=== PATIENT | female | born 1940 | race American Indian/Alaskan Native ===

== ENCOUNTER 2019-11-04 06:19 | Inpatient (IN) | payer MEDICARE ==
[2019-11-04] MEDS ORDERED: IPRATROPIUM 0.02% NEBU 2.5 ML IH ONE ×2 (06:30→06:34)
[2019-11-04] MEDS ORDERED: ALBUTEROL 2.5 MG/3 ML NEBU IH ONE ×2 (06:30→06:34)
--- NOTE | 2019-11-04 06:48 | Emergency Department Report ---
HPI - General Chief Complaint: Dyspnea/Respdistress Time Seen by Provider: 11/04/19 06:32 - HPI HPI: Room 2 The patient is an 79-year-old female present with a chief complaint of shortness of breath and chest pain. Patient states for 1 week she has had intermittent chest heaviness and shortness of breath. Patient states she has had a cough but is been nonproductive. Patient denies history of fever. Patient states she has had swelling in her lower extremities. ED Past Medical Hx - Past Medical History Previous Medical History?: Yes Hx Hypertension: Yes Hx Congestive Heart Failure: Yes Hx Diabetes: Yes Hx Asthma: Yes Hx COPD: Yes Additional medical history: AFIB - Surgical History Past Surgical History?: Yes Additional Surgical History: R knee replacement - Family History Family history: no significant - Social History Smoking Status: Former Smoker (None x20 years) Substance Use Type: None - Medications Home Medications: Home Medications Medication Instructions Recorded Confirmed Last Taken Type levoFLOXacin [Levaquin TAB] 500 mg PO QDAY #7 tablet 07/27/15 Unknown Rx predniSONE [Deltasone] 50 mg PO QDAY #3 tab 11/18/15 Unknown Rx ED Review of Systems ROS: Stated complaint: DIFF BREATHING Other details as noted in HPI Constitutional: denies: fever Eyes: denies: eye pain ENT: denies: throat pain Respiratory: cough, shortness of breath Cardiovascular: chest pain Endocrine: no symptoms reported Gastrointestinal: denies: abdominal pain Musculoskeletal: back pain Neurological: denies: headache Physical Exam - Physical Exam Vital Signs: Vital Signs 11/04/19 11/04/19 06:32 06:36 Temperature 98.8 F Pulse Rate 128 H Respiratory 26 H 26 H Rate Blood Pressure 137/79 O2 Sat by Pulse 98 Oximetry Physical Exam: GENERAL: The patient is well-developed well-nourished female sitting on stretcher exhibiting increased work of breathing. [] HEENT: Normocephalic. Atraumatic. Extraocular motions are intact. Patient has moist mucous membranes. NECK: Supple. Trachea midline CHEST/LUNGS: Diminished diffusely. There is increased work of breathing with accessory muscle use. HEART/CARDIOVASCULAR: Irregularly irregular. There is tachycardia. There is no gallop rub or murmur. ABDOMEN: Abdomen is soft, nontender. Patient has normal bowel sounds. There is no abdominal distention. SKIN: There is no rash. There is trace to 1+ bilateral lower extremity pitting edema. There is no diaphoresis. NEURO: The patient is awake, alert, and oriented. The patient is cooperative. The patient has no focal neurologic deficits. The patient has normal speech MUSCULOSKELETAL: There is no evidence of acute injury. ED Course Vital Signs 11/04/19 11/04/19 06:32 06:36 Temperature 98.8 F Pulse Rate 128 H Respiratory 26 H 26 H Rate Blood Pressure 137/79 O2 Sat by Pulse 98 Oximetry ED Medical Decision Making - Lab Data Result diagrams: 11/04/19 07:20 11/04/19 07:20 Laboratory Tests 11/04/19 11/04/19 11/04/19 07:20 07:20 07:20 WBC 8.1 RBC 2.46 L Hgb 8.1 L Hct 24.6 L MCV 100 H MCH 33 H MCHC 33 RDW 17.2 H Plt Count 170 [place] % (Auto) 14.8 H Eos % (Auto) 1.1 [place] # 1.2 H Eos # 0.1 Baso # 0.1 Seg Neutrophils % 68.7 Seg Neutrophils # 5.5 PT 21.6 H INR 1.88 H APTT 27.5 Sodium 141 Potassium 3.5 L Chloride 101.9 Carbon Dioxide 28 Anion Gap 15 BUN 44 H Creatinine 1.8 H Estimated GFR 33 BUN/Creatinine Ratio 24 Glucose 237 H Calcium 9.3 Total Bilirubin 0.30 AST 31 ALT 47 Alkaline Phosphatase 131 H Total Creatine Kinase 73 CK-MB (CK-2) 2.2 CK-MB (CK-2) Rel Index 3.0 Troponin T 0.069 H NT-Pro-B Natriuret Pep 5327 H Total Protein 5.9 L Albumin 3.0 L Albumin/Globulin Ratio 1.0 Triglycerides 74 Cholesterol 90 LDL Cholesterol Direct 38 L HDL Cholesterol 52 Cholesterol/HDL Ratio 1.73 TSH 11/04/19 07:20 WBC RBC Hgb Hct MCV MCH MCHC RDW Plt Count [place] % (Auto) Eos % (Auto) [place] # Eos # Baso # Seg Neutrophils % Seg Neutrophils # PT INR APTT Sodium Potassium Chloride Carbon Dioxide Anion Gap BUN Creatinine Estimated GFR BUN/Creatinine Ratio Glucose Calcium Total Bilirubin AST ALT Alkaline Phosphatase Total Creatine Kinase CK-MB (CK-2) CK-MB (CK-2) Rel Index Troponin T NT-Pro-B Natriuret Pep Total Protein Albumin Albumin/Globulin Ratio Triglycerides Cholesterol LDL Cholesterol Direct HDL Cholesterol Cholesterol/HDL Ratio TSH 0.909 - EKG Data -: EKG Interpreted by Me Rate: tachycardia - EKG Data When compared to previous EKG there are: previous EKG unavailable Interpretation: other (A. fib with RVR (115 bpm)) - Radiology Data Radiology results: report reviewed (Chest x-ray), image reviewed (Chest x-ray) interpreted by me: Chest x-ray-no pneumothorax Findings [facility] [address] [place] [address] XRay Report Signed Patient: TAWNYA TOMLIN MR#: [id number] : 1940 Acct:[id number] Age/Sex: 79 / F ADM Date: 11/04/19 Loc: ED Attending Dr: Ordering Physician: CELSO NEELY MD Date of Service: 11/04/19 Procedure(s): XR chest 1V ap Accession Number(s): [id number] cc: CELSO NEELY MD Fluoro Time In Minutes: CHEST 1 VIEW INDICATION: chest pain, shortness of breath. COMPARISON: Chest x-ray from 11/17/2015 FINDINGS: Support devices: None. Heart: Within normal limits. Lungs/Pleura: Mild diffuse interstitial prominence reflect mild edema. No pleural effusion. Additional findings: None. IMPRESSION: 1. Pulmonary findings as above. Signer Name: Francois Mckeon MD Signed: 11/04/2019 7:04 AM Workstation Name: [id number] Transcribed By: JW Dictated By: Francois Mckeon MD Electronically Authenticated By: Francois Mckeon MD Signed Date/Time: 11/04/19703 DD/ 1 TD/TT: Critical care attestation.: If time is entered above; I have spent that time in minutes in the direct care of this critically ill patient, excluding procedure time. ED Disposition Clinical Impression: CHF exacerbation, Chest pain, Shortness of breath, Atrial fibrillation with rapid ventricular response, Anemia, Renal insufficiency Disposition: OP ADMIT IP TO THIS HOSP Is pt being admited?: Yes Does the pt Need Aspirin: No Condition: Fair Instructions: Chest Pain (ED) Referrals: PRIMARY CAREMD [Primary Care Provider] - 3-5 Days Time of Disposition: 08:15 (Hospitalist paged)
[2019-11-04] MEDS ORDERED: dilTIAZem/D5W 100 MG/100 ML BAG IV SCH (07:00)
--- NOTE | 2019-11-04 07:09 | XRay Report ---
CHEST 1 VIEW INDICATION: chest pain, shortness of breath. COMPARISON: Chest x-ray from 11/17/2015 FINDINGS: Support devices: None. Heart: Within normal limits. Lungs/Pleura: Mild diffuse interstitial prominence reflect mild edema. No pleural effusion. Additional findings: None. IMPRESSION: 1. Pulmonary findings as above. Signer Name: Francois Mckeon MD Signed: 11/04/2019 7:04 AM Workstation Name: [id number]
[2019-11-04 07:42] LABS: Basophils # (Auto) 0.1 K/mm3 (0.0-0.1); Eosinophils # (Auto) 0.1 K/mm3 (0.0-0.4); Eosinophils % (Auto) 1.1 % (0.0-4.3); Hematocrit 24.6 % (30.3-42.9); Hemoglobin 8.1 gm/dl (10.1-14.3); Mean Corpuscular HGB Conc 33 % (30-34); Mean Corpuscular Volume 100 fl (79-97); Monocytes # (Auto) 1.2 K/mm3 (0.0-0.8); Monocytes % (Auto) 14.8 % (0.0-7.3); Platelet Count 170 K/mm3 (140-440); Red Blood Count 2.46 M/mm3 (3.65-5.03); Red Cell Distribution Width 17.2 % (13.2-15.2)
[2019-11-04 07:48] LABS: INR 1.88 (0.87-1.13); Partial Thromboplastin Time 27.5 Sec. (24.2-36.6)
[2019-11-04 07:56] LABS: Creatine Kinase MB 2.2 ng/mL (0.0-4.0)
[2019-11-04 07:59] LABS: Calcium 9.3 mg/dL (8.4-10.2)
[2019-11-04 08:10] LABS: Chol/HDL Ratio 1.73 %
[2019-11-04] MEDS ORDERED: FUROSEMIDE 40 MG/4 ML INJ IV ONE (08:13)
[2019-11-04 09:06] LABS: Free T4 (Free Thyroxine) 1.57 ng/dL (0.76-1.46)
[2019-11-04 10:01] LABS: Band Neutrophils # (Manual) 0.1 K/mm3; Eosinophils % (Manual) 0 % (0.0-4.3); Total Cells Counted 100
[2019-11-04 10:02] LABS: Anisocytosis Few; Hypochromasia Few; Platelet Estimate Consistent w Auto
[2019-11-04] MEDS ORDERED: FUROSEMIDE 40 MG/4 ML INJ ONE (10:11)
[2019-11-04] MEDS ORDERED: ONDANSETRON 4 MG/2 ML INJ IV PRN (13:42)
[2019-11-04] MEDS ORDERED: DEXTROSE 50% IN WATER (25GM) 50 ML SYRINGE IV PRN (13:42)
[2019-11-04] MEDS ORDERED: ACETAMINOPHEN 325 MG TAB PO PRN (13:42)
--- NOTE | 2019-11-04 13:42 | History and Physical Report ---
History of Present Illness Date of examination: 11/04/19 Date of admission: 11/04/19 08:18 Chief complaint: S OB History of present illness: The patient is an 79-year-old female with past medical history of hypertension, congestive heart failure, diabetes mellitus type 2, COPD/asthma and A. fib who presents with a chief complaint of shortness of breath and chest pain. Patient states for 1 week she has had intermittent chest heaviness and shortness of breath. Patient states she has had a cough but is been nonproductive. Patient denies history of fever. Patient states she has had swelling in her lower extremities. Past History Past Medical History: atrial fib, COPD, diabetes, hypertension, other (asthma) Past Surgical History: total knee replacement (Right) Social history: no significant social history Family history: no significant family history Medications and Allergies Allergies Allergy/AdvReac Type Severity Reaction Status Date / Time No Known Allergies Allergy Verified 11/17/15 22:31 Home Medications Medication Instructions Recorded Confirmed Last Taken Type levoFLOXacin [Levaquin TAB] 500 mg PO QDAY #7 tablet 07/27/15 Unknown Rx predniSONE [Deltasone] 50 mg PO QDAY #3 tab 11/18/15 Unknown Rx Active Meds: Active Medications Diltiazem HCl (Cardizem/D5w 100mg/100ml) 100 mg in 100 mls @ 5 mls/hr IV TITR ALLEGRA; Protocol Last Admin: 11/04/19 07:45 Dose: 5 mg/hr, 5 mls/hr Documented by: Review of Systems All systems: negative Exam - Constitutional Vitals: Temp Pulse Resp BP Pulse Ox 98.8 F 102 H 18 129/83 100 11/04/19 06:32 11/04/19 13:16 11/04/19 13:16 11/04/19 13:16 11/04/19 12:30 General appearance: Present: no acute distress, well-nourished - EENT Eyes: Present: PERRL ENT: hearing intact, clear oral mucosa - Neck Neck: Present: supple, normal ROM - Respiratory Respiratory effort: normal Respiratory: bilateral: CTA - Cardiovascular Heart Sounds: Present: S1 & S2. Absent: rub, click - Extremities Extremities: pulses symmetrical, No edema Peripheral Pulses: within normal limits - Abdominal General gastrointestinal: Present: soft, non-tender, non-distended, normal bowel sounds Female genitourinary: Present: normal - Integumentary Integumentary: Present: clear, warm, dry - Musculoskeletal Musculoskeletal: gait normal, strength equal bilaterally - Psychiatric Psychiatric: appropriate mood/affect, intact judgment & insight - Neurologic Neurologic: CNII-XII intact, moves all extremities HEART Score - HEART Score Troponin: Troponin T 0.069 ng/mL (0.00-0.029) H 11/04/19 07:20 Results - Labs CBC & Chem 7: 11/04/19 07:20 11/04/19 07:20 Labs: Laboratory Last Values WBC 8.1 K/mm3 (4.5-11.0) 11/04/19 07:20 RBC 2.46 M/mm3 (3.65-5.03) L 11/04/19 07:20 Hgb 8.1 gm/dl (10.1-14.3) L 11/04/19 07:20 Hct 24.6 % (30.3-42.9) L 11/04/19 07:20 MCV 100 fl (79-97) H 11/04/19 07:20 MCH 33 pg (28-32) H 11/04/19 07:20 MCHC 33 % (30-34) 11/04/19 07:20 RDW 17.2 % (13.2-15.2) H 11/04/19 07:20 Plt Count 170 K/mm3 (140-440) 11/04/19 07:20 [place] % (Auto) 14.8 % (0.0-7.3) H 11/04/19 07:20 Eos % (Auto) 1.1 % (0.0-4.3) 11/04/19 07:20 [place] # 1.2 K/mm3 (0.0-0.8) H 11/04/19 07:20 Eos # 0.1 K/mm3 (0.0-0.4) 11/04/19 07:20 Baso # 0.1 K/mm3 (0.0-0.1) 11/04/19 07:20 Add Manual Diff Complete 11/04/19 07:20 Total Counted 100 11/04/19 07:20 Seg Neutrophils % 68.7 % (40.0-70.0) 11/04/19 07:20 Seg Neuts % (Manual) 72.0 % (40.0-70.0) H 11/04/19 07:20 Band Neutrophils % 1.0 % 11/04/19 07:20 Lymphocytes % (Manual) 18.0 % (13.4-35.0) 11/04/19 07:20 Reactive Lymphs % (Man) 0 % 11/04/19 07:20 Monocytes % (Manual) 5.0 % (0.0-7.3) 11/04/19 07:20 Eosinophils % (Manual) 0 % (0.0-4.3) 11/04/19 07:20 Basophils % (Manual) 2.0 % (0.0-1.8) H 11/04/19 07:20 Metamyelocytes % 2.0 % 11/04/19 07:20 Myelocytes % 0 % 11/04/19 07:20 Promyelocytes % 0 % 11/04/19 07:20 Blast Cells % 0 % 11/04/19 07:20 Nucleated RBC % Not Reportable 11/04/19 07:20 Seg Neutrophils # 5.5 K/mm3 (1.8-7.7) 11/04/19 07:20 Seg Neutrophils # Man 5.8 K/mm3 (1.8-7.7) 11/04/19 07:20 Band Neutrophils # 0.1 K/mm3 11/04/19 07:20 Lymphocytes # (Manual) 1.5 K/mm3 (1.2-5.4) 11/04/19 07:20 Abs React Lymphs (Man) 0.0 K/mm3 11/04/19 07:20 Monocytes # (Manual) 0.4 K/mm3 (0.0-0.8) 11/04/19 07:20 Eosinophils # (Manual) 0.0 K/mm3 (0.0-0.4) 11/04/19 07:20 Basophils # (Manual) 0.2 K/mm3 (0.0-0.1) H 11/04/19 07:20 Metamyelocytes # 0.2 K/mm3 11/04/19 07:20 Myelocytes # 0.0 K/mm3 11/04/19 07:20 Promyelocytes # 0.0 K/mm3 11/04/19 07:20 Blast Cells # 0.0 K/mm3 11/04/19 07:20 WBC Morphology Not Reportable 11/04/19 07:20 Hypersegmented Neuts Not Reportable 11/04/19 07:20 Hyposegmented Neuts Not Reportable 11/04/19 07:20 Hypogranular Neuts Not Reportable 11/04/19 07:20 Smudge Cells Not Reportable 11/04/19 07:20 Toxic Granulation Not Reportable 11/04/19 07:20 Toxic Vacuolation Not Reportable 11/04/19 07:20 Dohle Bodies Not Reportable 11/04/19 07:20 Pelger-Huet Anomaly Not Reportable 11/04/19 07:20 Brian Rods Not Reportable 11/04/19 07:20 Platelet Estimate Consistent w auto 11/04/19 07:20 Clumped Platelets Not Reportable 11/04/19 07:20 Plt Clumps, EDTA Not Reportable 11/04/19 07:20 Large Platelets Not Reportable 11/04/19 07:20 Giant Platelets Not Reportable 11/04/19 07:20 Platelet Satelliting Not Reportable 11/04/19 07:20 Plt Morphology Comment Not Reportable 11/04/19 07:20 RBC Morphology Not Reportable 11/04/19 07:20 Dimorphic RBCs Not Reportable 11/04/19 07:20 Polychromasia Rare 11/04/19 07:20 Hypochromasia Few 11/04/19 07:20 Poikilocytosis Not Reportable 11/04/19 07:20 Anisocytosis Few 11/04/19 07:20 Microcytosis Not Reportable 11/04/19 07:20 Macrocytosis Not Reportable 11/04/19 07:20 Spherocytes Not Reportable 11/04/19 07:20 Pappenheimer Bodies Not Reportable 11/04/19 07:20 Sickle Cells Not Reportable 11/04/19 07:20 Target Cells Not Reportable 11/04/19 07:20 Tear Drop Cells Not Reportable 11/04/19 07:20 Ovalocytes Not Reportable 11/04/19 07:20 Helmet Cells Not Reportable 11/04/19 07:20 Baz[place]-Kings Bodies Not Reportable 11/04/19 07:20 [place] Rings Not Reportable 11/04/19 07:20 [place] Cells Not Reportable 11/04/19 07:20 Bite Cells Not Reportable 11/04/19 07:20 Crenated Cell Not Reportable 11/04/19 07:20 Elliptocytes Not Reportable 11/04/19 07:20 Acanthocytes (Spur) Not Reportable 11/04/19 07:20 Rouleaux Not Reportable 11/04/19 07:20 Hemoglobin C Crystals Not Reportable 11/04/19 07:20 Schistocytes Not Reportable 11/04/19 07:20 Malaria parasites Not Reportable 11/04/19 07:20 Tom Bodies Not Reportable 11/04/19 07:20 Hem Pathologist Commnt No 11/04/19 07:20 PT 21.6 Sec. (12.2-14.9) H 11/04/19 07:20 INR 1.88 (0.87-1.13) H 11/04/19 07:20 APTT 27.5 Sec. (24.2-36.6) 11/04/19 07:20 Sodium 141 mmol/L (137-145) 11/04/19 07:20 Potassium 3.5 mmol/L (3.6-5.0) L 11/04/19 07:20 Chloride 101.9 mmol/L (98-107) 11/04/19 07:20 Carbon Dioxide 28 mmol/L (22-30) 11/04/19 07:20 Anion Gap 15 mmol/L 11/04/19 07:20 BUN 44 mg/dL (7-17) H 11/04/19 07:20 Creatinine 1.8 mg/dL (0.7-1.2) H 11/04/19 07:20 Estimated GFR 33 ml/min 11/04/19 07:20 BUN/Creatinine Ratio 24 % 11/04/19 07:20 Glucose 237 mg/dL (65-100) H 11/04/19 07:20 Calcium 9.3 mg/dL (8.4-10.2) 11/04/19 07:20 Total Bilirubin 0.30 mg/dL (0.1-1.2) 11/04/19 07:20 AST 31 units/L (5-40) 11/04/19 07:20 ALT 47 units/L (7-56) 11/04/19 07:20 Alkaline Phosphatase 131 units/L (35-129) H 11/04/19 07:20 Total Creatine Kinase 73 units/L (30-135) 11/04/19 07:20 CK-MB (CK-2) 2.2 ng/mL (0.0-4.0) 11/04/19 07:20 CK-MB (CK-2) Rel Index 3.0 (0-4) 11/04/19 07:20 Troponin T 0.069 ng/mL (0.00-0.029) H 11/04/19 07:20 NT-Pro-B Natriuret Pep 5327 pg/mL (0-900) H 11/04/19 07:20 Total Protein 5.9 g/dL (6.3-8.2) L 11/04/19 07:20 Albumin 3.0 g/dL (3.9-5) L 11/04/19 07:20 Albumin/Globulin Ratio 1.0 % 11/04/19 07:20 Triglycerides 74 mg/dL (2-149) 11/04/19 07:20 Cholesterol 90 mg/dL (50-199) 11/04/19 07:20 LDL Cholesterol Direct 38 mg/dL (50-130) L 11/04/19 07:20 HDL Cholesterol 52 mg/dL (40-59) 11/04/19 07:20 Cholesterol/HDL Ratio 1.73 % 11/04/19 07:20 TSH 0.909 mlU/mL (0.270-4.200) 11/04/19 07:20 Free T4 1.57 ng/dL (0.76-1.46) H 11/04/19 07:20 Assessment and Plan Assessment and plan: Acute CHF exacerbation. Etiology is unknown whether systolic versus diastolic. Obtain echocardiogram for further evaluation. BNP 5327 and chest x-ray reveals mild diffuse interstitial prominence reflecting edema. Cardiology consultation pending. Acute COPD exacerbation. Patient will be treated with IV steroids, bronchodilators/nebulizer treatments. Acute hypoxic respiratory failure. Etiology secondary to above. Diabetes mellitus type 2. Continue Accu-Cheks and sliding scale insulin. History of atrial fibrillation. Patient appears to be on no anticoagulation or rate control meds. Monitor on telemetry
--- NOTE | 2019-11-04 14:58 | Consultation ---
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 She is followed by [facility]. She presented with c/o progressively worsening SOB and BLE edema for the past several weeks. She is on BiPAP on evaluation and thus HPI is limited. She denies any chest pain, palpitations, n/v, diaphoresis, dizziness or syncope. Following arrival, CXR c/w HF, pro-BNP elevated, and pt was noted to be in AFib with RVR HR 120s and was initiated on cardizem gtt. Echo done 01/2019 showed EF 65%, sclerotic AV, mild LVH, impaired relaxation, RVSP 31.5mmHg. Past History Past Medical History: atrial fib, COPD, diabetes, hypertension, hyperlipidemia, other (as per HPI) Past Surgical History: total knee replacement (Right) Social history: no significant social history Family history: no significant family history Medications and Allergies Allergies Allergy/AdvReac Type Severity Reaction Status Date / Time No Known Allergies Allergy Verified 11/17/15 22:31 Home Medications Medication Instructions Recorded Confirmed Last Taken Type levoFLOXacin [Levaquin TAB] 500 mg PO QDAY #7 tablet 07/27/15 Unknown Rx predniSONE [Deltasone] 50 mg PO QDAY #3 tab 11/18/15 Unknown Rx Active Meds: Active Medications Acetaminophen (Tylenol) 650 mg PO Q4H PRN PRN Reason: Pain MILD(1-3)/Fever >100.5/IRBY Dextrose (D50w (25gm) Syringe) 50 ml IV Q30MIN PRN; Protocol PRN Reason: Hypoglycemia Enoxaparin Sodium (Enoxaparin) 40 mg SUB-Q QDAY ALLEGRA Furosemide (Lasix) 40 mg IV QDAY ALLEGRA Diltiazem HCl (Cardizem/D5w 100mg/100ml) 100 mg in 100 mls @ 5 mls/hr IV TITR ALLEGRA; Protocol Last Admin: 11/04/19 07:45 Dose: 5 mg/hr, 5 mls/hr Documented by: Insulin Human Regular (Humulin R) 0 units SUB-Q ACHS [facility]; Protocol Ondansetron HCl (Zofran) 4 mg IV Q8H PRN PRN Reason: Nausea And Vomiting Sodium Chloride (Sodium Chloride Flush Syringe 10 Ml) 10 ml IV BID ALLEGRA Sodium Chloride (Sodium Chloride Flush Syringe 10 Ml) 10 ml IV PRN PRN PRN Reason: LINE FLUSH Sodium Chloride (Sodium Chloride Flush Syringe 10 Ml) 10 ml IV PRN PRN PRN Reason: LINE FLUSH Review of Systems Constitutional: no weight loss, no weight gain, no fever, no chills, no sweats Ears, nose, mouth and throat: no ear pain, no nose pain, no sinus pressure, no sinus pain Cardiovascular: orthopnea, edema, shortness of breath, dyspnea on exertion, high blood pressure, leg edema, no chest pain, no palpitations, no rapid/irregular heart beat, no syncope, no lightheadedness Respiratory: shortness of breath, dyspnea on exertion, no cough, no congestion, no wheezing, no pain on inspiration Gastrointestinal: no abdominal pain, no nausea, no vomiting, no diarrhea, no constipation, no change in bowel habits Genitourinary Female: no pelvic pain, no flank pain, no dysuria, no urinary frequency, no urgency Musculoskeletal: no neck stiffness, no neck pain, no shooting arm pain, no arm numbness/tingling, no low back pain, no shooting leg pain Integumentary: no rash, no pruritis, no redness, no sores, no wounds Neurological: no head injury, no paralysis, no weakness, no parathesias, no numbness, no tingling, no seizures, no syncope Psychiatric: no anxiety Endocrine: no cold intolerance, no heat intolerance Hematologic/Lymphatic: no easy bruising, no easy bleeding Allergic/Immunologic: no urticaria Physical Examination Vital Signs Pulse Resp 136 H 42 H 11/04/19 06:30 11/04/19 06:30 General appearance: other (SOB, on BiPAP) HEENT: Positive: PERRL, Normocephaly, Mucus Membranes Moist Neck: Positive: neck supple, trachea midline Cardiac: Positive: irregularly irregular, S1/S2 Lungs: Positive: Decreased Breath Sounds, Oxygen Neuro: Positive: Grossly Intact Abdomen: Negative: Tender Skin: Negative: Rash Musculoskeletal: No Pain Extremities: Present: edema (trace BLE) Results 11/04/19 07:20 11/04/19 07:20 Cardiac Enzymes 11/04/19 Range/Units 07:20 AST 31 (5-40) units/L CK-MB (CK-2) 2.2 (0.0-4.0) ng/mL Coagulation 11/04/19 Range/Units 07:20 PT 21.6 H (12.2-14.9) Sec. INR 1.88 H (0.87-1.13) APTT 27.5 (24.2-36.6) Sec. Lipids 11/04/19 Range/Units 07:20 Triglycerides 74 (2-149) mg/dL Cholesterol 90 (50-199) mg/dL HDL Cholesterol 52 (40-59) mg/dL Cholesterol/HDL Ratio 1.73 % CBC 11/04/19 Range/Units 07:20 WBC 8.1 (4.5-11.0) K/mm3 RBC 2.46 L (3.65-5.03) M/mm3 Hgb 8.1 L (10.1-14.3) gm/dl Hct 24.6 L (30.3-42.9) % Plt Count 170 (140-440) K/mm3 [place] # 1.2 H (0.0-0.8) K/mm3 Eos # 0.1 (0.0-0.4) K/mm3 Baso # 0.1 (0.0-0.1) K/mm3 Comprehensive Metabolic Panel 11/04/19 Range/Units 07:20 Sodium 141 (137-145) mmol/L Potassium 3.5 L (3.6-5.0) mmol/L Chloride 101.9 (98-107) mmol/L Carbon Dioxide 28 (22-30) mmol/L BUN 44 H (7-17) mg/dL Creatinine 1.8 H (0.7-1.2) mg/dL Glucose 237 H (65-100) mg/dL Calcium 9.3 (8.4-10.2) mg/dL AST 31 (5-40) units/L ALT 47 (7-56) units/L Alkaline Phosphatase 131 H (35-129) units/L Total Protein 5.9 L (6.3-8.2) g/dL Albumin 3.0 L (3.9-5) g/dL - Imaging and Cardiology Echo: report reviewed ( 01/2019 showed EF 65%, sclerotic AV, mild LVH, impaired relaxation, RVSP 31.5mmHg. ) EKG: report reviewed, image reviewed EKG interpretations - Telemetry EKG Rhythm: Atrial Fibrillation - EKG Supraventricular dysrhythmia: atrial fibrillation Assessment and Plan Pt is noted to be in AFib with CVR on evaluation, cardizem gtt held. D/c cardizem gtt and initiate lopressor TID and titrate as tolerated. Resume home Eliquis at low dose in setting of age and renal insufficiency - monitor CBC. Agree with gentle diuresis with IV lasix - monitor renal indices. Obtain echo. Recommend pulmonary consultation in setting of A/C respiratory failure and COPD with ? exac. Further recs to follow per hospital course. The patient has been seen in conjunction with Dr. Hamilton who agrees with the assessment and plan of care. - Patient Problems (1) Acute heart failure with preserved ejection fraction (HFpEF) Current Visit: Yes Status: Acute (2) Acute on chronic respiratory failure Current Visit: Yes Status: Acute (3) Atrial fibrillation with rapid ventricular response Current Visit: Yes Status: Acute Plan to address problem: paroxysmal (4) COPD (chronic obstructive pulmonary disease) Current Visit: Yes Status: Chronic (5) Diabetes mellitus with hyperglycemia Current Visit: Yes Status: Acute (6) HTN (hypertension) Current Visit: Yes Status: Chronic (7) Hyperlipidemia Current Visit: Yes Status: Chronic (8) History of CVA (cerebrovascular accident) Current Visit: Yes Status: Chronic (9) History of pulmonary embolism Current Visit: Yes Status: Chronic (10) LUIS FERNANDO (acute kidney injury) Current Visit: Yes Status: Acute (11) Anemia Current Visit: Yes Status: Acute
[2019-11-04] MEDS: INSULIN REGULAR, HUMAN 100 UNITS/1 ML SUB-Q SCH ×2 (15:30→22:23)
[2019-11-04] MEDS: METOPROLOL TARTRATE 25 MG TAB PO SCH ×2 (15:30→22:21)
[2019-11-04] MEDS ORDERED: METOPROLOL TARTRATE 25 MG TAB ONE (15:36)
[2019-11-04 16:07] LABS: Hematocrit 26.3 % (30.3-42.9); Hemoglobin 8.5 gm/dl (10.1-14.3); Mean Corpuscular HGB Conc 33 % (30-34); Mean Corpuscular Volume 100 fl (79-97); Platelet Count 203 K/mm3 (140-440); Red Blood Count 2.63 M/mm3 (3.65-5.03); Red Cell Distribution Width 17.7 % (13.2-15.2)
[2019-11-04 16:16] LABS: Calcium 9.4 mg/dL (8.4-10.2)
[2019-11-04 16:49] LABS: Total Cells Counted 100
[2019-11-04 16:50] LABS: Anisocytosis Few; Hypochromasia 1+
[2019-11-04] MEDS: APIXABAN 2.5 MG TAB PO SCH (22:21)
[2019-11-05 04:51] LABS: Basophils % (Auto) 0.4 % (0.0-1.8); Eosinophils # (Auto) 0.1 K/mm3 (0.0-0.4); Eosinophils % (Auto) 1.4 % (0.0-4.3); Hematocrit 24.8 % (30.3-42.9); Hemoglobin 8.1 gm/dl (10.1-14.3); Lymphocytes # (Auto) 1.2 K/mm3 (1.2-5.4); Lymphocytes % (Auto) 18.6 % (13.4-35.0); Mean Corpuscular HGB Conc 33 % (30-34); Mean Corpuscular Volume 101 fl (79-97); Monocytes # (Auto) 0.8 K/mm3 (0.0-0.8); Monocytes % (Auto) 13.1 % (0.0-7.3); Platelet Count 166 K/mm3 (140-440); Red Blood Count 2.46 M/mm3 (3.65-5.03); Red Cell Distribution Width 17.4 % (13.2-15.2)
[2019-11-05] MEDS ORDERED: ALBUTEROL 2.5 MG/3 ML NEBU IH PRN ×2 (09:54→14:12)
--- NOTE | 2019-11-05 09:55 | Progress Note ---
Assessment and Plan Assessment and plan: Acute HFrEF. On admission, BNP 5327 and chest x-ray revealed mild diffuse interstitial prominence reflecting edema. Cardiology following Acute COPD exacerbation. Continue IV steroids, bronchodilators/nebulizer treatments. A. fib with RVR Acute hypoxic respiratory failure. Etiology secondary to above. Diabetes mellitus type 2. Continue Accu-Cheks and sliding scale insulin. 11/05/2019. Cardiology discontinued Cardizem drip and initiated Lopressor 3 times daily. Eliquis resumed for anticoagulation. Continue GDMT with gentle diuresis. Echocardiogram pending. Pulmonary consulted for acute on chronic respiratory failure from COPD exacerbation. Solu-Medrol 40 mg IV every 8 hours and nebulizer treatments. History Interval history: No new issues overnight. Hospitalist Physical - Constitutional Vitals: Temp Pulse Resp BP Pulse Ox 97.9 F 65 20 136/70 98 11/05/19 06:18 11/05/19 06:18 11/05/19 06:18 11/05/19 06:18 11/05/19 08:44 General appearance: Present: other (SOB, on BiPAP) - EENT Eyes: Present: PERRL, EOM intact ENT: hearing intact, clear oral mucosa, dentition normal - Neck Neck: Present: supple, normal ROM - Respiratory Respiratory effort: normal Respiratory: bilateral: CTA - Cardiovascular Rhythm: regular Heart Sounds: Present: S1 & S2. Absent: gallop, rub - Extremities Extremities: no ischemia, No edema, Full ROM - Abdominal General gastrointestinal: soft, non-tender, non-distended, normal bowel sounds - Integumentary Integumentary: Present: clear, warm, dry - Neurologic Neurologic: CNII-XII intact, moves all extremities HEART Score - HEART Score Troponin: Troponin T 0.069 ng/mL (0.00-0.029) H 11/04/19 07:20 Results - Labs CBC & Chem 7: 11/05/19 04:01 11/05/19 04:01 Labs: Laboratory Last Values WBC 6.5 K/mm3 (4.5-11.0) 11/05/19 04:01 RBC 2.46 M/mm3 (3.65-5.03) L 11/05/19 04:01 Hgb 8.1 gm/dl (10.1-14.3) L 11/05/19 04:01 Hct 24.8 % (30.3-42.9) L 11/05/19 04:01 MCV 101 fl (79-97) H 11/05/19 04:01 MCH 33 pg (28-32) H 11/05/19 04:01 MCHC 33 % (30-34) 11/05/19 04:01 RDW 17.4 % (13.2-15.2) H 11/05/19 04:01 Plt Count 166 K/mm3 (140-440) 11/05/19 04:01 Lymph % (Auto) 18.6 % (13.4-35.0) 11/05/19 04:01 [place] % (Auto) 13.1 % (0.0-7.3) H 11/05/19 04:01 Eos % (Auto) 1.4 % (0.0-4.3) 11/05/19 04:01 Baso % (Auto) 0.4 % (0.0-1.8) 11/05/19 04:01 Lymph # 1.2 K/mm3 (1.2-5.4) 11/05/19 04:01 [place] # 0.8 K/mm3 (0.0-0.8) 11/05/19 04:01 Eos # 0.1 K/mm3 (0.0-0.4) 11/05/19 04:01 Baso # 0.0 K/mm3 (0.0-0.1) 11/05/19 04:01 Add Manual Diff Complete 11/04/19 15:29 Total Counted 100 11/04/19 15:29 Seg Neutrophils % 66.5 % (40.0-70.0) 11/05/19 04:01 Seg Neuts % (Manual) 55.0 % (40.0-70.0) 11/04/19 15:29 Band Neutrophils % 0 % 11/04/19 15:29 Lymphocytes % (Manual) 26.0 % (13.4-35.0) 11/04/19 15:29 Reactive Lymphs % (Man) 0 % 11/04/19 15:29 Monocytes % (Manual) 16.0 % (0.0-7.3) H 11/04/19 15:29 Eosinophils % (Manual) 2.0 % (0.0-4.3) 11/04/19 15: Basophils % (Manual) 1.0 % (0.0-1.8) 11/04/19 15: Metamyelocytes % 0 % 11/04/19 15: Myelocytes % 0 % 11/04/19 15: Promyelocytes % 0 % 11/04/19 15: Blast Cells % 0 % 11/04/19 15: Nucleated RBC % Not Reportable 11/04/19 15: Seg Neutrophils # 4.3 K/mm3 (1.8-7.7) 11/05/19 04:01 Seg Neutrophils # Man 3.9 K/mm3 (1.8-7.7) 11/04/19: Band Neutrophils # 0.0 K/mm3 11/04/19: Lymphocytes # (Manual) 1.8 K/mm3 (1.2-5.4) 11/04/19 15: Abs React Lymphs (Man) 0.0 K/mm3 11/04/19: Monocytes # (Manual) 1.1 K/mm3 (0.0-0.8) H 11/04/19: Eosinophils # (Manual) 0.1 K/mm3 (0.0-0.4) 11/04/19: Basophils # (Manual) 0.1 K/mm3 (0.0-0.1) 11/04/19: Metamyelocytes # 0.0 K/mm3 11/04/19: Myelocytes # 0.0 K/mm3 11/04/19: Promyelocytes # 0.0 K/mm3 11/04/19: Blast Cells # 0.0 K/mm3 11/04/19: WBC Morphology Not Reportable 11/04/19: Hypersegmented Neuts Not Reportable 11/04/19: Hyposegmented Neuts Not Reportable 11/04/19: Hypogranular Neuts Not Reportable 11/04/19: Smudge Cells Not Reportable 11/04/19: Toxic Granulation Not Reportable 11/04/19 15: Toxic Vacuolation Not Reportable 11/04/19: Dohle Bodies Not Reportable 11/04/19: Pelger-Huet Anomaly Not Reportable 11/04/19 15:29 Brian Rods Not Reportable 11/04/19 15:29 Platelet Estimate Not Reportable 11/04/19 15:29 Clumped Platelets Not Reportable 11/04/19 15:29 Plt Clumps, EDTA Not Reportable 11/04/19 15: Large Platelets Not Reportable 11/04/19 15: Giant Platelets Not Reportable 11/04/19 15:29 Platelet Satelliting Not Reportable 11/04/19 15:29 Plt Morphology Comment Not Reportable 11/04/19 15:29 RBC Morphology Not Reportable 11/04/19 15:29 Dimorphic RBCs Not Reportable 11/04/19 15:29 Polychromasia Rare 11/04/19 15:29 Hypochromasia 1+ 11/04/19 15:29 Poikilocytosis Not Reportable 11/04/19 15:29 Anisocytosis Few 11/04/19 15:29 Microcytosis Not Reportable 11/04/19 15:29 Macrocytosis Not Reportable 11/04/19 15:29 Spherocytes Not Reportable 11/04/19 15:29 Pappenheimer Bodies Not Reportable 11/04/19 15:29 Sickle Cells Not Reportable 11/04/19 15:29 Target Cells Not Reportable 11/04/19 15:29 Tear Drop Cells Not Reportable 11/04/19 15:29 Ovalocytes Not Reportable 11/04/19 15:29 Helmet Cells Not Reportable 11/04/19 15:29 Bazan-[place] Bodies Not Reportable 11/04/19 15:29 [place] Rings Not Reportable 11/04/19 15:29 Lawrence Cells Not Reportable 11/04/19 15:29 Bite Cells Not Reportable 11/04/19 15:29 Crenated Cell Not Reportable 11/04/19 15:29 Elliptocytes Not Reportable 11/04/19 15:29 Acanthocytes (Spur) Not Reportable 11/04/19 15:29 Rouleaux Not Reportable 11/04/19 15:29 Hemoglobin C Crystals Not Reportable 11/04/19 15:29 Schistocytes Not Reportable 11/04/19 15:29 Malaria parasites Not Reportable 11/04/19 15:29 Tom Bodies Not Reportable 11/04/19 15:29 Hem Pathologist Commnt No 11/04/19 15:29 PT 21.6 Sec. (12.2-14.9) H 11/04/19 07:20 INR 1.88 (0.87-1.13) H 11/04/19 07:20 APTT 27.5 Sec. (24.2-36.6) 11/04/19 07:20 Sodium 144 mmol/L (137-145) 11/05/19 04:01 Potassium 3.1 mmol/L (3.6-5.0) L 11/05/19 04:01 Chloride 103.8 mmol/L (98-107) 11/05/19 04:01 Carbon Dioxide 29 mmol/L (22-30) 11/05/19 04:01 Anion Gap 14 mmol/L 11/05/19 04:01 BUN 38 mg/dL (7-17) H 11/05/19 04:01 Creatinine 1.6 mg/dL (0.7-1.2) H 11/05/19 04:01 Estimated GFR 38 ml/min 11/05/19 04:01 BUN/Creatinine Ratio 24 % 11/05/19 04:01 Glucose 197 mg/dL (65-100) H 11/05/19 04:01 Hemoglobin A1c 7.8 % (4-6) H 11/04/19 15:29 Calcium 9.0 mg/dL (8.4-10.2) 11/05/19 04:01 Total Bilirubin 0.30 mg/dL (0.1-1.2) 11/04/19 07:20 AST 31 units/L (5-40) 11/04/19 07:20 ALT 47 units/L (7-56) 11/04/19 07:20 Alkaline Phosphatase 131 units/L (35-129) H 11/04/19 07:20 Total Creatine Kinase 73 units/L (30-135) 11/04/19 07:20 CK-MB (CK-2) 2.2 ng/mL (0.0-4.0) 11/04/19 07: CK-MB (CK-2) Rel Index 3.0 (0-4) 11/04/19 07:20 Troponin T 0.069 ng/mL (0.00-0.029) H 05/15/20 07:20 NT-Pro-B Natriuret Pep 5327 pg/mL (0-900) H 11/04/19 07:20 Total Protein 5.9 g/dL (6.3-8.2) L 11/04/19 07:20 Albumin 3.0 g/dL (3.9-5) L 11/04/19 07:20 Albumin/Globulin Ratio 1.0 % 11/04/19 07:20 Triglycerides 74 mg/dL (2-149) 11/04/19 07:20 Cholesterol 90 mg/dL (50-199) 11/04/19 07:20 LDL Cholesterol Direct 38 mg/dL (50-130) L 11/04/19 07:20 HDL Cholesterol 52 mg/dL (40-59) 11/04/19 07:20 Cholesterol/HDL Ratio 1.73 % 11/04/19 07:20 TSH 0.909 mlU/mL (0.270-4.200) 11/04/19 07:20 Free T4 1.57 ng/dL (0.76-1.46) H 11/04/19 07:20 - Diagnostic Impressions Diagnostic Impressions: Echocardiogram 11/04/19 13:46 Transthoracic Echocardiogram Indication: SOB BP: 129/83 HR: 78 Conclusions *Patient in atrial fibrillation. *The left ventricular chamber size is normal. *Global left ventricular wall motion and contractility are within normal limits. *The estimated ejection fraction is 50-55%. *Abnormal left ventricular diastolic filling is observed, consistent with impaired relaxation. *The left atrial chamber size is normal. *The right ventricular global systolic function is normal. *There is mild to moderate tricuspid regurgitation. *The right ventricular systolic pressure is calculated at 39 mmHg. Findings Left Ventricle: The left ventricular chamber size is normal. Global left ventricular wall motion and contractility are within normal limits. Global left ventricular systolic function is normal. The estimated ejection fraction is 50-55%. Abnormal left ventricular diastolic filling is observed, consistent with impaired relaxation. Left Atrium: The left atrial chamber size is normal. Right Ventricle: The right ventricular cavity size is normal.. The right ventricular global systolic function is normal. Right Atrium: The right atrial cavity size is normal. Aortic Valve: The aortic valve structure is normal. There is no evidence of aortic regurgitation. Mitral Valve: The mitral valve leaflets are mildly thickened. There is mild mitral regurgitation. Tricuspid Valve: The tricuspid valve leaflets are normal. There is mild to moderate tricuspid regurgitation. The right ventricular systolic pressure is calculated at 39 mmHg. Pulmonic Valve: The pulmonic valve appears normal. There is trace pulmonic regurgitation. Pericardium: There is no pericardial effusion. Venous: The inferior vena cava appears normal. Measurements Chambers 2D Name Value Normal Range IVSd (2D) 0.97 cm (0.6 - 1.1) LVPWd (2D) 1.04 cm (0.6 - 1.1) LVIDd (2D) 4.01 cm (3.7 - 5.6) LVIDs (2D) 2.72 cm (2 - 3.8) LV FS (2D) 32.13 % - EF Teichholz (2D) 60.87 % - Ao root diameter (2D) 2.6 cm (2 - 3.7) Volumes/Mass Name Value Normal Range LA ESV SP 4CH (A/L) 29.14 ml - LA ESV SP 2CH (A/L) 40.45 ml - LA ESV BP (A/L) 36.37 ml - LA ESV BP (A/L) index 16.53 ml/m2 - LA ESV SP 4CH (MOD) 27.78 ml - LA ESV SP 2CH (MOD) 39.47 ml - LA ESV BP (MOD) 35.05 ml - LA ESV BP (MOD) index 15.93 ml/m2 - Aortic Valve Name Value Normal Range AV Vmax 1.4 m/sec - AV VTI 25.89 cm - AV peak gradient 7.86 mmHg - AV mean gradient 3.9 mmHg - LVOT diameter 2.02 cm - LVOT Vmax 0.84 m/sec - LVOT VTI 18.45 cm - LVOT peak gradient 2.84 mmHg - LVOT mean gradient 1.82 mmHg - SV LVOT 59.05 ml - LIBIA (continuity Vmax) 1.93 cm2 - LIBIA (continuity VTI) 2.28 cm2 - Mitral Valve Name Value Normal Range MR Vmax 3.78 m/sec - Tricuspid Valve Name Value Normal Range TR Vmax 2.99 m/sec - TR peak gradient 36 mmHg - RAP 3 mmHg - RVSP 39 mmHg - Pulmonic Valve/Qp:Qs Name Value Normal Range PV Vmax 0.95 m/sec - PV peak gradient 3.59 mmHg - IL end-diastolic Vmax 1.09 m/sec - Armendariz/IV: Voiding Method External Female Catheter IV Catheter Type [Right Peripheral IV Antecubital] Active Medications - Current Medications Current Medications: Generic Name Dose Route Start Last Admin Trade Name Freq PRN Reason Stop Dose Admin Acetaminophen 650 mg 11/04/19 13:42 Tylenol PO Q4H PRN Pain MILD(1-3)/Fever >100.5/IRBY Apixaban 2.5 mg 11/04/19 22:00 11/04/19 22:21 Eliquis PO 2.5 mg Q12HR ALLEGRA Administration Protocol Atorvastatin Calcium 40 mg 11/04/19 22:00 11/04/19 22:21 Lipitor PO 40 mg QHS ALLEGRA Administration Dextrose 50 ml 11/04/19 13:42 D50w (25gm) Syringe IV Q30MIN PRN Hypoglycemia Protocol Furosemide 40 mg 11/05/19 10:00 Lasix IV QDAY ALLEGRA Insulin Human Regular 0 units 11/04/19 16:30 11/04/19 22:23 Humulin R SUB-Q Not Given ACHS ALLEGRA Protocol Metoprolol Tartrate 25 mg 11/04/19 15:04 11/04/19 22:21 Metoprolol PO 25 mg TID ALLEGRA Administration Ondansetron HCl 4 mg 11/04/19 13:42 Zofran IV Q8H PRN Nausea And Vomiting Sodium Chloride 10 ml 11/04/19 22:00 11/04/19 22:23 Sodium Chloride Flush Syringe 10 Ml IV 10 ml BID ALLEGRA Administration Sodium Chloride 10 ml 11/04/19 13:42 Sodium Chloride Flush Syringe 10 Ml IV PRN PRN LINE FLUSH Sodium Chloride 10 ml 11/04/19 13:42 Sodium Chloride Flush Syringe 10 Ml IV PRN PRN LINE FLUSH
[2019-11-05] MEDS ORDERED: ENOXAPARIN 40 MG/0.4 ML INJ SUB-Q SCH (10:00)
[2019-11-05] MEDS ORDERED: FUROSEMIDE 40 MG/4 ML INJ IV SCH (10:00)
--- NOTE | 2019-11-05 10:54 | Progress Note ---
Assessment and Plan swelling is better , change to po lasix and change to lopressor 50mg bid, - Patient Problems (1) Acute heart failure with preserved ejection fraction (HFpEF) Current Visit: Yes Status: Acute (2) Acute on chronic respiratory failure Current Visit: Yes Status: Acute (3) Acute respiratory failure Current Visit: Yes Status: Acute (4) Atrial fibrillation with rapid ventricular response Current Visit: Yes Status: Acute (5) Diabetes mellitus with hyperglycemia Current Visit: Yes Status: Acute (6) Renal insufficiency Current Visit: Yes Status: Acute (7) History of CVA (cerebrovascular accident) Current Visit: Yes Status: Chronic (8) History of pulmonary embolism Current Visit: Yes Status: Chronic (9) Hyperlipidemia Current Visit: Yes Status: Chronic (10) COPD exacerbation Current Visit: No Status: Acute Subjective Date of service: 11/05/19 Principal diagnosis: sob Interval history: pt sob is better Objective Vital Signs Temp Pulse Resp BP Pulse Ox 11/05/19 08:44 98 11/05/19 08:14 98.4 F 78 19 121/55 100 11/05/19 06:18 97.9 F 65 20 136/70 91 11/05/19 02:49 88 11/04/19 23:32 98.6 F 83 20 120/67 93 11/04/19 22:29 71 21 99 11/04/19 22:21 78 138/61 11/04/19 20:56 98.2 F 78 24 138/61 98 11/04/19 18:30 81 20 122/71 11/04/19 18:20 72 20 131/71 100 11/04/19 18:15 71 20 131/71 92 11/04/19 18:06 76 21 118/57 100 11/04/19 18:00 83 20 118/57 11/04/19 17:45 75 20 126/68 11/04/19 17:30 77 18 122/67 11/04/19 17:16 83 15 109/83 11/04/19 17:00 89 20 130/50 11/04/19 16:46 85 20 116/71 11/04/19 16:30 101 H 20 125/72 100 11/04/19 16:16 100 H 20 134/47 100 11/04/19 16:00 98 H 28 H 118/76 11/04/19 15:45 100 H 14 119/91 11/04/19 15:30 97 H 16 127/61 99 11/04/19 15:15 80 16 123/65 100 11/04/19 15:00 93 H 14 125/70 100 11/04/19 14:46 87 18 144/94 100 11/04/19 14:30 93 H 20 137/61 100 11/04/19 14:15 81 20 115/58 11/04/19 14:00 80 20 125/42 11/04/19 13:46 80 20 122/85 100 11/04/19 13:30 102 H 20 129/83 11/04/19 13:16 102 H 18 129/83 11/04/19 13:00 94 H 19 129/72 11/04/19 12:45 92 H 19 118/61 11/04/19 12:30 79 20 116/44 100 11/04/19 12:16 89 20 118/77 11/04/19 12:00 94 H 19 112/68 11/04/19 11:46 91 H 17 122/61 100 11/04/19 11:30 92 H 20 115/67 11/04/19 11:15 86 22 94/44 90 11/04/19 11:00 92 H 22 110/57 - Physical Examination HEENT: Positive: PERRL, Normocephaly, Mucus Membranes Moist Neck: Positive: neck supple, trachea midline Cardiac: Positive: Irregularly Regular Lungs: Positive: clear to auscultation Neuro: Positive: Grossly Intact Abdomen: Negative: Tender Skin: Negative: Rash Musculoskeletal: No Pain Extremities: Absent: edema (trace) - Labs and Meds CBC 11/04/19 11/05/19 Range/Units 15:29 04:01 WBC 7.0 6.5 (4.5-11.0) K/mm3 RBC 2.63 L 2.46 L (3.65-5.03) M/mm3 Hgb 8.5 L 8.1 L (10.1-14.3) gm/dl Hct 26.3 L 24.8 L (30.3-42.9) % Plt Count 203 166 (140-440) K/mm3 Lymph # Pilot Captain 1.2 [place] # Pilot Captain 0.8 Eos # Pilot Captain 0.1 Baso # Pilot Captain 0.0 Comprehensive Metabolic Panel 11/04/19 11/05/19 Range/Units 15:29 04:01 Sodium 142 144 (137-145) mmol/L Potassium 3.8 3.1 L (3.6-5.0) mmol/L Chloride 102.1 103.8 (98-107) mmol/L Carbon Dioxide 29 29 (22-30) mmol/L BUN 43 H 38 H (7-17) mg/dL Creatinine 1.7 H 1.6 H (0.7-1.2) mg/dL Glucose 172 H 197 H (65-100) mg/dL Calcium 9.4 9.0 (8.4-10.2) mg/dL - Imaging and Cardiology EKG: report reviewed, image reviewed Echo: report reviewed ( 01/2019 showed EF 65%, sclerotic AV, mild LVH, impaired relaxation, RVSP 31.5mmHg. ), other (normal lv function mild rvsp) - Telemetry EKG Rhythm: Atrial Fibrillation (in 90's)
[2019-11-05] MEDS: APIXABAN 2.5 MG TAB PO SCH ×2 (10:59→22:31)
[2019-11-05] MEDS: INSULIN REGULAR, HUMAN 100 UNITS/1 ML SUB-Q SCH ×4 (10:59→22:29)
[2019-11-05] MEDS: METOPROLOL TARTRATE 25 MG TAB PO SCH ×3 (10:59→22:31)
--- NOTE | 2019-11-05 11:28 | Consultation ---
History of Present Illness Reason for consult: dyspnea, COPD History of present illness: This is a patient with a known history of copd on home o2 at 3lpm who comes in with sob.She was found to have copd exacerbation with HF. Presently she is feeling better. Still short of breath but feels better. She reports a cough productive of yellow sputum . No reports of hemoptysis. She reports that she is usually compliant w m eds Past History Past Medical History: atrial fib, COPD, diabetes, HIV/AIDS, hypertension, hyperlipidemia, other (as per HPI) Past Surgical History: total knee replacement (Right) Social history: no significant social history, smoking (smoked less than 1 ppd quit 20 years ago) Family history: no significant family history Medications and Allergies Allergies Allergy/AdvReac Type Severity Reaction Status Date / Time No Known Allergies Allergy Verified 11/17/15 22:31 Home Medications Medication Instructions Recorded Confirmed Last Taken Type Apixaban [Eliquis] 5 mg PO BID 11/04/19 11/04/19 Unknown History AtorvaSTATin [Lipitor] 40 mg PO QHS 11/04/19 11/04/19 Unknown History Ferrous Sulfate [Ferrous Sulfate 324 mg PO QAM 11/04/19 11/04/19 Unknown History 324 MG] Fluticasone/Salmeterol [Advair 1 puff IH BID 11/04/19 11/04/19 Unknown History Diskus 250-50 mcg] HYDROcodone/APAP 5-325 [[place] 1 each PO Q6HR PRN 11/04/19 11/04/19 Unknown History 5/325] Linaclotide [Linzess] 290 mcg PO QDAY 11/04/19 11/04/19 Unknown History Montelukast [Singulair] 10 mg PO QPM 11/04/19 11/04/19 Unknown History NIFEdipine [Procardia Xl] 60 mg PO QDAY 11/04/19 11/04/19 Unknown History Sitagliptin Phosphate [Januvia] 50 mg PO QDAY 11/04/19 11/04/19 Unknown History Torsemide [Demadex] 100 mg PO QDAY 11/04/19 11/04/19 Unknown History Umeclidinium [place] [Incruse 62.5 mcg IH QDAY 11/04/19 11/04/19 Unknown History Ellipta 62.5MCG] Valsartan [Diovan] 160 mg PO QDAY 11/04/19 11/04/19 Unknown History Zolpidem [Ambien] 5 mg PO QHS PRN 11/04/19 11/04/19 Unknown History glipiZIDE [Glucotrol] 5 mg PO QDAY 11/04/19 11/04/19 Unknown History predniSONE [Deltasone] 10 mg PO QDAY 11/04/19 11/04/19 Unknown History traZODone [Desyrel] 50 mg PO QHS 11/04/19 11/04/19 Unknown History Active Meds: Active Medications Acetaminophen (Tylenol) 650 mg PO Q4H PRN PRN Reason: Pain MILD(1-3)/Fever >100.5/IRBY Albuterol (Proventil) 2.5 mg IH Q4HRT PRN PRN Reason: Shortness Of Breath Apixaban (Eliquis) 2.5 mg PO Q12HR [facility]; Protocol Last Admin: 11/05/19 10:59 Dose: 2.5 mg Documented by: Atorvastatin Calcium (Lipitor) 40 mg PO QHS [facility] Last Admin: 11/04/19 22:21 Dose: 40 mg Documented by: Dextrose (D50w (25gm) Syringe) 50 ml IV Q30MIN PRN; Protocol PRN Reason: Hypoglycemia Furosemide (Lasix) 40 mg PO QDAY [facility] Insulin Human Regular (Humulin R) 0 units SUB-Q ACHS [facility]; Protocol Last Admin: 11/05/19 10:59 Dose: Not Given Documented by: Methylprednisolone Sodium Succinate (Solu-Medrol) 40 mg IV Q8HR [facility] Metoprolol Tartrate (Metoprolol) 50 mg PO BID [facility] Last Admin: 11/05/19 10:59 Dose: 50 mg Documented by: Ondansetron HCl (Zofran) 4 mg IV Q8H PRN PRN Reason: Nausea And Vomiting Sodium Chloride (Sodium Chloride Flush Syringe 10 Ml) 10 ml IV BID [facility] Last Admin: 11/05/19 11:00 Dose: 10 ml Documented by: Sodium Chloride (Sodium Chloride Flush Syringe 10 Ml) 10 ml IV PRN PRN PRN Reason: LINE FLUSH Review of Systems Constitutional: weakness Eyes: right: pain Cardiovascular: shortness of breath Respiratory: cough, cough with sputum, congestion, wheezing, home oxygen Physical Examination Vital signs: Vital Signs Pulse Resp 136 H 42 H 11/04/19 06:30 11/04/19 06:30 General appearance: alert, other (mild distress) Eyes: non-icteric ENT: oropharynx moist Neck: supple Effort: normal Ascultation: Bilateral: diminished breath sounds, wheezes Gastrointestinal: normoactive bowel sounds, soft, non-tender, non-distended, other (obese) Integumentary: normal Extremities: pink and warm, edema normal mental status, non-focal exam mood appropriate, affect normal Results - Laboratory Findings CBC and BMP: 11/05/19 04:01 11/05/19 04:01 PT/INR, D-dimer PT 21.6 Sec. (12.2-14.9) H 11/04/19 07:20 INR 1.88 (0.87-1.13) H 11/04/19 07:20 Abnormal lab findings: Abnormal Labs 11/04/19 11/04/19 11/04/19 07:20 07:20 07:20 RBC 2.46 L Hgb 8.1 L Hct 24.6 L MCV 100 H MCH 33 H RDW 17.2 H [place] % (Auto) 14.8 H [place] # 1.2 H Seg Neuts % (Manual) 72.0 H Monocytes % (Manual) Basophils % (Manual) 2.0 H Monocytes # (Manual) Basophils # (Manual) 0.2 H PT 21.6 H INR 1.88 H Potassium 3.5 L BUN 44 H Creatinine 1.8 H Glucose 237 H Hemoglobin A1c Alkaline Phosphatase 131 H Troponin T 0.069 H NT-Pro-B Natriuret Pep 5327 H Total Protein 5.9 L Albumin 3.0 L LDL Cholesterol Direct 38 L Free T4 11/04/19 11/04/19 11/04/19 07:20 15:29 15:29 RBC 2.63 L Hgb 8.5 L Hct 26.3 L MCV 100 H MCH RDW 17.7 H [place] % (Auto) [place] # Seg Neuts % (Manual) Monocytes % (Manual) 16.0 H Basophils % (Manual) Monocytes # (Manual) 1.1 H Basophils # (Manual) PT INR Potassium BUN 43 H Creatinine 1.7 H Glucose 172 H Hemoglobin A1c Alkaline Phosphatase Troponin T NT-Pro-B Natriuret Pep Total Protein Albumin LDL Cholesterol Direct Free T4 1.57 H 0511/05/19 11/05/19 15:29 04:01 04:01 RBC 2.46 L Hgb 8.1 L Hct 24.8 L MCV 101 H MCH 33 H RDW 17.4 H [place] % (Auto) 13.1 H [place] # Seg Neuts % (Manual) Monocytes % (Manual) Basophils % (Manual) Monocytes # (Manual) Basophils # (Manual) PT INR Potassium 3.1 L BUN 38 H Creatinine 1.6 H Glucose 197 H Hemoglobin A1c 7.8 H Alkaline Phosphatase Troponin T NT-Pro-B Natriuret Pep Total Protein Albumin LDL Cholesterol Direct Free T4 - Diagnostic Findings Chest x-ray: report reviewed, image reviewed Assessment and Plan - Patient Problems (1) COPD with exacerbation Current Visit: Yes Status: Acute (2) LUIS FERNANDO (acute kidney injury) Current Visit: Yes Status: Acute (3) Acute heart failure with preserved ejection fraction (HFpEF) Current Visit: Yes Status: Acute (4) Acute on chronic respiratory failure Current Visit: Yes Status: Acute (5) Acute respiratory failure Current Visit: Yes Status: Acute (6) Anemia Current Visit: Yes Status: Acute (7) Atrial fibrillation with rapid ventricular response Current Visit: Yes Status: Acute (8) CHF exacerbation Current Visit: Yes Status: Acute (9) Chest pain Current Visit: Yes Status: Acute (10) Diabetes mellitus with hyperglycemia Current Visit: Yes Status: Acute (11) Renal insufficiency Current Visit: Yes Status: Acute (12) Shortness of breath Current Visit: Yes Status: Acute (13) COPD (chronic obstructive pulmonary disease) Current Visit: Yes Status: Chronic (14) HTN (hypertension) Current Visit: Yes Status: Chronic (15) History of CVA (cerebrovascular accident) Current Visit: Yes Status: Chronic (16) History of pulmonary embolism Current Visit: Yes Status: Chronic (17) Hyperlipidemia Current Visit: Yes Status: Chronic
[2019-11-05] MEDS ORDERED: ARFORMOTEROL 15 MCG/2 ML NEBU IH SCH (13:00)
[2019-11-05] MEDS: methylPREDNISolone Sod Succinate 40 MG/1 ML INJ IV SCH ×2 (13:49→22:30)
[2019-11-05] MEDS: oxyCODONE /ACETAMINOPHEN 5-325MG TAB PO PRN ×2 (16:11→22:28)
[2019-11-05] MEDS: BUDESONIDE 0.5 MG/2 ML NEBU IH SCH (20:19)
[2019-11-05] MEDS: ARFORMOTEROL 15 MCG/2 ML NEBU IH SCH (20:19)
[2019-11-06 05:39] LABS: Hematocrit 23.5 % (30.3-42.9); Hemoglobin 7.7 gm/dl (10.1-14.3); Lymphocytes # (Auto) 0.5 K/mm3 (1.2-5.4); Lymphocytes % (Auto) 7.9 % (13.4-35.0); Mean Corpuscular HGB Conc 33 % (30-34); Mean Corpuscular Volume 101 fl (79-97); Monocytes # (Auto) 0.2 K/mm3 (0.0-0.8); Monocytes % (Auto) 2.7 % (0.0-7.3); Platelet Count 169 K/mm3 (140-440); Red Blood Count 2.34 M/mm3 (3.65-5.03); Red Cell Distribution Width 17.1 % (13.2-15.2)
[2019-11-06 05:55] LABS: Calcium 8.7 mg/dL (8.4-10.2)
[2019-11-06] MEDS: methylPREDNISolone Sod Succinate 40 MG/1 ML INJ IV SCH ×3 (05:56→22:34)
[2019-11-06] MEDS: BUDESONIDE 0.5 MG/2 ML NEBU IH SCH ×2 (07:53→20:29)
[2019-11-06] MEDS: ARFORMOTEROL 15 MCG/2 ML NEBU IH SCH ×2 (07:53→20:29)
[2019-11-06] MEDS: INSULIN REGULAR, HUMAN 100 UNITS/1 ML SUB-Q SCH ×3 (08:25→17:27)
--- NOTE | 2019-11-06 08:41 | Progress Note ---
Assessment and Plan Assessment and plan: Acute HFrEF. On admission, BNP 5327 and chest x-ray revealed mild diffuse interstitial prominence reflecting edema. Cardiology following Acute COPD exacerbation. Continue IV steroids, bronchodilators/nebulizer treatments. Pulmonary following A. fib with RVR. Acute hypoxic respiratory failure. Etiology secondary to above. Diabetes mellitus type 2. Continue Accu-Cheks and sliding scale insulin. ARF. Nephrology consulted. 11/05/2019. Cardiology discontinued Cardizem drip and initiated Lopressor 3 times daily. Eliquis resumed for anticoagulation. Continue GDMT with gentle diuresis. Echocardiogram pending. Pulmonary consulted for acute on chronic respiratory failure from COPD exacerbation. Solu-Medrol 40 mg IV every 8 hours and nebulizer treatments. 11/06/2019. Creatinine is mildly elevated. Baseline creatinine of 1.1-2016. Check renal ultrasound. Nephrology consulted. Continue Lasix and Lopressor. History Interval history: No new issues overnight. Hospitalist Physical - Constitutional Vitals: Temp Pulse Resp BP Pulse Ox 97.4 F L 80 20 119/60 99 11/06/19 04:43 11/06/19 07:53 11/06/19 07:53 11/06/19 04:43 11/06/19 07:52 General appearance: Present: other (SOB, on BiPAP) - EENT Eyes: Present: PERRL, EOM intact ENT: hearing intact, clear oral mucosa, dentition normal - Neck Neck: Present: supple, normal ROM - Respiratory Respiratory effort: normal Respiratory: bilateral: CTA - Cardiovascular Rhythm: regular Heart Sounds: Present: S1 & S2. Absent: gallop, rub - Extremities Extremities: no ischemia, No edema, Full ROM - Abdominal General gastrointestinal: soft, non-tender, non-distended, normal bowel sounds - Integumentary Integumentary: Present: clear, warm, dry - Neurologic Neurologic: CNII-XII intact, moves all extremities HEART Score - HEART Score Troponin: Troponin T 0.069 ng/mL (0.00-0.029) H 11/04/19 07:20 Results - Labs CBC & Chem 7: 11/06/19 04:54 11/06/19 04:54 Labs: Laboratory Last Values WBC 6.9 K/mm3 (4.5-11.0) 11/06/19 04:54 RBC 2.34 M/mm3 (3.65-5.03) L 11/06/19 04:54 Hgb 7.7 gm/dl (10.1-14.3) L 11/06/19 04:54 Hct 23.5 % (30.3-42.9) L 11/06/19 04:54 MCV 101 fl (79-97) H 11/06/19 04:54 MCH 33 pg (28-32) H 11/06/19 04:54 MCHC 33 % (30-34) 11/06/19 04:54 RDW 17.1 % (13.2-15.2) H 11/06/19 04:54 Plt Count 169 K/mm3 (140-440) 11/06/19 04:54 Lymph % (Auto) 7.9 % (13.4-35.0) L 11/06/19 04:54 [place] % (Auto) 2.7 % (0.0-7.3) 11/06/19 04:54 Eos % (Auto) 0.0 % (0.0-4.3) 11/06/19 04:54 Baso % (Auto) 0.0 % (0.0-1.8) 11/06/19 04:54 Lymph # 0.5 K/mm3 (1.2-5.4) L 11/06/19 04:54 [place] # 0.2 K/mm3 (0.0-0.8) 11/06/19 04:54 Eos # 0.0 K/mm3 (0.0-0.4) 11/06/19 04:54 Baso # 0.0 K/mm3 (0.0-0.1) 11/06/19 04:54 Add Manual Diff Complete 11/04/19 15:29 Total Counted 100 11/04/19 15:29 Seg Neutrophils % 89.4 % (40.0-70.0) H 11/06/19 04:54 Seg Neuts % (Manual) 55.0 % (40.0-70.0) 11/04/19 15:29 Band Neutrophils % 0 % 11/04/19 15:29 Lymphocytes % (Manual) 26.0 % (13.4-35.0) 11/04/19 15:29 Reactive Lymphs % (Man) 0 % 11/04/19 15:29 Monocytes % (Manual) 16.0 % (0.0-7.3) H 11/04/19 15:29 Eosinophils % (Manual) 2.0 % (0.0-4.3) 11/04/19 15: Basophils % (Manual) 1.0 % (0.0-1.8) 11/04/19 15: Metamyelocytes % 0 % 11/04/19 15: Myelocytes % 0 % 11/04/19 15: Promyelocytes % 0 % 11/04/19 15: Blast Cells % 0 % 11/04/19 15: Nucleated RBC % Not Reportable 11/04/19 15: Seg Neutrophils # 6.1 K/mm3 (1.8-7.7) 11/06/19 04:54 Seg Neutrophils # Man 3.9 K/mm3 (1.8-7.7) 11/04/19: Band Neutrophils # 0.0 K/mm3 11/04/19: Lymphocytes # (Manual) 1.8 K/mm3 (1.2-5.4) 11/04/19 15: Abs React Lymphs (Man) 0.0 K/mm3 11/04/19 15: Monocytes # (Manual) 1.1 K/mm3 (0.0-0.8) H 11/04/19 15: Eosinophils # (Manual) 0.1 K/mm3 (0.0-0.4) 11/04/19: Basophils # (Manual) 0.1 K/mm3 (0.0-0.1) 11/04/19: Metamyelocytes # 0.0 K/mm3 11/04/19 15: Myelocytes # 0.0 K/mm3 11/04/19: Promyelocytes # 0.0 K/mm3 11/04/19: Blast Cells # 0.0 K/mm3 11/04/19: WBC Morphology Not Reportable 11/04/19 15: Hypersegmented Neuts Not Reportable 11/04/19: Hyposegmented Neuts Not Reportable 11/04/19 15:29 Hypogranular Neuts Not Reportable 11/04/19 15: Smudge Cells Not Reportable 11/04/19 15:29 Toxic Granulation Not Reportable 11/04/19 15:29 Toxic Vacuolation Not Reportable 11/04/19 15:29 Dohle Bodies Not Reportable 11/04/19 15:29 Pelger-Huet Anomaly Not Reportable 11/04/19 15:29 Brian Rods Not Reportable 11/04/19 15:29 Platelet Estimate Not Reportable 11/04/19 15:29 Clumped Platelets Not Reportable 11/04/19 15:29 Plt Clumps, EDTA Not Reportable 11/04/19 15:29 Large Platelets Not Reportable 11/04/19 15: Giant Platelets Not Reportable 11/04/19 15:29 Platelet Satelliting Not Reportable 11/04/19 15:29 Plt Morphology Comment Not Reportable 11/04/19 15:29 RBC Morphology Not Reportable 11/04/19 15:29 Dimorphic RBCs Not Reportable 11/04/19 15:29 Polychromasia Rare 11/04/19 15:29 Hypochromasia 1+ 11/04/19 15:29 Poikilocytosis Not Reportable 11/04/19 15:29 Anisocytosis Few 11/04/19 15:29 Microcytosis Not Reportable 11/04/19 15:29 Macrocytosis Not Reportable 11/04/19 15:29 Spherocytes Not Reportable 11/04/19 15:29 Pappenheimer Bodies Not Reportable 11/04/19 15:29 Sickle Cells Not Reportable 11/04/19 15:29 Target Cells Not Reportable 11/04/19 15:29 Tear Drop Cells Not Reportable 11/04/19 15:29 Ovalocytes Not Reportable 11/04/19 15:29 Helmet Cells Not Reportable 11/04/19 15:29 [place] Bodies Not Reportable 11/04/19 15:29 [place] Rings Not Reportable 11/04/19 15:29 [place] Cells Not Reportable 11/04/19 15:29 Bite Cells Not Reportable 11/04/19 15:29 Crenated Cell Not Reportable 11/04/19 15:29 Elliptocytes Not Reportable 11/04/19 15:29 Acanthocytes (Spur) Not Reportable 11/04/19 15:29 Rouleaux Not Reportable 11/04/19 15:29 Hemoglobin C Crystals Not Reportable 11/04/19 15:29 Schistocytes Not Reportable 11/04/19 15:29 Malaria parasites Not Reportable 11/04/19 15:29 Tom Bodies Not Reportable 11/04/19 15:29 Hem Pathologist Commnt No 11/04/19 15:29 PT 21.6 Sec. (12.2-14.9) H 11/04/19 07:20 INR 1.88 (0.87-1.13) H 11/04/19 07:20 APTT 27.5 Sec. (24.2-36.6) 11/04/19 07:20 Sodium 137 mmol/L (137-145) 11/06/19 04:54 Potassium 3.9 mmol/L (3.6-5.0) D 11/06/19 04:54 Chloride 96.8 mmol/L (98-107) L 11/06/19 04:54 Carbon Dioxide 29 mmol/L (22-30) 11/06/19 04:54 Anion Gap 15 mmol/L 11/06/19 04:54 BUN 45 mg/dL (7-17) H 11/06/19 04:54 Creatinine 2.0 mg/dL (0.7-1.2) H 11/06/19 04:54 Estimated GFR 29 ml/min 11/06/19 04:54 BUN/Creatinine Ratio 23 % 11/06/19 04:54 Glucose 376 mg/dL (65-100) H 11/06/19 04:54 Hemoglobin A1c 7.8 % (4-6) H 11/04/19 15:29 Calcium 8.7 mg/dL (8.4-10.2) 11/06/19 04:54 Total Bilirubin 0.30 mg/dL (0.1-1.2) 11/04/19 07:20 AST 31 units/L (5-40) 11/04/19 07:20 ALT 47 units/L (7-56) 11/04/19 07:20 Alkaline Phosphatase 131 units/L (35-129) H 11/04/19 07:20 Total Creatine Kinase 73 units/L (30-135) 11/04/19 07:20 CK-MB (CK-2) 2.2 ng/mL (0.0-4.0) 11/04/19 07:20 CK-MB (CK-2) Rel Index 3.0 (0-4) 11/04/19 07:20 Troponin T 0.069 ng/mL (0.00-0.029) H 11/04/19 07:20 NT-Pro-B Natriuret Pep 5327 pg/mL (0-900) H 11/04/19 07:20 Total Protein 5.9 g/dL (6.3-8.2) L 11/04/19 07:20 Albumin 3.0 g/dL (3.9-5) L 11/04/19 07:20 Albumin/Globulin Ratio 1.0 % 11/04/19 07:20 Triglycerides 74 mg/dL (2-149) 11/04/19 07:20 Cholesterol 90 mg/dL (50-199) 11/04/19 07:20 LDL Cholesterol Direct 38 mg/dL (50-130) L 11/04/19 07:20 HDL Cholesterol 52 mg/dL (40-59) 11/04/19 07:20 Cholesterol/HDL Ratio 1.73 % 11/04/19 07:20 TSH 0.909 mlU/mL (0.270-4.200) 11/04/19 07:20 Free T4 1.57 ng/dL (0.76-1.46) H 11/04/19 07:20 - Diagnostic Impressions Diagnostic Impressions: Echocardiogram 11/04/19 13:46 Transthoracic Echocardiogram Indication: SOB BP: 129/83 HR: 78 Conclusions *Patient in atrial fibrillation. *The left ventricular chamber size is normal. *Global left ventricular wall motion and contractility are within normal limits. *The estimated ejection fraction is 50-55%. *Abnormal left ventricular diastolic filling is observed, consistent with impaired relaxation. *The left atrial chamber size is normal. *The right ventricular global systolic function is normal. *There is mild to moderate tricuspid regurgitation. *The right ventricular systolic pressure is calculated at 39 mmHg. Findings Left Ventricle: The left ventricular chamber size is normal. Global left ventricular wall motion and contractility are within normal limits. Global left ventricular systolic function is normal. The estimated ejection fraction is 50-55%. Abnormal left ventricular diastolic filling is observed, consistent with impaired relaxation. Left Atrium: The left atrial chamber size is normal. Right Ventricle: The right ventricular cavity size is normal.. The right ventricular global systolic function is normal. Right Atrium: The right atrial cavity size is normal. Aortic Valve: The aortic valve structure is normal. There is no evidence of aortic regurgitation. Mitral Valve: The mitral valve leaflets are mildly thickened. There is mild mitral regurgitation. Tricuspid Valve: The tricuspid valve leaflets are normal. There is mild to moderate tricuspid regurgitation. The right ventricular systolic pressure is calculated at 39 mmHg. Pulmonic Valve: The pulmonic valve appears normal. There is trace pulmonic regurgitation. Pericardium: There is no pericardial effusion. Venous: The inferior vena cava appears normal. Measurements Chambers 2D Name Value Normal Range IVSd (2D) 0.97 cm (0.6 - 1.1) LVPWd (2D) 1.04 cm (0.6 - 1.1) LVIDd (2D) 4.01 cm (3.7 - 5.6) LVIDs (2D) 2.72 cm (2 - 3.8) LV FS (2D) 32.13 % - EF Teichholz (2D) 60.87 % - Ao root diameter (2D) 2.6 cm (2 - 3.7) Volumes/Mass Name Value Normal Range LA ESV SP 4CH (A/L) 29.14 ml - LA ESV SP 2CH (A/L) 40.45 ml - LA ESV BP (A/L) 36.37 ml - LA ESV BP (A/L) index 16.53 ml/m2 - LA ESV SP 4CH (MOD) 27.78 ml - LA ESV SP 2CH (MOD) 39.47 ml - LA ESV BP (MOD) 35.05 ml - LA ESV BP (MOD) index 15.93 ml/m2 - Aortic Valve Name Value Normal Range AV Vmax 1.4 m/sec - AV VTI 25.89 cm - AV peak gradient 7.86 mmHg - AV mean gradient 3.9 mmHg - LVOT diameter 2.02 cm - LVOT Vmax 0.84 m/sec - LVOT VTI 18.45 cm - LVOT peak gradient 2.84 mmHg - LVOT mean gradient 1.82 mmHg - SV LVOT 59.05 ml - LIBIA (continuity Vmax) 1.93 cm2 - LIBIA (continuity VTI) 2.28 cm2 - Mitral Valve Name Value Normal Range MR Vmax 3.78 m/sec - Tricuspid Valve Name Value Normal Range TR Vmax 2.99 m/sec - TR peak gradient 36 mmHg - RAP 3 mmHg - RVSP 39 mmHg - Pulmonic Valve/Qp:Qs Name Value Normal Range PV Vmax 0.95 m/sec - PV peak gradient 3.59 mmHg - AK end-diastolic Vmax 1.09 m/sec - Armendariz/IV: Voiding Method External Female Catheter IV Catheter Type [Right Upper INT / Saline Lock arm] IV Catheter Type [Right Peripheral IV Antecubital] Active Medications - Current Medications Current Medications: Generic Name Dose Route Start Last Admin Trade Name Freq PRN Reason Stop Dose Admin Acetaminophen 650 mg 11/04/19 13:42 Tylenol PO Q4H PRN Pain MILD(1-3)/Fever >100.5/IRBY Albuterol 2.5 mg 11/05/19 14:12 Proventil IH Q4HRT PRN Shortness Of Breath Apixaban 2.5 mg 11/04/19 22:00 11/05/19 22:31 Eliquis PO 2.5 mg Q12HR ALLEGRA Administration Protocol Arformoterol Tartrate 15 mcg 11/05/19 20:00 11/06/19 07:53 Brovana Nebu IH 15 mcg Q12HRT ALLEGRA Administration Atorvastatin Calcium 40 mg 11/04/19 22:00 11/05/19 22:31 Lipitor PO 40 mg QHS ALLEGRA Administration Budesonide 0.5 mg 11/05/19 20:00 11/06/19 07:53 Pulmicort IH 0.5 mg Q12HRT ALLEGRA Administration Cefuroxime Axetil 250 mg 11/05/19 14:00 11/05/19 22:31 Ceftin PO 250 mg Q12HR ALLEGRA Administration Dextrose 50 ml 11/04/19 13:42 D50w (25gm) Syringe IV Q30MIN PRN Hypoglycemia Protocol Furosemide 40 mg 11/06/19 10:00 Lasix PO QDAY ALLEGRA Insulin Human Regular 0 units 11/04/19 16:30 11/06/19 08:25 Humulin R SUB-Q 8 units ACHS ALLEGRA Administration Protocol Methylprednisolone Sodium Succinate 40 mg 11/05/19 14:00 11/06/19 05:56 Solu-Medrol IV 40 mg Q8HR ALLEGRA Administration Metoprolol Tartrate 50 mg 11/05/19 11:00 11/05/19 22:31 Metoprolol PO 50 mg BID ALLEGRA Administration Ondansetron HCl 4 mg 11/04/19 13:42 Zofran IV Q8H PRN Nausea And Vomiting Oxycodone/Acetaminophen 1 tab 11/05/19 16:00 11/05/19 22:28 Percocet 5/325 PO 1 tab Q6H PRN Administration Pain, Moderate (4-6) Sodium Chloride 10 ml 11/04/19 22:00 11/05/19 22:33 Sodium Chloride Flush Syringe 10 Ml IV 10 ml BID ALLEGRA Administration Sodium Chloride 10 ml 11/04/19 13:42 Sodium Chloride Flush Syringe 10 Ml IV PRN PRN LINE FLUSH Nutrition/Malnutrition Assess - Dietary Evaluation Nutrition/Malnutrition Findings: Nutrition Notes Start: 11/05/19 11:23 Freq: Status: Active Protocol: Document 11/05/19 11:23 [facility] (Rec: 11/05/19 11:28 [facility] [id number] S1) Nutrition Notes Need for Assessment generated from: MD Order,burn center nurse,Education Initial or Follow up Assessment Current Diagnosis COPD,Diabetes,Hypertension, Heart Failure Other Pertinent Diagnosis CHF and COPD exacerbation, LE edema Labs/Tests K 3.1 BUN 38 Cr 1.6 BG 197 Pertinent Medications Lasix, Solumedrol Height 5 ft 3 in Weight 96.5 kg [place] Body Weight (kg) 52.27 BMI 37.7 Weight Status Obese Subjective/Other Information RD consulted for poor oral intake; pt also screened for malnutrition risk and skin risk (Carlos score: 13). Burn Absent Trauma Absent Minimum of two criteria No #1 Nutrition Diagnosis Inadequate oral intake Etiology hx of aspiration As Evidenced by Signs and Symptoms pt NPO Is patient on ventilator? No Is Patient Ambulatory and/or Out of Bed No REE-([place]-St. Jeor-confined to bed) [phone] Calculation Used for Recommendations [place] Jeor Additional Notes Pro needs 1-1.2g/kg adjBW: 74- 89g/day Fluid needs 1.5L/day or per MD Nutrition Intervention Change Diet Order: Advance diet when medically feasible Goal #1 Diet advancement to meet nutrient needs Anticipated Discharge Needs: None identified at this time Follow-Up By: 11/07/19 Additional Comments F/U: diet advancement
[2019-11-06] MEDS: FUROSEMIDE 40 MG TAB PO SCH (09:55)
[2019-11-06] MEDS: APIXABAN 2.5 MG TAB PO SCH ×2 (09:55→22:33)
[2019-11-06] MEDS: METOPROLOL TARTRATE 25 MG TAB PO SCH ×2 (09:56→22:33)
--- NOTE | 2019-11-06 10:26 | Progress Note ---
Assessment and Plan cont lopressor 50mg bid, for better afib control consider one unit of PRBC and cont po lasix and pt on elquis 2.5 mg bid and repeat am labs, pt is not ambulatory. , - Patient Problems (1) Acute heart failure with preserved ejection fraction (HFpEF) Current Visit: Yes Status: Acute (2) Acute on chronic respiratory failure Current Visit: Yes Status: Acute (3) Acute respiratory failure Current Visit: Yes Status: Acute (4) Atrial fibrillation with rapid ventricular response Current Visit: Yes Status: Acute (5) Diabetes mellitus with hyperglycemia Current Visit: Yes Status: Acute (6) Renal insufficiency Current Visit: Yes Status: Acute (7) History of CVA (cerebrovascular accident) Current Visit: Yes Status: Chronic (8) History of pulmonary embolism Current Visit: Yes Status: Chronic (9) Hyperlipidemia Current Visit: Yes Status: Chronic (10) COPD exacerbation Current Visit: No Status: Acute Subjective Date of service: 11/06/19 Principal diagnosis: sob Interval history: sob has improved Objective Vital Signs Temp Pulse Pulse Resp Resp BP Pulse Ox 11/06/19 09:56 120 H 124/60 11/06/19 07:53 80 20 11/06/19 07:52 99 11/06/19 07:27 97.4 F L 63 18 124/60 99 11/06/19 04:58 22 99 11/06/19 04:43 97.4 F L 79 22 119/60 99 11/05/19 23:21 98.5 F 82 20 128/63 95 11/05/19 22:31 65 111/62 11/05/19 22:28 18 11/05/19 22:00 98 H 11/05/19 20:11 100 11/05/19 20:10 120 H 20 11/05/19 19:59 97.5 F L 65 22 111/62 99 11/05/19 15:27 98.4 F 84 18 129/61 99 11/05/19 14:10 98 11/05/19 13:56 82 22 11/05/19 11:17 98.4 F 68 18 114/67 99 - Physical Examination General: No Apparent Distress HEENT: Positive: PERRL, Normocephaly, Mucus Membranes Moist Neck: Positive: neck supple, trachea midline Cardiac: Positive: Irregularly Regular Lungs: Positive: Normal Breath Sounds Neuro: Positive: Grossly Intact Abdomen: Negative: Tender Skin: Negative: Rash Musculoskeletal: No Pain Extremities: Absent: edema (trace) - Labs and Meds CBC 11/06/19 Range/Units 04:54 WBC 6.9 (4.5-11.0) K/mm3 RBC 2.34 L (3.65-5.03) M/mm3 Hgb 7.7 L (10.1-14.3) gm/dl Hct 23.5 L (30.3-42.9) % Plt Count 169 (140-440) K/mm3 Lymph # 0.5 L (1.2-5.4) K/mm3 [place] # 0.2 (0.0-0.8) K/mm3 Eos # 0.0 (0.0-0.4) K/mm3 Baso # 0.0 (0.0-0.1) K/mm3 Comprehensive Metabolic Panel 11/06/19 Range/Units 04:54 Sodium 137 (137-145) mmol/L Potassium 3.9 D (3.6-5.0) mmol/L Chloride 96.8 L (98-107) mmol/L Carbon Dioxide 29 (22-30) mmol/L BUN 45 H (7-17) mg/dL Creatinine 2.0 H (0.7-1.2) mg/dL Glucose 376 H (65-100) mg/dL Calcium 8.7 (8.4-10.2) mg/dL - Imaging and Cardiology EKG: report reviewed, image reviewed Echo: report reviewed ( 01/2019 showed EF 65%, sclerotic AV, mild LVH, impaired relaxation, RVSP 31.5mmHg. ), other (normal lv function mild rvsp) - Telemetry EKG Rhythm: Atrial Fibrillation (in 90's)
[2019-11-06] MEDS ORDERED: SODIUM CHLORIDE 0.9% 500 ML 500 ML IV SCH (10:30)
--- NOTE | 2019-11-06 10:47 | Progress Note ---
Assessment and Plan - Patient Problems (1) COPD with exacerbation Current Visit: Yes Status: Acute (2) LUIS FERNANDO (acute kidney injury) Current Visit: Yes Status: Acute (3) Acute heart failure with preserved ejection fraction (HFpEF) Current Visit: Yes Status: Acute (4) Acute on chronic respiratory failure Current Visit: Yes Status: Acute (5) Acute respiratory failure Current Visit: Yes Status: Acute (6) Anemia Current Visit: Yes Status: Acute (7) Atrial fibrillation with rapid ventricular response Current Visit: Yes Status: Acute (8) CHF exacerbation Current Visit: Yes Status: Acute (9) Chest pain Current Visit: Yes Status: Acute (10) Diabetes mellitus with hyperglycemia Current Visit: Yes Status: Acute (11) Renal insufficiency Current Visit: Yes Status: Acute (12) Shortness of breath Current Visit: Yes Status: Acute (13) COPD (chronic obstructive pulmonary disease) Current Visit: Yes Status: Chronic (14) HTN (hypertension) Current Visit: Yes Status: Chronic (15) History of CVA (cerebrovascular accident) Current Visit: Yes Status: Chronic (16) History of pulmonary embolism Current Visit: Yes Status: Chronic (17) Hyperlipidemia Current Visit: Yes Status: Chronic Subjective Principal diagnosis: sob Interval history: less sob today feels better Objective Vital Signs - 12hr 11/05/19 11/06/19 11/06/19 23:21 04:43 04:58 Temperature 98.5 F 97.4 F L Pulse Rate 82 79 Pulse Rate [ Bilateral Throughout] Respiratory 20 22 22 Rate Respiratory Rate [Bilateral Throughout] Blood Pressure 128/63 119/60 O2 Sat by Pulse 95 99 99 Oximetry 11/06/19 11/06/19 11/06/19 07:27 07:52 07:53 Temperature 97.4 F L Pulse Rate 63 Pulse Rate [ 80 Bilateral Throughout] Respiratory 18 Rate Respiratory 20 Rate [Bilateral Throughout] Blood Pressure 124/60 O2 Sat by Pulse 99 99 Oximetry 11/06/19 09:56 Temperature Pulse Rate 120 H Pulse Rate [ Bilateral Throughout] Respiratory Rate Respiratory Rate [Bilateral Throughout] Blood Pressure 124/60 O2 Sat by Pulse Oximetry Constitutional: alert, other (mild distress) Eyes: non-icteric ENT: oropharynx moist Neck: supple Effort: normal Ascultation: Bilateral: diminished breath sounds Gastrointestinal: normoactive bowel sounds, soft, non-tender, non-distended, other (obese) Integumentary: normal Extremities: pink and warm, edema Neurologic: normal mental status, non-focal exam Psychiatric: mood appropriate, affect normal CBC and BMP: 11/06/19 04:54 11/06/19 04:54 ABG, PT/INR, D-dimer: PT/INR, D-dimer PT 21.6 Sec. (12.2-14.9) H 11/04/19 07:20 INR 1.88 (0.87-1.13) H 11/04/19 07:20 Abnormal lab findings: Abnormal Labs 11/04/19 11/04/19 11/04/19 07:20 07:20 07:20 RBC 2.46 L Hgb 8.1 L Hct 24.6 L MCV 100 H MCH 33 H RDW 17.2 H Lymph % (Auto) [place] % (Auto) 14.8 H Lymph # [place] # 1.2 H Seg Neutrophils % Seg Neuts % (Manual) 72.0 H Monocytes % (Manual) Basophils % (Manual) 2.0 H Monocytes # (Manual) Basophils # (Manual) 0.2 H PT 21.6 H INR 1.88 H Potassium 3.5 L Chloride BUN 44 H Creatinine 1.8 H Glucose 237 H Hemoglobin A1c Alkaline Phosphatase 131 H Troponin T 0.069 H NT-Pro-B Natriuret Pep 5327 H Total Protein 5.9 L Albumin 3.0 L LDL Cholesterol Direct 38 L Free T4 11/04/19 11/04/19 11/04/19 07:20 15:29 15:29 RBC 2.63 L Hgb 8.5 L Hct 26.3 L MCV 100 H MCH RDW 17.7 H Lymph % (Auto) [place] % (Auto) Lymph # [place] # Seg Neutrophils % Seg Neuts % (Manual) Monocytes % (Manual) 16.0 H Basophils % (Manual) Monocytes # (Manual) 1.1 H Basophils # (Manual) PT INR Potassium Chloride BUN 43 H Creatinine 1.7 H Glucose 172 H Hemoglobin A1c Alkaline Phosphatase Troponin T NT-Pro-B Natriuret Pep Total Protein Albumin LDL Cholesterol Direct Free T4 1.57 H 11/04/19 11/05/19 11/05/19 15:29 04:01 04:01 RBC 2.46 L Hgb 8.1 L Hct 24.8 L MCV 101 H MCH 33 H RDW 17.4 H Lymph % (Auto) [place] % (Auto) 13.1 H Lymph # [place] # Seg Neutrophils % Seg Neuts % (Manual) Monocytes % (Manual) Basophils % (Manual) Monocytes # (Manual) Basophils # (Manual) PT INR Potassium 3.1 L Chloride BUN 38 H Creatinine 1.6 H Glucose 197 H Hemoglobin A1c 7.8 H Alkaline Phosphatase Troponin T NT-Pro-B Natriuret Pep Total Protein Albumin LDL Cholesterol Direct Free T4 11/06/19 11/06/19 04:54 04:54 RBC 2.34 L Hgb 7.7 L Hct 23.5 L MCV 101 H MCH 33 H RDW 17.1 H Lymph % (Auto) 7.9 L [place] % (Auto) Lymph # 0.5 L [place] # Seg Neutrophils % 89.4 H Seg Neuts % (Manual) Monocytes % (Manual) Basophils % (Manual) Monocytes # (Manual) Basophils # (Manual) PT INR Potassium Chloride 96.8 L BUN 45 H Creatinine 2.0 H Glucose 376 H Hemoglobin A1c Alkaline Phosphatase Troponin T NT-Pro-B Natriuret Pep Total Protein Albumin LDL Cholesterol Direct Free T4
[2019-11-06] MEDS: oxyCODONE /ACETAMINOPHEN 5-325MG TAB PO PRN ×2 (12:29→22:33)
--- NOTE | 2019-11-06 14:50 | Consultation ---
History of Present Illness - Reason for Consult Consult date: 11/06/19 - History of Present Illness Mrs. Turner is a pleasant 79yo female with CKD, CHF and COPD who presented to the ED with SOB. She reports that she was recently discharged from [facility] where she was hospitalized for difficulty breathing. She reports that she was discharged to home on October 26. However, she reports increased work of breathing over the week. She reports leg swelling, THACKER and orthopnea. She reports that she was unable to obtain an oxygen saturation on pulse ox at home which prompted her to call EMS. She denies fever, chills. Reports nonproductive cough. At admission, SCr 1.8mg/dL which trended down to 1.6mg/dL but increased to 2.0mg/dL today prompting nephrology consultation She reports a history of CKD followed by Dr. David Holley for appx 4 years. She does not know details of CKD diagnosis. However, she reports that her creatinine always goes "up and down". Past History Past Medical History: atrial fib, COPD, diabetes, hypertension, hyperlipidemia, other (as per HPI) Past Surgical History: total knee replacement (Right) Social history: no significant social history, smoking (smoked less than 1 ppd quit 20 years ago) Family history: no significant family history Medications and Allergies Allergies Allergy/AdvReac Type Severity Reaction Status Date / Time No Known Allergies Allergy Verified 11/17/15 22:31 Home Medications Medication Instructions Recorded Confirmed Last Taken Type Apixaban [Eliquis] 5 mg PO BID 11/04/19 11/04/19 Unknown History AtorvaSTATin [Lipitor] 40 mg PO QHS 11/04/19 11/04/19 Unknown History Ferrous Sulfate [Ferrous Sulfate 324 mg PO QAM 11/04/19 11/04/19 Unknown History 324 MG] Fluticasone/Salmeterol [Advair 1 puff IH BID 11/04/19 11/04/19 Unknown History Diskus 250-50 mcg] HYDROcodone/APAP 5-325 [[place] 1 each PO Q6HR PRN 11/04/19 11/04/19 Unknown History 5/325] Linaclotide [Linzess] 290 mcg PO QDAY 11/04/19 11/04/19 Unknown History Montelukast [Singulair] 10 mg PO QPM 11/04/19 11/04/19 Unknown History NIFEdipine [Procardia Xl] 60 mg PO QDAY 11/04/19 11/04/19 Unknown History Sitagliptin Phosphate [Januvia] 50 mg PO QDAY 11/04/19 11/04/19 Unknown History Torsemide [Demadex] 100 mg PO QDAY 11/04/19 11/04/19 Unknown History Umeclidinium [place] [Incruse 62.5 mcg IH QDAY 11/04/19 11/04/19 Unknown History Ellipta 62.5MCG] Valsartan [Diovan] 160 mg PO QDAY 11/04/19 11/04/19 Unknown History Zolpidem [Ambien] 5 mg PO QHS PRN 11/04/19 11/04/19 Unknown History glipiZIDE [Glucotrol] 5 mg PO QDAY 11/04/19 11/04/19 Unknown History predniSONE [Deltasone] 10 mg PO QDAY 11/04/19 11/04/19 Unknown History traZODone [Desyrel] 50 mg PO QHS 11/04/19 11/04/19 Unknown History Active Meds: Active Medications Acetaminophen (Tylenol) 650 mg PO Q4H PRN PRN Reason: Pain MILD(1-3)/Fever >100.5/IRBY Albuterol (Proventil) 2.5 mg IH Q4HRT PRN PRN Reason: Shortness Of Breath Apixaban (Eliquis) 2.5 mg PO Q12HR [facility]; Protocol Last Admin: 11/06/19 09:55 Dose: 2.5 mg Documented by: Arformoterol Tartrate (Brovana Nebu) 15 mcg IH Q12HRT [facility] Last Admin: 11/06/19 07:53 Dose: 15 mcg Documented by: Atorvastatin Calcium (Lipitor) 40 mg PO QHS [facility] Last Admin: 11/05/19 22:31 Dose: 40 mg Documented by: Atorvastatin Calcium (Lipitor) 40 mg PO QHS [facility] Budesonide (Pulmicort) 0.5 mg IH Q12HRT [facility] Last Admin: 11/06/19 07:53 Dose: 0.5 mg Documented by: Cefuroxime Axetil (Ceftin) 250 mg PO Q12HR [facility] Last Admin: 11/06/19 09:55 Dose: 250 mg Documented by: Dextrose (D50w (25gm) Syringe) 50 ml IV Q30MIN PRN; Protocol PRN Reason: Hypoglycemia Ferrous Sulfate (Feosol) 324 mg PO QAM [facility] Furosemide (Lasix) 40 mg PO QDAY [facility] Last Admin: 11/06/19 09:55 Dose: 40 mg Documented by: Glipizide (Glucotrol) 5 mg PO QDDIAB [facility] Sodium Chloride (Nacl 0.9% 500 Ml) 500 mls @ 0 mls/hr IV ONCE [facility] Stop: 11/06/19 18:00 Insulin Human Regular (Humulin R) 0 units SUB-Q ACHS [facility]; Protocol Last Admin: 11/06/19 12:26 Dose: 8 units Documented by: Linagliptin (Tradjenta) 5 mg PO QDDIAB [facility] Methylprednisolone Sodium Succinate (Solu-Medrol) 40 mg IV Q8HR [facility] Last Admin: 11/06/19 14:04 Dose: 40 mg Documented by: Metoprolol Tartrate (Metoprolol) 50 mg PO BID [facility] Last Admin: 11/06/19 09:56 Dose: 50 mg Documented by: Miscellaneous Medication (Linaclotide [Linzess]) 290 mcg PO QDAY [facility] Miscellaneous Medication (Umeclidinium [place] [Incruse Ellipta 62.5mcg]) 62.5 mcg IH QDAY [facility] Montelukast Sodium (Singulair) 10 mg PO QPM [facility] Nifedipine (Procardia Xl) 60 mg PO QDAY [facility] Ondansetron HCl (Zofran) 4 mg IV Q8H PRN PRN Reason: Nausea And Vomiting Oxycodone/Acetaminophen (Percocet 5/325) 1 tab PO Q6H PRN PRN Reason: Pain, Moderate (4-6) Last Admin: 11/06/19 12:29 Dose: 1 tab Documented by: Sodium Chloride (Sodium Chloride Flush Syringe 10 Ml) 10 ml IV BID [facility] Last Admin: 11/06/19 09:55 Dose: 10 ml Documented by: Sodium Chloride (Sodium Chloride Flush Syringe 10 Ml) 10 ml IV PRN PRN PRN Reason: LINE FLUSH Trazodone HCl (Desyrel) 50 mg PO QHS [facility] Valsartan (Diovan) 160 mg PO QDAY [facility] Zolpidem Tartrate (Ambien) 5 mg PO QHS PRN PRN Reason: Sleep Review of Systems All systems: negative Exam - Vital Signs Vital signs: Vital Signs Pulse Resp 136 H 42 H 11/04/19 06:30 11/04/19 06:30 - General Appearance General appearance: well-developed, well-nourished EENT: ATNC Respiratory: Wheezes (expiratory) Heart: irregular Gastrointestinal: Present: obese. Absent: tenderness, distended Integumentary: no rash, warm and dry Neurologic: no focal deficit, alert and oriented x3 Musculoskeletal: Present: other (Trace edema) Psychiatric: cooperative Results - Lab Results 11/06/19 04:54 11/06/19 04:54 Most recent lab results Calcium 8.7 mg/dL (8.4-10.2) 11/06/19 04:54 Assessment and Plan Impression: * Acute kidney injury attributed to diuresis on chronic kidney disease --Baseline renal function unknown; followed by Dr. Dvaid Holley (nephrology) * Acute on chronic hypoxemic respiratory failure secondary to pulmonary edema vs COPD exacerbation --Continuous NC oxygen 3L at home * Diastolic heart failure * Atrial fibrillation * Type II DM * Hypertension * Anemia Plan: * No acute need for hemodialysis. Baseline renal function unknown. Will attempt to obtain prior labs (patient was recently hospitalized at [facility]) * Will obtain UA, UPCR * Obtain SIFE,SPEP,UPEP * Renal ultrasound is pending - will follow up * Diuretics per cardiology - note recent change to oral lasix * Transfusion of pRBC per primary - note plans for blood transfusion today * Pulmonary recommendations noted - IV steroids, inhaler * Avoid potential nephrotoxins * Dose medications for renal function * Glycemic control * Strict I/O ordered
[2019-11-06] MEDS: MONTELUKAST 10 MG TAB PO SCH (17:27)
[2019-11-06] MEDS ORDERED: NON-FORMULARY EACH (Fluticasone/Salmeterol [Advair Diskus 250-50 Mcg] 1 PUFF) IH SCH (22:00)
[2019-11-06] MEDS ORDERED: ZOLPIDEM 5 MG TAB PO PRN (22:00)
[2019-11-06] MEDS: traZODone 50 MG TAB PO SCH (22:39)
[2019-11-06 23:39] LABS: Hemoglobin 9.1 gm/dl (10.1-14.3)
[2019-11-07] MEDS: INSULIN REGULAR, HUMAN 100 UNITS/1 ML SUB-Q SCH ×5 (00:28→22:33)
[2019-11-07 04:53] LABS: Calcium 8.6 mg/dL (8.4-10.2)
[2019-11-07] MEDS: methylPREDNISolone Sod Succinate 40 MG/1 ML INJ IV SCH ×3 (05:22→22:32)
[2019-11-07] MEDS: oxyCODONE /ACETAMINOPHEN 5-325MG TAB PO PRN ×2 (05:43→22:15)
[2019-11-07] MEDS: BUDESONIDE 0.5 MG/2 ML NEBU IH SCH ×2 (08:38→20:31)
[2019-11-07] MEDS: ARFORMOTEROL 15 MCG/2 ML NEBU IH SCH ×2 (08:38→20:31)
--- NOTE | 2019-11-07 08:40 | Progress Note ---
Assessment and Plan Assessment and plan: Acute HFrEF. On admission, BNP 5327 and chest x-ray revealed mild diffuse interstitial prominence reflecting edema. Cardiology following Acute COPD exacerbation. Continue IV steroids, bronchodilators/nebulizer treatments. Pulmonary following A. fib with RVR. Acute kidney injury on CKD. Acute hypoxic respiratory failure. Etiology secondary to above. Diabetes mellitus type 2. Continue Accu-Cheks and sliding scale insulin. 11/05/2019. Cardiology discontinued Cardizem drip and initiated Lopressor 3 times daily. Eliquis resumed for anticoagulation. Continue GDMT with gentle diuresis. Echocardiogram pending. Pulmonary consulted for acute on chronic respiratory failure from COPD exacerbation. Solu-Medrol 40 mg IV every 8 hours and nebulizer treatments. 11/06/2019. Creatinine is mildly elevated. Baseline creatinine of 1.1-2016. Check renal ultrasound. Nephrology consulted. Continue Lasix and Lopressor. 11/07/2019. Nephrology feels that there is No acute need for hemodialysis. Baseline renal function unknown. Will attempt to obtain prior labs (patient was recently hospitalized at [facility]). Renal ultrasound pending. Continue diuresis per cardiology. Echocardiogram revealed EF of 50 to 55% with left ventricular contractility within normal limits. History Interval history: No new issues overnight. Hospitalist Physical - Constitutional Vitals: Temp Pulse Resp BP Pulse Ox 97.4 F L 79 20 132/74 100 11/06/19 22:57 11/07/19 05:03 11/07/19 03:15 11/07/19 05:03 11/07/19 05:03 General appearance: Present: other (SOB, on BiPAP) - EENT Eyes: Present: PERRL, EOM intact ENT: hearing intact, clear oral mucosa, dentition normal - Neck Neck: Present: supple, normal ROM - Respiratory Respiratory effort: normal Respiratory: bilateral: CTA - Cardiovascular Rhythm: regular Heart Sounds: Present: S1 & S2. Absent: gallop, rub - Extremities Extremities: no ischemia, No edema, Full ROM - Abdominal General gastrointestinal: soft, non-tender, non-distended, normal bowel sounds - Integumentary Integumentary: Present: clear, warm, dry - Neurologic Neurologic: CNII-XII intact, moves all extremities HEART Score - HEART Score Troponin: Troponin T 0.069 ng/mL (0.00-0.029) H 11/04/19 07:20 Results - Labs CBC & Chem 7: 11/06/19 23:26 11/07/19 04:12 Labs: Laboratory Last Values WBC 6.9 K/mm3 (4.5-11.0) 11/06/19 04:54 RBC 2.34 M/mm3 (3.65-5.03) L 11/06/19 04:54 Hgb 9.1 gm/dl (10.1-14.3) L 11/06/19 23:26 Hct 27.0 % (30.3-42.9) L 11/06/19 23:26 MCV 101 fl (79-97) H 11/06/19 04:54 MCH 33 pg (28-32) H 11/06/19 04:54 MCHC 33 % (30-34) 11/06/19 04:54 RDW 17.1 % (13.2-15.2) H 11/06/19 04:54 Plt Count 169 K/mm3 (140-440) 11/06/19 04:54 Lymph % (Auto) 7.9 % (13.4-35.0) L 11/06/19 04:54 [place] % (Auto) 2.7 % (0.0-7.3) 11/06/19 04:54 Eos % (Auto) 0.0 % (0.0-4.3) 11/06/19 04:54 Baso % (Auto) 0.0 % (0.0-1.8) 11/06/19 04:54 Lymph # 0.5 K/mm3 (1.2-5.4) L 11/06/19 04:54 [place] # 0.2 K/mm3 (0.0-0.8) 11/06/19 04:54 Eos # 0.0 K/mm3 (0.0-0.4) 11/06/19 04:54 Baso # 0.0 K/mm3 (0.0-0.1) 11/06/19 04:54 Add Manual Diff Complete 11/04/19 15:29 Total Counted 100 11/04/19 15:29 Seg Neutrophils % 89.4 % (40.0-70.0) H 11/06/19 04:54 Seg Neuts % (Manual) 55.0 % (40.0-70.0) 11/04/19 15:29 Band Neutrophils % 0 % 11/04/19 15:29 Lymphocytes % (Manual) 26.0 % (13.4-35.0) 11/04/19 15:29 Reactive Lymphs % (Man) 0 % 11/04/19 15:29 Monocytes % (Manual) 16.0 % (0.0-7.3) H 11/04/19 15:29 Eosinophils % (Manual) 2.0 % (0.0-4.3) 11/04/19 15: Basophils % (Manual) 1.0 % (0.0-1.8) 11/04/19 15: Metamyelocytes % 0 % 11/04/19 15: Myelocytes % 0 % 11/04/19: Promyelocytes % 0 % 11/04/19 15: Blast Cells % 0 % 11/04/19 15: Nucleated RBC % Not Reportable 11/04/19 15: Seg Neutrophils # 6.1 K/mm3 (1.8-7.7) 11/06/19 04:54 Seg Neutrophils # Man 3.9 K/mm3 (1.8-7.7) 11/04/19 15: Band Neutrophils # 0.0 K/mm3 11/04/19: Lymphocytes # (Manual) 1.8 K/mm3 (1.2-5.4) 11/04/19 15: Abs React Lymphs (Man) 0.0 K/mm3 11/04/19 15:29 Monocytes # (Manual) 1.1 K/mm3 (0.0-0.8) H 11/04/19 15:29 Eosinophils # (Manual) 0.1 K/mm3 (0.0-0.4) 11/04/19:29 Basophils # (Manual) 0.1 K/mm3 (0.0-0.1) 11/04/19: Metamyelocytes # 0.0 K/mm3 11/04/19 15:29 Myelocytes # 0.0 K/mm3 11/04/19 15:29 Promyelocytes # 0.0 K/mm3 11/04/19 15:29 Blast Cells # 0.0 K/mm3 11/04/19 15:29 WBC Morphology Not Reportable 11/04/19 15:29 Hypersegmented Neuts Not Reportable 11/04/19 15:29 Hyposegmented Neuts Not Reportable 11/04/19 15:29 Hypogranular Neuts Not Reportable 11/04/19 15:29 Smudge Cells Not Reportable 11/04/19 15:29 Toxic Granulation Not Reportable 11/04/19 15:29 Toxic Vacuolation Not Reportable 11/04/19 15:29 Dohle Bodies Not Reportable 11/04/19 15:29 Pelger-Huet Anomaly Not Reportable 11/04/19 15:29 Brian Rods Not Reportable 11/04/19 15:29 Platelet Estimate Not Reportable 11/04/19 15:29 Clumped Platelets Not Reportable 11/04/19 15: Plt Clumps, EDTA Not Reportable 11/04/19 15: Large Platelets Not Reportable 11/04/19 15: Giant Platelets Not Reportable 11/04/19 15: Platelet Satelliting Not Reportable 11/04/19 15:29 Plt Morphology Comment Not Reportable 11/04/19 15:29 RBC Morphology Not Reportable 11/04/19 15:29 Dimorphic RBCs Not Reportable 11/04/19 15:29 Polychromasia Rare 11/04/19 15:29 Hypochromasia 1+ 11/04/19 15:29 Poikilocytosis Not Reportable 11/04/19 15:29 Anisocytosis Few 11/04/19 15:29 Microcytosis Not Reportable 11/04/19 15:29 Macrocytosis Not Reportable 11/04/19 15:29 Spherocytes Not Reportable 11/04/19 15:29 Pappenheimer Bodies Not Reportable 11/04/19 15:29 Sickle Cells Not Reportable 11/04/19 15:29 Target Cells Not Reportable 11/04/19 15:29 Tear Drop Cells Not Reportable 11/04/19 15:29 Ovalocytes Not Reportable 11/04/19 15:29 Helmet Cells Not Reportable 11/04/19 15:29 Bazan-[place] Bodies Not Reportable 11/04/19 15:29 [place] Rings Not Reportable 11/04/19 15:29 [place] Cells Not Reportable 11/04/19 15:29 Bite Cells Not Reportable 05/15/20 15:29 Crenated Cell Not Reportable 11/04/19 15:29 Elliptocytes Not Reportable 11/04/19 15:29 Acanthocytes (Spur) Not Reportable 11/04/19 15:29 Rouleaux Not Reportable 11/04/19 15:29 Hemoglobin C Crystals Not Reportable 11/04/19 15:29 Schistocytes Not Reportable 11/04/19 15:29 Malaria parasites Not Reportable 11/04/19 15:29 Tom Bodies Not Reportable 11/04/19 15:29 Hem Pathologist Commnt No 11/04/19 15:29 PT 21.6 Sec. (12.2-14.9) H 11/04/19 07: INR 1.88 (0.87-1.13) H 11/04/19 07:20 APTT 27.5 Sec. (24.2-36.6) 11/04/19 07:20 Sodium 134 mmol/L (137-145) L 11/07/19 04:12 Potassium 3.8 mmol/L (3.6-5.0) 11/07/19 04:12 Chloride 93.2 mmol/L (98-107) L 11/07/19 04:12 Carbon Dioxide 28 mmol/L (22-30) 11/07/19 04:12 Anion Gap 17 mmol/L 11/07/19 04:12 BUN 55 mg/dL (7-17) H 11/07/19 04:12 Creatinine 2.1 mg/dL (0.7-1.2) H 11/07/19 04:12 Estimated GFR 27 ml/min 11/07/19 04:12 BUN/Creatinine Ratio 26 % 11/07/19 04:12 Glucose 311 mg/dL (65-100) H 11/07/19 04:12 Hemoglobin A1c 7.8 % (4-6) H 11/04/19 15:29 Calcium 8.6 mg/dL (8.4-10.2) 11/07/19 04:12 Total Bilirubin 0.30 mg/dL (0.1-1.2) 11/04/19 07:20 AST 31 units/L (5-40) 11/04/19 07:20 ALT 47 units/L (7-56) 11/04/19 07:20 Alkaline Phosphatase 131 units/L (35-129) H 11/04/19 07:20 Total Creatine Kinase 73 units/L (30-135) 11/04/19 07:20 CK-MB (CK-2) 2.2 ng/mL (0.0-4.0) 11/04/19 07:20 CK-MB (CK-2) Rel Index 3.0 (0-4) 11/04/19 07:20 Troponin T 0.069 ng/mL (0.00-0.029) H 11/04/19 07:20 NT-Pro-B Natriuret Pep 5327 pg/mL (0-900) H 11/04/19 07:20 Total Protein 5.9 g/dL (6.3-8.2) L 11/04/19 07:20 Albumin 3.0 g/dL (3.9-5) L 11/04/19 07:20 Albumin/Globulin Ratio 1.0 % 11/04/19 07:20 Triglycerides 74 mg/dL (2-149) 11/04/19 07:20 Cholesterol 90 mg/dL (50-199) 11/04/19 07:20 LDL Cholesterol Direct 38 mg/dL (50-130) L 11/04/19 07:20 HDL Cholesterol 52 mg/dL (40-59) 11/04/19 07:20 Cholesterol/HDL Ratio 1.73 % 11/04/19 07:20 TSH 0.909 mlU/mL (0.270-4.200) 11/04/19 07:20 Free T4 1.57 ng/dL (0.76-1.46) H 11/04/19 07:20 Nasal Screen MRSA (PCR) Negative (Negative) 11/06/19 05:50 Blood Type O POSITIVE 11/06/19 13:29 Antibody Screen Negative 11/06/19 13:29 Crossmatch See Detail 11/06/19 13:29 - Diagnostic Impressions Diagnostic Impressions: Echocardiogram 11/04/19 13:46 Transthoracic Echocardiogram Indication: SOB BP: 129/83 HR: 78 Conclusions *Patient in atrial fibrillation. *The left ventricular chamber size is normal. *Global left ventricular wall motion and contractility are within normal limits. *The estimated ejection fraction is 50-55%. *Abnormal left ventricular diastolic filling is observed, consistent with impaired relaxation. *The left atrial chamber size is normal. *The right ventricular global systolic function is normal. *There is mild to moderate tricuspid regurgitation. *The right ventricular systolic pressure is calculated at 39 mmHg. Findings Left Ventricle: The left ventricular chamber size is normal. Global left ventricular wall motion and contractility are within normal limits. Global left ventricular systolic function is normal. The estimated ejection fraction is 50-55%. Abnormal left ventricular diastolic filling is observed, consistent with impaired relaxation. Left Atrium: The left atrial chamber size is normal. Right Ventricle: The right ventricular cavity size is normal.. The right ventricular global systolic function is normal. Right Atrium: The right atrial cavity size is normal. Aortic Valve: The aortic valve structure is normal. There is no evidence of aortic regurgitation. Mitral Valve: The mitral valve leaflets are mildly thickened. There is mild mitral regurgitation. Tricuspid Valve: The tricuspid valve leaflets are normal. There is mild to moderate tricuspid regurgitation. The right ventricular systolic pressure is calculated at 39 mmHg. Pulmonic Valve: The pulmonic valve appears normal. There is trace pulmonic regurgitation. Pericardium: There is no pericardial effusion. Venous: The inferior vena cava appears normal. Measurements Chambers 2D Name Value Normal Range IVSd (2D) 0.97 cm (0.6 - 1.1) LVPWd (2D) 1.04 cm (0.6 - 1.1) LVIDd (2D) 4.01 cm (3.7 - 5.6) LVIDs (2D) 2.72 cm (2 - 3.8) LV FS (2D) 32.13 % - EF Teichholz (2D) 60.87 % - Ao root diameter (2D) 2.6 cm (2 - 3.7) Volumes/Mass Name Value Normal Range LA ESV SP 4CH (A/L) 29.14 ml - LA ESV SP 2CH (A/L) 40.45 ml - LA ESV BP (A/L) 36.37 ml - LA ESV BP (A/L) index 16.53 ml/m2 - LA ESV SP 4CH (MOD) 27.78 ml - LA ESV SP 2CH (MOD) 39.47 ml - LA ESV BP (MOD) 35.05 ml - LA ESV BP (MOD) index 15.93 ml/m2 - Aortic Valve Name Value Normal Range AV Vmax 1.4 m/sec - AV VTI 25.89 cm - AV peak gradient 7.86 mmHg - AV mean gradient 3.9 mmHg - LVOT diameter 2.02 cm - LVOT Vmax 0.84 m/sec - LVOT VTI 18.45 cm - LVOT peak gradient 2.84 mmHg - LVOT mean gradient 1.82 mmHg - SV LVOT 59.05 ml - LIBIA (continuity Vmax) 1.93 cm2 - LIBIA (continuity VTI) 2.28 cm2 - Mitral Valve Name Value Normal Range MR Vmax 3.78 m/sec - Tricuspid Valve Name Value Normal Range TR Vmax 2.99 m/sec - TR peak gradient 36 mmHg - RAP 3 mmHg - RVSP 39 mmHg - Pulmonic Valve/Qp:Qs Name Value Normal Range PV Vmax 0.95 m/sec - PV peak gradient 3.59 mmHg - VA end-diastolic Vmax 1.09 m/sec - Armendariz/IV: Voiding Method External Female Catheter IV Catheter Type [Right Upper INT / Saline Lock arm] IV Catheter Type [Right Peripheral IV Antecubital] Active Medications - Current Medications Current Medications: Generic Name Dose Route Start Last Admin Trade Name Freq PRN Reason Stop Dose Admin Acetaminophen 650 mg 11/04/19 13:42 Tylenol PO Q4H PRN Pain MILD(1-3)/Fever >100.5/IRBY Albuterol 2.5 mg 11/05/19 14:12 Proventil IH Q4HRT PRN Shortness Of Breath Apixaban 2.5 mg 11/04/19 22:00 11/06/19 22:33 Eliquis PO 2.5 mg Q12HR AL[facility]GRA Administration Protocol Arformoterol Tartrate 15 mcg 11/05/19 20:00 11/06/19 20:29 Brovana Nebu IH 15 mcg Q12HRT [facility] Administration Atorvastatin Calcium 40 mg 11/04/19 22:00 11/06/19 22:39 Lipitor PO Not Given QHS AL[facility] Budesonide 0.5 mg 11/05/19 20:00 11/06/19 20:29 Pulmicort IH 0.5 mg Q12HRT [facility] Administration Cefuroxime Axetil 250 mg 11/07/19 10:00 Ceftin PO 11/12/19 10:01 Q24HR AL[facility]RA Dextrose 50 ml 11/04/19 13:42 D50w (25gm) Syringe IV Q30MIN PRN Hypoglycemia Protocol Ferrous Sulfate 324 mg 11/07/19 10:00 Feosol PO QAM AL[facility] Furosemide 40 mg 11/06/19 10:00 11/06/19 09:55 Lasix PO 40 mg QDAY [facility] Administration Glipizide 5 mg 11/07/19 08:00 Glucotrol PO QDDIAB [facility] Insulin Human Regular 0 units 11/04/19 16:30 11/07/19 00:28 Humulin R SUB-Q 8 units ACHS AL[facility] Administration Protocol Linagliptin 5 mg 11/07/19 08:00 Tradjenta PO QDDIAB [facility] Methylprednisolone Sodium Succinate 40 mg 11/05/19 14:00 11/07/19 05:22 Solu-Medrol IV 40 mg Q8HR [facility] Administration Metoprolol Tartrate 50 mg 11/05/19 11:00 11/06/19 22:33 Metoprolol PO 50 mg BID AL[facility]GRA Administration Montelukast Sodium 10 mg 11/06/19 18:00 11/06/19 17:27 Singulair PO 10 mg QPM [facility] Administration Nifedipine 60 mg 11/07/19 10:00 Procardia Xl PO QDAY [facility] Ondansetron HCl 4 mg 11/04/19 13:42 Zofran IV Q8H PRN Nausea And Vomiting Oxycodone/Acetaminophen 1 tab 11/05/19 16:00 11/07/19 05:43 Percocet 5/325 PO 1 tab Q6H PRN Administration Pain, Moderate (4-6) Sodium Chloride 10 ml 11/04/19 22:00 11/06/19 22:34 Sodium Chloride Flush Syringe 10 Ml IV 10 ml BID [facility] Administration Sodium Chloride 10 ml 11/04/19 13:42 11/07/19 05:22 Sodium Chloride Flush Syringe 10 Ml IV 10 ml PRN PRN Administration LINE FLUSH Trazodone HCl 50 mg 11/06/19 22:00 11/06/19 22:39 Desyrel PO Not Given QHS [facility] Valsartan 160 mg 11/07/19 10:00 Diovan PO QDAY AL[facility] Zolpidem Tartrate 5 mg 11/06/19 22:00 Ambien PO QHS PRN Sleep Nutrition/Malnutrition Assess - Dietary Evaluation Nutrition/Malnutrition Findings: Nutrition Notes Start: 11/05/19 11 :23 Freq: Status: Active Protocol: Document 11/05/19 11:23 MARIO (Rec: 11/05/19 11:28 MARIO [email or web address] [email or web address]) Nutrition Notes Need for Assessment generated from: MD Order,veterinary virus serum inspector,Education Initial or Follow up Assessment Current Diagnosis COPD,Diabetes,Hypertension, Heart Failure Other Pertinent Diagnosis CHF and COPD exacerbation, LE edema Labs/Tests K 3.1 BUN 38 Cr 1.6 BG 197 Pertinent Medications Lasix, Solumedrol Height 5 ft 3 in Weight 96.5 kg Bivalve Body Weight (kg) 52.27 BMI 37.7 Weight Status Obese Subjective/Other Information RD consulted for poor oral intake; pt also screened for malnutrition risk and skin risk (Carlos score: 13). Burn Absent Trauma Absent Minimum of two criteria No #1 Nutrition Diagnosis Inadequate oral intake Etiology hx of aspiration As Evidenced by Signs and Symptoms pt NPO Is patient on ventilator? No Is Patient Ambulatory and/or Out of Bed No REE-([facility]-confined to bed) 4001.340 [facility]culation [facility] Additional Notes Pro needs 1-1.2g/kg adjBW: 74- 89g/day Fluid needs 1.5L/day or per MD Nutrition Intervention Change Diet Order: Advance diet when medically feasible Goal #1 Diet advancement to meet nutrient needs Anticipated Discharge Needs: None identified at this time Follow-Up By: 11/07/19 Additional Comments F/U: diet advancement
[2019-11-07] MEDS: LINAGLIPTIN 5 MG TAB PO SCH (09:19)
[2019-11-07] MEDS: APIXABAN 2.5 MG TAB PO SCH ×2 (09:19→22:16)
[2019-11-07] MEDS: METOPROLOL TARTRATE 25 MG TAB PO SCH ×2 (09:25→22:16)
[2019-11-07] MEDS: glipiZIDE 5 MG TAB PO SCH (09:25)
[2019-11-07] MEDS: FERROUS SULFATE 325 MG TAB PO SCH (09:26)
[2019-11-07] MEDS: VALSARTAN 160MG TAB PO SCH (09:26)
[2019-11-07] MEDS: NIFEdipine XL 60 MG TAB PO SCH (09:26)
[2019-11-07] MEDS: FUROSEMIDE 40 MG TAB PO SCH (09:27)
[2019-11-07] MEDS ORDERED: LINACLOTIDE 290 MCG PO SCH (10:00)
[2019-11-07] MEDS ORDERED: UMECLIDINIUM BROMIDE 62.5 MCG IH SCH (10:00)
--- NOTE | 2019-11-07 10:31 | Progress Note ---
Assessment and Plan Impression: * Acute kidney injury attributed to diuresis on chronic kidney disease --Baseline renal function unknown; followed by Dr. David Holley (nephrology) * Acute on chronic hypoxemic respiratory failure secondary to pulmonary edema vs COPD exacerbation --Continuous NC oxygen 3L at home * Diastolic heart failure * Atrial fibrillation * Type II DM * Hypertension * Anemia Plan: * No acute need for hemodialysis. Baseline renal function per [place] labs around 1.7-1.9 since 2017 * Creatinine slightly higher today at 2.1; diurese prn per cardiology * Will obtain UA, UPCR * Obtain SIFE,SPEP,UPEP * Renal ultrasound is pending - will follow up * Transfusion of pRBC per primary - s/p blood transfusion yesterday * Pulmonary recommendations noted - IV steroids, inhaler * Avoid potential nephrotoxins * Dose medications for renal function * Glycemic control * Strict I/O ordered * Will need close outpatient renal follow up on discharge with Dr. Holley Thank you for this consult; we will continue to follow with you. Please do not hesitate to call me on my cell at for any questions or concerns for renal related issues. Subjective Date of service: 11/07/19 Principal diagnosis: sob Interval history: No major changes noted since yesterday. Notes that breathing is better but still not at baseline. Feels that she is urinating appropriately. Notes edema of legs. Objective - Exam Narrative Exam: General appearance: well-developed, well-nourished EENT: ATNC Respiratory: decreased breath sounds, on NC Heart: irregular Gastrointestinal: normal bowel sounds Integumentary: no rash, warm and dry Neurologic: no focal deficit, alert and oriented x3 Musculoskeletal: trace edema noted Psychiatric: cooperative - Vital Signs Vital signs: Vital Signs - 12hr 11/06/19 11/06/19 11/06/19 22:33 22:36 22:57 Temperature 97.4 F L Pulse Rate 95 H 92 H 90 Pulse Rate [ Bilateral Throughout] Respiratory 18 Rate Respiratory Rate [Bilateral Throughout] Blood Pressure 117/67 148/81 O2 Sat by Pulse 100 Oximetry 11/06/19 11/07/19 11/07/19 23:15 03:15 05:03 Temperature Pulse Rate 93 H 79 Pulse Rate [ Bilateral Throughout] Respiratory 24 20 Rate Respiratory Rate [Bilateral Throughout] Blood Pressure 132/74 O2 Sat by Pulse 100 100 100 Oximetry 11/07/19 11/07/19 11/07/19 08:37 08:38 08:50 Temperature 98.2 F Pulse Rate 74 Pulse Rate [ 66 Bilateral Throughout] Respiratory 19 Rate Respiratory 20 Rate [Bilateral Throughout] Blood Pressure 132/60 O2 Sat by Pulse 100 96 Oximetry 11/07/19 11/07/19 09:25 09:26 Temperature Pulse Rate 106 H 106 H Pulse Rate [ Bilateral Throughout] Respiratory Rate Respiratory Rate [Bilateral Throughout] Blood Pressure 132/60 132/60 O2 Sat by Pulse Oximetry - Lab 11/06/19 23:26 11/07/19 04:12 Most recent lab results Calcium 8.6 mg/dL (8.4-10.2) 11/07/19 04:12 Medications & Allergies - Medications Allergies/Adverse Reactions: Allergies No Known Allergies Allergy (Verified 11/17/15 22:31) Home Medications: Home Medications Medication Instructions Recorded Confirmed Last Taken Type Apixaban [Eliquis] 5 mg PO BID 11/04/19 11/04/19 Unknown History AtorvaSTATin [Lipitor] 40 mg PO QHS 11/04/19 11/04/19 Unknown History Ferrous Sulfate [Ferrous Sulfate 324 mg PO QAM 11/04/19 11/04/19 Unknown History 324 MG] Fluticasone/Salmeterol [Advair 1 puff IH BID 11/04/19 11/04/19 Unknown History Diskus 250-50 mcg] HYDROcodone/APAP 5-325 [[place] 1 each PO Q6HR PRN 11/04/19 11/04/19 Unknown History 5/325] Linaclotide [Linzess] 290 mcg PO QDAY 11/04/19 11/04/19 Unknown History Montelukast [Singulair] 10 mg PO QPM 11/04/19 11/04/19 Unknown History NIFEdipine [Procardia Xl] 60 mg PO QDAY 11/04/19 11/04/19 Unknown History Sitagliptin Phosphate [Januvia] 50 mg PO QDAY 11/04/19 11/04/19 Unknown History Torsemide [Demadex] 100 mg PO QDAY 11/04/19 11/04/19 Unknown History Umeclidinium [place] [Incruse 62.5 mcg IH QDAY 11/04/19 11/04/19 Unknown History Ellipta 62.5MCG] Valsartan [Diovan] 160 mg PO QDAY 11/04/19 11/04/19 Unknown History Zolpidem [Ambien] 5 mg PO QHS PRN 11/04/19 11/04/19 Unknown History glipiZIDE [Glucotrol] 5 mg PO QDAY 11/04/19 11/04/19 Unknown History predniSONE [Deltasone] 10 mg PO QDAY 11/04/19 11/04/19 Unknown History traZODone [Desyrel] 50 mg PO QHS 11/04/19 11/04/19 Unknown History Active Medications: Generic Name Dose Route Start Last Admin Trade Name Freq PRN Reason Stop Dose Admin Acetaminophen 650 mg 11/04/19 13:42 Tylenol PO Q4H PRN Pain MILD(1-3)/Fever >100.5/IRBY Albuterol 2.5 mg 11/05/19 14:12 Proventil IH Q4HRT PRN Shortness Of Breath Apixaban 2.5 mg 11/04/19 22:00 11/07/19 09:19 Eliquis PO 2.5 mg Q12HR ALLEGRA Administration Protocol Arformoterol Tartrate 15 mcg 11/05/19 20:00 11/07/19 08:38 Brovana Nebu IH 15 mcg Q12HRT ALLEGRA Administration Atorvastatin Calcium 40 mg 11/04/19 22:00 11/06/19 22:39 Lipitor PO Not Given QHS ALLEGRA Budesonide 0.5 mg 11/05/19 20:00 11/07/19 08:38 Pulmicort IH 0.5 mg Q12HRT ALLEGRA Administration Cefuroxime Axetil 250 mg 11/07/19 10:00 11/07/19 09:27 Ceftin PO 11/12/19 10:01 250 mg Q24HR ALLEGRA Administration Dextrose 50 ml 11/04/19 13:42 D50w (25gm) Syringe IV Q30MIN PRN Hypoglycemia Protocol Ferrous Sulfate 324 mg 11/07/19 10:00 11/07/19 09:26 Feosol PO 324 mg QAM ALLEGRA Administration Furosemide 40 mg 11/06/19 10:00 11/07/19 09:27 Lasix PO 40 mg QDAY ALLEGRA Administration Glipizide 5 mg 11/07/19 08:00 11/07/19 09:25 Glucotrol PO 5 mg QDDIAB ALLEGRA Administration Insulin Human Regular 0 units 11/04/19 16:30 11/07/19 09:24 Humulin R SUB-Q 8 units ACHS ALLEGRA Administration Protocol Linagliptin 5 mg 11/07/19 08:00 11/07/19 09:19 Tradjenta PO 5 mg QDDIAB ALLEGRA Administration Methylprednisolone Sodium Succinate 40 mg 11/05/19 14:00 11/07/19 05:22 Solu-Medrol IV 40 mg Q8HR ALLEGRA Administration Metoprolol Tartrate 50 mg 11/05/19 11:00 11/07/19 09:25 Metoprolol PO 50 mg BID ALLEGRA Administration Montelukast Sodium 10 mg 11/06/19 18:00 11/06/19 17:27 Singulair PO 10 mg QPM ALLEGRA Administration Nifedipine 60 mg 11/07/19 10:00 11/07/19 09:26 Procardia Xl PO 60 mg QDAY ALLEGRA Administration Ondansetron HCl 4 mg 11/04/19 13:42 Zofran IV Q8H PRN Nausea And Vomiting Oxycodone/Acetaminophen 1 tab 11/05/19 16:00 11/07/19 05:43 Percocet 5/325 PO 1 tab Q6H PRN Administration Pain, Moderate (4-6) Sodium Chloride 10 ml 11/04/19 22:00 11/07/19 09:27 Sodium Chloride Flush Syringe 10 Ml IV 10 ml BID ALLEGRA Administration Sodium Chloride 10 ml 11/04/19 13:42 11/07/19 05:22 Sodium Chloride Flush Syringe 10 Ml IV 10 ml PRN PRN Administration LINE FLUSH Trazodone HCl 50 mg 11/06/19 22:00 11/06/19 22:39 Desyrel PO Not Given QHS ALLEGRA Valsartan 160 mg 11/07/19 10:00 11/07/19 09:26 Diovan PO 160 mg QDAY ALLEGRA Administration Zolpidem Tartrate 5 mg 11/06/19 22:00 Ambien PO QHS PRN Sleep
--- NOTE | 2019-11-07 10:49 | Progress Note ---
Assessment and Plan H/H improved s/p PRBC tx. Cont present cardiac management. Monitor renal indices. The patient has been seen in conjunction with Dr. Ibrahima Torrez who agrees with the assessment and plan of care. - Patient Problems (1) Acute heart failure with preserved ejection fraction (HFpEF) Current Visit: Yes Status: Acute (2) Acute on chronic respiratory failure Current Visit: Yes Status: Acute (3) Atrial fibrillation with rapid ventricular response Current Visit: Yes Status: Acute (4) COPD (chronic obstructive pulmonary disease) Current Visit: Yes Status: Chronic (5) Diabetes mellitus with hyperglycemia Current Visit: Yes Status: Acute (6) HTN (hypertension) Current Visit: Yes Status: Chronic (7) Hyperlipidemia Current Visit: Yes Status: Chronic (8) History of CVA (cerebrovascular accident) Current Visit: Yes Status: Chronic (9) History of pulmonary embolism Current Visit: Yes Status: Chronic (10) LUIS FERNANDO (acute kidney injury) Current Visit: Yes Status: Acute (11) Anemia Current Visit: Yes Status: Acute Subjective Date of service: 11/07/19 Principal diagnosis: sob Interval history: pt resting bed, states SOB improving. In AFib with CVR on tele. Objective Last Vital Signs Temp 98.2 F 11/07/19 08:50 Pulse 106 H 11/07/19 09:26 Resp 19 11/07/19 08:50 BP 132/60 11/07/19 09:26 Pulse Ox 96 11/07/19 08:50 - Physical Examination General: No Apparent Distress HEENT: Positive: PERRL, Normocephaly, Mucus Membranes Moist Neck: Positive: neck supple, trachea midline Cardiac: Positive: irregularly irregular, S1/S2 Lungs: Positive: Decreased Breath Sounds Neuro: Positive: Grossly Intact Abdomen: Negative: Tender Skin: Negative: Rash Musculoskeletal: No Pain Extremities: Absent: edema (trace) - Labs and Meds CBC 11/06/19 Range/Units 23:26 Hgb 9.1 L (10.1-14.3) gm/dl Hct 27.0 L (30.3-42.9) % Comprehensive Metabolic Panel 11/07/19 Range/Units 04:12 Sodium 134 L (137-145) mmol/L Potassium 3.8 (3.6-5.0) mmol/L Chloride 93.2 L (98-107) mmol/L Carbon Dioxide 28 (22-30) mmol/L BUN 55 H (7-17) mg/dL Creatinine 2.1 H (0.7-1.2) mg/dL Glucose 311 H (65-100) mg/dL Calcium 8.6 (8.4-10.2) mg/dL - Imaging and Cardiology EKG: report reviewed, image reviewed Echo: report reviewed ( 01/2019 showed EF 65%, sclerotic AV, mild LVH, impaired relaxation, RVSP 31.5mmHg. ), other (normal lv function mild rvsp)
--- NOTE | 2019-11-07 11:21 | Progress Note ---
Assessment and Plan 79 y/o female with COPD exacerbation. 1. Continue IV steroids for now, will likely consider switching to PO as early as tomorrow 2. Continue BID Pulmicort and brovana therapy 3. Volume status should be closely monitored 4. Continue supplemental O2 and PPV at night. Subjective Date of service: 11/07/19 Principal diagnosis: sob Interval history: No acute events. Satting well on 3 liters NC Objective Vital Signs - 12hr 11/07/19 11/07/19 11/07/19 03:15 05:03 08:37 Temperature Pulse Rate 79 Pulse Rate [ Bilateral Throughout] Respiratory 20 Rate Respiratory Rate [Bilateral Throughout] Blood Pressure 132/74 O2 Sat by Pulse 100 100 100 Oximetry 11/07/19 11/07/19 11/07/19 08:38 08:50 09:25 Temperature 98.2 F Pulse Rate 74 106 H Pulse Rate [ 66 Bilateral Throughout] Respiratory 19 Rate Respiratory 20 Rate [Bilateral Throughout] Blood Pressure 132/60 132/60 O2 Sat by Pulse 96 Oximetry 11/07/19 09:26 Temperature Pulse Rate 106 H Pulse Rate [ Bilateral Throughout] Respiratory Rate Respiratory Rate [Bilateral Throughout] Blood Pressure 132/60 O2 Sat by Pulse Oximetry Constitutional: alert, other (mild distress) Eyes: non-icteric ENT: oropharynx moist Neck: supple Effort: normal Ascultation: Bilateral: diminished breath sounds, wheezes Gastrointestinal: normoactive bowel sounds, soft, non-tender, non-distended, other (obese) Integumentary: normal Extremities: pink and warm, edema Neurologic: normal mental status, non-focal exam Psychiatric: mood appropriate, affect normal CBC and BMP: 11/06/19 23:26 11/08/19 07:26 ABG, PT/INR, D-dimer: PT/INR, D-dimer PT 21.6 Sec. (12.2-14.9) H 11/04/19 07:20 INR 1.88 (0.87-1.13) H 11/04/19 07:20 Abnormal lab findings: Abnormal Labs 11/04/19 11/04/19 11/04/19 07:20 07:20 07:20 RBC 2.46 L Hgb 8.1 L Hct 24.6 L MCV 100 H MCH 33 H RDW 17.2 H Lymph % (Auto) [place] % (Auto) 14.8 H Lymph # [place] # 1.2 H Seg Neutrophils % Seg Neuts % (Manual) 72.0 H Monocytes % (Manual) Basophils % (Manual) 2.0 H Monocytes # (Manual) Basophils # (Manual) 0.2 H PT 21.6 H INR 1.88 H Sodium Potassium 3.5 L Chloride BUN 44 H Creatinine 1.8 H Glucose 237 H Hemoglobin A1c Alkaline Phosphatase 131 H Troponin T 0.069 H NT-Pro-B Natriuret Pep 5327 H Total Protein 5.9 L Albumin 3.0 L LDL Cholesterol Direct 38 L Free T4 Crossmatch 11/04/19 11/04/19 11/04/19 07:20 15:29 15:29 RBC 2.63 L Hgb 8.5 L Hct 26.3 L MCV 100 H MCH RDW 17.7 H Lymph % (Auto) [place] % (Auto) Lymph # [place] # Seg Neutrophils % Seg Neuts % (Manual) Monocytes % (Manual) 16.0 H Basophils % (Manual) Monocytes # (Manual) 1.1 H Basophils # (Manual) PT INR Sodium Potassium Chloride BUN 43 H Creatinine 1.7 H Glucose 172 H Hemoglobin A1c Alkaline Phosphatase Troponin T NT-Pro-B Natriuret Pep Total Protein Albumin LDL Cholesterol Direct Free T4 1.57 H Crossmatch 11/04/19 11/05/19 11/05/19 15:29 04:01 04:01 RBC 2.46 L Hgb 8.1 L Hct 24.8 L MCV 101 H MCH 33 H RDW 17.4 H Lymph % (Auto) [place] % (Auto) 13.1 H Lymph # [place] # Seg Neutrophils % Seg Neuts % (Manual) Monocytes % (Manual) Basophils % (Manual) Monocytes # (Manual) Basophils # (Manual) PT INR Sodium Potassium 3.1 L Chloride BUN 38 H Creatinine 1.6 H Glucose 197 H Hemoglobin A1c 7.8 H Alkaline Phosphatase Troponin T NT-Pro-B Natriuret Pep Total Protein Albumin LDL Cholesterol Direct Free T4 Crossmatch 11/06/19 11/06/19 11/06/19 04:54 04:54 13:29 RBC 2.34 L Hgb 7.7 L Hct 23.5 L MCV 101 H MCH 33 H RDW 17.1 H Lymph % (Auto) 7.9 L [place] % (Auto) Lymph # 0.5 L [place] # Seg Neutrophils % 89.4 H Seg Neuts % (Manual) Monocytes % (Manual) Basophils % (Manual) Monocytes # (Manual) Basophils # (Manual) PT INR Sodium Potassium Chloride 96.8 L BUN 45 H Creatinine 2.0 H Glucose 376 H Hemoglobin A1c Alkaline Phosphatase Troponin T NT-Pro-B Natriuret Pep Total Protein Albumin LDL Cholesterol Direct Free T4 Crossmatch See Detail 11/06/19 11/07/19 23:26 04:12 RBC Hgb 9.1 L Hct 27.0 L MCV MCH RDW Lymph % (Auto) [place] % (Auto) Lymph # [place] # Seg Neutrophils % Seg Neuts % (Manual) Monocytes % (Manual) Basophils % (Manual) Monocytes # (Manual) Basophils # (Manual) PT INR Sodium 134 L Potassium Chloride 93.2 L BUN 55 H Creatinine 2.1 H Glucose 311 H Hemoglobin A1c Alkaline Phosphatase Troponin T NT-Pro-B Natriuret Pep Total Protein Albumin LDL Cholesterol Direct Free T4 Crossmatch
[2019-11-07] MEDS: MONTELUKAST 10 MG TAB PO SCH (17:21)
[2019-11-07 17:34] LABS: Creatinine,Urine 108.3 mg/dL (0.1-20.0); Protein/Creatinine Ratio,Urine 0.26
[2019-11-07 17:36] LABS: Bilirubin,Urine NEG (Negative); Blood,Urine NEG (Negative); Color,Urine Yellow (Yellow); Mucus,Urine 3+ /HPF; Protein,Urine <15 mg/dL mg/dL (Negative); Urobilinogen,Urine < 2.0 mg/dL (<2.0)
[2019-11-07] MEDS: traZODone 50 MG TAB PO SCH (22:32)
[2019-11-07] MEDS: INSULIN GLARGINE 100 UNITS/ML SUB-Q SCH (22:34)
[2019-11-08] MEDS: INSULIN LISPRO 100 UNIT/ML SUB-Q SCH ×4 (01:22→18:26)
[2019-11-08] MEDS: methylPREDNISolone Sod Succinate 40 MG/1 ML INJ IV SCH ×3 (05:29→22:02)
--- NOTE | 2019-11-08 06:35 | Ultrasound Report ---
ULTRASOUND RENAL INDICATION: ARF. COMPARISON: No relevant prior imaging study available. FINDINGS: RIGHT KIDNEY: Size: 8.7 cm. Echogenicity: Mildly increased. Cortical thickness: Normal. Stones: None. Hydronephrosis: There is mild dilatation of the right renal pelvis versus parapelvic cyst on the righ t. Cyst or mass: None. LEFT KIDNEY: Size: 8.4 cm. Echogenicity: Mildly increased. Cortical thickness: Normal. Stones: None. Hydronephrosis: None. Cyst or mass: None. Urinary Bladder: No significant abnormality. Free Fluid: None. Additional Findings: None. IMPRESSION 1. Kidneys are mildly echogenic characteristic of medical renal disease. There is mild pelviectasis v ersus a parapelvic cyst on the right.. Signer Name: Paul Calero MD Signed: 11/08/2019 6:30 AM Workstation Name: [id number]
[2019-11-08 08:05] LABS: Calcium 8.4 mg/dL (8.4-10.2)
[2019-11-08] MEDS: INSULIN REGULAR, HUMAN 100 UNITS/1 ML SUB-Q SCH ×4 (08:21→22:02)
[2019-11-08] MEDS: glipiZIDE 5 MG TAB PO SCH (08:21)
[2019-11-08] MEDS: LINAGLIPTIN 5 MG TAB PO SCH (08:24)
[2019-11-08] MEDS: BUDESONIDE 0.5 MG/2 ML NEBU IH SCH ×2 (09:32→20:22)
[2019-11-08] MEDS: ARFORMOTEROL 15 MCG/2 ML NEBU IH SCH ×2 (09:32→20:22)
--- NOTE | 2019-11-08 09:54 | Progress Note ---
Assessment and Plan Cont present cardiac management. Monitor renal indices. Management of COPD exac and A/C resp failure per pulmonary. The patient has been seen in conjunction with Dr. Ibrahima Torrez who agrees with the assessment and plan of care. - Patient Problems (1) Acute heart failure with preserved ejection fraction (HFpEF) Current Visit: Yes Status: Acute (2) Acute on chronic respiratory failure Current Visit: Yes Status: Acute (3) Atrial fibrillation with rapid ventricular response Current Visit: Yes Status: Acute (4) COPD (chronic obstructive pulmonary disease) Current Visit: Yes Status: Chronic (5) Diabetes mellitus with hyperglycemia Current Visit: Yes Status: Acute (6) HTN (hypertension) Current Visit: Yes Status: Chronic (7) Hyperlipidemia Current Visit: Yes Status: Chronic (8) History of CVA (cerebrovascular accident) Current Visit: Yes Status: Chronic (9) History of pulmonary embolism Current Visit: Yes Status: Chronic (10) LUIS FERNANDO (acute kidney injury) Current Visit: Yes Status: Acute (11) Anemia Current Visit: Yes Status: Acute Subjective Date of service: 11/08/19 Principal diagnosis: sob Interval history: pt resting bed, c/o SOB, about to receive a breathing treatment. In AFib with CVR HR 90s on tele. Objective Last Vital Signs Temp 97.5 F L 11/08/19 03:36 Pulse 76 11/08/19 03:36 Resp 18 11/08/19 03:36 BP 117/49 11/08/19 03:36 Pulse Ox 100 11/08/19 03:36 - Physical Examination General: No Apparent Distress HEENT: Positive: PERRL, Normocephaly, Mucus Membranes Moist Neck: Positive: neck supple, trachea midline Cardiac: Positive: irregularly irregular, S1/S2 Lungs: Positive: Decreased Breath Sounds, Wheezes, Oxygen Neuro: Positive: Grossly Intact Abdomen: Negative: Tender Skin: Negative: Rash Musculoskeletal: No Pain Extremities: Absent: edema (trace) - Labs and Meds Comprehensive Metabolic Panel 11/07/19 11/07/19 11/08/19 Range/Units 16:34 21:27 07:26 Sodium 132 L (137-145) mmol/L Potassium 3.9 (3.6-5.0) mmol/L Chloride 93.6 L (98-107) mmol/L Carbon Dioxide 24 (22-30) mmol/L BUN 62 H (7-17) mg/dL Creatinine 1.9 H (0.7-1.2) mg/dL Glucose 313 H 234 H 290 H (65-100) mg/dL Calcium 8.4 (8.4-10.2) mg/dL - Imaging and Cardiology EKG: report reviewed, image reviewed Echo: report reviewed ( 01/2019 showed EF 65%, sclerotic AV, mild LVH, impaired relaxation, RVSP 31.5mmHg. ), other (normal lv function mild rvsp)
[2019-11-08] MEDS: FERROUS SULFATE 325 MG TAB PO SCH (10:11)
[2019-11-08] MEDS: APIXABAN 2.5 MG TAB PO SCH ×2 (10:12→22:00)
[2019-11-08] MEDS: FUROSEMIDE 40 MG TAB PO SCH (10:12)
[2019-11-08] MEDS: NIFEdipine XL 60 MG TAB PO SCH (10:13)
[2019-11-08] MEDS: METOPROLOL TARTRATE 25 MG TAB PO SCH ×2 (10:13→22:00)
[2019-11-08] MEDS: VALSARTAN 160MG TAB PO SCH (10:13)
[2019-11-08] MEDS: oxyCODONE /ACETAMINOPHEN 5-325MG TAB PO PRN ×2 (11:40→22:01)
--- NOTE | 2019-11-08 12:49 | Progress Note ---
Assessment and Plan 79 y/o female with COPD exacerbation. 1. Start Pred 60 tomorrow. Will taper steroids from there. 2. Continue BID Pulmicort and brovana therapy 3. Volume status should be closely monitored 4. Continue supplemental O2 and PPV at night. 5. Hopeful discharge in the next 24-48 hours. Subjective Date of service: 11/08/19 Principal diagnosis: sob Interval history: No acute events. Objective Vital Signs - 12hr 11/08/19 11/08/19 11/08/19 03:36 08:57 10:00 Temperature 97.5 F L 97.8 F Pulse Rate 76 97 H 80 Pulse Rate [ 80 From Monitor] Pulse Rate [ 80 Right Dorsalis Pedis] Respiratory 18 22 Rate Blood Pressure 117/49 105/51 O2 Sat by Pulse 100 92 94 Oximetry 11/08/19 11/08/19 11/08/19 10:07 10:13 11:07 Temperature 97.6 F Pulse Rate 86 80 77 Pulse Rate [ From Monitor] Pulse Rate [ Right Dorsalis Pedis] Respiratory 24 Rate Blood Pressure 112/48 112/58 136/65 O2 Sat by Pulse 97 98 Oximetry 11/08/19 11:40 Temperature Pulse Rate Pulse Rate [ From Monitor] Pulse Rate [ Right Dorsalis Pedis] Respiratory 16 Rate Blood Pressure O2 Sat by Pulse Oximetry Constitutional: alert, other (mild distress) Eyes: non-icteric ENT: oropharynx moist Neck: supple Effort: normal Ascultation: Bilateral: diminished breath sounds, wheezes Gastrointestinal: normoactive bowel sounds, soft, non-tender, non-distended, other (obese) Integumentary: normal Extremities: pink and warm, edema Neurologic: normal mental status, non-focal exam Psychiatric: mood appropriate, affect normal CBC and BMP: 11/06/19 23:26 11/08/19 07:26 ABG, PT/INR, D-dimer: PT/INR, D-dimer PT 21.6 Sec. (12.2-14.9) H 11/04/19 07:20 INR 1.88 (0.87-1.13) H 11/04/19 07:20 Abnormal lab findings: Abnormal Labs 11/04/19 11/04/19 11/04/19 07:20 07:20 07:20 RBC 2.46 L Hgb 8.1 L Hct 24.6 L MCV 100 H MCH 33 H RDW 17.2 H Lymph % (Auto) [place] % (Auto) 14.8 H Lymph # [place] # 1.2 H Seg Neutrophils % Seg Neuts % (Manual) 72.0 H Monocytes % (Manual) Basophils % (Manual) 2.0 H Monocytes # (Manual) Basophils # (Manual) 0.2 H PT 21.6 H INR 1.88 H Sodium Potassium 3.5 L Chloride BUN 44 H Creatinine 1.8 H Glucose 237 H POC Glucose Hemoglobin A1c Alkaline Phosphatase 131 H Troponin T 0.069 H NT-Pro-B Natriuret Pep 5327 H Total Protein 5.9 L Albumin 3.0 L LDL Cholesterol Direct 38 L Free T4 Urine Creatinine Urine Total Protein Crossmatch 11/04/19 11/04/19 11/04/19 07:20 15:29 15:29 RBC 2.63 L Hgb 8.5 L Hct 26.3 L MCV 100 H MCH RDW 17.7 H Lymph % (Auto) [place] % (Auto) Lymph # [place] # Seg Neutrophils % Seg Neuts % (Manual) Monocytes % (Manual) 16.0 H Basophils % (Manual) Monocytes # (Manual) 1.1 H Basophils # (Manual) PT INR Sodium Potassium Chloride BUN 43 H Creatinine 1.7 H Glucose 172 H POC Glucose Hemoglobin A1c Alkaline Phosphatase Troponin T NT-Pro-B Natriuret Pep Total Protein Albumin LDL Cholesterol Direct Free T4 1.57 H Urine Creatinine Urine Total Protein Crossmatch 11/04/19 11/04/19 11/04/19 15:29 16:19 22:03 RBC Hgb Hct MCV MCH RDW Lymph % (Auto) [place] % (Auto) Lymph # [place] # Seg Neutrophils % Seg Neuts % (Manual) Monocytes % (Manual) Basophils % (Manual) Monocytes # (Manual) Basophils # (Manual) PT INR Sodium Potassium Chloride BUN Creatinine Glucose POC Glucose 176 H 126 H Hemoglobin A1c 7.8 H Alkaline Phosphatase Troponin T NT-Pro-B Natriuret Pep Total Protein Albumin LDL Cholesterol Direct Free T4 Urine Creatinine Urine Total Protein Crossmatch 11/05/19 11/05/19 11/05/19 04:01 04:01 11:27 RBC 2.46 L Hgb 8.1 L Hct 24.8 L MCV 101 H MCH 33 H RDW 17.4 H Lymph % (Auto) [place] % (Auto) 13.1 H Lymph # [place] # Seg Neutrophils % Seg Neuts % (Manual) Monocytes % (Manual) Basophils % (Manual) Monocytes # (Manual) Basophils # (Manual) PT INR Sodium Potassium 3.1 L Chloride BUN 38 H Creatinine 1.6 H Glucose 197 H POC Glucose 177 H Hemoglobin A1c Alkaline Phosphatase Troponin T NT-Pro-B Natriuret Pep Total Protein Albumin LDL Cholesterol Direct Free T4 Urine Creatinine Urine Total Protein Crossmatch 11/05/19 11/05/19 11/06/19 15:46 21:37 00:44 RBC Hgb Hct MCV MCH RDW Lymph % (Auto) [place] % (Auto) Lymph # [place] # Seg Neutrophils % Seg Neuts % (Manual) Monocytes % (Manual) Basophils % (Manual) Monocytes # (Manual) Basophils # (Manual) PT INR Sodium Potassium Chloride BUN Creatinine Glucose POC Glucose 253 H 476 H 468 H Hemoglobin A1c Alkaline Phosphatase Troponin T NT-Pro-B Natriuret Pep Total Protein Albumin LDL Cholesterol Direct Free T4 Urine Creatinine Urine Total Protein Crossmatch 11/06/19 11/06/19 11/06/19 04:54 04:54 07:45 RBC 2.34 L Hgb 7.7 L Hct 23.5 L MCV 101 H MCH 33 H RDW 17.1 H Lymph % (Auto) 7.9 L [place] % (Auto) Lymph # 0.5 L [place] # Seg Neutrophils % 89.4 H Seg Neuts % (Manual) Monocytes % (Manual) Basophils % (Manual) Monocytes # (Manual) Basophils # (Manual) PT INR Sodium Potassium Chloride 96.8 L BUN 45 H Creatinine 2.0 H Glucose 376 H POC Glucose 467 H Hemoglobin A1c Alkaline Phosphatase Troponin T NT-Pro-B Natriuret Pep Total Protein Albumin LDL Cholesterol Direct Free T4 Urine Creatinine Urine Total Protein Crossmatch 11/06/19 11/06/19 11/06/19 11:15 13:29 15:47 RBC Hgb Hct MCV MCH RDW Lymph % (Auto) [place] % (Auto) Lymph # [place] # Seg Neutrophils % Seg Neuts % (Manual) Monocytes % (Manual) Basophils % (Manual) Monocytes # (Manual) Basophils # (Manual) PT INR Sodium Potassium Chloride BUN Creatinine Glucose POC Glucose 488 H 367 H Hemoglobin A1c Alkaline Phosphatase Troponin T NT-Pro-B Natriuret Pep Total Protein Albumin LDL Cholesterol Direct Free T4 Urine Creatinine Urine Total Protein Crossmatch See Detail 11/06/19 11/06/19 11/06/19 17:00 21:05 23:26 RBC Hgb 9.1 L Hct 27.0 L MCV MCH RDW Lymph % (Auto) [place] % (Auto) Lymph # [place] # Seg Neutrophils % Seg Neuts % (Manual) Monocytes % (Manual) Basophils % (Manual) Monocytes # (Manual) Basophils # (Manual) PT INR Sodium Potassium Chloride BUN Creatinine Glucose POC Glucose 325 H Hemoglobin A1c Alkaline Phosphatase Troponin T NT-Pro-B Natriuret Pep Total Protein Albumin LDL Cholesterol Direct Free T4 Urine Creatinine 108.3 H Urine Total Protein 28 H Crossmatch 11/07/19 11/07/19 11/07/19 00:19 04:12 09:17 RBC Hgb Hct MCV MCH RDW Lymph % (Auto) [place] % (Auto) Lymph # [place] # Seg Neutrophils % Seg Neuts % (Manual) Monocytes % (Manual) Basophils % (Manual) Monocytes # (Manual) Basophils # (Manual) PT INR Sodium 134 L Potassium Chloride 93.2 L BUN 55 H Creatinine 2.1 H Glucose 311 H POC Glucose 380 H 338 H Hemoglobin A1c Alkaline Phosphatase Troponin T NT-Pro-B Natriuret Pep Total Protein Albumin LDL Cholesterol Direct Free T4 Urine Creatinine Urine Total Protein Crossmatch 11/07/19 11/07/19 11/07/19 11:57 16:11 16:34 RBC Hgb Hct MCV MCH RDW Lymph % (Auto) [place] % (Auto) Lymph # [place] # Seg Neutrophils % Seg Neuts % (Manual) Monocytes % (Manual) Basophils % (Manual) Monocytes # (Manual) Basophils # (Manual) PT INR Sodium Potassium Chloride BUN Creatinine Glucose 313 H POC Glucose 368 H > 500 H Hemoglobin A1c Alkaline Phosphatase Troponin T NT-Pro-B Natriuret Pep Total Protein Albumin LDL Cholesterol Direct Free T4 Urine Creatinine Urine Total Protein Crossmatch 11/07/19 11/07/19 11/08/19 20:35 21:27 01:16 RBC Hgb Hct MCV MCH RDW Lymph % (Auto) [place] % (Auto) Lymph # [place] # Seg Neutrophils % Seg Neuts % (Manual) Monocytes % (Manual) Basophils % (Manual) Monocytes # (Manual) Basophils # (Manual) PT INR Sodium Potassium Chloride BUN Creatinine Glucose 234 H POC Glucose > 500 H 340 H Hemoglobin A1c Alkaline Phosphatase Troponin T NT-Pro-B Natriuret Pep Total Protein Albumin LDL Cholesterol Direct Free T4 Urine Creatinine Urine Total Protein Crossmatch 11/08/19 11/08/19 11/08/19 05:35 07:26 08:04 RBC Hgb Hct MCV MCH RDW Lymph % (Auto) [place] % (Auto) Lymph # [place] # Seg Neutrophils % Seg Neuts % (Manual) Monocytes % (Manual) Basophils % (Manual) Monocytes # (Manual) Basophils # (Manual) PT INR Sodium 132 L Potassium Chloride 93.6 L BUN 62 H Creatinine 1.9 H Glucose 290 H POC Glucose 307 H 286 H Hemoglobin A1c Alkaline Phosphatase Troponin T NT-Pro-B Natriuret Pep Total Protein Albumin LDL Cholesterol Direct Free T4 Urine Creatinine Urine Total Protein Crossmatch 11/08/19 11:07 RBC Hgb Hct MCV MCH RDW Lymph % (Auto) [place] % (Auto) Lymph # [place] # Seg Neutrophils % Seg Neuts % (Manual) Monocytes % (Manual) Basophils % (Manual) Monocytes # (Manual) Basophils # (Manual) PT INR Sodium Potassium Chloride BUN Creatinine Glucose POC Glucose 281 H Hemoglobin A1c Alkaline Phosphatase Troponin T NT-Pro-B Natriuret Pep Total Protein Albumin LDL Cholesterol Direct Free T4 Urine Creatinine Urine Total Protein Crossmatch
--- NOTE | 2019-11-08 16:03 | Progress Note ---
Assessment and Plan Assessment and plan: Acute HFrEF. On admission, BNP 5327 and chest x-ray revealed mild diffuse interstitial prominence reflecting edema. Cardiology following Acute COPD exacerbation. Continue IV steroids, bronchodilators/nebulizer treatments. Pulmonary following A. fib with RVR. Acute kidney injury on CKD. Acute hypoxic respiratory failure. Etiology secondary to above. Diabetes mellitus type 2. Continue Accu-Cheks and sliding scale insulin. 11/05/2019. Cardiology discontinued Cardizem drip and initiated Lopressor 3 times daily. Eliquis resumed for anticoagulation. Continue GDMT with gentle diuresis. Echocardiogram pending. Pulmonary consulted for acute on chronic respiratory failure from COPD exacerbation. Solu-Medrol 40 mg IV every 8 hours and nebulizer treatments. 11/06/2019. Creatinine is mildly elevated. Baseline creatinine of 1.1-2016. Check renal ultrasound. Nephrology consulted. Continue Lasix and Lopressor. 11/07/2019. Nephrology feels that there is No acute need for hemodialysis. Baseline renal function unknown. Will attempt to obtain prior labs (patient was recently hospitalized at [facility]). Renal ultrasound pending. Continue diuresis per cardiology. Echocardiogram revealed EF of 50 to 55% with left ventricular contractility within normal limits. 11/08/2019 Patient still having shortness of breath, wheezing. She just had a nebulizer breathing treatment. No chest pain. Nephrology, cardiology and Pulmonology following. History Interval history: Shortness of breath Hospitalist Physical - Physical exam Narrative exam: GEN: Not in acute distress,morbidly obese, lying in bed HEENT: Normocephalic, atraumatic, Neck: supple, No JVD Lungs: Bilateral rhonchi, wheezing, heart;S1 and S2 reg, no murmurs, rubs or gallop Abd:soft, non tender, non distended, normal bowel sounds, Ext: No edema, no clubbing, no cyanosis, Neuro: Awake,alert,oriented X3, No focal neurological signs - Constitutional Vitals: Temp Pulse Resp BP Pulse Ox 97.6 F 77 14 136/65 98 11/08/19 11:07 11/08/19 11:07 11/08/19 12:40 11/08/19 11:07 11/08/19 11:07 HEART Score - HEART Score Troponin: Troponin T 0.069 ng/mL (0.00-0.029) H 11/04/19 07:20 Results - Labs CBC & Chem 7: 11/06/19 23:26 11/08/19 07:26 Labs: Laboratory Last Values WBC 6.9 K/mm3 (4.5-11.0) 11/06/19 04:54 RBC 2.34 M/mm3 (3.65-5.03) L 11/06/19 04:54 Hgb 9.1 gm/dl (10.1-14.3) L 11/06/19 23:26 Hct 27.0 % (30.3-42.9) L 11/06/19 23:26 MCV 101 fl (79-97) H 11/06/19 04:54 MCH 33 pg (28-32) H 11/06/19 04:54 MCHC 33 % (30-34) 11/06/19 04:54 RDW 17.1 % (13.2-15.2) H 11/06/19 04:54 Plt Count 169 K/mm3 (140-440) 11/06/19 04:54 Lymph % (Auto) 7.9 % (13.4-35.0) L 11/06/19 04:54 [place] % (Auto) 2.7 % (0.0-7.3) 11/06/19 04:54 Eos % (Auto) 0.0 % (0.0-4.3) 11/06/19 04:54 Baso % (Auto) 0.0 % (0.0-1.8) 11/06/19 04:54 Lymph # 0.5 K/mm3 (1.2-5.4) L 11/06/19 04:54 [place] # 0.2 K/mm3 (0.0-0.8) 11/06/19 04:54 Eos # 0.0 K/mm3 (0.0-0.4) 11/06/19 04:54 Baso # 0.0 K/mm3 (0.0-0.1) 11/06/19 04:54 Add Manual Diff Complete 11/04/19 15:29 Total Counted 100 11/04/19 15:29 Seg Neutrophils % 89.4 % (40.0-70.0) H 11/06/19 04:54 Seg Neuts % (Manual) 55.0 % (40.0-70.0) 11/04/19 15:29 Band Neutrophils % 0 % 11/04/19 15:29 Lymphocytes % (Manual) 26.0 % (13.4-35.0) 11/04/19 15:29 Reactive Lymphs % (Man) 0 % 11/04/19 15:29 Monocytes % (Manual) 16.0 % (0.0-7.3) H 11/04/19 15:29 Eosinophils % (Manual) 2.0 % (0.0-4.3) 11/04/19 15:29 Basophils % (Manual) 1.0 % (0.0-1.8) 11/04/19 15: Metamyelocytes % 0 % 11/04/19 15: Myelocytes % 0 % 11/04/19 15: Promyelocytes % 0 % 11/04/19 15: Blast Cells % 0 % 11/04/19 15: Nucleated RBC % Not Reportable 11/04/19 15: Seg Neutrophils # 6.1 K/mm3 (1.8-7.7) 11/06/19 04:54 Seg Neutrophils # Man 3.9 K/mm3 (1.8-7.7) 11/04/19 15: Band Neutrophils # 0.0 K/mm3 11/04/19 15: Lymphocytes # (Manual) 1.8 K/mm3 (1.2-5.4) 11/04/19 15:29 Abs React Lymphs (Man) 0.0 K/mm3 11/04/19 15:29 Monocytes # (Manual) 1.1 K/mm3 (0.0-0.8) H 11/04/19 15:29 Eosinophils # (Manual) 0.1 K/mm3 (0.0-0.4) 11/04/19 15:29 Basophils # (Manual) 0.1 K/mm3 (0.0-0.1) 11/04/19: Metamyelocytes # 0.0 K/mm3 11/04/19 15:29 Myelocytes # 0.0 K/mm3 11/04/19 15:29 Promyelocytes # 0.0 K/mm3 11/04/19 15:29 Blast Cells # 0.0 K/mm3 11/04/19 15:29 WBC Morphology Not Reportable 11/04/19 15:29 Hypersegmented Neuts Not Reportable 11/04/19 15:29 Hyposegmented Neuts Not Reportable 11/04/19 15:29 Hypogranular Neuts Not Reportable 11/04/19 15:29 Smudge Cells Not Reportable 11/04/19 15:29 Toxic Granulation Not Reportable 11/04/19 15:29 Toxic Vacuolation Not Reportable 11/04/19 15:29 Dohle Bodies Not Reportable 11/04/19 15:29 Pelger-Huet Anomaly Not Reportable 11/04/19 15:29 Brian Rods Not Reportable 11/04/19 15:29 Platelet Estimate Not Reportable 11/04/19 15:29 Clumped Platelets Not Reportable 11/04/19 15: Plt Clumps, EDTA Not Reportable 11/04/19 15: Large Platelets Not Reportable 11/04/19 15: Giant Platelets Not Reportable 11/04/19 15:29 Platelet Satelliting Not Reportable 11/04/19 15:29 Plt Morphology Comment Not Reportable 11/04/19 15:29 RBC Morphology Not Reportable 11/04/19 15:29 Dimorphic RBCs Not Reportable 11/04/19 15:29 Polychromasia Rare 11/04/19 15:29 Hypochromasia 1+ 11/04/19 15:29 Poikilocytosis Not Reportable 11/04/19 15:29 Anisocytosis Few 11/04/19 15:29 Microcytosis Not Reportable 11/04/19 15:29 Macrocytosis Not Reportable 11/04/19 15:29 Spherocytes Not Reportable 11/04/19 15:29 Pappenheimer Bodies Not Reportable 11/04/19 15:29 Sickle Cells Not Reportable 11/04/19 15:29 Target Cells Not Reportable 11/04/19 15:29 Tear Drop Cells Not Reportable 11/04/19 15:29 Ovalocytes Not Reportable 11/04/19 15:29 Helmet Cells Not Reportable 11/04/19 15:29 Bazan-Hensley Bodies Not Reportable 11/04/19 15:29 Eliot Rings Not Reportable 11/04/19 15:29 Moran Cells Not Reportable 11/04/19 15:29 Bite Cells Not Reportable 11/04/19 15:29 Crenated Cell Not Reportable 11/04/19 15:29 Elliptocytes Not Reportable 11/04/19 15:29 Acanthocytes (Spur) Not Reportable 11/04/19 15:29 Rouleaux Not Reportable 11/04/19 15:29 Hemoglobin C Crystals Not Reportable 11/04/19 15:29 Schistocytes Not Reportable 11/04/19 15:29 Malaria parasites Not Reportable 11/04/19 15:29 Tom Bodies Not Reportable 11/04/19 15:29 Hem Pathologist Commnt No 11/04/19 15:29 PT 21.6 Sec. (12.2-14.9) H 11/04/19 07:20 INR 1.88 (0.87-1.13) H 11/04/19 07:20 APTT 27.5 Sec. (24.2-36.6) 11/04/19 07:20 Sodium 132 mmol/L (137-145) L 11/08/19 07:26 Potassium 3.9 mmol/L (3.6-5.0) 11/08/19 07:26 Chloride 93.6 mmol/L (98-107) L 11/08/19 07:26 Carbon Dioxide 24 mmol/L (22-30) 11/08/19 07:26 Anion Gap 18 mmol/L 11/08/19 07:26 BUN 62 mg/dL (7-17) H 11/08/19 07:26 Creatinine 1.9 mg/dL (0.7-1.2) H 11/08/19 07:26 Estimated GFR 31 ml/min 11/08/19 07:26 BUN/Creatinine Ratio 33 % 11/08/19 07:26 Glucose 290 mg/dL (65-100) H 11/08/19 07:26 POC Glucose 281 (70-105) H 11/08/19 11:07 Hemoglobin A1c 7.8 % (4-6) H 11/04/19 15:29 Calcium 8.4 mg/dL (8.4-10.2) 11/08/19 07:26 Total Bilirubin 0.30 mg/dL (0.1-1.2) 11/04/19 07:20 AST 31 units/L (5-40) 11/04/19 07:20 ALT 47 units/L (7-56) 11/04/19 07:20 Alkaline Phosphatase 131 units/L (35-129) H 11/04/19 07:20 Total Creatine Kinase 73 units/L (30-135) 11/04/19 07:20 CK-MB (CK-2) 2.2 ng/mL (0.0-4.0) 11/04/19 07:20 CK-MB (CK-2) Rel Index 3.0 (0-4) 11/04/19 07:20 Troponin T 0.069 ng/mL (0.00-0.029) H 11/04/19 07:20 NT-Pro-B Natriuret Pep 5327 pg/mL (0-900) H 11/04/19 07:20 Total Protein 5.9 g/dL (6.3-8.2) L 11/04/19 07:20 Albumin 3.0 g/dL (3.9-5) L 11/04/19 07:20 Albumin/Globulin Ratio 1.0 % 11/04/19 07:20 Triglycerides 74 mg/dL (2-149) 11/04/19 07:20 Cholesterol 90 mg/dL (50-199) 11/04/19 07:20 LDL Cholesterol Direct 38 mg/dL (50-130) L 11/04/19 07:20 HDL Cholesterol 52 mg/dL (40-59) 11/04/19 07:20 Cholesterol/HDL Ratio 1.73 % 11/04/19 07:20 TSH 0.909 mlU/mL (0.270-4.200) 11/04/19 07:20 Free T4 1.57 ng/dL (0.76-1.46) H 11/04/19 07:20 Urine Color Yellow (Yellow) 11/06/19 17:00 Urine Turbidity Clear (Clear) 11/06/19 17:00 Urine pH 5.0 (5.0-7.0) 11/06/19 17:00 Ur Specific [place] 1.013 (1.003-1.030) 11/06/19 17:00 Urine Protein <15 mg/dl mg/dL (Negative) 11/06/19 17:00 Urine Glucose (UA) Neg mg/dL (Negative) 11/06/19 17:00 Urine Ketones Neg mg/dL (Negative) 11/06/19 17:00 Urine Blood Neg (Negative) 11/06/19 17:00 Urine Nitrite Neg (Negative) 11/06/19 17:00 Urine Bilirubin Neg (Negative) 11/06/19 17:00 Urine Urobilinogen < 2.0 mg/dL (<2.0) 11/06/19 17:00 Ur Leukocyte Esterase Tr (Negative) 11/06/19 17:00 Urine WBC (Auto) 1.0 /HPF (0.0-6.0) 11/06/19 17:00 Urine RBC (Auto) 4.0 /HPF (0.0-6.0) 11/06/19 17:00 U Epithel Cells (Auto) < 1.0 /HPF (0-13.0) 11/06/19 17:00 Urine Mucus 3+ /HPF 11/06/19 17:00 Urine Creatinine 108.3 mg/dL (0.1-20.0) H 11/06/19 17:00 Protein/Creatinin Ratio 0.26 11/06/19 17:00 Urine Total Protein 28 mg/dL (5-11.8) H 11/06/19 17:00 Nasal Screen MRSA (PCR) Negative (Negative) 11/06/19 05:50 Blood Type O POSITIVE 11/06/19 13:29 Antibody Screen Negative 11/06/19 13:29 Crossmatch See Detail 11/06/19 13:29 - Diagnostic Impressions Diagnostic Impressions: Echocardiogram 11/04/19 13:46 Transthoracic Echocardiogram Indication: SOB BP: 129/83 HR: 78 Conclusions *Patient in atrial fibrillation. *The left ventricular chamber size is normal. *Global left ventricular wall motion and contractility are within normal limits. *The estimated ejection fraction is 50-55%. *Abnormal left ventricular diastolic filling is observed, consistent with impaired relaxation. *The left atrial chamber size is normal. *The right ventricular global systolic function is normal. *There is mild to moderate tricuspid regurgitation. *The right ventricular systolic pressure is calculated at 39 mmHg. Findings Left Ventricle: The left ventricular chamber size is normal. Global left ventricular wall motion and contractility are within normal limits. Global left ventricular systolic function is normal. The estimated ejection fraction is 50-55%. Abnormal left ventricular diastolic filling is observed, consistent with impaired relaxation. Left Atrium: The left atrial chamber size is normal. Right Ventricle: The right ventricular cavity size is normal.. The right ventricular global systolic function is normal. Right Atrium: The right atrial cavity size is normal. Aortic Valve: The aortic valve structure is normal. There is no evidence of aortic regurgitation. Mitral Valve: The mitral valve leaflets are mildly thickened. There is mild mitral regurgitation. Tricuspid Valve: The tricuspid valve leaflets are normal. There is mild to moderate tricuspid regurgitation. The right ventricular systolic pressure is calculated at 39 mmHg. Pulmonic Valve: The pulmonic valve appears normal. There is trace pulmonic regurgitation. Pericardium: There is no pericardial effusion. Venous: The inferior vena cava appears normal. Measurements Chambers 2D Name Value Normal Range IVSd (2D) 0.97 cm (0.6 - 1.1) LVPWd (2D) 1.04 cm (0.6 - 1.1) LVIDd (2D) 4.01 cm (3.7 - 5.6) LVIDs (2D) 2.72 cm (2 - 3.8) LV FS (2D) 32.13 % - EF Teichholz (2D) 60.87 % - Ao root diameter (2D) 2.6 cm (2 - 3.7) Volumes/Mass Name Value Normal Range LA ESV SP 4CH (A/L) 29.14 ml - LA ESV SP 2CH (A/L) 40.45 ml - LA ESV BP (A/L) 36.37 ml - LA ESV BP (A/L) index 16.53 ml/m2 - LA ESV SP 4CH (MOD) 27.78 ml - LA ESV SP 2CH (MOD) 39.47 ml - LA ESV BP (MOD) 35.05 ml - LA ESV BP (MOD) index 15.93 ml/m2 - Aortic Valve Name Value Normal Range AV Vmax 1.4 m/sec - AV VTI 25.89 cm - AV peak gradient 7.86 mmHg - AV mean gradient 3.9 mmHg - LVOT diameter 2.02 cm - LVOT Vmax 0.84 m/sec - LVOT VTI 18.45 cm - LVOT peak gradient 2.84 mmHg - LVOT mean gradient 1.82 mmHg - SV LVOT 59.05 ml - LIBIA (continuity Vmax) 1.93 cm2 - LIBIA (continuity VTI) 2.28 cm2 - Mitral Valve Name Value Normal Range MR Vmax 3.78 m/sec - Tricuspid Valve Name Value Normal Range TR Vmax 2.99 m/sec - TR peak gradient 36 mmHg - RAP 3 mmHg - RVSP 39 mmHg - Pulmonic Valve/Qp:Qs Name Value Normal Range PV Vmax 0.95 m/sec - PV peak gradient 3.59 mmHg - IL end-diastolic Vmax 1.09 m/sec - Armendariz/IV: Voiding Method External Female Catheter IV Catheter Type [Right Wrist] INT / Saline Lock IV Catheter Type [Right Upper INT / Saline Lock arm] IV Catheter Type [Right Peripheral IV Antecubital] Active Medications - Current Medications Current Medications: Generic Name Dose Route Start Last Admin Trade Name Freq PRN Reason Stop Dose Admin Acetaminophen 650 mg 11/04/19 13:42 11/08/19 01:29 Tylenol PO 650 mg Q4H PRN Administration Pain MILD(1-3)/Fever >100.5/IRBY Albuterol 2.5 mg 11/05/19 14:12 Proventil IH Q4HRT PRN Shortness Of Breath Apixaban 2.5 mg 11/04/19 22:00 11/08/19 10:12 Eliquis PO 2.5 mg Q12HR ALLEGRA Administration Protocol Arformoterol Tartrate 15 mcg 11/05/19 20:00 11/08/19 09:32 Brovana Nebu IH 15 mcg Q12HRT ALLEGRA Administration Atorvastatin Calcium 40 mg 11/04/19 22:00 11/07/19 22:16 Lipitor PO 40 mg QHS ALLEGRA Administration Budesonide 0.5 mg 11/05/19 20:00 11/08/19 09:32 Pulmicort IH 0.5 mg Q12HRT ALLEGRA Administration Cefuroxime Axetil 250 mg 11/07/19 10:00 11/08/19 10:13 Ceftin PO 11/12/19 10:01 250 mg Q24HR ALLEGRA Administration Dextrose 50 ml 11/04/19 13:42 D50w (25gm) Syringe IV Q30MIN PRN Hypoglycemia Protocol Ferrous Sulfate 324 mg 11/07/19 10:00 11/08/19 10:11 Feosol PO 324 mg QAM ALLEGRA Administration Furosemide 40 mg 11/06/19 10:00 11/08/19 10:12 Lasix PO 40 mg QDAY ALLEGRA Administration Glipizide 5 mg 11/07/19 08:00 11/08/19 08:21 Glucotrol PO 5 mg QDDIAB ALLEGRA Administration Insulin Glargine 10 units 11/07/19 22:00 11/07/19 22:34 Lantus SUB-Q 10 units QHS ALLEGRA Administration Insulin Human Lispro 0 unit 11/08/19 00:00 11/08/19 11:29 Humalog SUB-Q 6 unit Q6HR ALLEGRA Administration Protocol Insulin Human Regular 0 units 11/04/19 16:30 11/08/19 11:28 Humulin R SUB-Q 4 units ACHS ALLEGRA Administration Protocol Linagliptin 5 mg 11/07/19 08:00 11/08/19 08:24 Tradjenta PO 5 mg QDDIAB ALLEGRA Administration Methylprednisolone Sodium Succinate 40 mg 11/05/19 14:00 11/08/19 13:16 Solu-Medrol IV 11/08/19 22:00 40 mg Q8HR ALLEGRA Administration Metoprolol Tartrate 50 mg 11/05/19 11:00 11/08/19 10:13 Metoprolol PO 50 mg BID ALLEGRA Administration Montelukast Sodium 10 mg 11/06/19 18:00 11/07/19 17:21 Singulair PO 10 mg QPM ALLEGRA Administration Nifedipine 60 mg 11/07/19 10:00 11/08/19 10:13 Procardia Xl PO 60 mg QDAY ALLEGRA Administration Ondansetron HCl 4 mg 11/04/19 13:42 Zofran IV Q8H PRN Nausea And Vomiting Oxycodone/Acetaminophen 1 tab 11/05/19 16:00 11/08/19 11:40 Percocet 5/325 PO 1 tab Q6H PRN Administration Pain, Moderate (4-6) Prednisone 60 mg 11/09/19 10:00 Deltasone PO QDAY ALLEGRA Sodium Chloride 10 ml 11/04/19 22:00 11/08/19 10:14 Sodium Chloride Flush Syringe 10 Ml IV 10 ml BID ALLEGRA Administration Sodium Chloride 10 ml 11/04/19 13:42 11/08/19 05:30 Sodium Chloride Flush Syringe 10 Ml IV 10 ml PRN PRN Administration LINE FLUSH Trazodone HCl 50 mg 11/06/19 22:00 11/07/19 22:32 Desyrel PO Not Given QHS ALLEGRA Valsartan 160 mg 11/07/19 10:00 11/08/19 10:13 Diovan PO 160 mg QDAY ALLEGRA Administration Zolpidem Tartrate 5 mg 11/06/19 22:00 Ambien PO QHS PRN Sleep Nutrition/Malnutrition Assess - Dietary Evaluation Nutrition/Malnutrition Findings: Nutrition Notes Start: 11/05/19 11:23 Freq: Status: Active Protocol: Document 11/07/19 14:08 LM (Rec: 11/07/19 14:15 LM [id number]) Nutrition Notes Initial or Follow up Reassessment Current Diagnosis COPD,Decubitus(Pressure Ulcer) ,Diabetes,Hypertension,Heart Failure Other Pertinent Diagnosis CHF and COPD exacerbation, LE edema, sacral PU Current Diet Cardiac Labs/Tests Na 134 BUN 55 Cr 2.1 BG 311 Pertinent Medications Solumedrol Humulin Lasix Height 5 ft 3 in Weight 96.5 kg [place] Body Weight (kg) 52.27 BMI 37.7 Weight Status Obese Subjective/Other Information Unable to fisnish assessment and attempted to call pt back but no answer. Burn Absent Trauma Absent Minimum of two criteria No Fluid Accumulation Mild (non-severe) #2 Nutrition Diagnosis Increased nutrient needs ( specify in comment below) Comments: protein Etiology wound healing As Evidenced by Signs and Symptoms pt with sacral PU Is patient on ventilator? No Is Patient Ambulatory and/or Out of Bed No [facility] 5895.599 Calculation Used for Recommendations [facility] Additional Notes Protein: 94-113g (1.25-1.5g/kg using AdjBW 75kg) Fluid: 1 ml/kcal Nutrition Intervention Change Diet Order: cardiac/consistent CHO Goal #1 Meet at least 75% of energy and protein needs Goal #2 wound healing Anticipated Discharge Needs: cardiac/consistent CHO Follow-Up By: 11/09/19 Additional Comments F/U for intakes, full assessment
--- NOTE | 2019-11-08 16:23 | Progress Note ---
Assessment and Plan Impression: * Acute kidney injury attributed to diuresis on chronic kidney disease --Baseline renal function unknown; followed by Dr. David Holley (nephrology) * Acute on chronic hypoxemic respiratory failure secondary to pulmonary edema vs COPD exacerbation --Continuous [place] oxygen 3L at home * Diastolic heart failure * Atrial fibrillation * Type II DM * Hypertension * Anemia Plan: * No acute need for hemodialysis. Baseline renal function per [place] labs around 1.7-1.9 since 2017 * Creatinine at baseline today at 1.9; diurese prn per cardiology/pulmonary- currently on furosemide 40mg po daily * BPs at goal * Reviewed urine studies * Obtain SIFE,SPEP,UPEP * Renal ultrasound reviewed, no acute issues noted * Transfusion of pRBC per primary - s/p blood transfusion 11/05 * Pulmonary recommendations noted - PO steroids, inhaler * Avoid potential nephrotoxins * Dose medications for renal function * Glycemic control * Strict I/O ordered * Will need close outpatient renal follow up on discharge with Dr. Holley Thank you for this consult; we will continue to follow with you. Please do not hesitate to call me on my cell at for any questions or concerns for renal related issues. Subjective Date of service: 11/08/19 Principal diagnosis: sob Interval history: No major changes noted since yesterday. Resting comfortably, notes some shortness of breath Objective - Exam Narrative Exam: General appearance: well-developed, well-nourished EENT: ATNC Respiratory: decreased breath sounds, on NC Heart: irregular Gastrointestinal: normal bowel sounds Integumentary: no rash, warm and dry Neurologic: no focal deficit, alert and oriented x3 Musculoskeletal: trace edema noted Psychiatric: cooperative - Vital Signs Vital signs: Vital Signs - 12hr 11/08/19 11/08/19 11/08/19 08:57 10:00 10:07 Temperature 97.8 F Pulse Rate 97 H 80 86 Pulse Rate [ 80 From Monitor] Pulse Rate [ 80 Right Dorsalis Pedis] Respiratory 22 Rate Blood Pressure 105/51 112/48 O2 Sat by Pulse 92 94 97 Oximetry 11/08/19 11/08/19 11/08/19 10:13 11:07 11:40 Temperature 97.6 F Pulse Rate 80 77 Pulse Rate [ From Monitor] Pulse Rate [ Right Dorsalis Pedis] Respiratory 24 16 Rate Blood Pressure 112/58 136/65 O2 Sat by Pulse 98 Oximetry 11/08/19 12:40 Temperature Pulse Rate Pulse Rate [ From Monitor] Pulse Rate [ Right Dorsalis Pedis] Respiratory 14 Rate Blood Pressure O2 Sat by Pulse Oximetry - Lab 11/06/19 23:26 11/08/19 07:26 Most recent lab results Calcium 8.4 mg/dL (8.4-10.2) 11/08/19 07:26 Urine Creatinine 108.3 mg/dL (0.1-20.0) H 11/06/19 17:00 Urine Total Protein 28 mg/dL (5-11.8) H 11/06/19 17:00 Medications & Allergies - Medications Allergies/Adverse Reactions: Allergies No Known Allergies Allergy (Verified 11/17/15 22:31) Home Medications: Home Medications Medication Instructions Recorded Confirmed Last Taken Type Apixaban [Eliquis] 5 mg PO BID 11/04/19 11/04/19 Unknown History AtorvaSTATin [Lipitor] 40 mg PO QHS 11/04/19 11/04/19 Unknown History Ferrous Sulfate [Ferrous Sulfate 324 mg PO QAM 11/04/19 11/04/19 Unknown History 324 MG] Fluticasone/Salmeterol [Advair 1 puff IH BID 11/04/19 11/04/19 Unknown History Diskus 250-50 mcg] HYDROcodone/APAP 5-325 [[place] 1 each PO Q6HR PRN 11/04/19 11/04/19 Unknown History 5/325] Linaclotide [Linzess] 290 mcg PO QDAY 11/04/19 11/04/19 Unknown History Montelukast [Singulair] 10 mg PO QPM 11/04/19 11/04/19 Unknown History NIFEdipine [Procardia Xl] 60 mg PO QDAY 11/04/19 11/04/19 Unknown History Sitagliptin Phosphate [Januvia] 50 mg PO QDAY 11/04/19 11/04/19 Unknown History Torsemide [Demadex] 100 mg PO QDAY 11/04/19 11/04/19 Unknown History Umeclidinium [place] [Incruse 62.5 mcg IH QDAY 11/04/19 11/04/19 Unknown History Ellipta 62.5MCG] Valsartan [Diovan] 160 mg PO QDAY 11/04/19 11/04/19 Unknown History Zolpidem [Ambien] 5 mg PO QHS PRN 11/04/19 11/04/19 Unknown History glipiZIDE [Glucotrol] 5 mg PO QDAY 11/04/19 11/04/19 Unknown History predniSONE [Deltasone] 10 mg PO QDAY 11/04/19 11/04/19 Unknown History traZODone [Desyrel] 50 mg PO QHS 11/04/19 11/04/19 Unknown History Active Medications: Generic Name Dose Route Start Last Admin Trade Name Freq PRN Reason Stop Dose Admin Acetaminophen 650 mg 11/04/19 13:42 11/08/19 01:29 Tylenol PO 650 mg Q4H PRN Administration Pain MILD(1-3)/Fever >100.5/IRBY Albuterol 2.5 mg 11/05/19 14:12 Proventil IH Q4HRT PRN Shortness Of Breath Apixaban 2.5 mg 11/04/19 22:00 11/08/19 10:12 Eliquis PO 2.5 mg Q12HR ALLEGRA Administration Protocol Arformoterol Tartrate 15 mcg 11/05/19 20:00 11/08/19 09:32 Brovana Nebu IH 15 mcg Q12HRT ALLEGRA Administration Atorvastatin Calcium 40 mg 11/04/19 22:00 11/07/19 22:16 Lipitor PO 40 mg QHS ALLEGRA Administration Budesonide 0.5 mg 11/05/19 20:00 11/08/19 09:32 Pulmicort IH 0.5 mg Q12HRT ALLEGRA Administration Cefuroxime Axetil 250 mg 11/07/19 10:00 11/08/19 10:13 Ceftin PO 11/12/19 10:01 250 mg Q24HR ALLEGRA Administration Dextrose 50 ml 11/04/19 13:42 D50w (25gm) Syringe IV Q30MIN PRN Hypoglycemia Protocol Ferrous Sulfate 324 mg 11/07/19 10:00 11/08/19 10:11 Feosol PO 324 mg QAM ALLEGRA Administration Furosemide 40 mg 11/06/19 10:00 11/08/19 10:12 Lasix PO 40 mg QDAY ALLEGRA Administration Glipizide 5 mg 11/07/19 08:00 11/08/19 08:21 Glucotrol PO 5 mg QDDIAB ALLEGRA Administration Insulin Glargine 10 units 11/07/19 22:00 11/07/19 22:34 Lantus SUB-Q 10 units QHS ALLEGRA Administration Insulin Human Lispro 0 unit 11/08/19 00:00 11/08/19 11:29 Humalog SUB-Q 6 unit Q6HR ALLEGRA Administration Protocol Insulin Human Regular 0 units 11/04/19 16:30 11/08/19 11:28 Humulin R SUB-Q 4 units ACHS ALLEGRA Administration Protocol Linagliptin 5 mg 11/07/19 08:00 11/08/19 08:24 Tradjenta PO 5 mg QDDIAB ALLEGRA Administration Methylprednisolone Sodium Succinate 40 mg 11/05/19 14:00 11/08/19 13:16 Solu-Medrol IV 11/08/19 22:00 40 mg Q8HR ALLEGRA Administration Metoprolol Tartrate 50 mg 11/05/19 11:00 11/08/19 10:13 Metoprolol PO 50 mg BID ALLEGRA Administration Montelukast Sodium 10 mg 11/06/19 18:00 11/07/19 17:21 Singulair PO 10 mg QPM ALLEGRA Administration Nifedipine 60 mg 11/07/19 10:00 11/08/19 10:13 Procardia Xl PO 60 mg QDAY ALLEGRA Administration Ondansetron HCl 4 mg 11/04/19 13:42 Zofran IV Q8H PRN Nausea And Vomiting Oxycodone/Acetaminophen 1 tab 11/05/19 16:00 11/08/19 11:40 Percocet 5/325 PO 1 tab Q6H PRN Administration Pain, Moderate (4-6) Prednisone 60 mg 11/09/19 10:00 Deltasone PO QDAY ALLEGRA Sodium Chloride 10 ml 11/04/19 22:00 11/08/19 10:14 Sodium Chloride Flush Syringe 10 Ml IV 10 ml BID ALLEGRA Administration Sodium Chloride 10 ml 11/04/19 13:42 11/08/19 05:30 Sodium Chloride Flush Syringe 10 Ml IV 10 ml PRN PRN Administration LINE FLUSH Trazodone HCl 50 mg 11/06/19 22:00 11/07/19 22:32 Desyrel PO Not Given QHS ALLEGRA Valsartan 160 mg 11/07/19 10:00 11/08/19 10:13 Diovan PO 160 mg QDAY ALLEGRA Administration Zolpidem Tartrate 5 mg 11/06/19 22:00 Ambien PO QHS PRN Sleep
[2019-11-08] MEDS: MONTELUKAST 10 MG TAB PO SCH (18:26)
[2019-11-08] MEDS: traZODone 50 MG TAB PO SCH (22:00)
[2019-11-08] MEDS: INSULIN GLARGINE 100 UNITS/ML SUB-Q SCH (22:01)
[2019-11-09] MEDS: INSULIN LISPRO 100 UNIT/ML SUB-Q SCH ×4 (00:58→18:16)
[2019-11-09 04:51] LABS: Hematocrit 27.8 % (30.3-42.9); Hemoglobin 9.3 gm/dl (10.1-14.3); Mean Corpuscular HGB Conc 34 % (30-34); Mean Corpuscular Volume 96 fl (79-97); Platelet Count 173 K/mm3 (140-440); Red Cell Distribution Width 18.2 % (13.2-15.2)
[2019-11-09 05:10] LABS: Calcium 8.3 mg/dL (8.4-10.2)
[2019-11-09] MEDS: INSULIN REGULAR, HUMAN 100 UNITS/1 ML SUB-Q SCH ×4 (08:00→22:35)
[2019-11-09] MEDS: LINAGLIPTIN 5 MG TAB PO SCH (08:40)
[2019-11-09] MEDS: glipiZIDE 5 MG TAB PO SCH (08:40)
[2019-11-09] MEDS: BUDESONIDE 0.5 MG/2 ML NEBU IH SCH ×2 (08:47→19:43)
[2019-11-09] MEDS: ARFORMOTEROL 15 MCG/2 ML NEBU IH SCH ×2 (08:47→19:43)
--- NOTE | 2019-11-09 08:48 | Progress Note ---
Assessment and Plan 79 y/o female with COPD exacerbation. 1. Pred 60 starting today. 2. Continue BID Pulmicort and brovana therapy 3. Volume status should be closely monitored 4. Continue supplemental O2 and PPV at night. 5. Hopeful discharge in the next 24-48 hours. Subjective Date of service: 11/09/19 Principal diagnosis: sob Interval history: No acute events. Wore PPV last night. Changed steroids to orals today. Negative for the first time yesterday, or at least documented as being negative for the first time. Remains on daily lasix. Objective Vital Signs - 12hr 11/09/19 11/09/19 11/09/19 00:00 01:16 03:36 Temperature 97.8 F Pulse Rate 77 89 Respiratory 20 22 Rate Blood Pressure 118/77 O2 Sat by Pulse 100 100 Oximetry Constitutional: alert, other (mild distress) Eyes: non-icteric ENT: oropharynx moist Neck: supple Effort: normal Ascultation: Bilateral: diminished breath sounds, wheezes Gastrointestinal: normoactive bowel sounds, soft, non-tender, non-distended, other (obese) Integumentary: normal Extremities: pink and warm, edema Neurologic: normal mental status, non-focal exam Psychiatric: mood appropriate, affect normal CBC and BMP: 11/09/19 04:09 11/09/19 04:09 ABG, PT/INR, D-dimer: PT/INR, D-dimer PT 21.6 Sec. (12.2-14.9) H 11/04/19 07:20 INR 1.88 (0.87-1.13) H 11/04/19 07:20 Abnormal lab findings: Abnormal Labs 11/04/19 11/04/19 11/04/19 07:20 07:20 07:20 RBC 2.46 L Hgb 8.1 L Hct 24.6 L MCV 100 H MCH 33 H RDW 17.2 H Lymph % (Auto) [place] % (Auto) 14.8 H Lymph # [place] # 1.2 H Seg Neutrophils % Seg Neuts % (Manual) 72.0 H Monocytes % (Manual) Basophils % (Manual) 2.0 H Monocytes # (Manual) Basophils # (Manual) 0.2 H PT 21.6 H INR 1.88 H Sodium Potassium 3.5 L Chloride BUN 44 H Creatinine 1.8 H Glucose 237 H POC Glucose Hemoglobin A1c Calcium Alkaline Phosphatase 131 H Troponin T 0.069 H NT-Pro-B Natriuret Pep 5327 H Total Protein 5.9 L Albumin 3.0 L LDL Cholesterol Direct 38 L Free T4 Urine Creatinine Urine Total Protein Crossmatch 11/04/19 11/04/19 11/04/19 07:20 15:29 15:29 RBC 2.63 L Hgb 8.5 L Hct 26.3 L MCV 100 H MCH RDW 17.7 H Lymph % (Auto) [place] % (Auto) Lymph # [place] # Seg Neutrophils % Seg Neuts % (Manual) Monocytes % (Manual) 16.0 H Basophils % (Manual) Monocytes # (Manual) 1.1 H Basophils # (Manual) PT INR Sodium Potassium Chloride BUN 43 H Creatinine 1.7 H Glucose 172 H POC Glucose Hemoglobin A1c Calcium Alkaline Phosphatase Troponin T NT-Pro-B Natriuret Pep Total Protein Albumin LDL Cholesterol Direct Free T4 1.57 H Urine Creatinine Urine Total Protein Crossmatch 11/04/19 11/04/19 11/04/19 15:29 16:19 22:03 RBC Hgb Hct MCV MCH RDW Lymph % (Auto) [place] % (Auto) Lymph # [place] # Seg Neutrophils % Seg Neuts % (Manual) Monocytes % (Manual) Basophils % (Manual) Monocytes # (Manual) Basophils # (Manual) PT INR Sodium Potassium Chloride BUN Creatinine Glucose POC Glucose 176 H 126 H Hemoglobin A1c 7.8 H Calcium Alkaline Phosphatase Troponin T NT-Pro-B Natriuret Pep Total Protein Albumin LDL Cholesterol Direct Free T4 Urine Creatinine Urine Total Protein Crossmatch 11/05/19 11/05/19 11/05/19 04:01 04:01 11:27 RBC 2.46 L Hgb 8.1 L Hct 24.8 L MCV 101 H MCH 33 H RDW 17.4 H Lymph % (Auto) [place] % (Auto) 13.1 H Lymph # [place] # Seg Neutrophils % Seg Neuts % (Manual) Monocytes % (Manual) Basophils % (Manual) Monocytes # (Manual) Basophils # (Manual) PT INR Sodium Potassium 3.1 L Chloride BUN 38 H Creatinine 1.6 H Glucose 197 H POC Glucose 177 H Hemoglobin A1c Calcium Alkaline Phosphatase Troponin T NT-Pro-B Natriuret Pep Total Protein Albumin LDL Cholesterol Direct Free T4 Urine Creatinine Urine Total Protein Crossmatch 11/05/19 11/05/1911/05/20 15:46 21:37 00:44 RBC Hgb Hct MCV MCH RDW Lymph % (Auto) [place] % (Auto) Lymph # [place] # Seg Neutrophils % Seg Neuts % (Manual) Monocytes % (Manual) Basophils % (Manual) Monocytes # (Manual) Basophils # (Manual) PT INR Sodium Potassium Chloride BUN Creatinine Glucose POC Glucose 253 H 476 H 468 H Hemoglobin A1c Calcium Alkaline Phosphatase Troponin T NT-Pro-B Natriuret Pep Total Protein Albumin LDL Cholesterol Direct Free T4 Urine Creatinine Urine Total Protein Crossmatch 11/06/19 11/06/19 11/06/19 04:54 04:54 07:45 RBC 2.34 L Hgb 7.7 L Hct 23.5 L MCV 101 H MCH 33 H RDW 17.1 H Lymph % (Auto) 7.9 L [place] % (Auto) Lymph # 0.5 L [place] # Seg Neutrophils % 89.4 H Seg Neuts % (Manual) Monocytes % (Manual) Basophils % (Manual) Monocytes # (Manual) Basophils # (Manual) PT INR Sodium Potassium Chloride 96.8 L BUN 45 H Creatinine 2.0 H Glucose 376 H POC Glucose 467 H Hemoglobin A1c Calcium Alkaline Phosphatase Troponin T NT-Pro-B Natriuret Pep Total Protein Albumin LDL Cholesterol Direct Free T4 Urine Creatinine Urine Total Protein Crossmatch 11/06/19 11/06/19 11/06/19 11:15 13:29 15:47 RBC Hgb Hct MCV MCH RDW Lymph % (Auto) [place] % (Auto) Lymph # [place] # Seg Neutrophils % Seg Neuts % (Manual) Monocytes % (Manual) Basophils % (Manual) Monocytes # (Manual) Basophils # (Manual) PT INR Sodium Potassium Chloride BUN Creatinine Glucose POC Glucose 488 H 367 H Hemoglobin A1c Calcium Alkaline Phosphatase Troponin T NT-Pro-B Natriuret Pep Total Protein Albumin LDL Cholesterol Direct Free T4 Urine Creatinine Urine Total Protein Crossmatch See Detail 11/06/19 11/06/19 11/06/19 17:00 21:05 23:26 RBC Hgb 9.1 L Hct 27.0 L MCV MCH RDW Lymph % (Auto) [place] % (Auto) Lymph # [place] # Seg Neutrophils % Seg Neuts % (Manual) Monocytes % (Manual) Basophils % (Manual) Monocytes # (Manual) Basophils # (Manual) PT INR Sodium Potassium Chloride BUN Creatinine Glucose POC Glucose 325 H Hemoglobin A1c Calcium Alkaline Phosphatase Troponin T NT-Pro-B Natriuret Pep Total Protein Albumin LDL Cholesterol Direct Free T4 Urine Creatinine 108.3 H Urine Total Protein 28 H Crossmatch 11/07/19 11/07/19 11/07/19 00:19 04:12 09:17 RBC Hgb Hct MCV MCH RDW Lymph % (Auto) [place] % (Auto) Lymph # [place] # Seg Neutrophils % Seg Neuts % (Manual) Monocytes % (Manual) Basophils % (Manual) Monocytes # (Manual) Basophils # (Manual) PT INR Sodium 134 L Potassium Chloride 93.2 L BUN 55 H Creatinine 2.1 H Glucose 311 H POC Glucose 380 H 338 H Hemoglobin A1c Calcium Alkaline Phosphatase Troponin T NT-Pro-B Natriuret Pep Total Protein Albumin LDL Cholesterol Direct Free T4 Urine Creatinine Urine Total Protein Crossmatch 11/07/19 11/07/19 11/07/19 11:57 16:11 16:34 RBC Hgb Hct MCV MCH RDW Lymph % (Auto) [place] % (Auto) Lymph # [place] # Seg Neutrophils % Seg Neuts % (Manual) Monocytes % (Manual) Basophils % (Manual) Monocytes # (Manual) Basophils # (Manual) PT INR Sodium Potassium Chloride BUN Creatinine Glucose 313 H POC Glucose 368 H > 500 H Hemoglobin A1c Calcium Alkaline Phosphatase Troponin T NT-Pro-B Natriuret Pep Total Protein Albumin LDL Cholesterol Direct Free T4 Urine Creatinine Urine Total Protein Crossmatch 11/07/19 11/07/19 11/08/19 20:35 21:27 01:16 RBC Hgb Hct MCV MCH RDW Lymph % (Auto) [place] % (Auto) Lymph # [place] # Seg Neutrophils % Seg Neuts % (Manual) Monocytes % (Manual) Basophils % (Manual) Monocytes # (Manual) Basophils # (Manual) PT INR Sodium Potassium Chloride BUN Creatinine Glucose 234 H POC Glucose > 500 H 340 H Hemoglobin A1c Calcium Alkaline Phosphatase Troponin T NT-Pro-B Natriuret Pep Total Protein Albumin LDL Cholesterol Direct Free T4 Urine Creatinine Urine Total Protein Crossmatch 11/08/19 11/08/19 11/08/19 05:35 07:26 08:04 RBC Hgb Hct MCV MCH RDW Lymph % (Auto) [place] % (Auto) Lymph # [place] # Seg Neutrophils % Seg Neuts % (Manual) Monocytes % (Manual) Basophils % (Manual) Monocytes # (Manual) Basophils # (Manual) PT INR Sodium 132 L Potassium Chloride 93.6 L BUN 62 H Creatinine 1.9 H Glucose 290 H POC Glucose 307 H 286 H Hemoglobin A1c Calcium Alkaline Phosphatase Troponin T NT-Pro-B Natriuret Pep Total Protein Albumin LDL Cholesterol Direct Free T4 Urine Creatinine Urine Total Protein Crossmatch 11/08/19 11/08/19 11/08/19 11:07 15:28 18:20 RBC Hgb Hct MCV MCH RDW Lymph % (Auto) [place] % (Auto) Lymph # [place] # Seg Neutrophils % Seg Neuts % (Manual) Monocytes % (Manual) Basophils % (Manual) Monocytes # (Manual) Basophils # (Manual) PT INR Sodium Potassium Chloride BUN Creatinine Glucose POC Glucose 281 H 291 H 283 H Hemoglobin A1c Calcium Alkaline Phosphatase Troponin T NT-Pro-B Natriuret Pep Total Protein Albumin LDL Cholesterol Direct Free T4 Urine Creatinine Urine Total Protein Crossmatch 11/08/19 11/09/19 11/09/19 21:09 00:56 04:09 RBC Hgb Hct MCV MCH RDW Lymph % (Auto) [place] % (Auto) Lymph # [place] # Seg Neutrophils % Seg Neuts % (Manual) Monocytes % (Manual) Basophils % (Manual) Monocytes # (Manual) Basophils # (Manual) PT INR Sodium 134 L Potassium Chloride 93.8 L BUN 73 H Creatinine 2.1 H Glucose 216 H POC Glucose 295 H 222 H Hemoglobin A1c Calcium 8.3 L Alkaline Phosphatase Troponin T NT-Pro-B Natriuret Pep Total Protein Albumin LDL Cholesterol Direct Free T4 Urine Creatinine Urine Total Protein Crossmatch 11/09/19 11/09/19 04:09 06:13 RBC 2.90 L Hgb 9.3 L Hct 27.8 L MCV MCH RDW 18.2 H Lymph % (Auto) [place] % (Auto) Lymph # [place] # Seg Neutrophils % Seg Neuts % (Manual) Monocytes % (Manual) Basophils % (Manual) Monocytes # (Manual) Basophils # (Manual) PT INR Sodium Potassium Chloride BUN Creatinine Glucose POC Glucose 233 H Hemoglobin A1c Calcium Alkaline Phosphatase Troponin T NT-Pro-B Natriuret Pep Total Protein Albumin LDL Cholesterol Direct Free T4 Urine Creatinine Urine Total Protein Crossmatch
--- NOTE | 2019-11-09 09:16 | Progress Note ---
Assessment and Plan Assessment and plan: Acute HFrEF. On admission, BNP 5327 and chest x-ray revealed mild diffuse interstitial prominence reflecting edema. Cardiology following Acute COPD exacerbation. Continue IV steroids, bronchodilators/nebulizer treatments. Pulmonary following A. fib with RVR. Acute kidney injury on CKD. Acute on chronic hypoxic respiratory failure. Etiology secondary to COPD exacerbation. Diabetes mellitus type 2. Continue Accu-Cheks and sliding scale insulin. 11/05/2019. Cardiology discontinued Cardizem drip and initiated Lopressor 3 times daily. Eliquis resumed for anticoagulation. Continue GDMT with gentle diuresis. Echocardiogram pending. Pulmonary consulted for acute on chronic respiratory failure from COPD exacerbation. Solu-Medrol 40 mg IV every 8 hours and nebulizer treatments. 11/06/2019. Creatinine is mildly elevated. Baseline creatinine of 1.1-2016. Check renal ultrasound. Nephrology consulted. Continue Lasix and Lopressor. 11/07/2019. Nephrology feels that there is No acute need for hemodialysis. Baseline renal function unknown. Will attempt to obtain prior labs (patient was recently hospitalized at [facility]). Renal ultrasound pending. Continue diuresis per cardiology. Echocardiogram revealed EF of 50 to 55% with left ventricular contractility within normal limits. 11/08/2019 Patient still having shortness of breath, wheezing. She just had a nebulizer breathing treatment. No chest pain. Nephrology, cardiology and Pulmonology following. 11/09/2019 patient feels better, still has shortness of breath but improved. Less wheezing. Hopefully dc home tomorrow. History Interval history: Less Shortness of breath Less wheezing Hospitalist Physical - Physical exam Narrative exam: GEN: Not in acute distress,morbidly obese, lying in bed HEENT: Normocephalic, atraumatic, Neck: supple, No JVD Lungs: Bilateral rhonchi, wheezing, heart;S1 and S2 reg, no murmurs, rubs or gallop Abd:soft, non tender, non distended, normal bowel sounds, Ext: No edema, no clubbing, no cyanosis, Neuro: Awake,alert,oriented X3, No focal neurological signs - Constitutional Vitals: Temp Pulse Resp BP Pulse Ox 97.8 F 89 22 118/77 100 11/09/19 03:36 11/09/19 03:36 11/09/19 03:36 11/09/19 03:36 11/09/19 03:36 General appearance: Present: other (SOB, on BiPAP) HEART Score - HEART Score Troponin: Troponin T 0.069 ng/mL (0.00-0.029) H 11/04/19 07:20 Results - Labs CBC & Chem 7: 11/09/19 04:09 11/09/19 04:09 Labs: Laboratory Last Values WBC 7.2 K/mm3 (4.5-11.0) 11/09/19 04:09 RBC 2.90 M/mm3 (3.65-5.03) L 11/09/19 04:09 Hgb 9.3 gm/dl (10.1-14.3) L 11/09/19 04:09 Hct 27.8 % (30.3-42.9) L 11/09/19 04:09 MCV 96 fl (79-97) 11/09/19 04:09 MCH 32 pg (28-32) 11/09/19 04:09 MCHC 34 % (30-34) 11/09/19 04:09 RDW 18.2 % (13.2-15.2) H 11/09/19 04:09 Plt Count 173 K/mm3 (140-440) 11/09/19 04:09 Lymph % (Auto) 7.9 % (13.4-35.0) L 11/06/19 04:54 [place] % (Auto) 2.7 % (0.0-7.3) 11/06/19 04:54 Eos % (Auto) 0.0 % (0.0-4.3) 11/06/19 04:54 Baso % (Auto) 0.0 % (0.0-1.8) 11/06/19 04:54 Lymph # 0.5 K/mm3 (1.2-5.4) L 11/06/19 04:54 [place] # 0.2 K/mm3 (0.0-0.8) 11/06/19 04:54 Eos # 0.0 K/mm3 (0.0-0.4) 11/06/19 04:54 Baso # 0.0 K/mm3 (0.0-0.1) 11/06/19 04:54 Add Manual Diff Complete 11/04/19 15:29 Total Counted 100 11/04/19 15:29 Seg Neutrophils % 89.4 % (40.0-70.0) H 11/06/19 04:54 Seg Neuts % (Manual) 55.0 % (40.0-70.0) 11/04/19 15:29 Band Neutrophils % 0 % 11/04/19 15:29 Lymphocytes % (Manual) 26.0 % (13.4-35.0) 11/04/19 15:29 Reactive Lymphs % (Man) 0 % 11/04/19 15:29 Monocytes % (Manual) 16.0 % (0.0-7.3) H 11/04/19 15:29 Eosinophils % (Manual) 2.0 % (0.0-4.3) 11/04/19 15:29 Basophils % (Manual) 1.0 % (0.0-1.8) 11/04/19 15:29 Metamyelocytes % 0 % 11/04/19 15:29 Myelocytes % 0 % 11/04/19 15:29 Promyelocytes % 0 % 11/04/19 15:29 Blast Cells % 0 % 11/04/19 15:29 Nucleated RBC % Not Reportable 11/04/19 15:29 Seg Neutrophils # 6.1 K/mm3 (1.8-7.7) 11/06/19 04:54 Seg Neutrophils # Man 3.9 K/mm3 (1.8-7.7) 11/04/19 15:29 Band Neutrophils # 0.0 K/mm3 11/04/19 15:29 Lymphocytes # (Manual) 1.8 K/mm3 (1.2-5.4) 11/04/19 15:29 Abs React Lymphs (Man) 0.0 K/mm3 11/04/19 15:29 Monocytes # (Manual) 1.1 K/mm3 (0.0-0.8) H 11/04/19 15:29 Eosinophils # (Manual) 0.1 K/mm3 (0.0-0.4) 11/04/19 15:29 Basophils # (Manual) 0.1 K/mm3 (0.0-0.1) 11/04/19 15:29 Metamyelocytes # 0.0 K/mm3 11/04/19 15:29 Myelocytes # 0.0 K/mm3 11/04/19 15:29 Promyelocytes # 0.0 K/mm3 11/04/19 15:29 Blast Cells # 0.0 K/mm3 11/04/19 15:29 WBC Morphology Not Reportable 11/04/19 15:29 Hypersegmented Neuts Not Reportable 11/04/19 15:29 Hyposegmented Neuts Not Reportable 11/04/19 15:29 Hypogranular Neuts Not Reportable 11/04/19 15:29 Smudge Cells Not Reportable 11/04/19 15:29 Toxic Granulation Not Reportable 11/04/19 15:29 Toxic Vacuolation Not Reportable 11/04/19 15:29 Dohle Bodies Not Reportable 11/04/19 15:29 Pelger-Huet Anomaly Not Reportable 11/04/19 15:29 Brian Rods Not Reportable 11/04/19 15:29 Platelet Estimate Not Reportable 11/04/19 15:29 Clumped Platelets Not Reportable 11/04/19 15:29 Plt Clumps, EDTA Not Reportable 11/04/19 15: Large Platelets Not Reportable 11/04/19 15: Giant Platelets Not Reportable 11/04/19 15:29 Platelet Satelliting Not Reportable 11/04/19 15:29 Plt Morphology Comment Not Reportable 11/04/19 15:29 RBC Morphology Not Reportable 11/04/19 15:29 Dimorphic RBCs Not Reportable 11/04/19 15:29 Polychromasia Rare 11/04/19 15:29 Hypochromasia 1+ 11/04/19 15:29 Poikilocytosis Not Reportable 11/04/19 15:29 Anisocytosis Few 11/04/19 15:29 Microcytosis Not Reportable 11/04/19 15:29 Macrocytosis Not Reportable 11/04/19 15:29 Spherocytes Not Reportable 11/04/19 15:29 Pappenheimer Bodies Not Reportable 11/04/19 15:29 Sickle Cells Not Reportable 11/04/19 15:29 Target Cells Not Reportable 11/04/19 15:29 Tear Drop Cells Not Reportable 11/04/19 15:29 Ovalocytes Not Reportable 11/04/19 15:29 Helmet Cells Not Reportable 11/04/19 15:29 Bazan-Edgerton Bodies Not Reportable 11/04/19 15:29 Smiley Rings Not Reportable 11/04/19 15:29 Neola Cells Not Reportable 11/04/19 15:29 Bite Cells Not Reportable 11/04/19 15:29 Crenated Cell Not Reportable 11/04/19 15:29 Elliptocytes Not Reportable 11/04/19 15:29 Acanthocytes (Spur) Not Reportable 11/04/19 15:29 Rouleaux Not Reportable 11/04/19 15:29 Hemoglobin C Crystals Not Reportable 11/04/19 15:29 Schistocytes Not Reportable 11/04/19 15:29 Malaria parasites Not Reportable 11/04/19 15:29 Tom Bodies Not Reportable 11/04/19 15:29 Hem Pathologist Commnt No 11/04/19 15:29 PT 21.6 Sec. (12.2-14.9) H 11/04/19 07:20 INR 1.88 (0.87-1.13) H 11/04/19 07:20 APTT 27.5 Sec. (24.2-36.6) 11/04/19 07:20 Sodium 134 mmol/L (137-145) L 11/09/19 04:09 Potassium 4.0 mmol/L (3.6-5.0) 11/09/19 04:09 Chloride 93.8 mmol/L (98-107) L 11/09/19 04:09 Carbon Dioxide 26 mmol/L (22-30) 11/09/19 04:09 Anion Gap 18 mmol/L 11/09/19 04:09 BUN 73 mg/dL (7-17) H 11/09/19 04:09 Creatinine 2.1 mg/dL (0.7-1.2) H 11/09/19 04:09 Estimated GFR 27 ml/min 11/09/19 04:09 BUN/Creatinine Ratio 35 % 11/09/19 04:09 Glucose 216 mg/dL (65-100) H 11/09/19 04:09 POC Glucose 233 (70-105) H 11/09/19 06:13 Hemoglobin A1c 7.8 % (4-6) H 11/04/19 15:29 Calcium 8.3 mg/dL (8.4-10.2) L 11/09/19 04:09 Total Bilirubin 0.30 mg/dL (0.1-1.2) 11/04/19 07:20 AST 31 units/L (5-40) 11/04/19 07:20 ALT 47 units/L (7-56) 11/04/19 07:20 Alkaline Phosphatase 131 units/L (35-129) H 11/04/19 07:20 Total Creatine Kinase 73 units/L (30-135) 11/04/19 07:20 CK-MB (CK-2) 2.2 ng/mL (0.0-4.0) 11/04/19 07:20 CK-MB (CK-2) Rel Index 3.0 (0-4) 11/04/19 07:20 Troponin T 0.069 ng/mL (0.00-0.029) H 11/04/19 07:20 NT-Pro-B Natriuret Pep 5327 pg/mL (0-900) H 11/04/19 07:20 Total Protein 5.9 g/dL (6.3-8.2) L 11/04/19 07:20 Albumin 3.0 g/dL (3.9-5) L 11/04/19 07:20 Albumin/Globulin Ratio 1.0 % 11/04/19 07:20 Triglycerides 74 mg/dL (2-149) 11/04/19 07:20 Cholesterol 90 mg/dL (50-199) 11/04/19 07:20 LDL Cholesterol Direct 38 mg/dL (50-130) L 11/04/19 07:20 HDL Cholesterol 52 mg/dL (40-59) 11/04/19:20 Cholesterol/HDL Ratio 1.73 % 11/04/19:20 TSH 0.909 mlU/mL (0.270-4.200) 11/04/19 07:20 Free T4 1.57 ng/dL (0.76-1.46) H 11/04/19 07:20 Urine Color Yellow (Yellow) 11/06/19 17:00 Urine Turbidity Clear (Clear) 11/06/19 17:00 Urine pH 5.0 (5.0-7.0) 11/06/19 17:00 Ur Specific [place] 1.013 (1.003-1.030) 11/06/19 17:00 Urine Protein <15 mg/dl mg/dL (Negative) 11/06/19 17:00 Urine Glucose (UA) Neg mg/dL (Negative) 11/06/19 17:00 Urine Ketones Neg mg/dL (Negative) 11/06/19 17:00 Urine Blood Neg (Negative) 11/06/19 17:00 Urine Nitrite Neg (Negative) 11/06/19 17:00 Urine Bilirubin Neg (Negative) 11/06/19 17:00 Urine Urobilinogen < 2.0 mg/dL (<2.0) 11/06/19 17:00 Ur Leukocyte Esterase Tr (Negative) 11/06/19 17:00 Urine WBC (Auto) 1.0 /HPF (0.0-6.0) 11/06/19 17:00 Urine RBC (Auto) 4.0 /HPF (0.0-6.0) 11/06/19 17:00 U Epithel Cells (Auto) < 1.0 /HPF (0-13.0) 11/06/19 17:00 Urine Mucus 3+ /HPF 11/06/19 17:00 Urine Creatinine 108.3 mg/dL (0.1-20.0) H 11/06/19 17:00 Protein/Creatinin Ratio 0.26 11/06/19 17:00 Urine Total Protein 28 mg/dL (5-11.8) H 11/06/19 17:00 Nasal Screen MRSA (PCR) Negative (Negative) 11/06/19 05:50 Blood Type O POSITIVE 11/06/19 13:29 Antibody Screen Negative 11/06/19 13:29 Crossmatch See Detail 11/06/19 13:29 - Diagnostic Impressions Diagnostic Impressions: Echocardiogram 11/04/19 13:46 Transthoracic Echocardiogram Indication: SOB BP: 129/83 HR: 78 Conclusions *Patient in atrial fibrillation. *The left ventricular chamber size is normal. *Global left ventricular wall motion and contractility are within normal limits. *The estimated ejection fraction is 50-55%. *Abnormal left ventricular diastolic filling is observed, consistent with impaired relaxation. *The left atrial chamber size is normal. *The right ventricular global systolic function is normal. *There is mild to moderate tricuspid regurgitation. *The right ventricular systolic pressure is calculated at 39 mmHg. Findings Left Ventricle: The left ventricular chamber size is normal. Global left ventricular wall motion and contractility are within normal limits. Global left ventricular systolic function is normal. The estimated ejection fraction is 50-55%. Abnormal left ventricular diastolic filling is observed, consistent with impaired relaxation. Left Atrium: The left atrial chamber size is normal. Right Ventricle: The right ventricular cavity size is normal.. The right ventricular global systolic function is normal. Right Atrium: The right atrial cavity size is normal. Aortic Valve: The aortic valve structure is normal. There is no evidence of aortic regurgitation. Mitral Valve: The mitral valve leaflets are mildly thickened. There is mild mitral regurgitation. Tricuspid Valve: The tricuspid valve leaflets are normal. There is mild to moderate tricuspid regurgitation. The right ventricular systolic pressure is calculated at 39 mmHg. Pulmonic Valve: The pulmonic valve appears normal. There is trace pulmonic regurgitation. Pericardium: There is no pericardial effusion. Venous: The inferior vena cava appears normal. Measurements Chambers 2D Name Value Normal Range IVSd (2D) 0.97 cm (0.6 - 1.1) LVPWd (2D) 1.04 cm (0.6 - 1.1) LVIDd (2D) 4.01 cm (3.7 - 5.6) LVIDs (2D) 2.72 cm (2 - 3.8) LV FS (2D) 32.13 % - EF Teichholz (2D) 60.87 % - Ao root diameter (2D) 2.6 cm (2 - 3.7) Volumes/Mass Name Value Normal Range LA ESV SP 4CH (A/L) 29.14 ml - LA ESV SP 2CH (A/L) 40.45 ml - LA ESV BP (A/L) 36.37 ml - LA ESV BP (A/L) index 16.53 ml/m2 - LA ESV SP 4CH (MOD) 27.78 ml - LA ESV SP 2CH (MOD) 39.47 ml - LA ESV BP (MOD) 35.05 ml - LA ESV BP (MOD) index 15.93 ml/m2 - Aortic Valve Name Value Normal Range AV Vmax 1.4 m/sec - AV VTI 25.89 cm - AV peak gradient 7.86 mmHg - AV mean gradient 3.9 mmHg - LVOT diameter 2.02 cm - LVOT Vmax 0.84 m/sec - LVOT VTI 18.45 cm - LVOT peak gradient 2.84 mmHg - LVOT mean gradient 1.82 mmHg - SV LVOT 59.05 ml - LIBIA (continuity Vmax) 1.93 cm2 - LIBIA (continuity VTI) 2.28 cm2 - Mitral Valve Name Value Normal Range MR Vmax 3.78 m/sec - Tricuspid Valve Name Value Normal Range TR Vmax 2.99 m/sec - TR peak gradient 36 mmHg - RAP 3 mmHg - RVSP 39 mmHg - Pulmonic Valve/Qp:Qs Name Value Normal Range PV Vmax 0.95 m/sec - PV peak gradient 3.59 mmHg - IA end-diastolic Vmax 1.09 m/sec - Armendariz/IV: Voiding Method External Female Catheter IV Catheter Type [Right Wrist] INT / Saline Lock IV Catheter Type [Right Upper INT / Saline Lock arm] IV Catheter Type [Right Peripheral IV Antecubital] Active Medications - Current Medications Current Medications: Generic Name Dose Route Start Last Admin Trade Name Freq PRN Reason Stop Dose Admin Acetaminophen 650 mg 11/04/19 13:42 11/08/19 01:29 Tylenol PO 650 mg Q4H PRN Administration Pain MILD(1-3)/Fever >100.5/IRBY Albuterol 2.5 mg 11/05/19 14:12 Proventil IH Q4HRT PRN Shortness Of Breath Apixaban 2.5 mg 11/04/19 22:00 11/08/19 22:00 Eliquis PO 2.5 mg Q12HR ALLEGRA Administration Protocol Arformoterol Tartrate 15 mcg 11/05/19 20:00 11/09/19 08:47 Brovana Nebu IH 15 mcg Q12HRT ALLEGRA Administration Atorvastatin Calcium 40 mg 11/04/19 22:00 11/08/19 22:01 Lipitor PO 40 mg QHS ALLEGRA Administration Budesonide 0.5 mg 11/05/19 20:00 11/09/19 08:47 Pulmicort IH 0.5 mg Q12HRT ALLEGRA Administration Cefuroxime Axetil 250 mg 11/07/19 10:00 11/08/19 10:13 Ceftin PO 11/12/19 10:01 250 mg Q24HR ALLEGRA Administration Dextrose 50 ml 11/04/19 13:42 D50w (25gm) Syringe IV Q30MIN PRN Hypoglycemia Protocol Ferrous Sulfate 324 mg 11/07/19 10:00 11/08/19 10:11 Feosol PO 324 mg QAM ALLEGRA Administration Furosemide 40 mg 11/06/19 10:00 11/08/19 10:12 Lasix PO 40 mg QDAY ALLEGRA Administration Glipizide 5 mg 11/07/19 08:00 11/09/19 08:40 Glucotrol PO 5 mg QDDIAB ALLEGRA Administration Insulin Glargine 10 units 11/07/19 22:00 11/08/19 22:01 Lantus SUB-Q 10 units QHS ALLEGRA Administration Insulin Human Lispro 0 unit 11/08/19 00:00 11/09/19 06:06 Humalog SUB-Q 4 unit Q6HR ALLEGRA Administration Protocol Insulin Human Regular 0 units 11/04/19 16:30 11/09/19 08:00 Humulin R SUB-Q 3 units ACHS ALLEGRA Administration Protocol Linagliptin 5 mg 11/07/19 08:00 11/09/19 08:40 Tradjenta PO 5 mg QDDIAB ALLEGRA Administration Metoprolol Tartrate 50 mg 11/05/19 11:00 11/08/19 22:00 Metoprolol PO 50 mg BID ALLEGRA Administration Montelukast Sodium 10 mg 11/06/19 18:00 11/08/19 18:26 Singulair PO 10 mg QPM ALLEGRA Administration Nifedipine 60 mg 11/07/19 10:00 11/08/19 10:13 Procardia Xl PO 60 mg QDAY ALLEGRA Administration Ondansetron HCl 4 mg 11/04/19 13:42 Zofran IV Q8H PRN Nausea And Vomiting Oxycodone/Acetaminophen 1 tab 11/05/19 16:00 11/08/19 22:01 Percocet 5/325 PO 1 tab Q6H PRN Administration Pain, Moderate (4-6) Prednisone 60 mg 11/09/19 10:00 Deltasone PO QDAY ALLEGRA Sodium Chloride 10 ml 11/04/19 22:00 11/08/19 22:02 Sodium Chloride Flush Syringe 10 Ml IV 10 ml BID ALLEGRA Administration Sodium Chloride 10 ml 11/04/19 13:42 11/08/19 05:30 Sodium Chloride Flush Syringe 10 Ml IV 10 ml PRN PRN Administration LINE FLUSH Trazodone HCl 50 mg 11/06/19 22:00 11/08/19 22:00 Desyrel PO 50 mg QHS ALLEGRA Administration Valsartan 160 mg 11/07/19 10:00 11/08/19 10:13 Diovan PO 160 mg QDAY ALLEGRA Administration Zolpidem Tartrate 5 mg 11/06/19 22:00 Ambien PO QHS PRN Sleep Nutrition/Malnutrition Assess - Dietary Evaluation Nutrition/Malnutrition Findings: Nutrition Notes Start: 11/05/19 11:23 Freq: Status: Active Protocol: Document 11/07/19 14:08 LM (Rec: 11/07/19 14:15 LM [email or web address]) Nutrition Notes Initial or Follow up Reassessment Current Diagnosis COPD,Decubitus(Pressure Ulcer) ,Diabetes,Hypertension,Heart Failure Other Pertinent Diagnosis CHF and COPD exacerbation, LE edema, sacral PU Current Diet Cardiac Labs/Tests Na 134 BUN 55 Cr 2.1 BG 311 Pertinent Medications Solumedrol Humulin Lasix Height 5 ft 3 in Weight 96.5 kg [place] Body Weight (kg) 52.27 BMI 37.7 Weight Status Obese Subjective/Other Information Unable to fisnish assessment and attempted to call pt back but no answer. Burn Absent Trauma Absent Minimum of two criteria No Fluid Accumulation Mild (non-severe) #2 Nutrition Diagnosis Increased nutrient needs ( specify in comment below) Comments: protein Etiology wound healing As Evidenced by Signs and Symptoms pt with sacral PU Is patient on ventilator? No Is Patient Ambulatory and/or Out of Bed No REE-([facility]-confined to bed) 0201.092 Calculation Used for Recommendations [facility] Additional Notes Protein: 94-113g (1.25-1.5g/kg using AdjBW 75kg) Fluid: 1 ml/kcal Nutrition Intervention Change Diet Order: cardiac/consistent CHO Goal #1 Meet at least 75% of energy and protein needs Goal #2 wound healing Anticipated Discharge Needs: cardiac/consistent CHO Follow-Up By: 11/09/19 Additional Comments F/U for intakes, full assessment
[2019-11-09] MEDS: APIXABAN 2.5 MG TAB PO SCH ×2 (09:40→22:33)
[2019-11-09] MEDS: FERROUS SULFATE 325 MG TAB PO SCH (09:40)
[2019-11-09] MEDS: predniSONE 20 MG TAB PO SCH (09:40)
[2019-11-09] MEDS: FUROSEMIDE 40 MG TAB PO SCH (09:40)
[2019-11-09] MEDS: VALSARTAN 160MG TAB PO SCH (09:43)
[2019-11-09] MEDS: NIFEdipine XL 60 MG TAB PO SCH (09:44)
[2019-11-09] MEDS: METOPROLOL TARTRATE 25 MG TAB PO SCH ×2 (09:44→22:32)
--- NOTE | 2019-11-09 11:05 | Progress Note ---
Assessment and Plan Currently stable cardiac status. Cont present cardiac management. Monitor renal indices - nephrology following. Management of COPD exac and A/C resp failure per pulmonary. Nothing further to add from cardiac perspective at this time. Will sign off. Recommend follow up with [place] cardiology team within 1 week of discharge. The patient has been seen in conjunction with Dr. Ibrahima Torrez who agrees with the assessment and plan of care. - Patient Problems (1) Acute heart failure with preserved ejection fraction (HFpEF) Current Visit: Yes Status: Acute (2) Acute on chronic respiratory failure Current Visit: Yes Status: Acute (3) Atrial fibrillation with rapid ventricular response Current Visit: Yes Status: Acute (4) COPD (chronic obstructive pulmonary disease) Current Visit: Yes Status: Chronic (5) Diabetes mellitus with hyperglycemia Current Visit: Yes Status: Acute (6) HTN (hypertension) Current Visit: Yes Status: Chronic (7) Hyperlipidemia Current Visit: Yes Status: Chronic (8) History of CVA (cerebrovascular accident) Current Visit: Yes Status: Chronic (9) History of pulmonary embolism Current Visit: Yes Status: Chronic (10) LUIS FERNANDO (acute kidney injury) Current Visit: Yes Status: Acute (11) Anemia Current Visit: Yes Status: Acute Subjective Date of service: 11/09/19 Principal diagnosis: sob Interval history: pt resting bed, states she is feeling well today. In AFib with CVR HR 80s-90s on tele. Objective Last Vital Signs Temp 97.4 F L 11/09/19 08:09 Pulse 91 H 11/09/19 09:52 Resp 18 11/09/19 08:09 BP 119/53 11/09/19 09:44 Pulse Ox 98 11/09/19 09:52 - Physical Examination General: No Apparent Distress HEENT: Positive: PERRL, Normocephaly, Mucus Membranes Moist Neck: Positive: neck supple, trachea midline Cardiac: Positive: irregularly irregular, S1/S2 Lungs: Positive: Decreased Breath Sounds Neuro: Positive: Grossly Intact Abdomen: Negative: Tender Skin: Negative: Rash Musculoskeletal: No Pain Extremities: Absent: edema (trace) - Labs and Meds CBC 11/09/19 Range/Units 04:09 WBC 7.2 (4.5-11.0) K/mm3 RBC 2.90 L (3.65-5.03) M/mm3 Hgb 9.3 L (10.1-14.3) gm/dl Hct 27.8 L (30.3-42.9) % Plt Count 173 (140-440) K/mm3 Comprehensive Metabolic Panel 11/09/19 Range/Units 04:09 Sodium 134 L (137-145) mmol/L Potassium 4.0 (3.6-5.0) mmol/L Chloride 93.8 L (98-107) mmol/L Carbon Dioxide 26 (22-30) mmol/L BUN 73 H (7-17) mg/dL Creatinine 2.1 H (0.7-1.2) mg/dL Glucose 216 H (65-100) mg/dL Calcium 8.3 L (8.4-10.2) mg/dL - Imaging and Cardiology EKG: report reviewed, image reviewed Echo: report reviewed ( 01/2019 showed EF 65%, sclerotic AV, mild LVH, impaired relaxation, RVSP 31.5mmHg. ), other (normal lv function mild rvsp) - Telemetry EKG Rhythm: Atrial Fibrillation
--- NOTE | 2019-11-09 11:30 | Progress Note ---
Assessment and Plan Impression: * Acute kidney injury attributed to diuresis on chronic kidney disease --Baseline renal function 1.7-1.9; followed by Dr. David Holley (nephrology) * Acute on chronic hypoxemic respiratory failure secondary to pulmonary edema vs COPD exacerbation --Continuous NC oxygen 3L at home * Diastolic heart failure * Atrial fibrillation * Type II DM * Hypertension * Anemia Plan: * No acute need for hemodialysis. Baseline renal function per [facility] labs around 1.7-1.9 since 2017 * Creatinine fairly stable, close to baseline today at 2.1; diurese prn per cardiology/pulmonary- currently on furosemide 40mg po daily * BPs at goal * Reviewed urine studies * Obtain SIFE,SPEP,UPEP, follow up * Renal ultrasound reviewed, no acute issues noted * Transfusion of pRBC per primary - s/p blood transfusion 11/05 * Pulmonary recommendations noted - PO steroids, inhaler * Avoid potential nephrotoxins * Dose medications for renal function * Glycemic control * Strict I/O ordered * Will need close outpatient renal follow up on discharge with Dr. Holley Thank you for this consult; we will continue to follow with you. Please do not hesitate to call me on my cell at for any questions or concerns for renal related issues. Subjective Date of service: 11/09/19 Principal diagnosis: sob Interval history: No major changes noted since yesterday. Resting comfortably, notes some shortness of breath, denies edema Objective - Exam Narrative Exam: General appearance: well-developed, well-nourished EENT: ATNC Respiratory: decreased breath sounds, on NC Heart: irregular Gastrointestinal: normal bowel sounds Integumentary: no rash, warm and dry Neurologic: no focal deficit, alert and oriented x3 Musculoskeletal: trace edema noted Psychiatric: cooperative - Vital Signs Vital signs: Vital Signs - 12hr 11/09/19 11/09/19 11/09/19 00:00 01:16 03:36 Temperature 97.8 F Pulse Rate 77 89 Pulse Rate [ From Monitor] Pulse Rate [ Right Dorsalis Pedis] Respiratory 20 22 Rate Blood Pressure 118/77 O2 Sat by Pulse 100 100 Oximetry 11/09/19 11/09/19 11/09/19 08:09 09:43 09:44 Temperature 97.4 F L Pulse Rate 65 91 H 91 H Pulse Rate [ From Monitor] Pulse Rate [ Right Dorsalis Pedis] Respiratory 18 Rate Blood Pressure 108/58 119/53 119/53 O2 Sat by Pulse 92 Oximetry 11/09/19 09:52 Temperature Pulse Rate Pulse Rate [ 91 H From Monitor] Pulse Rate [ 91 H Right Dorsalis Pedis] Respiratory Rate Blood Pressure O2 Sat by Pulse 98 Oximetry - Lab 11/09/19 04:09 11/09/19 04:09 Most recent lab results Calcium 8.3 mg/dL (8.4-10.2) L 11/09/19 04:09 Urine Creatinine 108.3 mg/dL (0.1-20.0) H 11/06/19 17:00 Urine Total Protein 28 mg/dL (5-11.8) H 11/06/19 17:00 Medications & Allergies - Medications Allergies/Adverse Reactions: Allergies No Known Allergies Allergy (Verified 11/17/15 22:31) Home Medications: Home Medications Medication Instructions Recorded Confirmed Last Taken Type Apixaban [Eliquis] 5 mg PO BID 11/04/19 11/04/19 Unknown History AtorvaSTATin [Lipitor] 40 mg PO QHS 11/04/19 11/04/19 Unknown History Ferrous Sulfate [Ferrous Sulfate 324 mg PO QAM 11/04/19 11/04/19 Unknown History 324 MG] Fluticasone/Salmeterol [Advair 1 puff IH BID 11/04/19 11/04/19 Unknown History Diskus 250-50 mcg] HYDROcodone/APAP 5-325 [[place] 1 each PO Q6HR PRN 11/04/19 11/04/19 Unknown History 5/325] Linaclotide [Linzess] 290 mcg PO QDAY 11/04/19 11/04/19 Unknown History Montelukast [Singulair] 10 mg PO QPM 11/04/19 11/04/19 Unknown History NIFEdipine [Procardia Xl] 60 mg PO QDAY 11/04/19 11/04/19 Unknown History Sitagliptin Phosphate [Januvia] 50 mg PO QDAY 11/04/19 11/04/19 Unknown History Torsemide [Demadex] 100 mg PO QDAY 11/04/19 11/04/19 Unknown History Umeclidinium [place] [Incruse 62.5 mcg IH QDAY 11/04/19 11/04/19 Unknown History Ellipta 62.5MCG] Valsartan [Diovan] 160 mg PO QDAY 11/04/19 11/04/19 Unknown History Zolpidem [Ambien] 5 mg PO QHS PRN 11/04/19 11/04/19 Unknown History glipiZIDE [Glucotrol] 5 mg PO QDAY 11/04/19 11/04/19 Unknown History predniSONE [Deltasone] 10 mg PO QDAY 11/04/19 11/04/19 Unknown History traZODone [Desyrel] 50 mg PO QHS 11/04/19 11/04/19 Unknown History Active Medications: Generic Name Dose Route Start Last Admin Trade Name Freq PRN Reason Stop Dose Admin Acetaminophen 650 mg 11/04/19 13:42 11/08/19 01:29 Tylenol PO 650 mg Q4H PRN Administration Pain MILD(1-3)/Fever >100.5/IRBY Albuterol 2.5 mg 11/05/19 14:12 Proventil IH Q4HRT PRN Shortness Of Breath Apixaban 2.5 mg 11/04/19 22:00 11/09/19 09:40 Eliquis PO 2.5 mg Q12HR ALLEGRA Administration Protocol Arformoterol Tartrate 15 mcg 11/05/19 20:00 11/09/19 08:47 Brovana Nebu IH 15 mcg Q12HRT ALLEGRA Administration Atorvastatin Calcium 40 mg 11/04/19 22:00 11/08/19 22:01 Lipitor PO 40 mg QHS ALLEGRA Administration Budesonide 0.5 mg 11/05/19 20:00 11/09/19 08:47 Pulmicort IH 0.5 mg Q12HRT ALLEGRA Administration Cefuroxime Axetil 250 mg 11/07/19 10:00 11/09/19 09:41 Ceftin PO 11/12/19 10:01 250 mg Q24HR ALLEGRA Administration Dextrose 50 ml 11/04/19 13:42 D50w (25gm) Syringe IV Q30MIN PRN Hypoglycemia Protocol Ferrous Sulfate 324 mg 11/07/19 10:00 11/09/19 09:40 Feosol PO 324 mg QAM ALLEGRA Administration Furosemide 40 mg 11/06/19 10:00 11/09/19 09:40 Lasix PO 40 mg QDAY ALLEGRA Administration Glipizide 5 mg 11/07/19 08:00 11/09/19 08:40 Glucotrol PO 5 mg QDDIAB ALLEGRA Administration Insulin Glargine 10 units 11/07/19 22:00 11/08/19 22:01 Lantus SUB-Q 10 units QHS ALLEGRA Administration Insulin Human Lispro 0 unit 11/08/19 00:00 11/09/19 06:06 Humalog SUB-Q 4 unit Q6HR ALLEGRA Administration Protocol Insulin Human Regular 0 units 11/04/19 16:30 11/09/19 08:00 Humulin R SUB-Q 3 units ACHS ALLEGRA Administration Protocol Linagliptin 5 mg 11/07/19 08:00 11/09/19 08:40 Tradjenta PO 5 mg QDDIAB ALLEGRA Administration Metoprolol Tartrate 50 mg 11/05/19 11:00 11/09/19 09:44 Metoprolol PO 50 mg BID ALLEGRA Administration Montelukast Sodium 10 mg 11/06/19 18:00 11/08/19 18:26 Singulair PO 10 mg QPM ALLEGRA Administration Nifedipine 60 mg 11/07/19 10:00 11/09/19 09:44 Procardia Xl PO 60 mg QDAY ALLEGRA Administration Ondansetron HCl 4 mg 11/04/19 13:42 Zofran IV Q8H PRN Nausea And Vomiting Oxycodone/Acetaminophen 1 tab 11/05/19 16:00 11/08/19 22:01 Percocet 5/325 PO 1 tab Q6H PRN Administration Pain, Moderate (4-6) Prednisone 60 mg 11/09/19 10:00 11/09/19 09:40 Deltasone PO 60 mg QDAY ALLEGRA Administration Sodium Chloride 10 ml 11/04/19 22:00 11/09/19 09:41 Sodium Chloride Flush Syringe 10 Ml IV 10 ml BID ALLEGRA Administration Sodium Chloride 10 ml 11/04/19 13:42 11/08/19 05:30 Sodium Chloride Flush Syringe 10 Ml IV 10 ml PRN PRN Administration LINE FLUSH Trazodone HCl 50 mg 11/06/19 22:00 11/08/19 22:00 Desyrel PO 50 mg QHS ALLEGRA Administration Valsartan 160 mg 11/07/19 10:00 11/09/19 09:43 Diovan PO 160 mg QDAY ALLEGRA Administration Zolpidem Tartrate 5 mg 11/06/19 22:00 Ambien PO QHS PRN Sleep
[2019-11-09] MEDS: oxyCODONE /ACETAMINOPHEN 5-325MG TAB PO PRN ×2 (12:02→22:47)
[2019-11-09] MEDS: MONTELUKAST 10 MG TAB PO SCH (18:16)
[2019-11-09] MEDS: traZODone 50 MG TAB PO SCH (22:33)
[2019-11-09] MEDS: INSULIN GLARGINE 100 UNITS/ML SUB-Q SCH (22:33)
[2019-11-10 00:07] LABS: Albumin 2.6 g/dL (3.8-4.8); Gamma Globulin 0.9 g/dL (0.8-1.7)
[2019-11-10] MEDS: INSULIN LISPRO 100 UNIT/ML SUB-Q SCH ×3 (00:13→11:48)
[2019-11-10 04:56] LABS: Calcium 8.2 mg/dL (8.4-10.2)
[2019-11-10] MEDS: INSULIN REGULAR, HUMAN 100 UNITS/1 ML SUB-Q SCH ×2 (08:40→11:50)
[2019-11-10] MEDS: LINAGLIPTIN 5 MG TAB PO SCH (08:41)
[2019-11-10] MEDS: glipiZIDE 5 MG TAB PO SCH (08:41)
[2019-11-10] MEDS: ARFORMOTEROL 15 MCG/2 ML NEBU IH SCH (08:45)
[2019-11-10] MEDS: BUDESONIDE 0.5 MG/2 ML NEBU IH SCH (08:45)
--- NOTE | 2019-11-10 08:55 | Discharge Summary ---
Providers - Providers Date of Admission: 11/04/19 08:18 Date of discharge: 11/10/19 Attending physician: MICHELLE BERUMEN 11/04/19 Consult to Cardiac Rehabilitation [CONS] Routine Reason For Exam: Phase I 11/04/19 10:34 Consult to Dietitian/Nutrition [CONS] Routine Physician Instructions: Reason For Exam: history of aspiration/on soft foods at home Reason for Consult: Poor oral intake 11/04/19 13:42 Consult to Physician [CONS] Routine Comment: Consulting Provider: BREONNA CHACON Physician Instructions: Reason For Exam: CP, CHF 11/05/19 09:02 Consult to Physician [CONS] Routine Comment: Consulting Provider: DOMI PIÑA Physician Instructions: Reason For Exam: resp failure 11/06/19 08:39 Consult to Physician [CONS] Routine Comment: Consulting Provider: TAO CHIANG Physician Instructions: Reason For Exam: ARF Primary care physician: DRAW STRING KNOTTER Hospitalization Condition: Fair Hospital course: The patient is an 79-year-old female with past medical history of hypertension, congestive heart failure, diabetes mellitus type 2, COPD/asthma and A. fib who presented with a chief complaint of shortness of breath and chest pain. Patient states for 1 week she has had intermittent chest heaviness and shortness of breath. Patient states she has had a cough but is been nonproductive. Patient denies history of fever. Patient states she has had swelling in her lower extremities. Sgnathan was seen and evaluated in ED and diagnosed with acute respiratory failure due to acute systolic CHF and COPD exacerbation. She was started on lasix, Beta blockers admitted. Patient was evaluated by cardiology, Pulmonology, Nephrology She improved and was discharged home on 11/10/19. Acute HFrEF. On admission, BNP 5327 and chest x-ray revealed mild diffuse interstitial prominence reflecting edema. Cardiology following Acute COPD exacerbation. Treated with IV steroids, bronchodilators/nebulizer tr eatments. Pulmonary following A. fib with RVR. Acute kidney injury on CKD. Acute on chronic hypoxic respiratory failure. Etiology secondary to COPD exacerbation . Diabetes mellitus type 2. Continue Accu-Cheks and sliding scale insulin. 11/05/2019. Cardiology discontinued Cardizem drip and initiated Lopressor 3 times daily. Eliquis resumed for anticoagulation. Continue GDMT with gentle di uresis. Echocardiogram pending. Pulmonary consulted for acute on chronic respiratory failure from COPD exacerbation. Solu-Medrol 40 mg IV every 8 hours and nebulizer treatments. 11/06/2019. Creatinine is mildly elevated. Baseline creatinine of 1.1-2016. Check renal ultrasound. Nephrology consulted. Continue Lasix and Lopressor. 11/07/2019. Nephrology feels that there is No acute need for hemodialysis. Baseline renal function unknown. Will attempt to obtain prior labs (patient was recently hospitalized at [facility]). Renal ultrasound pending. Continue diuresis per cardiology. Echocardiogram revealed EF of 50 to 55% with left ventricular contractility within normal limits. 11/08/2019 Patient still having shortness of breath, wheezing. She just had a nebulizer breathing treatment. No chest pain. Nephrology, cardiology and Pulmonology following. 11/09/2019 patient feels better, still has shortness of breath but improved. Less wheezing. Hopefully dc home tomorrow. Total time spent on discharge, 34 mins Disposition: DC-01 TO HOME OR SELFCARE Core Measure Documentation - Palliative Care Palliative Care/ Comfort Measures: Not Applicable - Core Measures Any of the following diagnoses?: heart failure - Heart Failure Discharge Requirements JOYCELYN/ARB for LVSD if EF <40%: Yes Beta molly at discharge: Yes Exam - Constitutional Vitals: Temp Pulse Resp BP Pulse Ox 98.0 F 60 18 110/48 99 11/10/19 08:02 11/10/19 08:02 11/10/19 08:02 11/10/19 08:02 11/10/19 08:02 Plan Activity: advance as tolerated Diet: low fat, low cholesterol, low salt, diabetic, renal Special Instructions: home oxygen via ([place]) Additional Instructions: 1.Follow up with PCP in 1 week. 2.Follow up with Nephrology in 1 week. 3.follow up with cardiology in 1 week. 4.Follow up with Pulmonology in 1 week. 5.Continue home Oxygen continuous Follow up with: PRIMARY CARE, [Primary Care Provider] - 3-5 Days Prescriptions: cefUROXime [Ceftin] 250 mg PO DAILY #3 tablet predniSONE [Deltasone] 20 mg PO QDAY #20 tab Metoprolol [Lopressor TAB] 50 mg PO BID #60 tablet Prednisone [predniSONE 10 mg (6-Day Pack, 21 Tabs)] 10 mg PO .TAPER #1 tab.ds.pk
[2019-11-10] MEDS: predniSONE 20 MG TAB PO SCH (09:47)
[2019-11-10] MEDS: FUROSEMIDE 40 MG TAB PO SCH (09:47)
[2019-11-10] MEDS: FERROUS SULFATE 325 MG TAB PO SCH (09:47)
[2019-11-10] MEDS: APIXABAN 2.5 MG TAB PO SCH (09:48)
[2019-11-10] MEDS: VALSARTAN 160MG TAB PO SCH (09:48)
[2019-11-10] MEDS: METOPROLOL TARTRATE 25 MG TAB PO SCH (09:48)
[2019-11-10] MEDS: NIFEdipine XL 60 MG TAB PO SCH (09:49)
[2019-11-10] MEDS: oxyCODONE /ACETAMINOPHEN 5-325MG TAB PO PRN (10:04)
[2019-11-10 12:38] VITALS: BP 113/61
--- NOTE | 2019-11-10 13:04 | Progress Note ---
Assessment and Plan 79 y/o female with COPD exacerbation. 1. Prednisone taper as follows: 60 daily for 2 more days then 40 daily for 4 days, 20 daily for 4 days, 10 daily for 4 days then stop. 2. If going home resume home COPD regimen, if not continue BID Pulmicort and Brovana at facility 3. Continue baseline oxygen flow No objection to discharge from a pulmonary standpoint. Subjective Date of service: 11/10/19 Principal diagnosis: sob Interval history: Patient being discharged today. Objective Vital Signs - 12hr 11/10/19 11/10/19 11/10/19 03:11 04:01 07:35 Temperature 98.2 F Pulse Rate 86 87 90 Pulse Rate [ From Monitor] Pulse Rate [ Right Radial] Respiratory 16 20 Rate Blood Pressure 120/55 O2 Sat by Pulse 100 100 Oximetry 11/10/19 11/10/19 11/10/19 08:02 09:48 10:09 Temperature 98.0 F Pulse Rate 60 60 Pulse Rate [ 60 From Monitor] Pulse Rate [ 62 Right Radial] Respiratory 18 18 Rate Blood Pressure 110/48 110/48 O2 Sat by Pulse 99 98 Oximetry 11/10/19 12:09 Temperature 98.0 F Pulse Rate 71 Pulse Rate [ From Monitor] Pulse Rate [ Right Radial] Respiratory 18 Rate Blood Pressure 113/61 O2 Sat by Pulse 88 Oximetry Constitutional: alert, other (mild distress) Eyes: non-icteric ENT: oropharynx moist Neck: supple Effort: normal Ascultation: Bilateral: diminished breath sounds, wheezes Gastrointestinal: normoactive bowel sounds, soft, non-tender, non-distended, other (obese) Integumentary: normal Extremities: pink and warm, edema Neurologic: normal mental status, non-focal exam Psychiatric: mood appropriate, affect normal CBC and BMP: 11/09/19 04:09 11/10/19 03:48 ABG, PT/INR, D-dimer: PT/INR, D-dimer PT 21.6 Sec. (12.2-14.9) H 11/04/19 07:20 INR 1.88 (0.87-1.13) H 11/04/19 07:20 Abnormal lab findings: Abnormal Labs 11/04/19 11/04/19 11/04/19 07:20 07:20 07:20 RBC 2.46 L Hgb 8.1 L Hct 24.6 L MCV 100 H MCH 33 H RDW 17.2 H Lymph % (Auto) [place] % (Auto) 14.8 H Lymph # Foard # 1.2 H Seg Neutrophils % Seg Neuts % (Manual) 72.0 H Monocytes % (Manual) Basophils % (Manual) 2.0 H Monocytes # (Manual) Basophils # (Manual) 0.2 H PT 21.6 H INR 1.88 H Sodium Potassium 3.5 L Chloride BUN 44 H Creatinine 1.8 H Glucose 237 H POC Glucose Hemoglobin A1c Calcium Alkaline Phosphatase 131 H Troponin T 0.069 H NT-Pro-B Natriuret Pep 5327 H Serum Total Protein Total Protein 5.9 L Albumin 3.0 L Pllqa-9-Cwfofcwdb Ucxfw-5-Fobdzaxol PEP Interpretation LDL Cholesterol Direct 38 L Free T4 Urine Creatinine Urine Total Protein Crossmatch 11/04/19 11/04/19 11/04/19 07:20 15:29 15:29 RBC 2.63 L Hgb 8.5 L Hct 26.3 L MCV 100 H MCH RDW 17.7 H Lymph % (Auto) [place] % (Auto) Lymph # [place] # Seg Neutrophils % Seg Neuts % (Manual) Monocytes % (Manual) 16.0 H Basophils % (Manual) Monocytes # (Manual) 1.1 H Basophils # (Manual) PT INR Sodium Potassium Chloride BUN 43 H Creatinine 1.7 H Glucose 172 H POC Glucose Hemoglobin A1c Calcium Alkaline Phosphatase Troponin T NT-Pro-B Natriuret Pep Serum Total Protein Total Protein Albumin Sqmhj-1-Obheqagca Koaee-9-Bummwqnsd PEP Interpretation LDL Cholesterol Direct Free T4 1.57 H Urine Creatinine Urine Total Protein Crossmatch 11/04/19 11/04/19 11/04/19 15:29 16:19 22:03 RBC Hgb Hct MCV MCH RDW Lymph % (Auto) [place] % (Auto) Lymph # [place] # Seg Neutrophils % Seg Neuts % (Manual) Monocytes % (Manual) Basophils % (Manual) Monocytes # (Manual) Basophils # (Manual) PT INR Sodium Potassium Chloride BUN Creatinine Glucose POC Glucose 176 H 126 H Hemoglobin A1c 7.8 H Calcium Alkaline Phosphatase Troponin T NT-Pro-B Natriuret Pep Serum Total Protein Total Protein Albumin Mcydo-4-Bvauvryar Hpmhg-2-Zqvguqbjq PEP Interpretation LDL Cholesterol Direct Free T4 Urine Creatinine Urine Total Protein Crossmatch 11/05/19 11/05/19 11/05/19 04:01 04:01 11:27 RBC 2.46 L Hgb 8.1 L Hct 24.8 L MCV 101 H MCH 33 H RDW 17.4 H Lymph % (Auto) [place] % (Auto) 13.1 H Lymph # [place] # Seg Neutrophils % Seg Neuts % (Manual) Monocytes % (Manual) Basophils % (Manual) Monocytes # (Manual) Basophils # (Manual) PT INR Sodium Potassium 3.1 L Chloride BUN 38 H Creatinine 1.6 H Glucose 197 H POC Glucose 177 H Hemoglobin A1c Calcium Alkaline Phosphatase Troponin T NT-Pro-B Natriuret Pep Serum Total Protein Total Protein Albumin Iaxwb-4-Xjyvbzqdd Axfcq-3-Vmcjrqlvh PEP Interpretation LDL Cholesterol Direct Free T4 Urine Creatinine Urine Total Protein Crossmatch 11/05/19 11/05/19 11/06/19 15:46 21:37 00:44 RBC Hgb Hct MCV MCH RDW Lymph % (Auto) [place] % (Auto) Lymph # [place] # Seg Neutrophils % Seg Neuts % (Manual) Monocytes % (Manual) Basophils % (Manual) Monocytes # (Manual) Basophils # (Manual) PT INR Sodium Potassium Chloride BUN Creatinine Glucose POC Glucose 253 H 476 H 468 H Hemoglobin A1c Calcium Alkaline Phosphatase Troponin T NT-Pro-B Natriuret Pep Serum Total Protein Total Protein Albumin Umvto-6-Zyjdcpzlw Xmjxu-9-Qjeswcazh PEP Interpretation LDL Cholesterol Direct Free T4 Urine Creatinine Urine Total Protein Crossmatch 11/06/19 11/06/19 11/06/19 04:54 04:54 07:45 RBC 2.34 L Hgb 7.7 L Hct 23.5 L MCV 101 H MCH 33 H RDW 17.1 H Lymph % (Auto) 7.9 L [place] % (Auto) Lymph # 0.5 L [place]oard # Seg Neutrophils % 89.4 H Seg Neuts % (Manual) Monocytes % (Manual) Basophils % (Manual) Monocytes # (Manual) Basophils # (Manual) PT INR Sodium Potassium Chloride 96.8 L BUN 45 H Creatinine 2.0 H Glucose 376 H POC Glucose 467 H Hemoglobin A1c Calcium Alkaline Phosphatase Troponin T NT-Pro-B Natriuret Pep Serum Total Protein Total Protein Albumin Gziku-8-Pwvoptuyn Rcmjo-6-Ylbmhsrys PEP Interpretation LDL Cholesterol Direct Free T4 Urine Creatinine Urine Total Protein Crossmatch 05/11/06/19 11/06/19 11:15 13:29 15:47 RBC Hgb Hct MCV MCH RDW Lymph % (Auto) [place] % (Auto) Lymph # [place] # Seg Neutrophils % Seg Neuts % (Manual) Monocytes % (Manual) Basophils % (Manual) Monocytes # (Manual) Basophils # (Manual) PT INR Sodium Potassium Chloride BUN Creatinine Glucose POC Glucose 488 H 367 H Hemoglobin A1c Calcium Alkaline Phosphatase Troponin T NT-Pro-B Natriuret Pep Serum Total Protein Total Protein Albumin Ikuum-3-Fyukvtokr Kastj-8-Wbhokfzeb PEP Interpretation LDL Cholesterol Direct Free T4 Urine Creatinine Urine Total Protein Crossmatch See Detail 11/06/19 11/06/19 11/06/19 16:19 17:00 21:05 RBC Hgb Hct MCV MCH RDW Lymph % (Auto) [place] % (Auto) Lymph # [place] # Seg Neutrophils % Seg Neuts % (Manual) Monocytes % (Manual) Basophils % (Manual) Monocytes # (Manual) Basophils # (Manual) PT INR Sodium Potassium Chloride BUN Creatinine Glucose POC Glucose 325 H Hemoglobin A1c Calcium Alkaline Phosphatase Troponin T NT-Pro-B Natriuret Pep Serum Total Protein 5.8 L Total Protein Albumin 2.6 L Eanuo-9-Kutwwsoqh 0.4 H Oczfm-3-Dtcvpqypo 1.0 H PEP Interpretation see below H LDL Cholesterol Direct Free T4 Urine Creatinine 108.3 H Urine Total Protein 28 H Crossmatch 11/06/19 11/07/19 11/07/19 23:26 00:19 04:12 RBC Hgb 9.1 L Hct 27.0 L MCV MCH RDW Lymph % (Auto) [place] % (Auto) Lymph # [place] # Seg Neutrophils % Seg Neuts % (Manual) Monocytes % (Manual) Basophils % (Manual) Monocytes # (Manual) Basophils # (Manual) PT INR Sodium 134 L Potassium Chloride 93.2 L BUN 55 H Creatinine 2.1 H Glucose 311 H POC Glucose 380 H Hemoglobin A1c Calcium Alkaline Phosphatase Troponin T NT-Pro-B Natriuret Pep Serum Total Protein Total Protein Albumin Xewfu-1-Xgblzkhsr Pteae-8-Gjckoycts PEP Interpretation LDL Cholesterol Direct Free T4 Urine Creatinine Urine Total Protein Crossmatch 11/07/19 11/07/19 11/07/19 09:17 11:57 16:11 RBC Hgb Hct MCV MCH RDW Lymph % (Auto) [place] % (Auto) Lymph # [place] # Seg Neutrophils % Seg Neuts % (Manual) Monocytes % (Manual) Basophils % (Manual) Monocytes # (Manual) Basophils # (Manual) PT INR Sodium Potassium Chloride BUN Creatinine Glucose POC Glucose 338 H 368 H > 500 H Hemoglobin A1c Calcium Alkaline Phosphatase Troponin T NT-Pro-B Natriuret Pep Serum Total Protein Total Protein Albumin Xyopm-9-Wvcvllimm Nfsms-4-Oapeupsci PEP Interpretation LDL Cholesterol Direct Free T4 Urine Creatinine Urine Total Protein Crossmatch 11/07/19 11/07/19 11/07/19 16:34 20:35 21:27 RBC Hgb Hct MCV MCH RDW Lymph % (Auto) [place] % (Auto) Lymph # [place] # Seg Neutrophils % Seg Neuts % (Manual) Monocytes % (Manual) Basophils % (Manual) Monocytes # (Manual) Basophils # (Manual) PT INR Sodium Potassium Chloride BUN Creatinine Glucose 313 H 234 H POC Glucose > 500 H Hemoglobin A1c Calcium Alkaline Phosphatase Troponin T NT-Pro-B Natriuret Pep Serum Total Protein Total Protein Albumin Urzfb-8-Kplqdwbxd Twvvz-7-Vcopkpwbz PEP Interpretation LDL Cholesterol Direct Free T4 Urine Creatinine Urine Total Protein Crossmatch 11/08/19 11/08/19 11/08/19 01:16 05:35 07:26 RBC Hgb Hct MCV MCH RDW Lymph % (Auto) [place] % (Auto) Lymph # [place]oard # Seg Neutrophils % Seg Neuts % (Manual) Monocytes % (Manual) Basophils % (Manual) Monocytes # (Manual) Basophils # (Manual) PT INR Sodium 132 L Potassium Chloride 93.6 L BUN 62 H Creatinine 1.9 H Glucose 290 H POC Glucose 340 H 307 H Hemoglobin A1c Calcium Alkaline Phosphatase Troponin T NT-Pro-B Natriuret Pep Serum Total Protein Total Protein Albumin Yvdqy-7-Usathxwlj Misup-8-Epnthjmji PEP Interpretation LDL Cholesterol Direct Free T4 Urine Creatinine Urine Total Protein Crossmatch 11/08/19 11/08/19 11/08/19 08:04 11:07 15:28 RBC Hgb Hct MCV MCH RDW Lymph % (Auto) [place] % (Auto) Lymph # [place] # Seg Neutrophils % Seg Neuts % (Manual) Monocytes % (Manual) Basophils % (Manual) Monocytes # (Manual) Basophils # (Manual) PT INR Sodium Potassium Chloride BUN Creatinine Glucose POC Glucose 286 H 281 H 291 H Hemoglobin A1c Calcium Alkaline Phosphatase Troponin T NT-Pro-B Natriuret Pep Serum Total Protein Total Protein Albumin Kneux-6-Tsnmsmnmj Ihgkh-1-Ysqrfvkae PEP Interpretation LDL Cholesterol Direct Free T4 Urine Creatinine Urine Total Protein Crossmatch 11/08/19 11/08/19 11/09/19 18:20 21:09 00:56 RBC Hgb Hct MCV MCH RDW Lymph % (Auto) [place]oard % (Auto) Lymph # [place]oard # Seg Neutrophils % Seg Neuts % (Manual) Monocytes % (Manual) Basophils % (Manual) Monocytes # (Manual) Basophils # (Manual) PT INR Sodium Potassium Chloride BUN Creatinine Glucose POC Glucose 283 H 295 H 222 H Hemoglobin A1c Calcium Alkaline Phosphatase Troponin T NT-Pro-B Natriuret Pep Serum Total Protein Total Protein Albumin Gpudg-4-Xugeuxlut Aywix-1-Fqwqhikft PEP Interpretation LDL Cholesterol Direct Free T4 Urine Creatinine Urine Total Protein Crossmatch 11/09/19 11/09/19 11/09/19 04:09 04:09 06:13 RBC 2.90 L Hgb 9.3 L Hct 27.8 L MCV MCH RDW 18.2 H Lymph % (Auto) [place] % (Auto) Lymph # [place]oard # Seg Neutrophils % Seg Neuts % (Manual) Monocytes % (Manual) Basophils % (Manual) Monocytes # (Manual) Basophils # (Manual) PT INR Sodium 134 L Potassium Chloride 93.8 L BUN 73 H Creatinine 2.1 H Glucose 216 H POC Glucose 233 H Hemoglobin A1c Calcium 8.3 L Alkaline Phosphatase Troponin T NT-Pro-B Natriuret Pep Serum Total Protein Total Protein Albumin Gkhzz-2-Kwktxmolz Pjzlh-8-Pcmkxtusq PEP Interpretation LDL Cholesterol Direct Free T4 Urine Creatinine Urine Total Protein Crossmatch 11/09/19 11/09/19 11/09/19 11:10 12:05 15:53 RBC Hgb Hct MCV MCH RDW Lymph % (Auto) [place] % (Auto) Lymph # [place]oard # Seg Neutrophils % Seg Neuts % (Manual) Monocytes % (Manual) Basophils % (Manual) Monocytes # (Manual) Basophils # (Manual) PT INR Sodium Potassium Chloride BUN Creatinine Glucose POC Glucose 255 H 279 H 241 H Hemoglobin A1c Calcium Alkaline Phosphatase Troponin T NT-Pro-B Natriuret Pep Serum Total Protein Total Protein Albumin Mwfqw-0-Kobsdceai Aguqf-3-Twwozlbxv PEP Interpretation LDL Cholesterol Direct Free T4 Urine Creatinine Urine Total Protein Crossmatch 11/09/19 11/09/19 11/10/19 18:29 22:14 00:24 RBC Hgb Hct MCV MCH RDW Lymph % (Auto) [place] % (Auto) Lymph # [place]oard # Seg Neutrophils % Seg Neuts % (Manual) Monocytes % (Manual) Basophils % (Manual) Monocytes # (Manual) Basophils # (Manual) PT INR Sodium Potassium Chloride BUN Creatinine Glucose POC Glucose 188 H 195 H 255 H Hemoglobin A1c Calcium Alkaline Phosphatase Troponin T NT-Pro-B Natriuret Pep Serum Total Protein Total Protein Albumin Warmj-6-Pqslwxiwp Gixyw-2-Irqoznjle PEP Interpretation LDL Cholesterol Direct Free T4 Urine Creatinine Urine Total Protein Crossmatch 11/10/19 11/10/19 03:48 05:22 RBC Hgb Hct MCV MCH RDW Lymph % (Auto) [place] % (Auto) Lymph # [place]oard # Seg Neutrophils % Seg Neuts % (Manual) Monocytes % (Manual) Basophils % (Manual) Monocytes # (Manual) Basophils # (Manual) PT INR Sodium 130 L Potassium Chloride 91.5 L BUN 81 H Creatinine 2.1 H Glucose 210 H POC Glucose 212 H Hemoglobin A1c Calcium 8.2 L Alkaline Phosphatase Troponin T NT-Pro-B Natriuret Pep Serum Total Protein Total Protein Albumin Shjvv-6-Hrepdnbfl Xwvwt-5-Xwrkqlgnw PEP Interpretation LDL Cholesterol Direct Free T4 Urine Creatinine Urine Total Protein Crossmatch
--- NOTE | 2019-11-10 13:32 | Progress Note ---
Assessment and Plan Impression: * Acute kidney injury attributed to diuresis on chronic kidney disease --Baseline renal function 1.7-1.9; followed by Dr. David Holley (nephrology) * Acute on chronic hypoxemic respiratory failure secondary to pulmonary edema vs COPD exacerbation --Continuous NC oxygen 3L at home * Diastolic heart failure * Atrial fibrillation * Type II DM * Hypertension * Anemia Plan: * No acute need for hemodialysis. Baseline renal function per [facility] labs around 1.7-1.9 since 2017 * Creatinine stable, close to baseline today at 2.1; diurese prn per cardiology/pulmonary- currently on furosemide 40mg po daily * BPs at goal * Reviewed urine studies * SPEP WNL * Renal ultrasound reviewed, no acute issues noted * Transfusion of pRBC per primary - s/p blood transfusion 11/05 * Pulmonary recommendations noted - PO steroids, inhaler * Avoid potential nephrotoxins * Dose medications for renal function * Glycemic control * Strict I/O ordered * Will need close outpatient renal follow up on discharge with Dr. Holley, ideally repeat labs in following 2 weeks Thank you for this consult; we will continue to follow with you. Please do not hesitate to call me on my cell at for any questions or concerns for renal related issues. Subjective Date of service: 11/10/19 Principal diagnosis: sob Interval history: No major changes noted since yesterday. Resting comfortably, notes some shortness of breath, denies edema Objective - Exam Narrative Exam: General appearance: well-developed, well-nourished EENT: ATNC Respiratory: decreased breath sounds, on NC Heart: irregular Gastrointestinal: normal bowel sounds Integumentary: no rash, warm and dry Neurologic: no focal deficit, alert and oriented x3 Musculoskeletal: trace edema noted Psychiatric: cooperative - Vital Signs Vital signs: Vital Signs - 12hr 11/10/19 11/10/19 11/10/19 03:11 04:01 07:35 Temperature 98.2 F Pulse Rate 86 87 90 Pulse Rate [ From Monitor] Pulse Rate [ Right Radial] Respiratory 16 20 Rate Blood Pressure 120/55 O2 Sat by Pulse 100 100 Oximetry 11/10/19 11/10/19 11/10/19 08:02 09:48 10:09 Temperature 98.0 F Pulse Rate 60 60 Pulse Rate [ 60 From Monitor] Pulse Rate [ 62 Right Radial] Respiratory 18 18 Rate Blood Pressure 110/48 110/48 O2 Sat by Pulse 99 98 Oximetry 11/10/19 12:09 Temperature 98.0 F Pulse Rate 71 Pulse Rate [ From Monitor] Pulse Rate [ Right Radial] Respiratory 18 Rate Blood Pressure 113/61 O2 Sat by Pulse 88 Oximetry - Lab 11/09/19 04:09 11/10/19 03:48 Most recent lab results Calcium 8.2 mg/dL (8.4-10.2) L 11/10/19 03:48 Urine Creatinine 108.3 mg/dL (0.1-20.0) H 11/06/19 17:00 Urine Total Protein 28 mg/dL (5-11.8) H 11/06/19 17:00 Medications & Allergies - Medications Allergies/Adverse Reactions: Allergies No Known Allergies Allergy (Verified 11/17/15 22:31) Home Medications: Home Medications Medication Instructions Recorded Confirmed Last Taken Type Apixaban [Eliquis] 5 mg PO BID 11/04/19 11/04/19 Unknown History AtorvaSTATin [Lipitor] 40 mg PO QHS 11/04/19 11/04/19 Unknown History Ferrous Sulfate [Ferrous Sulfate 324 mg PO QAM 11/04/19 11/04/19 Unknown History 324 MG] Fluticasone/Salmeterol [Advair 1 puff IH BID 11/04/19 11/04/19 Unknown History Diskus 250-50 mcg] HYDROcodone/APAP 5-325 [[place] 1 each PO Q6HR PRN 11/04/19 11/04/19 Unknown History 5-325 mg TAB] Linaclotide [Linzess] 290 mcg PO QDAY 11/04/19 11/04/19 Unknown History Montelukast [Singulair] 10 mg PO QPM 11/04/19 11/04/19 Unknown History Sitagliptin Phosphate [Januvia] 50 mg PO QDAY 11/04/19 11/04/19 Unknown History Torsemide [Demadex] 100 mg PO QDAY 11/04/19 11/04/19 Unknown History Umeclidinium [place] [Incruse 62.5 mcg IH QDAY 11/04/19 11/04/19 Unknown History Ellipta 62.5MCG] Valsartan [Diovan] 160 mg PO QDAY 11/04/19 11/04/19 Unknown History Zolpidem [Ambien] 5 mg PO QHS PRN 11/04/19 11/04/19 Unknown History glipiZIDE [Glucotrol] 5 mg PO QDAY 11/04/19 11/04/19 Unknown History predniSONE [Deltasone] 10 mg PO QDAY 11/04/19 11/04/19 Unknown History traZODone [Desyrel] 50 mg PO QHS 11/04/19 11/04/19 Unknown History Metoprolol [Lopressor TAB] 50 mg PO BID #60 tablet 11/10/19 Unknown Rx Prednisone [predniSONE 10 mg 10 mg PO .TAPER #1 tab.ds.pk 11/10/19 Unknown Rx (6-Day Pack, 21 Tabs)] cefUROXime [Ceftin] 250 mg PO DAILY #3 tablet 11/10/19 Unknown Rx Active Medications: Generic Name Dose Route Start Last Admin Trade Name Freq PRN Reason Stop Dose Admin Acetaminophen 650 mg 11/04/19 13:42 11/08/19 01:29 Tylenol PO 650 mg Q4H PRN Administration Pain MILD(1-3)/Fever >100.5/IRBY Albuterol 2.5 mg 11/05/19 14:12 11/09/19 19:51 Proventil IH 2.5 mg Q4HRT PRN Administration Shortness Of Breath Apixaban 2.5 mg 11/04/19 22:00 11/10/19 09:48 Eliquis PO 2.5 mg Q12HR ALLEGRA Administration Protocol Arformoterol Tartrate 15 mcg 11/05/19 20:00 11/10/19 08:45 Brovana Nebu IH 15 mcg Q12HRT ALLEGRA Administration Atorvastatin Calcium 40 mg 11/04/19 22:00 11/09/19 22:33 Lipitor PO 40 mg QHS ALLEGRA Administration Budesonide 0.5 mg 11/05/19 20:00 11/10/19 08:45 Pulmicort IH 0.5 mg Q12HRT ALLEGRA Administration Cefuroxime Axetil 250 mg 11/07/19 10:00 11/10/19 10:31 Ceftin PO 11/12/19 10:01 250 mg Q24HR ALLEGRA Administration Dextrose 50 ml 11/04/19 13:42 D50w (25gm) Syringe IV Q30MIN PRN Hypoglycemia Protocol Ferrous Sulfate 324 mg 11/07/19 10:00 11/10/19 09:47 Feosol PO 324 mg QAM ALLEGRA Administration Furosemide 40 mg 11/06/19 10:00 11/10/19 09:47 Lasix PO 40 mg QDAY ALLEGRA Administration Glipizide 5 mg 11/07/19 08:00 11/10/19 08:41 Glucotrol PO 5 mg QDDIAB ALLEGRA Administration Insulin Glargine 10 units 11/07/19 22:00 11/09/19 22:33 Lantus SUB-Q 10 units QHS ALLEGRA Administration Insulin Human Lispro 0 unit 11/08/19 00:00 11/10/19 11:48 Humalog SUB-Q 4 unit Q6HR ALLEGRA Administration Protocol Insulin Human Regular 0 units 11/04/19 16:30 11/10/19 11:50 Humulin R SUB-Q 3 units ACHS ALLEGRA Administration Protocol Linagliptin 5 mg 11/07/19 08:00 11/10/19 08:41 Tradjenta PO 5 mg QDDIAB ALLEGRA Administration Metoprolol Tartrate 50 mg 11/05/19 11:00 11/10/19 09:48 Metoprolol PO Not Given BID ALLEGRA Montelukast Sodium 10 mg 11/06/19 18:00 11/09/19 18:16 Singulair PO 10 mg QPM ALLEGRA Administration Nifedipine 60 mg 11/07/19 10:00 11/10/19 09:49 Procardia Xl PO Not Given QDAY ALLEGRA Ondansetron HCl 4 mg 11/04/19 13:42 Zofran IV Q8H PRN Nausea And Vomiting Oxycodone/Acetaminophen 1 tab 11/05/19 16:00 11/10/19 10:04 Percocet 5/325 PO 1 tab Q6H PRN Administration Pain, Moderate (4-6) Prednisone 60 mg 11/09/19 10:00 11/10/19 09:47 Deltasone PO 60 mg QDAY ALLEGRA Administration Sodium Chloride 10 ml 11/04/19 22:00 11/10/19 09:49 Sodium Chloride Flush Syringe 10 Ml IV 10 ml BID ALLEGRA Administration Sodium Chloride 10 ml 11/04/19 13:42 11/08/19 05:30 Sodium Chloride Flush Syringe 10 Ml IV 10 ml PRN PRN Administration LINE FLUSH Trazodone HCl 50 mg 11/06/19 22:00 05/20/20 22:33 Desyrel PO 50 mg QHS ALLEGRA Administration Valsartan 160 mg 11/07/19 10:00 11/10/19 09:48 Diovan PO Not Given QDAY ALLEGRA Zolpidem Tartrate 5 mg 11/06/19 22:00 Ambien PO QHS PRN Sleep
== END 2019-11-10 16:10 | disposition home or self-care (01) | DRG 291 ==
LOC: ED 06:19 → MERGE 08:18 → 4A 08:18 → IMCU 09:23 → 4A 14:10
PROVIDERS: ADMIT Hospitalist; ATTEND Internal Medicine
PROC: 5A09357 Assistance with Respiratory Ventilation, Less than 24 Consecutive Hours, Continuous Positive Airway Pressure (ICD-10-PCS; principal; 2019-11-04)
PROC: 5A09357 Assistance with Respiratory Ventilation, Less than 24 Consecutive Hours, Continuous Positive Airway Pressure (ICD-10-PCS; 2019-11-06)
PROC: 30233N1 Transfusion of Nonautologous Red Blood Cells into Peripheral Vein, Percutaneous Approach (ICD-10-PCS; 2019-11-06)
PROC: 5A09357 Assistance with Respiratory Ventilation, Less than 24 Consecutive Hours, Continuous Positive Airway Pressure (ICD-10-PCS; 2019-11-07)
PROC: 5A09357 Assistance with Respiratory Ventilation, Less than 24 Consecutive Hours, Continuous Positive Airway Pressure (ICD-10-PCS; 2019-11-09)
PROC: 5A09357 Assistance with Respiratory Ventilation, Less than 24 Consecutive Hours, Continuous Positive Airway Pressure (ICD-10-PCS; 2019-11-10)
DX: I13.0 Hypertensive heart and chronic kidney disease with heart failure and stage 1 through stage 4 chronic kidney disease, or unspecified chronic kidney disease (principal); N17.0 Acute kidney failure with tubular necrosis; J96.21 Acute and chronic respiratory failure with hypoxia; I50.33 Acute on chronic diastolic (congestive) heart failure; J44.1 Chronic obstructive pulmonary disease with (acute) exacerbation; I48.91 Unspecified atrial fibrillation; N18.9 Chronic kidney disease, unspecified; E11.22 Type 2 diabetes mellitus with diabetic chronic kidney disease; D64.9 Anemia, unspecified; Z96.651 Presence of right artificial knee joint; E11.65 Type 2 diabetes mellitus with hyperglycemia; E78.5 Hyperlipidemia, unspecified; Z87.891 Personal history of nicotine dependence; Z79.899 Other long term (current) drug therapy; Z86.73 Personal history of transient ischemic attack (TIA), and cerebral infarction without residual deficits; Z86.711 Personal history of pulmonary embolism; Z79.01 Long term (current) use of anticoagulants
CPT/HCPCS: 36415; 36600; 71045; 71275; 74018; 76770; 80048; 80053; 80061; 81001; 82140; 82550; 82553; 82570; 82803; 82947; 82962; 83036; 83735; 83880; 84100; 84156; 84165; 84166; 84300; 84439; 84443; 84484; 85007; 85014; 85018; 85025; 85027; 85610; 85730; 86334; 86850; 86900; 86901; 86920; 87040; 87070; 87086; 87186; 87205; 87641; 93005; 93306; 94002; 94003; 94640; 94644; 94660; 94760; G0378; A9270-GY; C9113; J0692; J1650; J1815; J1940; J2405; J2543; J2920; J2930; J3010; J3370; J7040; J7512; P9016; Q9967

== ENCOUNTER 2019-11-12 01:10 | Inpatient (IN) | payer MEDICARE ==
[2019-11-12] MEDS ORDERED: ROCURONIUM 50 MG/5 ML INJ IV ONE (01:25)
[2019-11-12] MEDS ORDERED: ETOMIDATE 20 MG/10 ML INJ IV ONE (01:25)
--- NOTE | 2019-11-12 01:34 | Emergency Department Report ---
ED Shortness of Breath HPI - General Chief Complaint: Dyspnea/Respdistress Stated Complaint: DIFFICULTY BREATHING Time Seen by Provider: 11/12/19 01:10 Source: patient Mode of arrival: Ambulatory Limitations: No Limitations - History of Present Illness Initial Comments: Patient is a 78-year-old female that presents emergency room with complaints of shortness of breath x3 to 4 days. Patient states she was recently seen in another hospital and was discharged. Patient states her shortness of breath is worsening. Patient states is worse with movement and better with rest. Patient that she has history of CHF. For receiving EMS. EMS unable to obtain IV access. EMS states the patient is 87 on her home oxygen of 3 L. MD Complaint: shortness of breath -: Sudden Severity: severe Pain Scale: 0 Consistency: constant Improves With: oxygen, rest Worsens With: exertion Known History Of: congestive heart failure Treatments Prior to Arrival: oxygen - Related Data Home Oxygen Therapy: Yes Home Oxygen Amount: 3 Liters Allergies Allergy/AdvReac Type Severity Reaction Status Date / Time No Known Allergies Allergy Verified 11/12/19 01:45 ED Review of Systems ROS: Stated complaint: DIFFICULTY BREATHING Other details as noted in HPI Comment: All other systems reviewed and negative Constitutional: denies: chills, fever Eyes: denies: eye pain, eye discharge, vision change ENT: denies: ear pain, throat pain Respiratory: shortness of breath, SOB with exertion, SOB at rest. denies: cough, wheezing Cardiovascular: denies: chest pain, palpitations Endocrine: no symptoms reported Gastrointestinal: denies: abdominal pain, nausea, diarrhea Genitourinary: denies: urgency, dysuria, discharge Musculoskeletal: denies: back pain, joint swelling, arthralgia Skin: denies: rash, lesions Neurological: denies: headache, weakness, paresthesias Psychiatric: denies: anxiety, depression Hematological/Lymphatic: denies: easy bleeding, easy bruising ED Past Medical Hx - Past Medical History Previous Medical History?: Yes Hx Hypertension: Yes Hx CVA: Yes Hx Congestive Heart Failure: Yes Hx Diabetes: Yes Hx Arthritis: Yes Hx Asthma: Yes - Surgical History Past Surgical History?: No - Family History Family history: no significant - Social History Smoking Status: Unknown if ever smoked Substance Use Type: None ED Physical Exam - General Limitations: No Limitations General appearance: alert, in distress - Head Head exam: Present: atraumatic, normocephalic - Eye Eye exam: Present: normal appearance - ENT ENT exam: Present: mucous membranes moist - Neck Neck exam: Present: normal inspection - Respiratory Respiratory exam: Present: respiratory distress, rales, accessory muscle use, decreased breath sounds - Cardiovascular Cardiovascular Exam: Present: regular rate, normal rhythm. Absent: systolic murmur, diastolic murmur, rubs, gallop - GI/Abdominal GI/Abdominal exam: Present: soft, normal bowel sounds. Absent: distended, tenderness, guarding - Extremities Exam Extremities exam: Present: normal inspection - Back Exam Back exam: Present: normal inspection - Neurological Exam Neurological exam: Present: alert, altered - Skin Skin exam: Present: warm, dry, intact, normal color. Absent: rash ED Course Vital Signs 11/12/19 11/12/19 11/12/19 01:28 01:30 01:55 Pulse Rate 105 H 120 H Respiratory 31 H 17 20 Rate Blood Pressure 78/50 Blood Pressure [Left] O2 Sat by Pulse 99 Oximetry 11/12/19 11/12/19 11/12/19 02:00 02:21 02:30 Pulse Rate 100 H 111 H 102 H Respiratory 17 19 Rate Blood Pressure 109/73 138/79 138/79 Blood Pressure [Left] O2 Sat by Pulse 100 100 100 Oximetry 11/12/19 11/12/19 11/12/19 02:46 03:16 03:30 Pulse Rate 94 H 88 104 H Respiratory 20 20 18 Rate Blood Pressure 147/87 109/73 117/79 Blood Pressure 117/79 [Left] O2 Sat by Pulse 100 99 98 Oximetry 11/12/19 11/12/19 04:17 04:24 Pulse Rate 78 98 H Respiratory Rate Blood Pressure 136/90 136/90 Blood Pressure [Left] O2 Sat by Pulse 100 Oximetry - Reevaluation(s) Reevaluation #1: Initial evaluation done. Patient found to be hypoxic and having increased work to breathe. Patient also having decreased responsiveness. Patient will be intubated to protect airway and oxygenation. RSI used. See procedure note. 11/12/19 01:33 Reevaluation #2: Patient intubated on the vent. Patient's vital signs are being monitored and are stable. 11/12/19 01:57 Reevaluation #3: Patient to be admitted to the ICU. Hospitalist consulted. 11/12/19 04:42 - Consultations Consultation #1: Hospitalist consulted for admission. Hospitalist to admit patient. 11/12/19 04:42 - Intubation Time Out Performed: Yes Sedative: Etomidate Paralytic: Rocuronium Laryngoscope: fiberoptic video scope Size: 3 Assist Device Used: fiberoptic device ET Tube Size: 7.5 Tube Secured Depth (cm): 22 Tube Secured Location: lips Tube Placement Confirmation: visualized tube passing t, equal breath sounds bilat, no breath sounds over epi, confirmation by capnometr Patient Tolerated Procedure: well, no complications Intubation Complications: none ED Medical Decision Making - Lab Data Result diagrams: 11/12/19 01:56 11/12/19 01:56 - EKG Data EKG shows normal: intervals, QRS complexes, ST-T waves Rate: normal - EKG Data Interpretation: other (A. fib, axis deviation) - Radiology Data Radiology results: report reviewed CHEST 1 VIEW, 11/12/2019 1:37 AM CLINICAL INFORMATION/INDICATION: Shortness of breath COMPARISON: None FINDINGS: SUPPORT DEVICES: Endotracheal tube is present with tip approximately 2.5 cm above the level of the rachel. HEART: The cardiac silhouette appears mildly enlarged. LUNGS/PLEURA: Mildly prominent interstitial markings are noted bilaterally. There may be a trace right pleural effusion. No focal airspace consolidation or pneumothorax is identified. ADDITIONAL FINDINGS: No additional acute findings. IMPRESSION: 1. Placement of endotracheal tube as above. 2. Mild prominence of interstitial markings may suggest mild pulmonary edema. 3. Suspected trace right pleural effusion. CTA CHEST WITH IV CONTRAST INDICATION: Shortness of breath. Respiratory failure. TECHNIQUE: Axial CT images were obtained through the chest after injection of IV contrast. Coronal oblique 2- D reconstruction images were produced. 3 plane MIP reconstruction images were produced at an independent workstation. All CTs at this facility utilize dose reduction techniques including automated exposure control, iterative reconstruction and weight based dosing when appropriate to reduce patient radiation dose to as low as reasonable achievable. COMPARISON: Chest radiograph, 11/12/2019 FINDINGS: Evaluation of the pulmonary arteries demonstrates no evidence of central or segmental filling defects to suggest pulmonary embolism. The heart is enlarged. Evaluation of the lung parenchyma demonstrates focal parenchymal density at the left lung base. No significant pleural effusion is visualized. limited imaging of the upper abdomen demonstrates no evidence of acute abnormality. Endotracheal tube is present with tip approximately 2 cm above the level of the rachel. An esophagogastric tube is also present with tip residing in the stomach. Evaluation of bony structures demonstrates moderately advanced degenerative change and kyphosis of the thoracic spine. IMPRESSION: 1. No evidence of pulmonary embolism. 2. Cardiomegaly. 3. Focal parenchymal density at the left lung base favored to be related to atelectasis, although developing airspace disease such as pneumonia should be considered. - Medical Decision Making Patient is a 78-year-old female that presents emergency room with difficulty breathing, hypoxia and increased work to breathe and respiratory distress. Upon initial evaluation the patient was intubated due to increased work of breathing and hypoxia. Patient's initial exam showed retractions, increased work to breathe, rales in the lungs. Patient responded well to intubation. Patient's vital signs were stable. Patient given antibiotics for pneumonia and Lasix for pulmonary edema and CHF changes on x-ray. Patient's labs are essentially unremarkable except for renal failure, elevated troponin, elevated BNP, anemia. Due to the patient clinical scenario the patient had a CTA of the lungs. Patient's benefits outweigh the risk for the CTA and the kidney function. - Differential Diagnosis CHF, COPD, pneumonia, hypoxia, resp failure. Critical Care Time: Yes Critical care time in (mins) excluding proc time.: 45 Critical care attestation.: If time is entered above; I have spent that time in minutes in the direct care of this critically ill patient, excluding procedure time. Critical Care Time: 45 minutes ED Disposition Clinical Impression: SOB (shortness of breath), Respiratory distress, Elevated troponin Respiratory failure Qualifiers: Chronicity: acute Respiratory failure complication: hypoxia Qualified Code(s): J96.01 - Acute respiratory failure with hypoxia CHF exacerbation Qualifiers: Heart failure type: unspecified Qualified Code(s): I50.9 - Heart failure, unspecified PNA (pneumonia) Qualifiers: Pneumonia type: due to unspecified organism Laterality: unspecified laterality Lung location: unspecified part of lung Qualified Code(s): J18.9 - Pneumonia, unspecified organism Renal failure Qualifiers: Renal failure chronicity: acute Acute renal failure type: unspecified Qualified Code(s): N17.9 - Acute kidney failure, unspecified Disposition: OP ADMIT IP TO THIS HOSP Is pt being admited?: Yes Does the pt Need Aspirin: No Condition: Critical Time of Disposition: 04:42
[2019-11-12] MEDS ORDERED: MINERAL OIL/PETROLATUM, WHITE OPHTH OINT 3.5 GM OU PRN (01:41)
[2019-11-12] MEDS ORDERED: LIP THERAPY VASELINE TP PRN (01:41)
--- NOTE | 2019-11-12 02:08 | XRay Report ---
CHEST 1 VIEW, 11/12/2019 1:37 AM CLINICAL INFORMATION/INDICATION: Shortness of breath COMPARISON: None FINDINGS: SUPPORT DEVICES: Endotracheal tube is present with tip approximately 2.5 cm above the level of the ca terry. HEART: The cardiac silhouette appears mildly enlarged. LUNGS/PLEURA: Mildly prominent interstitial markings are noted bilaterally. There may be a trace righ t pleural effusion. No focal airspace consolidation or pneumothorax is identified. ADDITIONAL FINDINGS: No additional acute findings. IMPRESSION: 1. Placement of endotracheal tube as above. 2. Mild prominence of interstitial markings may suggest mild pulmonary edema. 3. Suspected trace right pleural effusion. Signer Name: Gina Pearl MD Signed: 11/12/2019 2:04 AM Workstation Name: [email or web address]
[2019-11-12 02:17] LABS: Hematocrit 30.7 % (30.3-42.9); Hemoglobin 9.9 gm/dl (10.1-14.3); Mean Corpuscular HGB Conc 32 % (30-34); Mean Corpuscular Volume 95 fl (79-97); Platelet Count 199 K/mm3 (140-440); Red Blood Count 3.23 M/mm3 (3.65-5.03); Red Cell Distribution Width 18.7 % (13.2-15.2)
[2019-11-12 02:23] LABS: Creatine Kinase MB 2.9 ng/mL (0.0-4.0)
[2019-11-12 02:24] LABS: Bilirubin,Urine NEG (Negative); Blood,Urine NEG (Negative); Color,Urine Straw (Yellow); Mucus,Urine FEW /HPF; Protein,Urine <15 mg/dL mg/dL (Negative); RBC,Urine < 1.0 /HPF (0.0-6.0); Urobilinogen,Urine < 2.0 mg/dL (<2.0); WBC,Urine < 1.0 /HPF (0.0-6.0)
[2019-11-12 02:27] LABS: INR 1.65 (0.87-1.13)
[2019-11-12 02:28] LABS: Partial Thromboplastin Time 27.1 Sec. (24.2-36.6)
[2019-11-12 02:29] LABS: Albumin 3.3 g/dL (3.9-5); Calcium 8.3 mg/dL (8.4-10.2)
[2019-11-12] MEDS: fentaNYL DRIP Premix 2,000 MCG/100 ML BAG IV SCH ×4 (02:30→23:26)
[2019-11-12] MEDS: fentaNYL 100 MCG/2 ML INJ IV PRN ×3 (02:30→11:26)
[2019-11-12] MEDS ORDERED: CEFEPIME/NS 2 GM/100 ML 2 GM/100 ML BAG IV ONE (02:42)
[2019-11-12 02:52] LABS: ABG Base Excess 0.3 mmol/L (-2.0-3.0); ABG Methemoglobin 0.6 % (0.0-1.5); ABG Oxygen Saturation 99.2 % (95.0-99.0); ABG PCO2 40.8 mm Hg; ABG PH 7.406 pH Units (7.350-7.450); ABG PO2 194.4 mm Hg (80.0-90.0)
[2019-11-12] MEDS ORDERED: FUROSEMIDE 40 MG/4 ML INJ IV ONE ×2 (03:00→12:27)
[2019-11-12 04:31] LABS: Anisocytosis 1+; Basophils % (Manual) 0 % (0.0-1.8); Platelet Estimate Consistent w Auto; Total Cells Counted 100
--- NOTE | 2019-11-12 04:31 | Cat Scan Report ---
CTA CHEST WITH IV CONTRAST INDICATION: Shortness of breath. Respiratory failure. TECHNIQUE: Axial CT images were obtained through the chest after injection of IV contrast. Coronal oblique 2-D reconstruction images were produced. 3 plane MIP reconstruction images were produced at an [id number] workstation. All CTs at this facility utilize dose reduction techniques including automated expos ure control, iterative reconstruction and weight based dosing when appropriate to reduce patient radi ation dose to as low as reasonable achievable. COMPARISON: Chest radiograph, 11/12/2019 FINDINGS: Evaluation of the pulmonary arteries demonstrates no evidence of central or segmental filling defects to suggest pulmonary embolism. The heart is enlarged. Evaluation of the lung parenchyma demonstrates focal parenchymal density at the left lung base. No significant pleural effusion is visualized. limited imaging of the upper abdomen demonstrates no evidence of acute abnormality. Endotracheal tube is present with tip approximately 2 cm above the level of the rachel. An esophagoga stric tube is also present with tip residing in the stomach. Evaluation of bony structures demonstrates moderately advanced degenerative change and kyphosis of th e thoracic spine. IMPRESSION: 1. No evidence of pulmonary embolism. 2. Cardiomegaly. 3. Focal parenchymal density at the left lung base favored to be related to atelectasis, although dev eloping airspace disease such as pneumonia should be considered. Signer Name: Gina Pearl MD Signed: 11/12/2019 4:27 AM Workstation Name: [id number]
[2019-11-12 05:37] LABS: Chol/HDL Ratio 2.38 %
[2019-11-12] MEDS ORDERED: ONDANSETRON 4 MG/2 ML INJ IV PRN (05:48)
--- NOTE | 2019-11-12 06:14 | History and Physical Report ---
History of Present Illness History of present illness: 79-year-old woman with a history of hypertension, diabetes, COPD on home oxygen, chronic kidney disease, CHF, A. fib was sent to the emergency room for evaluation. The patient has been complaining of shortness of breath, in the emergency room she was in respiratory distress and was intubated. The patient was just discharged from the hospital on 11/09, she was treated for COPD and CHF exacerbation. Patient will be admitted for respiratory failure, possible pneumonia, COPD. The patient was given cefepime, Lasix in the ER. Review of system is unobtainable PAST MEDICAL HISTORY: hypertension, diabetes, COPD on home oxygen, chronic kidney disease, CHF, A. fib PAST SURGICAL HISTORY: Total knee replacement SOCIAL HISTORY: Denies alcohol, tobacco, drugs FAMILY HISTORY: Hypertension Medications and Allergies Allergies Allergy/AdvReac Type Severity Reaction Status Date / Time No Known Allergies Allergy Verified 11/12/19 01:45 Home Medications Medication Instructions Recorded Confirmed Last Taken Type Apixaban [Eliquis] 5 mg PO DAILY 11/12/19 11/12/19 Unknown History AtorvaSTATin [Lipitor] 40 mg PO QHS 11/12/19 11/12/19 Unknown History Ferrous Sulfate [Slow Release Iron 47.5 mg PO DAILY 11/12/19 11/12/19 Unknown History 47.5 Mg tab] Montelukast [Singulair] 10 mg PO QPM 11/12/19 11/12/19 Unknown History NIFEdipine [Nifedipine ER] 60 mg PO BID 11/12/19 11/12/19 Unknown History Pantoprazole [Protonix] 40 mg PO BID 11/12/19 11/12/19 Unknown History Potassium Chloride 10 meq PO BID 11/12/19 11/12/19 Unknown History Sitagliptin Phosphate [Januvia] 50 mg PO DAILY 11/12/19 11/12/19 Unknown History Torsemide [Demadex] 100 mg PO QDAY 11/12/19 11/12/19 Unknown History Valsartan [Diovan] 160 mg PO QDAY 11/12/19 11/12/19 Unknown History carvediloL [Coreg] 6.25 mg PO BID 11/12/19 11/12/19 Unknown History Active Meds: Active Medications Acetaminophen (Tylenol) 650 mg PO Q4H PRN PRN Reason: Pain MILD(1-3)/Fever >100.5/IRBY Fentanyl (Sublimaze) 50 mcg IV Q10MIN PRN PRN Reason: ANALGESIA Last Admin: 11/12/19 02:40 Dose: 50 mcg Documented by: Hydrophilic Ointment (Vaseline Lip Therapy) 1 applic TP Q2HR PRN PRN Reason: Dry Lips Fentanyl Citrate (Fentanyl Drip Premix) 2,000 mcg in 100 mls @ 5.897 mls/hr IV TITR [facility]; Protocol Last Titration: 11/12/19 02:45 Dose: 2 mcg/kg/hr, 11.793 mls/hr Documented by: Multi-Ingred Cream/Lotion/Oil/Oint (Artificial Tears Ophth Oint) 1 applic OU Q4HR PRN PRN Reason: Dry Eye(s) Ondansetron HCl (Zofran) 4 mg IV Q8H PRN PRN Reason: Nausea And Vomiting Sodium Chloride (Sodium Chloride Flush Syringe 10 Ml) 10 ml IV BID [facility] Sodium Chloride (Sodium Chloride Flush Syringe 10 Ml) 10 ml IV PRN PRN PRN Reason: LINE FLUSH Exam - Physical Exam Narrative exam: Gen. appearance: Patient lying in bed, no apparent distress, intubated HEENT: Normocephalic, atraumatic, pupils equally round and reactive to light, u nable to do extraocular movement and no sclericterus,. No JVD or thyromegaly or nodule,neck supple, no carotid bruit ,mucous membranes moist, ET tube in place Heart: S1, S2, regular rate and rhythm Lungs: wheezing bilaterally, breathing comfortable Abdomen: Positive bowel sounds, nontender, nondistended, no organomegaly Extremity: no edema, cyanosis, clubbing Skin: No rash, nodules, warm, dry, skin breakdown in the sacral area Neuro: Sedated - Constitutional Vitals: Temp Pulse Resp BP Pulse Ox 79 20 126/69 96 11/12/19 05:30 11/12/19 05:30 11/12/19 05:30 11/12/19 05:30 HEART Score - HEART Score Troponin: Troponin T 0.056 ng/mL (0.00-0.029) H 11/12/19 01:56 Results - Labs CBC & Chem 7: 11/12/19 01:56 11/12/19 01:56 Labs: Abnormal lab results 0511/12/19 11/12/19 Range/Units 01:56 01:56 01:56 RBC 3.23 L (3.65-5.03) M/mm3 Hgb 9.9 L (10.1-14.3) gm/dl RDW 18.7 H (13.2-15.2) % Seg Neuts % (Manual) 76.0 H (40.0-70.0) % Lymphocytes % (Manual) 13.0 L (13.4-35.0) % Monocytes % (Manual) 9.0 H (0.0-7.3) % Lymphocytes # (Manual) 1.1 L (1.2-5.4) K/mm3 PT 19.1 H (12.2-14.9) Sec. INR 1.65 H (0.87-1.13) ABG pO2 (80.0-90.0) mm Hg ABG O2 Saturation (95.0-99.0) % ABG Hemoglobin (12.0-16.0) gm/dl Sodium 132 L (137-145) mmol/L Chloride 90.7 L (98-107) mmol/L BUN 92 H (7-17) mg/dL Creatinine 2.0 H (0.7-1.2) mg/dL Glucose 320 H (65-100) mg/dL Calcium 8.3 L (8.4-10.2) mg/dL Alkaline Phosphatase 177 H (35-129) units/L CK-MB (CK-2) Rel Index (0-4) Troponin T (0.00-0.029) ng/mL NT-Pro-B Natriuret Pep (0-900) pg/mL Total Protein 6.2 L (6.3-8.2) g/dL Albumin 3.3 L (3.9-5) g/dL 11/12/19 11/12/19 11/12/19 Range/Units 01:56 02:40 02:57 RBC (3.65-5.03) M/mm3 Hgb (10.1-14.3) gm/dl RDW (13.2-15.2) % Seg Neuts % (Manual) (40.0-70.0) % Lymphocytes % (Manual) (13.4-35.0) % Monocytes % (Manual) (0.0-7.3) % Lymphocytes # (Manual) (1.2-5.4) K/mm3 PT (12.2-14.9) Sec. INR (0.87-1.13) ABG pO2 194.4 H (80.0-90.0) mm Hg ABG O2 Saturation 99.2 H (95.0-99.0) % ABG Hemoglobin 10.5 L (12.0-16.0) gm/dl Sodium (137-145) mmol/L Chloride (98-107) mmol/L BUN (7-17) mg/dL Creatinine (0.7-1.2) mg/dL Glucose (65-100) mg/dL Calcium (8.4-10.2) mg/dL Alkaline Phosphatase (35-129) units/L CK-MB (CK-2) Rel Index 8.0 H (0-4) Troponin T 0.056 H (0.00-0.029) ng/mL NT-Pro-B Natriuret Pep 3636 H (0-900) pg/mL Total Protein (6.3-8.2) g/dL Albumin (3.9-5) g/dL - Imaging and Cardiology EKG: image reviewed Chest x-ray: report reviewed CT scan - chest: report reviewed Assessment and Plan Assessment Acute respiratory failure/COPD exacerbation/pneumonia Start IV antibiotic, follow cultures, check cardiac enzymes Start steroids, nebulizer treatments Critical care will be consulted, continue sedation Chronic kidney disease, stable Diabetes Check fingersticks, start sliding scale A. fib/Chronic CHF, stable Consult wound care for skin breakdown in the sacral area DVT prophylax
[2019-11-12] MEDS ORDERED: methylPREDNISolone Sod Succinate 125 MG/2 ML INJ IV SCH ×3 (06:26→14:00)
[2019-11-12] MEDS ORDERED: methylPREDNISolone Sod Succinate 125 MG/2 ML INJ ONE (06:29)
[2019-11-12 08:40] LABS: Creatine Kinase MB 2.8 ng/mL (0.0-4.0)
[2019-11-12] MEDS ORDERED: fentaNYL DRIP Premix 2,000 MCG/100 ML BAG IV ONE (11:00)
--- NOTE | 2019-11-12 11:03 | Event Note ---
Date: 11/12/19 No call overnight about his patient but well known to me as she was just discharged from the facility on 11/09. Her middle name is Marielena and she has the same birthdate as my patient from before but different account number. Have spoken with ED about this and they will talk with registration. She appears to be volume overloaded. No abg was done prior to intubation. But post intubation abg does not reveal hypercapnea and adequate oxygenation is present. Full consult to follow but this patient needs diuresis just like before. Was given lasix and steroids but will wean the steroids back down to the taper she should be on currently. Thank you for this consult.
[2019-11-12] MEDS ORDERED: fentaNYL 100 MCG/2 ML INJ ONE (11:15)
[2019-11-12] MEDS: ENOXAPARIN 30 MG/0.3 ML INJ SUB-Q SCH (11:22)
[2019-11-12] MEDS ORDERED: ENOXAPARIN 30 MG/0.3 ML INJ SUB-Q ONE (11:22)
[2019-11-12] MEDS ORDERED: PIPERACIL-TAZO 2.25 GM/50 ML 2.25 GM/50 ML BAG IV ONE (12:03)
[2019-11-12] MEDS: PIPERACIL-TAZO 2.25 GM/50 ML 2.25 GM/50 ML BAG IV SCH ×2 (12:14→21:31)
--- NOTE | 2019-11-12 12:25 | Consultation ---
History of Present Illness Consult date: 11/12/19 Requesting physician: AGAPITO GAY Reason for consult: hypoxemia History of present illness: 79 y/o female, just discharged from this hospital about 2-3 days ago who comes in dyspnic and altered mental status. Was intubated in the ED. Elevated bnp and mild hypertension on admission. Remainder of the history is from the chart. Past History Past Medical History: other (unable to obtain) Past Surgical History: Other (unable to obtain) Social history: other (unable to obtain) Family history: other (unable to obtain) Medications and Allergies Allergies Allergy/AdvReac Type Severity Reaction Status Date / Time No Known Allergies Allergy Verified 11/12/19 01:45 Home Medications Medication Instructions Recorded Confirmed Last Taken Type Apixaban [Eliquis] 5 mg PO DAILY 11/12/19 11/12/19 Unknown History AtorvaSTATin [Lipitor] 40 mg PO QHS 11/12/19 11/12/19 Unknown History Ferrous Sulfate [Slow Release Iron 47.5 mg PO DAILY 11/12/19 11/12/19 Unknown History 47.5 Mg tab] Montelukast [Singulair] 10 mg PO QPM 11/12/19 11/12/19 Unknown History NIFEdipine [Nifedipine ER] 60 mg PO BID 11/12/19 11/12/19 Unknown History Pantoprazole [Protonix] 40 mg PO BID 11/12/19 11/12/19 Unknown History Potassium Chloride 10 meq PO BID 11/12/19 11/12/19 Unknown History Sitagliptin Phosphate [Januvia] 50 mg PO DAILY 11/12/19 11/12/19 Unknown History Torsemide [Demadex] 100 mg PO QDAY 11/12/19 11/12/19 Unknown History Valsartan [Diovan] 160 mg PO QDAY 11/12/19 11/12/19 Unknown History carvediloL [Coreg] 6.25 mg PO BID 11/12/19 11/12/19 Unknown History Active Meds: Active Medications Acetaminophen (Tylenol) 650 mg PO Q4H PRN PRN Reason: Pain MILD(1-3)/Fever >100.5/IRBY Enoxaparin Sodium (Enoxaparin) 30 mg SUB-Q DAILY [facility] Last Admin: 11/12/19 11:22 Dose: 30 mg Documented by: Fentanyl (Sublimaze) 50 mcg IV Q10MIN PRN PRN Reason: ANALGESIA Last Admin: 11/12/19 11:26 Dose: 50 mcg Documented by: Hydrophilic Ointment (Vaseline Lip Therapy) 1 applic TP Q2HR PRN PRN Reason: Dry Lips Fentanyl Citrate (Fentanyl Drip Premix) 2,000 mcg in 100 mls @ 5.897 mls/hr IV TITR [facility]; Protocol Last Titration: 11/12/19 12:13 Dose: 3 mcg/kg/hr, 17.69 mls/hr Documented by: Piperacillin Sod/Tazobactam Sod (Zosyn/Ns 2.25 Gm/50ml) 2.25 gm in 50 mls @ 100 mls/hr IV Q6HR [facility]; Protocol Last Admin: 11/12/19 12:14 Dose: 100 mls/hr Documented by: Methylprednisolone Sodium Succinate (Solu-Medrol) 125 mg IV Q8HR [facility] Last Admin: 11/12/19 06:30 Dose: 125 mg Documented by: Multi-Ingred Cream/Lotion/Oil/Oint (Artificial Tears Ophth Oint) 1 applic OU Q4HR PRN PRN Reason: Dry Eye(s) Ondansetron HCl (Zofran) 4 mg IV Q8H PRN PRN Reason: Nausea And Vomiting Sodium Chloride (Sodium Chloride Flush Syringe 10 Ml) 10 ml IV BID [facility] Last Admin: 11/12/19 11:07 Dose: 10 ml Documented by: Sodium Chloride (Sodium Chloride Flush Syringe 10 Ml) 10 ml IV PRN PRN PRN Reason: LINE FLUSH Review of Systems ROS unobtainable: due to endotracheal tube Physical Examination Vital signs: Vital Signs Pulse Resp Pulse Ox 105 H 31 H 99 11/12/19 01:28 11/12/19 01:28 11/12/19 01:28 General appearance: no acute distress, alert Effort: mildly labored Ascultation: Bilateral: diminished breath sounds Percussion: Bilateral: not dull Cardiovascular: irregular rhythm Gastrointestinal: normoactive bowel sounds, soft, non-tender Results - Laboratory Findings CBC and BMP: 11/13/19 02:57 11/13/19 02:57 ABG ABG pH 7.406 pH Units (7.350-7.450) 11/12/19 02:40 ABG pCO2 40.8 mm Hg 11/12/19 02:40 ABG pO2 194.4 mm Hg (80.0-90.0) H 11/12/19 02:40 ABG O2 Saturation 99.2 % (95.0-99.0) H 11/12/19 02:40 PT/INR, D-dimer PT 19.1 Sec. (12.2-14.9) H 11/12/19 01:56 INR 1.65 (0.87-1.13) H 11/12/19 01:56 Abnormal lab findings: Abnormal Labs 11/12/19 11/12/19 11/12/19 01:56 01:56 01:56 RBC 3.23 L Hgb 9.9 L RDW 18.7 H Seg Neuts % (Manual) 76.0 H Lymphocytes % (Manual) 13.0 L Monocytes % (Manual) 9.0 H Lymphocytes # (Manual) 1.1 L PT 19.1 H INR 1.65 H ABG pO2 ABG O2 Saturation ABG Hemoglobin Sodium 132 L Chloride 90.7 L BUN 92 H Creatinine 2.0 H Glucose 320 H Calcium 8.3 L Alkaline Phosphatase 177 H CK-MB (CK-2) Rel Index Troponin T NT-Pro-B Natriuret Pep Total Protein 6.2 L Albumin 3.3 L 11/12/19 11/12/19 11/12/19 01:56 02:40 02:57 RBC Hgb RDW Seg Neuts % (Manual) Lymphocytes % (Manual) Monocytes % (Manual) Lymphocytes # (Manual) PT INR ABG pO2 194.4 H ABG O2 Saturation 99.2 H ABG Hemoglobin 10.5 L Sodium Chloride BUN Creatinine Glucose Calcium Alkaline Phosphatase CK-MB (CK-2) Rel Index 8.0 H Troponin T 0.056 H NT-Pro-B Natriuret Pep 3636 H Total Protein Albumin 11/12/19 07:57 RBC Hgb RDW Seg Neuts % (Manual) Lymphocytes % (Manual) Monocytes % (Manual) Lymphocytes # (Manual) PT INR ABG pO2 ABG O2 Saturation ABG Hemoglobin Sodium Chloride BUN Creatinine Glucose Calcium Alkaline Phosphatase CK-MB (CK-2) Rel Index 6.6 H Troponin T 0.058 H NT-Pro-B Natriuret Pep Total Protein Albumin - Diagnostic Findings Chest x-ray: image reviewed CT scan - chest: image reviewed Assessment and Plan 79 y/o female with acute respiratory failure, secondary to volume overload and possible COPD exacerbation. 1. BID IV lasix 2. Dropped steroids way down to where she would be on her taper 3. RAte control 4. BP control CCT 31 minutes.
[2019-11-12] MEDS ORDERED: PIPERACIL-TAZO 2.25 GM/50 ML 2.25 GM/50 ML BAG IV SCH (14:00)
[2019-11-12 14:12] LABS: Creatine Kinase MB 2.9 ng/mL (0.0-4.0)
--- NOTE | 2019-11-12 14:45 | Event Note ---
Date: 11/12/19 Patient 79-year-old with a history of diabetes hypertension COPD on home O2 chronic kidney disease, just of heart failure, atrial fibrillation presented to the ED in acute respiratory distress requiring intubation. Upon presentation fentanyl has worn off patient alert oriented able to attempt to communicate. No new events reported by nurse patient currently hemodynamically stable. Patient has acute respiratory failure secondary to COPD and possible pneumonia continue empiric antibiotics intubated. Spoke with pulmonology about plan for w eaning and further care. Acute on chronic kidney disease. BUN 92/2.0 at volume rehydration most likely prerenal azotemia. Diabetes mellitus continue sliding scale insulin wean when appropriate. Atrial fibrillation well-controlled rate. Sacral wound. Evaluated CT scan negative for PE or pneumonia.
--- NOTE | 2019-11-12 15:31 | Progress Note ---
Assessment and Plan Assessment and plan: The high probability of a clinically significant, sudden or life threatening deterioration of the [] system(s) required my full and direct attention, intervention and personal management. The aggregate critical care time was [] minutes. This time is in addition to time spent performing reported procedures but includes the following: [x] Data Review and interpretation [x] Patient assessment and monitoring of vital signs [x]x Documentation [x] Medication orders and management - Patient Problems (1) CHF exacerbation Current Visit: Yes Status: Acute Qualifiers: Heart failure type: unspecified Qualified Code(s): I50.9 - Heart failure, unspecified Plan to address problem: We will continue IV diuresis with Lasix at this particular time. Continue Coreg JOYCELYN inhibitor diuresis. (2) Elevated troponin Current Visit: Yes Status: Acute Plan to address problem: Secondary to renal insufficiency (3) PNA (pneumonia) Current Visit: Yes Status: Acute Qualifiers: Pneumonia type: due to unspecified organism Laterality: unspecified laterality Lung location: unspecified part of lung Qualified Code(s): J18.9 - Pneumonia, unspecified organism Plan to address problem: Patient was being treated for empiric pneumonia. Follow-up chest x-ray no evidence of pneumonia will wean antibiotic coverage. Continue for potential aspiration. (4) Renal failure Current Visit: Yes Status: Acute Qualifiers: Renal failure chronicity: acute Acute renal failure type: unspecified Qualified Code(s): N17.9 - Acute kidney failure, unspecified Plan to address problem: At present seems to be secondary to prerenal azotemia. Will dose titrate diuretics use. May benefit from albumin. Will give short doses of fluids. (5) Respiratory distress Current Visit: Yes Status: Acute (6) SOB (shortness of breath) Current Visit: Yes Status: Acute Plan to address problem: At present intubated. Will need to obtain ABG. Pulmonology consult. History Interval history: Patient 79-year-old presented with acute respiratory failure secondary to volume overload. Patient seen in the ED required immediate intubation. At present patient intubated hemodynamically stable. Hospitalist Physical - Constitutional Vitals: Temp Pulse Resp BP Pulse Ox 98.2 F 124 H 20 116/81 97 11/12/19 12:22 11/12/19 10:30 11/12/19 14:10 11/12/19 10:30 11/12/19 10:30 General appearance: Present: mild distress - EENT Eyes: Present: PERRL, EOM intact ENT: hearing intact - Neck Neck: Absent: masses or JVD, cervical LAD - Respiratory Respiratory: bilateral: diminished, rhonchi - Extremities Extremity abnormal: edema, deformity, other - Abdominal General gastrointestinal: non-tender (Atrophy), distended, hypoactive bowel sounds, no hepatomegaly, no splenomegaly - Integumentary Integumentary: Present: clear, warm, dry - Psychiatric Psychiatric: appropriate mood/affect, cooperative, no agitated, no depressed - Neurologic Neurologic: no CNII-XII intact, no focal deficits, no moves all extremities HEART Score - HEART Score Troponin: Troponin T 0.050 ng/mL (0.00-0.029) H 11/12/19 13:28 Results - Labs CBC & Chem 7: 11/13/19 02:57 11/13/19 02:57 Labs: Laboratory Last Values WBC 8.5 K/mm3 (4.5-11.0) 11/12/19 01:56 RBC 3.23 M/mm3 (3.65-5.03) L 11/12/19 01:56 Hgb 9.9 gm/dl (10.1-14.3) L 11/12/19 01:56 Hct 30.7 % (30.3-42.9) 11/12/19 01:56 MCV 95 fl (79-97) 11/12/19 01:56 MCH 31 pg (28-32) 11/12/19 01:56 MCHC 32 % (30-34) 11/12/19 01:56 RDW 18.7 % (13.2-15.2) H 11/12/19 01:56 Plt Count 199 K/mm3 (140-440) 11/12/19 01:56 Add Manual Diff Complete 11/12/19 01:56 Total Counted 100 11/12/19 01:56 Seg Neuts % (Manual) 76.0 % (40.0-70.0) H 11/12/19 01:56 Band Neutrophils % 0 % 11/12/19 01:56 Lymphocytes % (Manual) 13.0 % (13.4-35.0) L 11/12/19 01:56 Reactive Lymphs % (Man) 0 % 11/12/19 01:56 Monocytes % (Manual) 9.0 % (0.0-7.3) H 11/12/19 01:56 Eosinophils % (Manual) 2.0 % (0.0-4.3) 11/12/19 01:56 Basophils % (Manual) 0 % (0.0-1.8) 11/12/19 01:56 Metamyelocytes % 0 % 11/12/19 01:56 Myelocytes % 0 % 11/12/19 01:56 Promyelocytes % 0 % 11/12/19 01:56 Blast Cells % 0 % 11/12/19 01:56 Nucleated RBC % Not Reportable 11/12/19 01:56 Seg Neutrophils # Man 6.5 K/mm3 (1.8-7.7) 11/12/19 01:56 Band Neutrophils # 0.0 K/mm3 11/12/19 01:56 Lymphocytes # (Manual) 1.1 K/mm3 (1.2-5.4) L 11/12/19 01:56 Abs React Lymphs (Man) 0.0 K/mm3 11/12/19 01:56 Monocytes # (Manual) 0.8 K/mm3 (0.0-0.8) 11/12/19 01:56 Eosinophils # (Manual) 0.2 K/mm3 (0.0-0.4) 11/12/19 01:56 Basophils # (Manual) 0.0 K/mm3 (0.0-0.1) 11/12/19 01:56 Metamyelocytes # 0.0 K/mm3 11/12/19 01:56 Myelocytes # 0.0 K/mm3 11/12/19 01:56 Promyelocytes # 0.0 K/mm3 11/12/19 01:56 Blast Cells # 0.0 K/mm3 11/12/19 01:56 WBC Morphology Not Reportable 11/12/19 01:56 Hypersegmented Neuts Not Reportable 11/12/19 01:56 Hyposegmented Neuts Not Reportable 11/12/19 01:56 Hypogranular Neuts Not Reportable 11/12/19 01:56 Smudge Cells Not Reportable 11/12/19 01:56 Toxic Granulation Not Reportable 11/12/19 01:56 Toxic Vacuolation Not Reportable 11/12/19 01:56 Dohle Bodies Not Reportable 11/12/19 01:56 Pelger-Huet Anomaly Not Reportable 11/12/19 01:56 Brian Rods Not Reportable 11/12/19 01:56 Platelet Estimate Consistent w auto 11/12/19 01:56 Clumped Platelets Not Reportable 11/12/19 01:56 Plt Clumps, EDTA Not Reportable 11/12/19 01:56 Large Platelets Not Reportable 11/12/19 01:56 Giant Platelets Not Reportable 11/12/19 01:56 Platelet Satelliting Not Reportable 11/12/19 01:56 Plt Morphology Comment Not Reportable 11/12/19 01:56 RBC Morphology Not Reportable 11/12/19 01:56 Dimorphic RBCs Not Reportable 11/12/19 01:56 Polychromasia Not Reportable 11/12/19 01:56 Hypochromasia Not Reportable 11/12/19 01:56 Poikilocytosis Not Reportable 11/12/19 01:56 Anisocytosis 1+ 11/12/19 01:56 Microcytosis Not Reportable 11/12/19 01:56 Macrocytosis Not Reportable 11/12/19 01:56 Spherocytes Not Reportable 11/12/19 01:56 Pappenheimer Bodies Not Reportable 11/12/19 01:56 Sickle Cells Not Reportable 11/12/19 01:56 Target Cells Not Reportable 11/12/19 01:56 Tear Drop Cells Not Reportable 11/12/19 01:56 Ovalocytes Not Reportable 11/12/19 01:56 Helmet Cells Not Reportable 11/12/19 01:56 [place] Bodies Not Reportable 11/12/19 01:56 [place] Rings Not Reportable 11/12/19 01:56 [place] Cells Not Reportable 11/12/19 01:56 Bite Cells Not Reportable 11/12/19 01:56 Crenated Cell Not Reportable 11/12/19 01:56 Elliptocytes Not Reportable 11/12/19 01:56 Acanthocytes (Spur) Not Reportable 11/12/19 01:56 Rouleaux Not Reportable 11/12/19 01:56 Hemoglobin C Crystals Not Reportable 11/12/19 01:56 Schistocytes Not Reportable 11/12/19 01:56 Malaria parasites Not Reportable 11/12/19 01:56 Tom Bodies Not Reportable 11/12/19 01:56 Hem Pathologist Commnt No 11/12/19 01:56 PT 19.1 Sec. (12.2-14.9) H 11/12/19 01:56 INR 1.65 (0.87-1.13) H 11/12/19 01:56 APTT 27.1 Sec. (24.2-36.6) 11/12/19 01:56 ABG pH 7.406 pH Units (7.350-7.450) 11/12/19 02:40 ABG pCO2 40.8 mm Hg 11/12/19 02:40 ABG pO2 194.4 mm Hg (80.0-90.0) H 11/12/19 02:40 ABG HCO3 25.0 mmol/L (20.0-26.0) 11/12/19 02:40 ABG O2 Saturation 99.2 % (95.0-99.0) H 11/12/19 02:40 ABG O2 Content 14.9 (0.0-44) 11/12/19 02:40 ABG Base Excess 0.3 mmol/L (-2.0-3.0) 11/12/19 02:40 ABG Hemoglobin 10.5 gm/dl (12.0-16.0) L 11/12/19 02:40 ABG Carboxyhemoglobin 1.2 % (0.0-5.0) 11/12/19 02:40 ABG Methemoglobin 0.6 % (0.0-1.5) 11/12/19 02:40 Oxyhemoglobin 97.4 % (95.0-99.0) 11/12/19 02:40 FiO2 60 % 11/12/19 02:40 Sodium 132 mmol/L (137-145) L 11/12/19 01:56 Potassium 4.1 mmol/L (3.6-5.0) 11/12/19 01:56 Chloride 90.7 mmol/L (98-107) L 11/12/19 01:56 Carbon Dioxide 24 mmol/L (22-30) 11/12/19 01:56 Anion Gap 21 mmol/L 11/12/19 01:56 BUN 92 mg/dL (7-17) H 11/12/19 01:56 Creatinine 2.0 mg/dL (0.7-1.2) H 11/12/19 01:56 Estimated GFR 24 ml/min 11/12/19 01:56 BUN/Creatinine Ratio 46 % 11/12/19 01:56 Glucose 320 mg/dL (65-100) H 11/12/19 01:56 Lactic Acid 1.50 mmol/L (0.7-2.0) 11/12/19 01:56 Calcium 8.3 mg/dL (8.4-10.2) L 11/12/19 01:56 Total Bilirubin 0.40 mg/dL (0.1-1.2) 11/12/19 01:56 AST 22 units/L (5-40) 11/12/19 01:56 ALT 42 units/L (7-56) 11/12/19 01:56 Alkaline Phosphatase 177 units/L (35-129) H 11/12/19 01:56 Total Creatine Kinase 53 units/L (30-135) 11/12/19 13:28 CK-MB (CK-2) 2.9 ng/mL (0.0-4.0) 11/12/19 13:28 CK-MB (CK-2) Rel Index 5.4 (0-4) H 11/12/19 13:28 Troponin T 0.050 ng/mL (0.00-0.029) H 11/12/19 13:28 NT-Pro-B Natriuret Pep 3636 pg/mL (0-900) H 11/12/19 02:57 Total Protein 6.2 g/dL (6.3-8.2) L 11/12/19 01:56 Albumin 3.3 g/dL (3.9-5) L 11/12/19 01:56 Albumin/Globulin Ratio 1.1 % 11/12/19 01:56 Triglycerides 85 mg/dL (2-149) 11/12/19 01:56 Cholesterol 131 mg/dL (50-199) 11/12/19 01:56 LDL Cholesterol Direct 66 mg/dL (50-130) 11/12/19 01:56 HDL Cholesterol 55 mg/dL (40-59) 11/12/19 01:56 Cholesterol/HDL Ratio 2.38 % 11/12/19 01:56 Urine Color Straw (Yellow) 11/12/19 01:35 Urine Turbidity Clear (Clear) 11/12/19 01:35 Urine pH 5.0 (5.0-7.0) 11/12/19 01:35 Ur Specific [place] 1.009 (1.003-1.030) 11/12/19 01:35 Urine Protein <15 mg/dl mg/dL (Negative) 11/12/19 01:35 Urine Glucose (UA) Neg mg/dL (Negative) 11/12/19 01:35 Urine Ketones Neg mg/dL (Negative) 11/12/19 01:35 Urine Blood Neg (Negative) 11/12/19 01:35 Urine Nitrite Neg (Negative) 11/12/19 01:35 Urine Bilirubin Neg (Negative) 11/12/19 01:35 Urine Urobilinogen < 2.0 mg/dL (<2.0) 11/12/19 01:35 Ur Leukocyte Esterase Neg (Negative) 11/12/19 01:35 Urine WBC (Auto) < 1.0 /HPF (0.0-6.0) 11/12/19 01:35 Urine RBC (Auto) < 1.0 /HPF (0.0-6.0) 11/12/19 01:35 U Epithel Cells (Auto) < 1.0 /HPF (0-13.0) 11/12/19 01:35 Urine Mucus Few /HPF 11/12/19 01:35 Microbiology: Microbiology 11/12/19 02:45 Tracheal Aspirate Sputum Culture - Preliminary 11/12/19 02:05 Peripheral/Venous Blood Culture - Preliminary Culture in Progress 11/12/19 02:03 Peripheral/Venous Blood Culture - Preliminary Culture in Progress Armendariz/IV: Voiding Method Indwelling Catheter IV Catheter Type [Left Chest] INT / Saline Lock IV Catheter Type [Right INT / Saline Lock Antecubital] Active Medications - Current Medications Current Medications: Generic Name Dose Route Start Last Admin Trade Name Freq PRN Reason Stop Dose Admin Acetaminophen 650 mg 11/12/19 05:48 Tylenol PO Q4H PRN Pain MILD(1-3)/Fever >100.5/IRBY Enoxaparin Sodium 30 mg 11/12/19 10:00 11/12/19 11:22 Enoxaparin SUB-Q 30 mg DAILY ALLEGRA Administration Fentanyl 50 mcg 11/12/19 01:41 11/12/19 11:26 Sublimaze IV 50 mcg Q10MIN PRN Administration ANALGESIA Furosemide 40 mg 11/12/19 18:00 Lasix IV 0600,1800 [facility] Hydrophilic Ointment 1 applic 11/12/19 01:41 Vaseline Lip Therapy TP Q2HR PRN Dry Lips Fentanyl Citrate 2,000 mcg in 100 mls @ 5.897 mls/hr 11/12/19 02:00 11/12/19 12:13 Fentanyl Drip Premix IV 3 mcg/kg/hr TITR ALLEGRA 17.69 mls/hr Titration Protocol 1 MCG/KG/HR Piperacillin Sod/Tazobactam Sod 2.25 gm in 50 mls @ 100 mls/hr 11/12/19 12:00 11/12/19 12:14 Zosyn/Ns 2.25 Gm/50ml IV 100 mls/hr Q6HR ALLEGRA Administration Protocol Methylprednisolone Sodium Succinate 20 mg 11/12/19 14:00 Solu-Medrol IV Q8HR [facility] Multi-Ingred Cream/Lotion/Oil/Oint 1 applic 11/12/19 01:41 Artificial Tears Ophth Oint OU Q4HR PRN Dry Eye(s) Ondansetron HCl 4 mg 11/12/19 05:48 Zofran IV Q8H PRN Nausea And Vomiting Sodium Chloride 10 ml 11/12/19 10:00 11/12/19 11:07 Sodium Chloride Flush Syringe 10 Ml IV 10 ml BID ALLEGRA Administration Sodium Chloride 10 ml 11/12/19 05:48 Sodium Chloride Flush Syringe 10 Ml IV PRN PRN LINE FLUSH
[2019-11-12] MEDS: FUROSEMIDE 40 MG/4 ML INJ IV SCH (17:38)
[2019-11-12] MEDS: methylPREDNISolone Sod Succinate 40 MG/1 ML INJ IV SCH (21:32)
[2019-11-13] MEDS: PIPERACIL-TAZO 2.25 GM/50 ML 2.25 GM/50 ML BAG IV SCH ×5 (00:01→23:35)
[2019-11-13] MEDS: INSULIN LISPRO 100 UNIT/ML SUB-Q SCH ×5 (00:02→23:33)
[2019-11-13 03:32] LABS: Eosinophils % (Auto) 0.1 % (0.0-4.3); Hematocrit 29.8 % (30.3-42.9); Hemoglobin 9.8 gm/dl (10.1-14.3); Lymphocytes # (Auto) 0.6 K/mm3 (1.2-5.4); Lymphocytes % (Auto) 5.8 % (13.4-35.0); Mean Corpuscular HGB Conc 33 % (30-34); Mean Corpuscular Volume 96 fl (79-97); Monocytes # (Auto) 0.7 K/mm3 (0.0-0.8); Monocytes % (Auto) 7.6 % (0.0-7.3); Platelet Count 165 K/mm3 (140-440); Red Blood Count 3.09 M/mm3 (3.65-5.03); Red Cell Distribution Width 18.7 % (13.2-15.2)
[2019-11-13 03:44] LABS: ABG Base Excess 2.1 mmol/L (-2.0-3.0); ABG HCO3 27.3 mmol/L (20.0-26.0); ABG Methemoglobin 0.5 % (0.0-1.5); ABG PH 7.4 pH Units (7.350-7.450)
[2019-11-13 03:52] LABS: Calcium 8.7 mg/dL (8.4-10.2)
--- NOTE | 2019-11-13 04:31 | XRay Report ---
CHEST 1 VIEW, 11/13/2019 3:55 AM CLINICAL INFORMATION/INDICATION: Respiratory failure COMPARISON: Chest radiograph, 11/12/2019 at 1:37 AM FINDINGS: SUPPORT DEVICES: The endotracheal tube and esophagogastric tube project in stable position. HEART: The cardiac silhouette is normal in size. LUNGS/PLEURA: No focal airspace disease or large pleural effusion is identified. No pneumothorax is i dentified. ADDITIONAL FINDINGS: No additional acute findings. IMPRESSION: 1. Stable appearance of the chest. Signer Name: Gina Pearl MD Signed: 11/13/2019 4:26 AM Workstation Name: [id number]
[2019-11-13] MEDS: fentaNYL DRIP Premix 2,000 MCG/100 ML BAG IV SCH ×2 (05:12→22:25)
[2019-11-13] MEDS: FUROSEMIDE 40 MG/4 ML INJ IV SCH (05:13)
[2019-11-13] MEDS: methylPREDNISolone Sod Succinate 40 MG/1 ML INJ IV SCH ×3 (05:13→21:19)
[2019-11-13] MEDS: ENOXAPARIN 30 MG/0.3 ML INJ SUB-Q SCH (09:54)
[2019-11-13] MEDS: carvediloL 6.25 MG TAB PO SCH ×2 (09:54→21:19)
[2019-11-13] MEDS ORDERED: METOPROLOL TARTRATE 5 MG/5 ML INJ IV SCH (10:00)
[2019-11-13] MEDS ORDERED: METOPROLOL TARTRATE 5 MG/5 ML INJ IV ONE ×2 (10:29→12:30)
--- NOTE | 2019-11-13 10:46 | Progress Note ---
Assessment and Plan 79 y/o female with acute respiratory failure, secondary to volume overload and possible COPD exacerbation. 1. Continue IV lasix therapy 2. Continue steroids 3. Rate control, may need drip if home meds cannot control right away. 4. BP control 5. Extubate today. CCT 31 minutes. Subjective Date of service: 11/13/19 Interval history: Awake alert and following commands. Wants tube out. Called by nursing earlier about elevated heart rate. Not on home rate control meds. Objective Vital Signs - 12hr 11/12/19 11/12/19 11/12/19 22:45 23:00 23:05 Temperature 99.4 F Pulse Rate 104 H 91 H Pulse Rate [ From Monitor] Respiratory 20 20 Rate Blood Pressure 133/70 133/70 O2 Sat by Pulse 100 100 Oximetry 11/12/19 11/12/19 11/12/19 23:16 23:30 23:46 Temperature Pulse Rate 90 91 H 118 H Pulse Rate [ From Monitor] Respiratory 20 20 21 Rate Blood Pressure 133/70 133/70 133/70 O2 Sat by Pulse 100 100 100 Oximetry 11/13/19 11/13/19 11/13/19 00:00 00:16 00:30 Temperature Pulse Rate 110 H 119 H 108 H Pulse Rate [ 110 H From Monitor] Respiratory 19 21 20 Rate Blood Pressure 133/70 135/88 135/88 O2 Sat by Pulse 100 100 100 Oximetry 11/13/19 11/13/19 11/13/19 00:46 01:00 01:16 Temperature Pulse Rate 108 H 108 H 102 H Pulse Rate [ From Monitor] Respiratory 20 21 21 Rate Blood Pressure 135/88 135/88 125/51 O2 Sat by Pulse 100 100 100 Oximetry 11/13/19 11/13/19 11/13/19 01:30 01:46 02:00 Temperature Pulse Rate 91 H 83 74 Pulse Rate [ From Monitor] Respiratory 20 20 20 Rate Blood Pressure 135/88 135/88 135/88 O2 Sat by Pulse 100 100 100 Oximetry 11/13/19 11/13/19 11/13/19 02:16 02:30 02:46 Temperature Pulse Rate 85 86 128 H Pulse Rate [ From Monitor] Respiratory 20 20 20 Rate Blood Pressure 108/66 125/51 125/51 O2 Sat by Pulse 100 100 100 Oximetry 11/13/19 11/13/19 11/13/19 03:00 03:16 03:30 Temperature Pulse Rate 105 H 132 H 114 H Pulse Rate [ From Monitor] Respiratory 21 22 19 Rate Blood Pressure 125/51 125/51 125/51 O2 Sat by Pulse 100 100 100 Oximetry 11/13/19 11/13/19 11/13/19 03:32 03:45 03:46 Temperature 99.1 F Pulse Rate 100 H 104 H Pulse Rate [ From Monitor] Respiratory 21 Rate Blood Pressure 125/51 O2 Sat by Pulse 100 100 Oximetry 11/13/19 11/13/19 11/13/19 04:00 04:16 04:30 Temperature Pulse Rate 122 H 110 H 108 H Pulse Rate [ 122 H From Monitor] Respiratory 21 10 L 18 Rate Blood Pressure 125/51 125/51 131/55 O2 Sat by Pulse 100 100 100 Oximetry 11/13/19 11/13/19 11/13/19 04:46 05:00 05:16 Temperature Pulse Rate 99 H 93 H 109 H Pulse Rate [ From Monitor] Respiratory 20 21 20 Rate Blood Pressure 101/37 101/37 138/86 O2 Sat by Pulse 100 100 100 Oximetry 11/13/19 11/13/19 11/13/19 05:30 05:46 06:00 Temperature Pulse Rate 103 H 118 H 114 H Pulse Rate [ From Monitor] Respiratory 18 22 19 Rate Blood Pressure 119/60 109/54 132/64 O2 Sat by Pulse 100 100 100 Oximetry 11/13/19 11/13/19 11/13/19 06:15 06:30 06:46 Temperature Pulse Rate 113 H 112 H 110 H Pulse Rate [ From Monitor] Respiratory 14 20 21 Rate Blood Pressure 137/74 137/74 116/47 O2 Sat by Pulse 100 100 100 Oximetry 11/13/19 11/13/19 11/13/19 07:00 07:15 07:31 Temperature Pulse Rate 115 H 95 H 111 H Pulse Rate [ From Monitor] Respiratory 20 20 14 Rate Blood Pressure 97/54 83/47 129/64 O2 Sat by Pulse 100 100 100 Oximetry 11/13/19 11/13/19 11/13/19 07:45 08:00 08:01 Temperature Pulse Rate 129 H 119 H Pulse Rate [ 104 H From Monitor] Respiratory 16 21 17 Rate Blood Pressure 129/64 140/73 O2 Sat by Pulse 100 100 100 Oximetry 11/13/19 11/13/1920 08:15 08:30 08:45 Temperature Pulse Rate 96 H 111 H 117 H Pulse Rate [ From Monitor] Respiratory 14 21 16 Rate Blood Pressure 140/73 107/66 129/56 O2 Sat by Pulse 100 100 100 Oximetry 11/13/19 11/13/19 11/13/19 09:01 09:15 09:31 Temperature Pulse Rate 123 H 116 H 114 H Pulse Rate [ From Monitor] Respiratory 20 20 15 Rate Blood Pressure 109/69 109/69 111/60 O2 Sat by Pulse 100 100 100 Oximetry 11/13/19 11/13/19 11/13/19 09:45 09:54 10:00 Temperature Pulse Rate 144 H 116 H 138 H Pulse Rate [ From Monitor] Respiratory 21 Rate Blood Pressure 111/60 156/65 O2 Sat by Pulse 100 Oximetry 11/13/19 11/13/19 10:01 10:15 Temperature Pulse Rate 123 H 158 H Pulse Rate [ From Monitor] Respiratory 21 21 Rate Blood Pressure 152/75 169/82 O2 Sat by Pulse 100 100 Oximetry Constitutional: no acute distress, alert Effort: mildly labored Ascultation: Bilateral: diminished breath sounds Percussion: Bilateral: not dull Cardiovascular: irregular rhythm Gastrointestinal: normoactive bowel sounds, soft, non-tender CBC and BMP: 11/13/19 02:57 11/13/19 02:57 ABG, PT/INR, D-dimer: ABG ABG pH 7.400 pH Units (7.350-7.450) 11/13/19 03:35 ABG pCO2 45.0 mm Hg 11/13/19 03:35 ABG pO2 93.0 mm Hg (80.0-90.0) H 11/13/19 03:35 ABG O2 Saturation 97.0 % (95.0-99.0) 11/13/19 03:35 PT/INR, D-dimer PT 19.1 Sec. (12.2-14.9) H 11/12/19 01:56 INR 1.65 (0.87-1.13) H 11/12/19 01:56 Abnormal lab findings: Abnormal Labs 11/12/19 11/12/19 11/12/19 01:56 01:56 01:56 RBC 3.23 L Hgb 9.9 L Hct RDW 18.7 H Lymph % (Auto) [place] % (Auto) Lymph # Seg Neutrophils % Seg Neuts % (Manual) 76.0 H Lymphocytes % (Manual) 13.0 L Monocytes % (Manual) 9.0 H Seg Neutrophils # Lymphocytes # (Manual) 1.1 L PT 19.1 H INR 1.65 H ABG pO2 ABG HCO3 ABG O2 Saturation ABG Hemoglobin Sodium 132 L Chloride 90.7 L BUN 92 H Creatinine 2.0 H Glucose 320 H POC Glucose Calcium 8.3 L Alkaline Phosphatase 177 H CK-MB (CK-2) Rel Index Troponin T NT-Pro-B Natriuret Pep Total Protein 6.2 L Albumin 3.3 L 11/12/19 11/12/19 11/12/19 01:56 02:40 02:57 RBC Hgb Hct RDW Lymph % (Auto) [place] % (Auto) Lymph # Seg Neutrophils % Seg Neuts % (Manual) Lymphocytes % (Manual) Monocytes % (Manual) Seg Neutrophils # Lymphocytes # (Manual) PT INR ABG pO2 194.4 H ABG HCO3 ABG O2 Saturation 99.2 H ABG Hemoglobin 10.5 L Sodium Chloride BUN Creatinine Glucose POC Glucose Calcium Alkaline Phosphatase CK-MB (CK-2) Rel Index 8.0 H Troponin T 0.056 H NT-Pro-B Natriuret Pep 3636 H Total Protein Albumin 11/12/19 11/12/19 11/12/19 07:57 13:28 23:59 RBC Hgb Hct RDW Lymph % (Auto) [place] % (Auto) Lymph # Seg Neutrophils % Seg Neuts % (Manual) Lymphocytes % (Manual) Monocytes % (Manual) Seg Neutrophils # Lymphocytes # (Manual) PT INR ABG pO2 ABG HCO3 ABG O2 Saturation ABG Hemoglobin Sodium Chloride BUN Creatinine Glucose POC Glucose 304 H Calcium Alkaline Phosphatase CK-MB (CK-2) Rel Index 6.6 H 5.4 H Troponin T 0.058 H 0.050 H NT-Pro-B Natriuret Pep Total Protein Albumin 11/13/19 11/13/19 11/13/19 02:57 02:57 03:35 RBC 3.09 L Hgb 9.8 L Hct 29.8 L RDW 18.7 H Lymph % (Auto) 5.8 L [place] % (Auto) 7.6 H Lymph # 0.6 L Seg Neutrophils % 86.5 H Seg Neuts % (Manual) Lymphocytes % (Manual) Monocytes % (Manual) Seg Neutrophils # 8.5 H Lymphocytes # (Manual) PT INR ABG pO2 93.0 H ABG HCO3 27.3 H ABG O2 Saturation ABG Hemoglobin 10.3 L Sodium 136 L Chloride 96.1 L BUN 85 H Creatinine 1.8 H Glucose 288 H POC Glucose Calcium Alkaline Phosphatase CK-MB (CK-2) Rel Index Troponin T NT-Pro-B Natriuret Pep Total Protein Albumin 11/13/19 05:51 RBC Hgb Hct RDW Lymph % (Auto) [place] % (Auto) Lymph # Seg Neutrophils % Seg Neuts % (Manual) Lymphocytes % (Manual) Monocytes % (Manual) Seg Neutrophils # Lymphocytes # (Manual) PT INR ABG pO2 ABG HCO3 ABG O2 Saturation ABG Hemoglobin Sodium Chloride BUN Creatinine Glucose POC Glucose 273 H Calcium Alkaline Phosphatase CK-MB (CK-2) Rel Index Troponin T NT-Pro-B Natriuret Pep Total Protein Albumin
--- NOTE | 2019-11-13 11:41 | Progress Note ---
Assessment and Plan The high probability of a clinically significant, sudden or life threatening deterioration of the [] system(s) required my full and direct attention, intervention and personal management. The aggregate critical care time was [] minutes. This time is in addition to time spent performing reported procedures but includes the following: [x] Data Review and interpretation [x] Patient assessment and monitoring of vital signs [x]x Documentation [x] Medication orders and management - Patient Problems (1) CHF exacerbation Current Visit: Yes Status: Acute Qualifiers: Heart failure type: unspecified Qualified Code(s): I50.9 - Heart failure, unspecified Plan to address problem: Seems to be improving. Follow-up chest x-ray shows improving edema. Also improving clinically. Continue medical management. May require changing from Coreg to Lopressor for rate control. Plan extubation today. (2) Elevated troponin Current Visit: Yes Status: Acute Plan to address problem: Secondary to renal insufficiency (3) PNA (pneumonia) Current Visit: Yes Status: Acute Qualifiers: Pneumonia type: due to unspecified organism Laterality: unspecified later ality Lung location: unspecified part of lung Qualified Code(s): J18.9 - Pneumonia, unspecified organism Plan to address problem: No evidence of pneumonia will discontinue cefipime (4) Renal failure Current Visit: Yes Status: Acute Qualifiers: Renal failure chronicity: acute Acute renal failure type: unspecified Qualified Code(s): N17.9 - Acute kidney failure, unspecified Plan to address problem: Patient renal failure BUN/creatinine consistent with prerenal azotemia. Versus ATN. Since congestive heart failure is improving. Will titrate down on diuretics to once a day. Patient did have some improvement over p.m. (5) Respiratory distress Current Visit: Yes Status: Acute Plan to address problem: Patient blood gases have improved. Potential extubation a day. Discussed plan with pulmonology. (6) SOB (shortness of breath) Current Visit: Yes Status: Acute Plan to address problem: At present intubated. Will need to obtain ABG. Pulmonology consult. (7) Atrial fibrillation Current Visit: Yes Status: Acute Plan to address problem: Patient heart rate initially controlled now suboptimal control. May be because of agitation and patient now awake and intubated. We will see her patient does after being extubated. Will place patient back on Eliquis 5 mg. If rate not controlled will change beta-molly to Lopressor twice daily. Also can use Cardizem patient was on Procardia. If not controlled with p.o. medications can use Cardizem drip as well. Will follow closely. (8) Morbid obesity Current Visit: Yes Status: Acute Plan to address problem: We will decrease caloric intake. Subjective Date of service: 11/13/19 Principal diagnosis: Acute respiratory failure Interval history: 79-year-old female with a history of COPD on home O2, diabetes, congestive heart failure, hypertension and atrial fibrillation presented to the ED in acute res piratory distress secondary to volume overload. Rule out pneumonia. Patient intubated did well overnight. Blood gases has improved. No new events overnight. Objective - Constitutional Vitals: Vital Signs - 12hr 11/12/19 11/13/19 11/13/19 23:46 00:00 00:16 Temperature Pulse Rate 118 H 110 H 119 H Pulse Rate [ 110 H From Monitor] Respiratory 21 19 21 Rate Blood Pressure 133/70 133/70 135/88 O2 Sat by Pulse 100 100 100 Oximetry 11/13/19 11/13/19 11/13/19 00:30 00:46 01:00 Temperature Pulse Rate 108 H 108 H 108 H Pulse Rate [ From Monitor] Respiratory 20 20 21 Rate Blood Pressure 135/88 135/88 135/88 O2 Sat by Pulse 100 100 100 Oximetry 11/13/19 11/13/19 11/13/19 01:16 01:30 01:46 Temperature Pulse Rate 102 H 91 H 83 Pulse Rate [ From Monitor] Respiratory 21 20 20 Rate Blood Pressure 125/51 135/88 135/88 O2 Sat by Pulse 100 100 100 Oximetry 11/13/19 11/13/19 11/13/19 02:00 02:16 02:30 Temperature Pulse Rate 74 85 86 Pulse Rate [ From Monitor] Respiratory 20 20 20 Rate Blood Pressure 135/88 108/66 125/51 O2 Sat by Pulse 100 100 100 Oximetry 11/13/19 11/13/19 11/13/19 02:46 03:00 03:16 Temperature Pulse Rate 128 H 105 H 132 H Pulse Rate [ From Monitor] Respiratory 20 21 22 Rate Blood Pressure 125/51 125/51 125/51 O2 Sat by Pulse 100 100 100 Oximetry 11/13/19 11/13/19 11/13/19 03:30 03:32 03:45 Temperature 99.1 F Pulse Rate 114 H 100 H Pulse Rate [ From Monitor] Respiratory 19 Rate Blood Pressure 125/51 O2 Sat by Pulse 100 100 Oximetry 11/13/19 11/13/19 11/13/19 03:46 04:00 04:16 Temperature Pulse Rate 104 H 122 H 110 H Pulse Rate [ 122 H From Monitor] Respiratory 21 21 10 L Rate Blood Pressure 125/51 125/51 125/51 O2 Sat by Pulse 100 100 100 Oximetry 11/13/19 11/13/19 11/13/19 04:30 04:46 05:00 Temperature Pulse Rate 108 H 99 H 93 H Pulse Rate [ From Monitor] Respiratory 18 20 21 Rate Blood Pressure 131/55 101/37 101/37 O2 Sat by Pulse 100 100 100 Oximetry 11/13/19 11/13/19 11/13/19 05:16 05:30 05:46 Temperature Pulse Rate 109 H 103 H 118 H Pulse Rate [ From Monitor] Respiratory 20 18 22 Rate Blood Pressure 138/86 119/60 109/54 O2 Sat by Pulse 100 100 100 Oximetry 11/13/19 11/13/19 11/13/19 06:00 06:15 06:30 Temperature Pulse Rate 114 H 113 H 112 H Pulse Rate [ From Monitor] Respiratory 19 14 20 Rate Blood Pressure 132/64 137/74 137/74 O2 Sat by Pulse 100 100 100 Oximetry 11/13/19 11/13/19 11/13/19 06:46 07:00 07:15 Temperature Pulse Rate 110 H 115 H 95 H Pulse Rate [ From Monitor] Respiratory 21 20 20 Rate Blood Pressure 116/47 97/54 83/47 O2 Sat by Pulse 100 100 100 Oximetry 11/13/19 11/13/19 11/13/19 07:31 07:45 08:00 Temperature Pulse Rate 111 H 129 H 120 H Pulse Rate [ 104 H From Monitor] Respiratory 14 16 21 Rate Blood Pressure 129/64 129/64 O2 Sat by Pulse 100 100 100 Oximetry 11/13/19 11/13/19 11/13/19 08:01 08:15 08:30 Temperature Pulse Rate 119 H 96 H 111 H Pulse Rate [ From Monitor] Respiratory 17 14 21 Rate Blood Pressure 140/73 140/73 107/66 O2 Sat by Pulse 100 100 100 Oximetry 11/13/19 11/13/19 11/13/19 08:45 09:01 09:15 Temperature Pulse Rate 117 H 123 H 116 H Pulse Rate [ From Monitor] Respiratory 16 20 20 Rate Blood Pressure 129/56 109/69 109/69 O2 Sat by Pulse 100 100 100 Oximetry 11/13/19 11/13/19 11/13/19 09:31 09:45 09:54 Temperature Pulse Rate 114 H 144 H 116 H Pulse Rate [ From Monitor] Respiratory 15 21 Rate Blood Pressure 111/60 111/60 156/65 O2 Sat by Pulse 100 100 Oximetry 11/13/19 11/13/19 11/13/19 10:00 10:01 10:15 Temperature Pulse Rate 138 H 123 H 158 H Pulse Rate [ From Monitor] Respiratory 21 21 Rate Blood Pressure 152/75 169/82 O2 Sat by Pulse 100 100 Oximetry General appearance: Present: no acute distress, well-nourished - EENT Eyes: PERRL, EOM intact ENT: hearing intact, clear oral mucosa Ears: bilateral: normal - Neck Neck: supple, normal ROM - Respiratory Respiratory effort: normal Respiratory: bilateral: CTA, negative: rales (Clear.), rhonchi (Much improved.) - Breasts Breasts: normal - Cardiovascular Rhythm: regularly irregular Heart Sounds: Present: S1 & S2. Absent: gallop, rub Extremities: pulses intact, normal color Extremity abnormal: edema, other (Trace edema) - Gastrointestinal General gastrointestinal: Present: soft, non-tender, non-distended, normal bowel sounds - Genitourinary Female genitourinary: normal - Integumentary Integumentary: clear, warm, dry - Musculoskeletal Musculoskeletal: 1, strength equal bilaterally - Neurologic Neurologic: moves all extremities, other (Atrophy lower extremity) - Psychiatric Psychiatric: appropriate mood/affect, intact judgment & insight, memory intact, other (Awake) - Labs CBC & Chem 7: 11/13/19 02:57 11/13/19 02:57 Labs: Abnormal lab results 11/12/19 11/12/19 11/13/19 Range/Units 13:28 23:59 02:57 RBC 3.09 L (3.65-5.03) M/mm3 Hgb 9.8 L (10.1-14.3) gm/dl Hct 29.8 L (30.3-42.9) % RDW 18.7 H (13.2-15.2) % Lymph % (Auto) 5.8 L (13.4-35.0) % [place] % (Auto) 7.6 H (0.0-7.3) % Lymph # 0.6 L (1.2-5.4) K/mm3 Seg Neutrophils % 86.5 H (40.0-70.0) % Seg Neutrophils # 8.5 H (1.8-7.7) K/mm3 ABG pO2 (80.0-90.0) mm Hg ABG HCO3 (20.0-26.0) mmol/L ABG Hemoglobin (12.0-16.0) gm/dl Sodium (137-145) mmol/L Chloride (98-107) mmol/L BUN (7-17) mg/dL Creatinine (0.7-1.2) mg/dL Glucose (65-100) mg/dL POC Glucose 304 H (70-105) CK-MB (CK-2) Rel Index 5.4 H (0-4) Troponin T 0.050 H (0.00-0.029) ng/mL 11/13/19 11/13/19 11/13/19 Range/Units 02:57 03:35 05:51 RBC (3.65-5.03) M/mm3 Hgb (10.1-14.3) gm/dl Hct (30.3-42.9) % RDW (13.2-15.2) % Lymph % (Auto) (13.4-35.0) % [place] % (Auto) (0.0-7.3) % Lymph # (1.2-5.4) K/mm3 Seg Neutrophils % (40.0-70.0) % Seg Neutrophils # (1.8-7.7) K/mm3 ABG pO2 93.0 H (80.0-90.0) mm Hg ABG HCO3 27.3 H (20.0-26.0) mmol/L ABG Hemoglobin 10.3 L (12.0-16.0) gm/dl Sodium 136 L (137-145) mmol/L Chloride 96.1 L (98-107) mmol/L BUN 85 H (7-17) mg/dL Creatinine 1.8 H (0.7-1.2) mg/dL Glucose 288 H (65-100) mg/dL POC Glucose 273 H (70-105) CK-MB (CK-2) Rel Index (0-4) Troponin T (0.00-0.029) ng/mL - Imaging and cardiology Chest x-ray: report reviewed, image reviewed CT scan - chest: image reviewed HEART Score - HEART Score Troponin: Troponin T 0.050 ng/mL (0.00-0.029) H 11/12/19 13:28
[2019-11-13] MEDS ORDERED: VANCOMYCIN/NS 1 GM/250 ML 1 GM/250 ML BAG IV ONE (15:32)
[2019-11-13] MEDS ORDERED: VANCOMYCIN 2,000 MG in SODIUM CHLORIDE 0.9% 500 ML 500 ML IV ONE (16:00)
[2019-11-13] MEDS ORDERED: INSULIN LISPRO 100 UNIT/ML SUB-Q SCH (16:30)
[2019-11-13] MEDS: FUROSEMIDE 20 MG TAB PO SCH (18:03)
[2019-11-13] MEDS ORDERED: SIMPLE SYRUP 15 ML FEEDTUBE PRN ×2 (19:44)
[2019-11-13] MEDS ORDERED: LIPASE 10,500/PROTEASE 25,000/AMYLASE 43,750 (UNITS) DR CAP FEEDTUBE PRN (19:44)
[2019-11-13] MEDS ORDERED: SODIUM BICARBONATE 325 MG TAB FEEDTUBE PRN (19:44)
--- NOTE | 2019-11-13 20:26 | XRay Report ---
ABDOMEN 1 VIEW(S) 11/13/2019 8:11 PM INDICATION / CLINICAL INFORMATION: OGtube placement. COMPARISON: Chest CT scan from 11/12/2019 FINDINGS: The tip of an esophagogastric tube projects over the distal stomach in unchanged position. Signer Name: Abdullahi Turner MD Signed: 11/13/2019 8:22 PM Workstation Name: [id number]
[2019-11-13] MEDS: PANTOPRAZOLE 40 MG INJ IV SCH (21:18)
[2019-11-13] MEDS: APIXABAN 2.5 MG TAB PO SCH (21:19)
[2019-11-13] MEDS ORDERED: INSULIN GLARGINE 100 UNITS/ML SUB-Q SCH (22:00)
[2019-11-13] MEDS: METOPROLOL TARTRATE 5 MG/5 ML INJ IV SCH (23:34)
--- NOTE | 2019-11-14 03:03 | XRay Report ---
CHEST 1 VIEW, 11/14/2019 2:23 AM CLINICAL INFORMATION/INDICATION: Respiratory failure COMPARISON: Chest radiograph, 11/13/2019 at 3:55 AM FINDINGS: SUPPORT DEVICES: Endotracheal tube and esophagogastric tube project in similar position. HEART: The cardiac silhouette is normal in size. LUNGS/PLEURA: The lungs appear clear of focal airspace consolidation or large pleural effusion. No pn eumothorax is identified. ADDITIONAL FINDINGS: No additional acute findings. IMPRESSION: 1. Stable appearance of the chest. Signer Name: Gina Pearl MD Signed: 11/14/2019 2:59 AM Workstation Name: [id number]
[2019-11-14] MEDS: PIPERACIL-TAZO 2.25 GM/50 ML 2.25 GM/50 ML BAG IV SCH (05:49)
[2019-11-14] MEDS: FUROSEMIDE 20 MG TAB PO SCH ×2 (05:50→20:17)
[2019-11-14] MEDS: METOPROLOL TARTRATE 5 MG/5 ML INJ IV SCH ×2 (05:50→12:41)
[2019-11-14] MEDS: methylPREDNISolone Sod Succinate 40 MG/1 ML INJ IV SCH ×3 (05:50→21:42)
[2019-11-14] MEDS: INSULIN LISPRO 100 UNIT/ML SUB-Q SCH ×4 (06:14→21:41)
[2019-11-14] MEDS: PANTOPRAZOLE 40 MG INJ IV SCH (09:07)
[2019-11-14] MEDS: APIXABAN 2.5 MG TAB PO SCH ×2 (09:07→21:42)
[2019-11-14] MEDS: carvediloL 12.5 MG TAB PO SCH (09:08)
[2019-11-14 10:00] LABS: Albumin 3.3 g/dL (3.9-5); Calcium 9.2 mg/dL (8.4-10.2)
--- NOTE | 2019-11-14 12:48 | Progress Note ---
Assessment and Plan Assessment and plan: The high probability of a clinically significant, sudden or life threatening deterioration of the [] system(s) required my full and direct attention, intervention and personal management. The aggregate critical care time was [] minutes. This time is in addition to time spent performing reported procedures but includes the following: [x] Data Review and interpretation [x] Patient assessment and monitoring of vital signs [x]x Documentation [x] Medication orders and management - Patient Problems (1) CHF exacerbation Current Visit: Yes Status: Acute Qualifiers: Heart failure type: unspecified Qualified Code(s): I50.9 - Heart failure, unspecified Plan to address problem: Seems to be improving. Follow-up chest x-ray shows improving edema. Also improving clinically. Continue medical management. May require changing from Coreg to Lopressor for rate control. Plan extubation today. (2) Elevated troponin Current Visit: Yes Status: Acute Plan to address problem: Secondary to renal insufficiency (3) PNA (pneumonia) Current Visit: Yes Status: Acute Qualifiers: Pneumonia type: due to unspecified organism Laterality: unspecified laterality Lung location: unspecified part of lung Qualified Code(s): J18.9 - Pneumonia, unspecified organism Plan to address problem: No airspace disease or pleural effusion on follow-up chest x-ray this morning. Titrate antibiotics to off versus p.o. (4) Renal failure Current Visit: Yes Status: Acute Qualifiers: Renal failure chronicity: acute Acute renal failure type: unspecified Qualified Code(s): N17.9 - Acute kidney failure, unspecified Plan to address problem: Patient renal failure BUN/creatinine consistent with prerenal azotemia. Versus ATN. Since congestive heart failure is improving. Will titrate down on diuretics to once a day. Patient did have some improvement over p.m. continue gentle rehydration. (5) Respiratory distress Current Visit: Yes Status: Acute Plan to address problem: Patient blood gases have improved. Potential extubation a day. Discussed plan with pulmonology. (6) SOB (shortness of breath) Current Visit: Yes Status: Acute Plan to address problem: At present intubated. Will need to obtain ABG. Pulmonology consult. (7) Atrial fibrillation Current Visit: Yes Status: Acute Plan to address problem: Patient continues to have atrial fibrillation with rapid ventricular rate. If patient able to tolerate p.o. we will start patient on Cardizem versus Lopressor. If not able to manage by mouth we will treat with Cardizem drip. (8) Morbid obesity Current Visit: Yes Status: Acute Plan to address problem: We will decrease caloric intake. History Interval history: 79-year-old female with a history of COPD on home O2, diabetes, congestive heart failure, hypertension and atrial fibrillation presented to the ED in acute respiratory distress secondary to volume overload. Patient was able to be extubated today. Hospital course complicated by continued atrial fibrillation with rapid ventricular rate. Bedside swallow eval now to see if patient can swallow pills Hospitalist Physical - Constitutional Vitals: Temp Pulse Resp BP Pulse Ox 97.8 F 126 H 14 121/68 98 11/14/19 08:00 11/14/19 12:41 11/14/19 12:30 11/14/19 12:41 11/14/19 12:30 General appearance: Present: mild distress, well-nourished - EENT Eyes: Present: PERRL, EOM intact ENT: hearing intact, clear oral mucosa - Respiratory Respiratory: bilateral: rhonchi - Cardiovascular Rhythm: regular Heart Sounds: Present: S1 & S2 - Extremities Extremities: no ischemia, pulses intact, pulses symmetrical Peripheral Pulses: within normal limits - Abdominal General gastrointestinal: soft, non-tender, distended, hypoactive bowel sounds - Integumentary Integumentary: Present: clear, warm, dry - Psychiatric Psychiatric: appropriate mood/affect, intact judgment & insight, memory intact - Neurologic Neurologic: CNII-XII intact HEART Score - HEART Score Troponin: Troponin T 0.050 ng/mL (0.00-0.029) H 11/12/19 13:28 Results - Labs CBC & Chem 7: 11/13/19 02:57 11/14/19 09:10 Labs: Laboratory Last Values WBC 9.8 K/mm3 (4.5-11.0) 11/13/19 02:57 RBC 3.09 M/mm3 (3.65-5.03) L 11/13/19 02:57 Hgb 9.8 gm/dl (10.1-14.3) L 11/13/19 02:57 Hct 29.8 % (30.3-42.9) L 11/13/19 02:57 MCV 96 fl (79-97) 11/13/19 02:57 MCH 32 pg (28-32) 11/13/19 02:57 MCHC 33 % (30-34) 11/13/19 02:57 RDW 18.7 % (13.2-15.2) H 11/13/19 02:57 Plt Count 165 K/mm3 (140-440) 11/13/19 02:57 Lymph % (Auto) 5.8 % (13.4-35.0) L 11/13/19 02:57 [place] % (Auto) 7.6 % (0.0-7.3) H 11/13/19 02:57 Eos % (Auto) 0.1 % (0.0-4.3) 11/13/19 02:57 Baso % (Auto) 0.0 % (0.0-1.8) 11/13/19 02:57 Lymph # 0.6 K/mm3 (1.2-5.4) L 11/13/19 02:57 [place] # 0.7 K/mm3 (0.0-0.8) 11/13/19 02:57 Eos # 0.0 K/mm3 (0.0-0.4) 11/13/19 02:57 Baso # 0.0 K/mm3 (0.0-0.1) 11/13/19 02:57 Add Manual Diff Complete 11/12/19 01:56 Total Counted 100 11/12/19 01:56 Seg Neutrophils % 86.5 % (40.0-70.0) H 11/13/19 02:57 Seg Neuts % (Manual) 76.0 % (40.0-70.0) H 11/12/19 01:56 Band Neutrophils % 0 % 11/12/19 01:56 Lymphocytes % (Manual) 13.0 % (13.4-35.0) L 11/12/19 01:56 Reactive Lymphs % (Man) 0 % 11/12/19 01:56 Monocytes % (Manual) 9.0 % (0.0-7.3) H 11/12/19 01:56 Eosinophils % (Manual) 2.0 % (0.0-4.3) 11/12/19 01:56 Basophils % (Manual) 0 % (0.0-1.8) 11/12/19 01:56 Metamyelocytes % 0 % 11/12/19 01:56 Myelocytes % 0 % 11/12/19 01:56 Promyelocytes % 0 % 11/12/19 01:56 Blast Cells % 0 % 11/12/19 01:56 Nucleated RBC % Not Reportable 11/12/19 01:56 Seg Neutrophils # 8.5 K/mm3 (1.8-7.7) H 11/13/19 02:57 Seg Neutrophils # Man 6.5 K/mm3 (1.8-7.7) 11/12/19 01:56 Band Neutrophils # 0.0 K/mm3 11/12/19 01:56 Lymphocytes # (Manual) 1.1 K/mm3 (1.2-5.4) L 11/12/19 01:56 Abs React Lymphs (Man) 0.0 K/mm3 11/12/19 01:56 Monocytes # (Manual) 0.8 K/mm3 (0.0-0.8) 11/12/19 01:56 Eosinophils # (Manual) 0.2 K/mm3 (0.0-0.4) 11/12/19 01:56 Basophils # (Manual) 0.0 K/mm3 (0.0-0.1) 11/12/19 01:56 Metamyelocytes # 0.0 K/mm3 11/12/19 01:56 Myelocytes # 0.0 K/mm3 11/12/19 01:56 Promyelocytes # 0.0 K/mm3 11/12/19 01:56 Blast Cells # 0.0 K/mm3 11/12/19 01:56 WBC Morphology Not Reportable 11/12/19 01:56 Hypersegmented Neuts Not Reportable 11/12/19 01:56 Hyposegmented Neuts Not Reportable 11/12/19 01:56 Hypogranular Neuts Not Reportable 11/12/19 01:56 Smudge Cells Not Reportable 11/12/19 01:56 Toxic Granulation Not Reportable 11/12/19 01:56 Toxic Vacuolation Not Reportable 11/12/19 01:56 Dohle Bodies Not Reportable 11/12/19 01:56 Pelger-Huet Anomaly Not Reportable 11/12/19 01:56 Brian Rods Not Reportable 11/12/19 01:56 Platelet Estimate Consistent w auto 11/12/19 01:56 Clumped Platelets Not Reportable 11/12/19 01:56 Plt Clumps, EDTA Not Reportable 11/12/19 01:56 Large Platelets Not Reportable 11/12/19 01:56 Giant Platelets Not Reportable 11/12/19 01:56 Platelet Satelliting Not Reportable 11/12/19 01:56 Plt Morphology Comment Not Reportable 11/12/19 01:56 RBC Morphology Not Reportable 11/12/19 01:56 Dimorphic RBCs Not Reportable 11/12/19 01:56 Polychromasia Not Reportable 11/12/19 01:56 Hypochromasia Not Reportable 11/12/19 01:56 Poikilocytosis Not Reportable 11/12/19 01:56 Anisocytosis 1+ 11/12/19 01:56 Microcytosis Not Reportable 11/12/19 01:56 Macrocytosis Not Reportable 11/12/19 01:56 Spherocytes Not Reportable 11/12/19 01:56 Pappenheimer Bodies Not Reportable 11/12/19 01:56 Sickle Cells Not Reportable 11/12/19 01:56 Target Cells Not Reportable 11/12/19 01:56 Tear Drop Cells Not Reportable 11/12/19 01:56 Ovalocytes Not Reportable 11/12/19 01:56 Helmet Cells Not Reportable 11/12/19 01:56 [place] Bodies Not Reportable 11/12/19 01:56 [place] Rings Not Reportable 11/12/19 01:56 [place] Cells Not Reportable 11/12/19 01:56 Bite Cells Not Reportable 11/12/19 01:56 Crenated Cell Not Reportable 11/12/19 01:56 Elliptocytes Not Reportable 11/12/19 01:56 Acanthocytes (Spur) Not Reportable 11/12/19 01:56 Rouleaux Not Reportable 11/12/19 01:56 Hemoglobin C Crystals Not Reportable 11/12/19 01:56 Schistocytes Not Reportable 11/12/19 01:56 Malaria parasites Not Reportable 11/12/19 01:56 Tom Bodies Not Reportable 11/12/19 01:56 Hem Pathologist Commnt No 11/12/19 01:56 PT 19.1 Sec. (12.2-14.9) H 11/12/19 01:56 INR 1.65 (0.87-1.13) H 11/12/19 01:56 APTT 27.1 Sec. (24.2-36.6) 11/12/19 01:56 ABG pH 7.400 pH Units (7.350-7.450) 11/13/19 03:35 ABG pCO2 45.0 mm Hg 11/13/19 03:35 ABG pO2 93.0 mm Hg (80.0-90.0) H 11/13/19 03:35 ABG HCO3 27.3 mmol/L (20.0-26.0) H 11/13/19 03:35 ABG O2 Saturation 97.0 % (95.0-99.0) 11/13/19 03:35 ABG O2 Content 13.9 (0.0-44) 11/13/19 03:35 ABG Base Excess 2.1 mmol/L (-2.0-3.0) 11/13/19 03:35 ABG Hemoglobin 10.3 gm/dl (12.0-16.0) L 11/13/19 03:35 ABG Carboxyhemoglobin 1.4 % (0.0-5.0) 11/13/19 03:35 ABG Methemoglobin 0.5 % (0.0-1.5) 11/13/19 03:35 Oxyhemoglobin 95.2 % (95.0-99.0) 11/13/19 03:35 FiO2 35 % 11/13/19 03:35 Sodium 139 mmol/L (137-145) 11/14/19 09:10 Potassium 4.6 mmol/L (3.6-5.0) 11/14/19 09:10 Chloride 99.5 mmol/L (98-107) 11/14/19 09:10 Carbon Dioxide 25 mmol/L (22-30) 11/14/19 09:10 Anion Gap 19 mmol/L 11/14/19 09:10 BUN 81 mg/dL (7-17) H 11/14/19 09:10 Creatinine 2.0 mg/dL (0.7-1.2) H 11/14/19 09:10 Estimated GFR 29 ml/min 11/14/19 09:10 BUN/Creatinine Ratio 41 % 11/14/19 09:10 Glucose 205 mg/dL (65-100) H 11/14/19 09:10 POC Glucose 193 (70-105) H 11/14/19 12:44 Lactic Acid 1.50 mmol/L (0.7-2.0) 11/12/19 01:56 Calcium 9.2 mg/dL (8.4-10.2) 11/14/19 09:10 Total Bilirubin 0.50 mg/dL (0.1-1.2) 11/14/19 09:10 AST 21 units/L (5-40) 11/14/19 09:10 ALT 39 units/L (7-56) 11/14/19 09:10 Alkaline Phosphatase 104 units/L (35-129) 11/14/19 09:10 Total Creatine Kinase 53 units/L (30-135) 11/12/19 13:28 CK-MB (CK-2) 2.9 ng/mL (0.0-4.0) 11/12/19 13:28 CK-MB (CK-2) Rel Index 5.4 (0-4) H 11/12/19 13:28 Troponin T 0.050 ng/mL (0.00-0.029) H 11/12/19 13:28 NT-Pro-B Natriuret Pep 3636 pg/mL (0-900) H 11/12/19 02:57 Total Protein 5.9 g/dL (6.3-8.2) L 11/14/19 09:10 Albumin 3.3 g/dL (3.9-5) L 11/14/19 09:10 Albumin/Globulin Ratio 1.3 % 11/14/19 09:10 Triglycerides 85 mg/dL (2-149) 11/12/19 01:56 Cholesterol 131 mg/dL (50-199) 11/12/19 01:56 LDL Cholesterol Direct 66 mg/dL (50-130) 11/12/19 01:56 HDL Cholesterol 55 mg/dL (40-59) 11/12/19 01:56 Cholesterol/HDL Ratio 2.38 % 11/12/19 01:56 Urine Color Straw (Yellow) 11/12/19 01:35 Urine Turbidity Clear (Clear) 11/12/19 01:35 Urine pH 5.0 (5.0-7.0) 11/12/19 01:35 Ur Specific [place] 1.009 (1.003-1.030) 11/12/19 01:35 Urine Protein <15 mg/dl mg/dL (Negative) 11/12/19 01:35 Urine Glucose (UA) Neg mg/dL (Negative) 11/12/19 01:35 Urine Ketones Neg mg/dL (Negative) 11/12/19 01:35 Urine Blood Neg (Negative) 11/12/19 01:35 Urine Nitrite Neg (Negative) 11/12/19 01:35 Urine Bilirubin Neg (Negative) 11/12/19 01:35 Urine Urobilinogen < 2.0 mg/dL (<2.0) 11/12/19 01:35 Ur Leukocyte Esterase Neg (Negative) 11/12/19 01:35 Urine WBC (Auto) < 1.0 /HPF (0.0-6.0) 11/12/19 01:35 Urine RBC (Auto) < 1.0 /HPF (0.0-6.0) 11/12/19 01:35 U Epithel Cells (Auto) < 1.0 /HPF (0-13.0) 11/12/19 01:35 Urine Mucus Few /HPF 11/12/19 01:35 Microbiology: Microbiology 11/12/19 02:03 Peripheral/Venous Blood Culture - Preliminary 11/12/19 Unknown Urine,Catheterized - Indwelling Catheter Urine Culture - Preliminary NO GROWTH AFTER 24 HOURS 11/12/19 02:05 Peripheral/Venous Blood Culture - Preliminary NO GROWTH AFTER 48 HOURS 11/12/19 02:45 Tracheal Aspirate Sputum Culture - Preliminary Armendariz/IV: Voiding Method Indwelling Catheter IV Catheter Type [Left Chest] INT / Saline Lock IV Catheter Type [Right INT / Saline Lock Antecubital] Active Medications - Current Medications Current Medications: Generic Name Dose Route Start Last Admin Trade Name Freq PRN Reason Stop Dose Admin Acetaminophen 650 mg 11/12/19 05:48 Tylenol PO Q4H PRN Pain MILD(1-3)/Fever >100.5/IRBY Lipase/Protease/Amylase 1 each 11/13/19 19:[address] 10,500 Unit FEEDTUBE PRN PRN For Clogged Feeding Tube Apixaban 2.5 mg 11/13/19 22:00 11/14/19 09:07 Eliquis PO 2.5 mg Q12HR ALLEGRA Administration Protocol Carvedilol 12.5 mg 11/14/19 10:00 11/14/19 09:08 Coreg PO 12.5 mg BID ALLEGRA Administration Dextrose 50 ml 11/13/19 13:10 D50w (25gm) Syringe IV Q30MIN PRN Hypoglycemia Protocol Fentanyl 50 mcg 11/12/19 01:41 11/12/19 11:26 Sublimaze IV 50 mcg Q10MIN PRN Administration ANALGESIA Furosemide 20 mg 11/13/19 18:00 11/14/19 05:50 Lasix PO 20 mg 0600,1800 [facility] Administration Hydrophilic Ointment 1 applic 11/12/19 01:41 Vaseline Lip Therapy TP Q2HR PRN Dry Lips Fentanyl Citrate 2,000 mcg in 100 mls @ 5.897 mls/hr 11/12/19 02:00 11/14/19 00:24 Fentanyl Drip Premix IV 0 mcg/kg/hr TITR ALLEGRA 0 mls/hr Titration Protocol 1 MCG/KG/HR Insulin Glargine 15 units 11/14/19 22:00 Lantus SUB-Q QHS [facility] Insulin Human Lispro 0 unit 11/13/19 00:00 11/14/19 12:41 Humalog SUB-Q 1 unit Q6HR [facility] Administration Protocol Lansoprazole 30 mg 11/15/19 10:00 Prevacid Solutab FEEDTUBE QDAY [facility] Methylprednisolone Sodium Succinate 20 mg 11/12/19 14:00 11/14/19 05:50 Solu-Medrol IV 20 mg Q8HR [facility] Administration Metoprolol Tartrate 5 mg 11/14/19 00:00 11/14/19 12:41 Metoprolol IV 5 mg Q6HR [facility] Administration Multi-Ingred Cream/Lotion/Oil/Oint 1 applic 11/12/19 01:41 Artificial Tears Ophth Oint OU Q4HR PRN Dry Eye(s) Ondansetron HCl 4 mg 11/12/19 05:48 Zofran IV Q8H PRN Nausea And Vomiting Simple Syrup 15 ml 11/13/19 19:44 Simple Syrup FEEDTUBE PRN PRN Hypoglycemia Simple Syrup 30 ml 11/13/19 19:44 Simple Syrup FEEDTUBE PRN PRN Hypoglycemia Sodium Bicarbonate 325 mg 11/13/19 19:44 Sodium Bicarbonate FEEDTUBE PRN PRN For Clogged Feeding Tube Sodium Chloride 10 ml 11/12/19 10:00 11/14/19 09:08 Sodium Chloride Flush Syringe 10 Ml IV 10 ml BID ALLEGRA Administration Sodium Chloride 10 ml 11/12/19 05:48 Sodium Chloride Flush Syringe 10 Ml IV PRN PRN LINE FLUSH Nutrition/Malnutrition Assess - Dietary Evaluation Nutrition/Malnutrition Findings: Nutrition Notes Start: 11/13/19 08:04 Freq: Status: Active Protocol: Document 11/14/19 08:32 LP (Rec: 11/14/19 08:38 LP [id number]) Nutrition Notes Need for Assessment generated from: MD Order Initial or Follow up Brief Note Current Diagnosis CKD(stage I-IV),COPD,Decubitus (Pressure Ulcer),Diabetes, Hypertension,Heart Failure Other Pertinent Diagnosis Sacral wound Current Diet NPO Subjective/Other Information Consult for TF. MD already ordered recommended TF. Nutrition Intervention Change Diet Order: TF Nutrition Support: Glucerna 1.2 at 50ml/hr Flush with 85ml q4h Kcal 1,584 Protein (gm) 79 Fluid (mL) 1,066 Add Supplement/Snack (indicate name/kcal Reynold BID once TF is at goal /protein ) Provides kCal: 190 Provides Protein (gm) 5 Goal #1 Meet at least 80% of kcal and protein needs Goal #2 Wound healing Anticipated Discharge Needs: Unable to determine at this time Follow-Up By: 11/16/19 Additional Comments Follow for TF tolerance
[2019-11-14] MEDS ORDERED: METOPROLOL TARTRATE 5 MG/5 ML INJ IV PRN (12:59)
[2019-11-14 18:56] LABS: Creatinine,Urine 71.6 mg/dL (0.1-20.0)
--- NOTE | 2019-11-14 21:58 | Progress Note ---
Assessment and Plan Imp: 1. COPD exac. 2. Acute/chronic respiratory failure, hypoxia 3. A/C diastolic CHF 4. LUIS FERNANDO +/- CKD 5. Morbid obesity 6. Probable LIBORIO 7. Afib with RVR Rec: 1. Cont. Solumedrol, Lasix 2. Eliquis, rate control 3. Weight loss 4. Consider home NIV as this is the 3rd time admitted in October alone for acute respiratory failure (1 at [facility], 2 at [facility]) 5. F/u sputum culture 6. Swallow study given recurrent Acute respiratory failure 7. Further plans pending clinical course 8. Complex decision making Plan of care reviewed with patient, she understands/agrees Subjective Date of service: 11/14/19 Principal diagnosis: Acute respiratory failure Interval history: Extubated. On nasal cannula. Still SOB but better. + Cough with marion sputum. No new complaints. Active Medications Acetaminophen (Tylenol) 650 mg PO Q4H PRN PRN Reason: Pain MILD(1-3)/Fever >100.5/IRBY Lipase/Protease/Amylase (Pancrepretty Dr 10,500 Unit) 1 each FEEDTUBE PRN PRN PRN Reason: For Clogged Feeding Tube Apixaban (Eliquis) 2.5 mg PO Q12HR [facility]; Protocol Last Admin: 11/14/19 21:42 Dose: 2.5 mg Documented by: Carvedilol (Coreg) 12.5 mg PO BID [facility] Last Admin: 11/14/19 09:08 Dose: 12.5 mg Documented by: Dextrose (D50w (25gm) Syringe) 50 ml IV Q30MIN PRN; Protocol PRN Reason: Hypoglycemia Diltiazem HCl (Cardizem) 90 mg PO Q8HR [facility] Last Admin: 11/14/19 21:43 Dose: 90 mg Documented by: Fentanyl (Sublimaze) 50 mcg IV Q10MIN PRN PRN Reason: ANALGESIA Last Admin: 11/12/19 11:26 Dose: 50 mcg Documented by: Furosemide (Lasix) 20 mg PO 0600,1800 [facility] Last Admin: 11/14/19 20:17 Dose: 20 mg Documented by: Hydrophilic Ointment (Vaseline Lip Therapy) 1 applic TP Q2HR PRN PRN Reason: Dry Lips Fentanyl Citrate (Fentanyl Drip Premix) 2,000 mcg in 100 mls @ 5.897 mls/hr IV TITR [facility]; Protocol Last Titration: 11/14/19 00:24 Dose: 0 mcg/kg/hr, 0 mls/hr Documented by: Insulin Glargine (Lantus) 15 units SUB-Q QHS [facility] Last Admin: 11/14/19 21:42 Dose: 15 units Documented by: Insulin Human Lispro (Humalog) 0 unit SUB-Q ACHS [facility]; Protocol Last Admin: 11/14/19 21:41 Dose: 3 unit Documented by: Lansoprazole (Prevacid Solutab) 30 mg FEEDTUBE QDAY [facility] Methylprednisolone Sodium Succinate (Solu-Medrol) 20 mg IV Q8HR [facility] Last Admin: 11/14/19 21:42 Dose: 20 mg Documented by: Metoprolol Tartrate (Metoprolol) 5 mg IV Q6HR PRN PRN Reason: Tachyarrhythmias Stop: 11/24/19 12:57 Multi-Ingred Cream/Lotion/Oil/Oint (Artificial Tears Ophth Oint) 1 applic OU Q4HR PRN PRN Reason: Dry Eye(s) Ondansetron HCl (Zofran) 4 mg IV Q8H PRN PRN Reason: Nausea And Vomiting Simple Syrup (Simple Syrup) 15 ml FEEDTUBE PRN PRN PRN Reason: Hypoglycemia Simple Syrup (Simple Syrup) 30 ml FEEDTUBE PRN PRN PRN Reason: Hypoglycemia Sodium Bicarbonate (Sodium Bicarbonate) 325 mg FEEDTUBE PRN PRN PRN Reason: For Clogged Feeding Tube Sodium Chloride (Sodium Chloride Flush Syringe 10 Ml) 10 ml IV BID [facility] Last Admin: 11/14/19 21:43 Dose: 10 ml Documented by: Sodium Chloride (Sodium Chloride Flush Syringe 10 Ml) 10 ml IV PRN PRN PRN Reason: LINE FLUSH Objective Vital Signs - 12hr 11/14/19 11/14/19 11/14/19 10:00 10:16 10:29 Temperature Pulse Rate 123 H 104 H Pulse Rate [ From Monitor] Respiratory 15 14 Rate Blood Pressure 146/74 146/74 O2 Sat by Pulse 97 90 96 Oximetry 11/14/19 11/14/19 11/14/19 10:30 10:46 11:00 Temperature Pulse Rate 135 H 133 H 128 H Pulse Rate [ From Monitor] Respiratory 18 15 13 Rate Blood Pressure 146/74 43/20 43/20 O2 Sat by Pulse 87 91 93 Oximetry 11/14/19 11/14/19 11/14/19 11:16 11:30 11:46 Temperature Pulse Rate 124 H 116 H 136 H Pulse Rate [ From Monitor] Respiratory 8 L 14 17 Rate Blood Pressure 114/58 114/58 114/58 O2 Sat by Pulse 97 98 98 Oximetry 11/14/19 11/14/19 11/14/19 12:00 12:16 12:30 Temperature 98.7 F Pulse Rate 127 H 122 H 108 H Pulse Rate [ 125 H From Monitor] Respiratory 15 9 L 14 Rate Blood Pressure 114/58 121/68 121/68 O2 Sat by Pulse 95 94 98 Oximetry 11/14/19 11/14/19 11/14/19 12:41 12:46 13:00 Temperature Pulse Rate 126 H 120 H 135 H Pulse Rate [ From Monitor] Respiratory 15 19 Rate Blood Pressure 121/68 107/80 107/80 O2 Sat by Pulse 94 84 Oximetry 11/14/19 11/14/19 11/14/19 13:16 13:30 13:46 Temperature Pulse Rate 125 H 119 H 119 H Pulse Rate [ From Monitor] Respiratory 15 18 18 Rate Blood Pressure 45/19 45/19 64/45 O2 Sat by Pulse 93 98 97 Oximetry 11/14/19 11/14/19 11/14/19 14:00 14:16 14:30 Temperature Pulse Rate 136 H 129 H 115 H Pulse Rate [ From Monitor] Respiratory 21 19 17 Rate Blood Pressure 64/45 64/45 64/45 O2 Sat by Pulse 97 94 99 Oximetry 11/14/19 11/14/19 11/14/19 14:46 14:47 15:00 Temperature 97.4 F L Pulse Rate 100 H 109 H 131 H Pulse Rate [ From Monitor] Respiratory 10 L 17 Rate Blood Pressure 132/64 134/64 132/64 O2 Sat by Pulse 97 98 Oximetry 11/14/19 11/14/19 11/14/19 15:16 15:30 15:46 Temperature Pulse Rate 129 H 116 H 107 H Pulse Rate [ From Monitor] Respiratory 22 17 9 L Rate Blood Pressure 132/64 125/70 111/74 O2 Sat by Pulse 95 96 97 Oximetry 11/14/19 11/14/19 11/14/19 16:00 16:15 16:30 Temperature 97.4 F L Pulse Rate 79 97 H 82 Pulse Rate [ 85 From Monitor] Respiratory 9 L 9 L 9 L Rate Blood Pressure 117/72 108/69 108/69 O2 Sat by Pulse 97 96 97 Oximetry 11/14/19 11/14/19 11/14/19 16:46 17:00 17:16 Temperature Pulse Rate 78 85 85 Pulse Rate [ From Monitor] Respiratory 13 11 L 9 L Rate Blood Pressure 124/53 118/73 104/74 O2 Sat by Pulse 98 98 95 Oximetry 11/14/19 11/14/19 11/14/19 17:30 17:46 18:00 Temperature Pulse Rate 81 75 82 Pulse Rate [ From Monitor] Respiratory 9 L 10 L 13 Rate Blood Pressure 104/74 113/47 113/47 O2 Sat by Pulse 91 88 94 Oximetry 11/14/19 11/14/19 11/14/19 18:16 18:30 18:46 Temperature Pulse Rate 98 H 92 H 91 H Pulse Rate [ From Monitor] Respiratory 19 21 17 Rate Blood Pressure 121/76 121/76 121/76 O2 Sat by Pulse 87 83 L 84 Oximetry 11/14/19 11/14/19 11/14/19 19:00 20:00 20:14 Temperature 98.1 F Pulse Rate 101 H Pulse Rate [ From Monitor] Respiratory 17 Rate Blood Pressure 68/49 O2 Sat by Pulse 86 92 Oximetry 11/14/19 21:43 Temperature Pulse Rate 111 H Pulse Rate [ From Monitor] Respiratory Rate Blood Pressure 156/134 O2 Sat by Pulse Oximetry Constitutional: no acute distress, alert Eyes: non-icteric Effort: mildly labored Ascultation: Bilateral: diminished breath sounds Cardiovascular: irregular rhythm (no mrg) Gastrointestinal: normoactive bowel sounds, soft, non-tender, non-distended Integumentary: normal Extremities: no cyanosis, pink and warm, edema (1+ bilateral edema) Neurologic: normal mental status, non-focal exam, pupils equal and round, CN II- XII normal Psychiatric: mood appropriate, affect normal CBC and BMP: 11/13/19 02:57 11/14/19 09:10 ABG, PT/INR, D-dimer: ABG ABG pH 7.400 pH Units (7.350-7.450) 11/13/19 03:35 ABG pCO2 45.0 mm Hg 11/13/19 03:35 ABG pO2 93.0 mm Hg (80.0-90.0) H 11/13/19 03:35 ABG O2 Saturation 97.0 % (95.0-99.0) 11/13/19 03:35 PT/INR, D-dimer PT 19.1 Sec. (12.2-14.9) H 11/12/19 01:56 INR 1.65 (0.87-1.13) H 11/12/19 01:56 Abnormal lab findings: Abnormal Labs 11/12/19 11/12/19 11/12/19 01:56 01:56 01:56 RBC 3.23 L Hgb 9.9 L Hct RDW 18.7 H Lymph % (Auto) [place] % (Auto) Lymph # Seg Neutrophils % Seg Neuts % (Manual) 76.0 H Lymphocytes % (Manual) 13.0 L Monocytes % (Manual) 9.0 H Seg Neutrophils # Lymphocytes # (Manual) 1.1 L PT 19.1 H INR 1.65 H ABG pO2 ABG HCO3 ABG O2 Saturation ABG Hemoglobin Sodium 132 L Chloride 90.7 L BUN 92 H Creatinine 2.0 H Glucose 320 H POC Glucose Calcium 8.3 L Alkaline Phosphatase 177 H CK-MB (CK-2) Rel Index Troponin T NT-Pro-B Natriuret Pep Total Protein 6.2 L Albumin 3.3 L Urine Creatinine 11/12/19 11/12/19 11/12/19 01:56 02:40 02:57 RBC Hgb Hct RDW Lymph % (Auto) [place] % (Auto) Lymph # Seg Neutrophils % Seg Neuts % (Manual) Lymphocytes % (Manual) Monocytes % (Manual) Seg Neutrophils # Lymphocytes # (Manual) PT INR ABG pO2 194.4 H ABG HCO3 ABG O2 Saturation 99.2 H ABG Hemoglobin 10.5 L Sodium Chloride BUN Creatinine Glucose POC Glucose Calcium Alkaline Phosphatase CK-MB (CK-2) Rel Index 8.0 H Troponin T 0.056 H NT-Pro-B Natriuret Pep 3636 H Total Protein Albumin Urine Creatinine 11/12/19 11/12/19 11/12/19 07:57 13:28 23:59 RBC Hgb Hct RDW Lymph % (Auto) [place] % (Auto) Lymph # Seg Neutrophils % Seg Neuts % (Manual) Lymphocytes % (Manual) Monocytes % (Manual) Seg Neutrophils # Lymphocytes # (Manual) PT INR ABG pO2 ABG HCO3 ABG O2 Saturation ABG Hemoglobin Sodium Chloride BUN Creatinine Glucose POC Glucose 304 H Calcium Alkaline Phosphatase CK-MB (CK-2) Rel Index 6.6 H 5.4 H Troponin T 0.058 H 0.050 H NT-Pro-B Natriuret Pep Total Protein Albumin Urine Creatinine 11/13/19 11/13/19 11/13/19 02:57 02:57 03:35 RBC 3.09 L Hgb 9.8 L Hct 29.8 L RDW 18.7 H Lymph % (Auto) 5.8 L [place] % (Auto) 7.6 H Lymph # 0.6 L Seg Neutrophils % 86.5 H Seg Neuts % (Manual) Lymphocytes % (Manual) Monocytes % (Manual) Seg Neutrophils # 8.5 H Lymphocytes # (Manual) PT INR ABG pO2 93.0 H ABG HCO3 27.3 H ABG O2 Saturation ABG Hemoglobin 10.3 L Sodium 136 L Chloride 96.1 L BUN 85 H Creatinine 1.8 H Glucose 288 H POC Glucose Calcium Alkaline Phosphatase CK-MB (CK-2) Rel Index Troponin T NT-Pro-B Natriuret Pep Total Protein Albumin Urine Creatinine 11/13/19 11/13/19 11/14/19 05:51 23:27 05:28 RBC Hgb Hct RDW Lymph % (Auto) [place] % (Auto) Lymph # Seg Neutrophils % Seg Neuts % (Manual) Lymphocytes % (Manual) Monocytes % (Manual) Seg Neutrophils # Lymphocytes # (Manual) PT INR ABG pO2 ABG HCO3 ABG O2 Saturation ABG Hemoglobin Sodium Chloride BUN Creatinine Glucose POC Glucose 273 H 179 H 205 H Calcium Alkaline Phosphatase CK-MB (CK-2) Rel Index Troponin T NT-Pro-B Natriuret Pep Total Protein Albumin Urine Creatinine 11/14/19 11/14/19 11/14/19 09:10 12:44 18:45 RBC Hgb Hct RDW Lymph % (Auto) [place] % (Auto) Lymph # Seg Neutrophils % Seg Neuts % (Manual) Lymphocytes % (Manual) Monocytes % (Manual) Seg Neutrophils # Lymphocytes # (Manual) PT INR ABG pO2 ABG HCO3 ABG O2 Saturation ABG Hemoglobin Sodium Chloride BUN 81 H Creatinine 2.0 H Glucose 205 H POC Glucose 193 H Calcium Alkaline Phosphatase CK-MB (CK-2) Rel Index Troponin T NT-Pro-B Natriuret Pep Total Protein 5.9 L Albumin 3.3 L Urine Creatinine 71.6 H Chest x-ray: report reviewed, image reviewed CT scan - chest: report reviewed, image reviewed
[2019-11-14] MEDS ORDERED: INSULIN GLARGINE 100 UNITS/ML SUB-Q SCH (22:00)
[2019-11-15] MEDS: carvediloL 12.5 MG TAB PO SCH ×2 (00:05→09:34)
--- NOTE | 2019-11-15 04:02 | XRay Report ---
CHEST 1 VIEW, 11/15/2019 2:21 AM CLINICAL INFORMATION/INDICATION: Respiratory failure COMPARISON: Chest radiograph, 11/14/2019 at 2:23 AM FINDINGS: SUPPORT DEVICES: None. HEART: The cardiac silhouette is normal in size. LUNGS/PLEURA: The lungs are clear of focal airspace disease or significant pleural effusion ADDITIONAL FINDINGS: No additional acute findings. IMPRESSION: 1. No evidence of acute cardiopulmonary process. Signer Name: Gina Pearl MD Signed: 11/15/2019 3:58 AM Workstation Name: [id number]
[2019-11-15] MEDS: methylPREDNISolone Sod Succinate 40 MG/1 ML INJ IV SCH (06:07)
[2019-11-15] MEDS: FUROSEMIDE 20 MG TAB PO SCH (06:07)
[2019-11-15 06:15] LABS: Calcium 9.2 mg/dL (8.4-10.2)
--- NOTE | 2019-11-15 08:23 | Consultation ---
History of Present Illness - Reason for Consult Consult date: 11/15/19 acute renal failure, chronic renal failure - History of Present Illness This is an 79 year old female patient with pmh significant for hypertension, diabetes, COPD on home O2 (3L), CKD (baseline unknown), obesity, CHF, CVA, PE, and A. cedrick was brought to the ED on 11/11 for complaints of worsening shortness of breath. Patient was subsequently intubated due to respiratory distress and was able to extubate on 11/13. She appeared to be in mild distress at time of consultation but sats were ok and SOB improved on NC O2. Patient was recently d/c from [facility] on 11/09 for COPD and CHF exacerbations. Of note, she was also admitted at another hospital in the month of October for similar presentation. She was admitted with suspicion of pneumonia but that has since been ruled out and no longer on abx. She states she sees a physician outpatient regarding her CKD at [place] but unknown if this is electrolysis operator. She lives with her daughter and granddaughter and uses power chair for mobility at home. Labs on admission significant for hgb 9.9, sodium 132, creatinine 2.0, BUN 92, calcium 8.3, glucose 320, troponin 0.056, albumin 3.3. Labs at time of consultation significant for potassium 5.2, BUN 96, creatinine 2.6, glucose 208. Nephrology was consulted for further evaluation and treatment. Past History Past Medical History: atrial fib, COPD (on 3L home O2), diabetes, heart failure, hypertension, other (CKD stage unknown, h/o CVA, h/o PE) Social history: lives with family (daughter and granddaughter) Medications and Allergies Allergies Allergy/AdvReac Type Severity Reaction Status Date / Time No Known Allergies Allergy Verified 11/12/19 01:45 Home Medications Medication Instructions Recorded Confirmed Last Taken Type Apixaban [Eliquis] 5 mg PO DAILY 11/12/19 11/12/19 Unknown History AtorvaSTATin [Lipitor] 40 mg PO QHS 11/12/19 11/12/19 Unknown History Ferrous Sulfate [Slow Release Iron 47.5 mg PO DAILY 11/12/19 11/12/19 Unknown History 47.5 Mg tab] Montelukast [Singulair] 10 mg PO QPM 11/12/19 11/12/19 Unknown History NIFEdipine [Nifedipine ER] 60 mg PO BID 11/12/19 11/12/19 Unknown History Pantoprazole [Protonix] 40 mg PO BID 11/12/19 11/12/19 Unknown History Potassium Chloride 10 meq PO BID 11/12/19 11/12/19 Unknown History Sitagliptin Phosphate [Januvia] 50 mg PO DAILY 11/12/19 11/12/19 Unknown History Torsemide [Demadex] 100 mg PO QDAY 11/12/19 11/12/19 Unknown History Valsartan [Diovan] 160 mg PO QDAY 11/12/19 11/12/19 Unknown History carvediloL [Coreg] 6.25 mg PO BID 11/12/19 11/12/19 Unknown History Active Meds: Active Medications Acetaminophen (Tylenol) 650 mg PO Q4H PRN PRN Reason: Pain MILD(1-3)/Fever >100.5/IRBY Lipase/Protease/Amylase (Pancreaze Dr 10,500 Unit) 1 each FEEDTUBE PRN PRN PRN Reason: For Clogged Feeding Tube Apixaban (Eliquis) 2.5 mg PO Q12HR [facility]; Protocol Last Admin: 11/14/19 21:42 Dose: 2.5 mg Documented by: Carvedilol (Coreg) 12.5 mg PO BID [facility] Last Admin: 11/15/19 00:05 Dose: 12.5 mg Documented by: Dextrose (D50w (25gm) Syringe) 50 ml IV Q30MIN PRN; Protocol PRN Reason: Hypoglycemia Diltiazem HCl (Cardizem) 90 mg PO Q8HR [facility] Last Admin: 11/15/19 06:07 Dose: 90 mg Documented by: Fentanyl (Sublimaze) 50 mcg IV Q10MIN PRN PRN Reason: ANALGESIA Last Admin: 11/12/19 11:26 Dose: 50 mcg Documented by: Furosemide (Lasix) 20 mg PO 0600,1800 [facility] Last Admin: 11/15/19 06:07 Dose: 20 mg Documented by: Hydrophilic Ointment (Vaseline Lip Therapy) 1 applic TP Q2HR PRN PRN Reason: Dry Lips Fentanyl Citrate (Fentanyl Drip Premix) 2,000 mcg in 100 mls @ 5.897 mls/hr IV TITR [facility]; Protocol Last Titration: 11/14/19 00:24 Dose: 0 mcg/kg/hr, 0 mls/hr Documented by: Insulin Glargine (Lantus) 15 units SUB-Q QHS [facility] Last Admin: 11/14/19 21:42 Dose: 15 units Documented by: Insulin Human Lispro (Humalog) 0 unit SUB-Q ACHS [facility]; Protocol Last Admin: 11/14/19 21:41 Dose: 3 unit Documented by: Lansoprazole (Prevacid Solutab) 30 mg FEEDTUBE QDAY [facility] Methylprednisolone Sodium Succinate (Solu-Medrol) 20 mg IV Q8HR [facility] Last Admin: 11/15/19 06:07 Dose: 20 mg Documented by: Metoprolol Tartrate (Metoprolol) 5 mg IV Q6HR PRN PRN Reason: Tachyarrhythmias Stop: 11/24/19 12:57 Multi-Ingred Cream/Lotion/Oil/Oint (Artificial Tears Ophth Oint) 1 applic OU Q4HR PRN PRN Reason: Dry Eye(s) Ondansetron HCl (Zofran) 4 mg IV Q8H PRN PRN Reason: Nausea And Vomiting Simple Syrup (Simple Syrup) 15 ml FEEDTUBE PRN PRN PRN Reason: Hypoglycemia Simple Syrup (Simple Syrup) 30 ml FEEDTUBE PRN PRN PRN Reason: Hypoglycemia Sodium Bicarbonate (Sodium Bicarbonate) 325 mg FEEDTUBE PRN PRN PRN Reason: For Clogged Feeding Tube Sodium Chloride (Sodium Chloride Flush Syringe 10 Ml) 10 ml IV BID [facility] Last Admin: 11/14/19 21:43 Dose: 10 ml Documented by: Sodium Chloride (Sodium Chloride Flush Syringe 10 Ml) 10 ml IV PRN PRN PRN Reason: LINE FLUSH Review of Systems Constitutional: no weight loss, no weight gain, no fever, no chills Ears, nose, mouth and throat: no nasal congestion, no epistaxis Cardiovascular: shortness of breath, no chest pain, no lightheadedness Respiratory: shortness of breath, no cough Gastrointestinal: no abdominal pain, no nausea, no vomiting, no diarrhea Musculoskeletal: muscle weakness Integumentary: no rash, no redness Exam - Vital Signs Vital signs: Vital Signs Pulse Resp Pulse Ox 105 H 31 H 99 11/12/19 01:28 11/12/19 01:28 11/12/19 01:28 - General Appearance General appearance: well-developed, well-nourished, appears stated age, obese, other (mild distress noted) EENT: ATNC, PERRL, mucous membranes moist, hearing intact, vision intact Neck: Present: neck supple, trachea midline Respiratory: Decreased Breath Sounds (bibasilar), Other (mildly labored effort) Heart: irregularly irregular, S1S2, no murmurs Gastrointestinal: Present: normal, normoactive bowel sounds, obese. Absent: tenderness, masses, organomegaly Integumentary: no rash, warm and dry Neurologic: no focal deficit, alert and oriented x3 Musculoskeletal: Present: other (1+ BLE edema). Absent: cyanosis, clubbing Psychiatric: mood/affect appropriate, cooperative Results - Lab Results 11/13/19 02:57 11/15/19 17:58 Most recent lab results ABG pH 7.400 pH Units (7.350-7.450) 11/13/19 03:35 ABG pCO2 45.0 mm Hg 11/13/19 03:35 ABG pO2 93.0 mm Hg (80.0-90.0) H 11/13/19 03:35 ABG HCO3 27.3 mmol/L (20.0-26.0) H 11/13/19 03:35 ABG O2 Saturation 97.0 % (95.0-99.0) 11/13/19 03:35 Calcium 9.2 mg/dL (8.4-10.2) 11/15/19 05:38 Urine Creatinine 71.6 mg/dL (0.1-20.0) H 11/14/19 18:45 Urine Sodium 22 mmol/L 11/14/19 18:45 Assessment and Plan 1. Acute kidney injury: Likely vasomotor LUIS FERNANDO superimposed on CKD, stage unknown, in setting of CHF. Renal US is ordered. Creatinine has worsened since admission, currently 2.6 from 2.0. Baseline creatinine is unknown. Has received Lasix and gentle hydration. Monitor renal function. Avoid nephrotoxic agents. Meds dosage based on GFR. 2. FEN: Hyperkalemia, monitor. Monitor lytes and volume status. 3. Acute on chronic CHF: Volume status improving since admission. Has been receiving diuresis. Cards following. 4. Acute on chronic COPD: Was intubated on admission. Extubated 11/13 to NC O2. On PO steroids. SOB improving. Has home O2 but not CPAP. Pulmonology following. 5. Elevated troponins: Likely 2/2 renal insufficiency. Cards following. 6. A. Fib with RVR: On cardizem. Cards following. 7. H/o CVA: 8. H/o PE: 9. Morbid obesity:
[2019-11-15] MEDS: INSULIN LISPRO 100 UNIT/ML SUB-Q SCH ×3 (08:50→16:55)
--- NOTE | 2019-11-15 09:17 | Progress Note ---
Assessment and Plan 79 y/o female with acute respiratory failure, secondary to volume overload and possible COPD exacerbation. 1. Continue IV lasix therapy 2. Will switch steroids to PO 3. Rate control per cards 4. BP control 5. Transfer to floor. Subjective Date of service: 11/15/19 Principal diagnosis: Acute respiratory failure Interval history: No acute events. Successfully extubated and appears to be stable. Objective Vital Signs - 12hr 11/14/19 11/14/19 11/14/19 21:30 21:43 22:00 Temperature Pulse Rate 97 H 111 H 97 H Pulse Rate [ From Monitor] Respiratory 16 19 Rate Blood Pressure 98/64 156/134 156/134 O2 Sat by Pulse 92 94 Oximetry 11/14/19 11/14/19 11/14/19 22:30 22:54 23:00 Temperature Pulse Rate 100 H 124 H 99 H Pulse Rate [ From Monitor] Respiratory 16 17 19 Rate Blood Pressure 115/88 115/88 115/88 O2 Sat by Pulse 93 85 94 Oximetry 11/14/19 11/14/19 11/15/19 23:05 23:30 00:00 Temperature 97.5 F L Pulse Rate 103 H 94 H 96 H Pulse Rate [ 96 H From Monitor] Respiratory 11 L 13 17 Rate Blood Pressure 106/84 106/84 132/75 O2 Sat by Pulse 96 91 90 Oximetry 11/15/19 11/15/19 11/15/19 00:05 00:08 00:30 Temperature Pulse Rate 101 H 87 75 Pulse Rate [ From Monitor] Respiratory 10 L Rate Blood Pressure 132/75 96/54 O2 Sat by Pulse 99 Oximetry 11/15/19 11/15/19 11/15/19 01:00 01:30 02:00 Temperature Pulse Rate 78 77 91 H Pulse Rate [ From Monitor] Respiratory 11 L 11 L 12 Rate Blood Pressure 78/46 94/55 94/55 O2 Sat by Pulse 99 100 100 Oximetry 11/15/19 11/15/19 11/15/19 02:30 03:00 03:30 Temperature Pulse Rate 112 H 94 H 78 Pulse Rate [ From Monitor] Respiratory 21 16 16 Rate Blood Pressure 95/59 99/66 80/61 O2 Sat by Pulse 95 96 93 Oximetry 11/15/19 11/15/19 11/15/19 03:37 04:00 04:30 Temperature 97.6 F Pulse Rate 75 71 Pulse Rate [ 71 From Monitor] Respiratory 14 10 L 10 L Rate Blood Pressure 86/60 113/59 O2 Sat by Pulse 95 97 98 Oximetry 11/15/19 11/15/19 11/15/19 05:00 05:30 06:00 Temperature Pulse Rate 73 83 105 H Pulse Rate [ From Monitor] Respiratory 10 L 14 25 H Rate Blood Pressure 100/62 100/62 102/75 O2 Sat by Pulse 98 88 90 Oximetry 11/15/19 11/15/19 11/15/19 06:07 06:30 07:00 Temperature Pulse Rate 83 83 76 Pulse Rate [ From Monitor] Respiratory 20 11 L Rate Blood Pressure 123/106 123/106 138/92 O2 Sat by Pulse 95 99 Oximetry 11/15/19 11/15/19 11/15/19 07:30 07:40 08:00 Temperature 98.1 F Pulse Rate 98 H 87 Pulse Rate [ From Monitor] Respiratory 23 11 L Rate Blood Pressure 138/92 125/69 O2 Sat by Pulse 97 95 97 Oximetry Constitutional: no acute distress, alert Eyes: non-icteric Effort: mildly labored Ascultation: Bilateral: diminished breath sounds Percussion: Bilateral: not dull Cardiovascular: irregular rhythm (no mrg) Gastrointestinal: normoactive bowel sounds, soft, non-tender, non-distended Integumentary: normal Extremities: no cyanosis, pink and warm, edema (1+ bilateral edema) Neurologic: normal mental status, non-focal exam, pupils equal and round, CN II- XII normal Psychiatric: mood appropriate, affect normal CBC and BMP: 11/13/19 02:57 11/15/19 05:38 ABG, PT/INR, D-dimer: ABG ABG pH 7.400 pH Units (7.350-7.450) 11/13/19 03:35 ABG pCO2 45.0 mm Hg 11/13/19 03:35 ABG pO2 93.0 mm Hg (80.0-90.0) H 11/13/19 03:35 ABG O2 Saturation 97.0 % (95.0-99.0) 11/13/19 03:35 PT/INR, D-dimer PT 19.1 Sec. (12.2-14.9) H 11/12/19 01:56 INR 1.65 (0.87-1.13) H 11/12/19 01:56 Abnormal lab findings: Abnormal Labs 11/12/19 11/12/19 11/12/19 01:56 01:56 01:56 RBC 3.23 L Hgb 9.9 L Hct RDW 18.7 H Lymph % (Auto) Hale % (Auto) Lymph # Seg Neutrophils % Seg Neuts % (Manual) 76.0 H Lymphocytes % (Manual) 13.0 L Monocytes % (Manual) 9.0 H Seg Neutrophils # Lymphocytes # (Manual) 1.1 L PT 19.1 H INR 1.65 H ABG pO2 ABG HCO3 ABG O2 Saturation ABG Hemoglobin Sodium 132 L Potassium Chloride 90.7 L BUN 92 H Creatinine 2.0 H Glucose 320 H POC Glucose Calcium 8.3 L Alkaline Phosphatase 177 H CK-MB (CK-2) Rel Index Troponin T NT-Pro-B Natriuret Pep Total Protein 6.2 L Albumin 3.3 L Urine Creatinine 11/12/19 11/12/19 11/12/19 01:56 02:40 02:57 RBC Hgb Hct RDW Lymph % (Auto) Hale % (Auto) Lymph # Seg Neutrophils % Seg Neuts % (Manual) Lymphocytes % (Manual) Monocytes % (Manual) Seg Neutrophils # Lymphocytes # (Manual) PT INR ABG pO2 194.4 H ABG HCO3 ABG O2 Saturation 99.2 H ABG Hemoglobin 10.5 L Sodium Potassium Chloride BUN Creatinine Glucose POC Glucose Calcium Alkaline Phosphatase CK-MB (CK-2) Rel Index 8.0 H Troponin T 0.056 H NT-Pro-B Natriuret Pep 3636 H Total Protein Albumin Urine Creatinine 11/12/19 11/12/19 11/12/19 07:57 13:28 23:59 RBC Hgb Hct RDW Lymph % (Auto) Hale % (Auto) Lymph # Seg Neutrophils % Seg Neuts % (Manual) Lymphocytes % (Manual) Monocytes % (Manual) Seg Neutrophils # Lymphocytes # (Manual) PT INR ABG pO2 ABG HCO3 ABG O2 Saturation ABG Hemoglobin Sodium Potassium Chloride BUN Creatinine Glucose POC Glucose 304 H Calcium Alkaline Phosphatase CK-MB (CK-2) Rel Index 6.6 H 5.4 H Troponin T 0.058 H 0.050 H NT-Pro-B Natriuret Pep Total Protein Albumin Urine Creatinine 11/13/19 11/13/19 11/13/19 02:57 02:57 03:35 RBC 3.09 L Hgb 9.8 L Hct 29.8 L RDW 18.7 H Lymph % (Auto) 5.8 L Hale % (Auto) 7.6 H Lymph # 0.6 L Seg Neutrophils % 86.5 H Seg Neuts % (Manual) Lymphocytes % (Manual) Monocytes % (Manual) Seg Neutrophils # 8.5 H Lymphocytes # (Manual) PT INR ABG pO2 93.0 H ABG HCO3 27.3 H ABG O2 Saturation ABG Hemoglobin 10.3 L Sodium 136 L Potassium Chloride 96.1 L BUN 85 H Creatinine 1.8 H Glucose 288 H POC Glucose Calcium Alkaline Phosphatase CK-MB (CK-2) Rel Index Troponin T NT-Pro-B Natriuret Pep Total Protein Albumin Urine Creatinine 11/13/19 11/13/19 11/14/19 05:51 23:27 05:28 RBC Hgb Hct RDW Lymph % (Auto) Hale % (Auto) Lymph # Seg Neutrophils % Seg Neuts % (Manual) Lymphocytes % (Manual) Monocytes % (Manual) Seg Neutrophils # Lymphocytes # (Manual) PT INR ABG pO2 ABG HCO3 ABG O2 Saturation ABG Hemoglobin Sodium Potassium Chloride BUN Creatinine Glucose POC Glucose 273 H 179 H 205 H Calcium Alkaline Phosphatase CK-MB (CK-2) Rel Index Troponin T NT-Pro-B Natriuret Pep Total Protein Albumin Urine Creatinine 11/14/19 11/14/19 11/14/19 09:10 12:44 18:45 RBC Hgb Hct RDW Lymph % (Auto) Hale % (Auto) Lymph # Seg Neutrophils % Seg Neuts % (Manual) Lymphocytes % (Manual) Monocytes % (Manual) Seg Neutrophils # Lymphocytes # (Manual) PT INR ABG pO2 ABG HCO3 ABG O2 Saturation ABG Hemoglobin Sodium Potassium Chloride BUN 81 H Creatinine 2.0 H Glucose 205 H POC Glucose 193 H Calcium Alkaline Phosphatase CK-MB (CK-2) Rel Index Troponin T NT-Pro-B Natriuret Pep Total Protein 5.9 L Albumin 3.3 L Urine Creatinine 71.6 H 11/14/19 11/15/19 21:42 05:38 RBC Hgb Hct RDW Lymph % (Auto) Hale % (Auto) Lymph # Seg Neutrophils % Seg Neuts % (Manual) Lymphocytes % (Manual) Monocytes % (Manual) Seg Neutrophils # Lymphocytes # (Manual) PT INR ABG pO2 ABG HCO3 ABG O2 Saturation ABG Hemoglobin Sodium Potassium 5.2 H Chloride 96.8 L BUN 96 H Creatinine 2.6 H Glucose 213 H POC Glucose 262 H Calcium Alkaline Phosphatase CK-MB (CK-2) Rel Index Troponin T NT-Pro-B Natriuret Pep Total Protein Albumin Urine Creatinine
--- NOTE | 2019-11-15 09:27 | Progress Note ---
Assessment and Plan Assessment and plan: 79-year-old female with a history of COPD on home O2, diabetes, congestive heart failure, hypertension and atrial fibrillation presented to the ED in acute respiratory distress secondary to volume overload. Patient was able to be extubated today. Hospital course complicated by continued atrial fibrillation with rapid ventricular rate. Bedside swallow eval now to see if patient can swallow pills * Patient with two . Discussed with Medical rec ords to merge - Patient Problems (1) acute diastolic CHF exacerbation with preserved EF Current Visit: Yes Status: Acute Qualifiers: Heart failure type: unspecified Qualified Code(s): I50.9 - Heart failure, unspecified Plan to address problem: Seems to be improving. Follow-up chest x-ray shows improving edema. Also improving clinically. Continue medical management. May require changing from Coreg to Lopressor for rate control. Now extubated back to nasal cannular and stable (2) Elevated troponin, Type 2 NSTEMI Current Visit: Yes Status: Acute Plan to address problem: Secondary to renal insufficiency (3) PNA (pneumonia) Current Visit: Yes Status: Acute Qualifiers: Pneumonia type: due to unspecified organism Laterality: unspecified laterality Lung location: unspecified part of lung Qualified Code(s): J18.9 - Pneumonia, unspecified organism Plan to address problem: No airspace disease or pleural effusion on follow-up chest x-ray this morning. Titrate antibiotics to off versus p.o. (4) Acute kidney injury likely secondary to vasomotor nephropathy Current Visit: Yes Status: Acute Qualifiers: Renal failure chronicity: acute Acute renal failure type: unspecified Qualified Code(s): N17.9 - Acute kidney failure, unspecified Plan to address problem: Patient renal failure BUN/creatinine consistent with prerenal azotemia. Versus ATN. Since congestive heart failure is improving. Will titrate down on diuretics to once a day. Patient did have some improvement over p.m. continue gentle rehydration. Yesterday Lasix was decreased to 20 mg IV every 12. We will see how this affects the renal function today. (5) Respiratory distress with hypoxia Current Visit: Yes Status: Acute Plan to address problem: Patient blood gases have improved. Potential extubation a day. Discussed plan with pulmonology. (6) COPD with acute exacerbation Current Visit: Yes Status: Acute Plan to address problem: Non-extubated. Will need to obtain ABG. Pulmonology consult. (7) Atrial fibrillation with rapid ventricular response Current Visit: Yes Status: Acute Plan to address problem: Patient continues to have atrial fibrillation with rapid ventricular rate. If patient able to tolerate p.o. we will start patient on Cardizem versus Lopressor. If not able to manage by mouth we will treat with Cardizem drip. Will consult cardiology (8) Morbid obesity Current Visit: Yes Status: Acute Plan to address problem: We will decrease caloric intake. (9) Diabetes mellitus with hyperglycemia Current Visit: Yes Status: Acute (10) HTN (hypertension) Current Visit: Yes Status: Chronic (11) Hyperlipidemia Current Visit: Yes Status: Chronic (12) History of CVA (cerebrovascular accident) Current Visit: Yes Status: Chronic (13) History of pulmonary embolism Current Visit: Yes Status: Chronic (14) Anemia Current Visit: Yes Status: Acute Will transfer to telemetry. History Interval history: Patient seen and examined, was stating shortness of breath, incidentally noted she was not connected to oxygen,. she normally is on 3 liters at home, and her O2 had mistakenly disconnected. she improved close to baseline. Hospitalist Physical - Physical exam Narrative exam: General appearance: Present: mild distress, well-nourished, morbidly Obese - EENT Eyes: Present: PERRL, EOM intact ENT: hearing intact, clear oral mucosa - Respiratory Respiratory: bilateral: rhonchi - Cardiovascular Rhythm: regular Heart Sounds: Present: S1 & S2, irregularly irregular - Extremities Extremities: no ischemia, pulses intact, pulses symmetrical Peripheral Pulses: within normal limits - Abdominal General gastrointestinal: soft, non-tender, distended, hypoactive bowel sounds - Integumentary Integumentary: Present: clear, warm, dry - Psychiatric Psychiatric: appropriate mood/affect, intact judgment & insight, memory intact - Neurologic Neurologic: CNII-XII intact - Constitutional Vitals: Temp Pulse Resp BP Pulse Ox 98.1 F 87 11 L 125/69 99 11/15/19 08:00 11/15/19 08:00 11/15/19 08:00 11/15/19 08:00 11/15/19 08:00 General appearance: Present: mild distress, well-nourished HEART Score - HEART Score Troponin: Troponin T 0.050 ng/mL (0.00-0.029) H 11/12/19 13:28 Results - Labs CBC & Chem 7: 11/13/19 02:57 11/16/19 04:45 Labs: Laboratory Last Values WBC 9.8 K/mm3 (4.5-11.0) 11/13/19 02:57 RBC 3.09 M/mm3 (3.65-5.03) L 11/13/19 02:57 Hgb 9.8 gm/dl (10.1-14.3) L 11/13/19 02:57 Hct 29.8 % (30.3-42.9) L 11/13/19 02:57 MCV 96 fl (79-97) 11/13/19 02:57 MCH 32 pg (28-32) 11/13/19 02:57 MCHC 33 % (30-34) 11/13/19 02:57 RDW 18.7 % (13.2-15.2) H 11/13/19 02:57 Plt Count 165 K/mm3 (140-440) 11/13/19 02:57 Lymph % (Auto) 5.8 % (13.4-35.0) L 11/13/19 02:57 Howell % (Auto) 7.6 % (0.0-7.3) H 11/13/19 02:57 Eos % (Auto) 0.1 % (0.0-4.3) 11/13/19 02:57 Baso % (Auto) 0.0 % (0.0-1.8) 11/13/19 02:57 Lymph # 0.6 K/mm3 (1.2-5.4) L 11/13/19 02:57 Howell # 0.7 K/mm3 (0.0-0.8) 11/13/19 02:57 Eos # 0.0 K/mm3 (0.0-0.4) 11/13/19 02:57 Baso # 0.0 K/mm3 (0.0-0.1) 11/13/19 02:57 Add Manual Diff Complete 11/12/19 01:56 Total Counted 100 11/12/19 01:56 Seg Neutrophils % 86.5 % (40.0-70.0) H 11/13/19 02:57 Seg Neuts % (Manual) 76.0 % (40.0-70.0) H 11/12/19 01:56 Band Neutrophils % 0 % 11/12/19 01:56 Lymphocytes % (Manual) 13.0 % (13.4-35.0) L 11/12/19 01:56 Reactive Lymphs % (Man) 0 % 11/12/19 01:56 Monocytes % (Manual) 9.0 % (0.0-7.3) H 11/12/19 01:56 Eosinophils % (Manual) 2.0 % (0.0-4.3) 11/12/19 01:56 Basophils % (Manual) 0 % (0.0-1.8) 11/12/19 01:56 Metamyelocytes % 0 % 11/12/19 01:56 Myelocytes % 0 % 11/12/19 01:56 Promyelocytes % 0 % 11/12/19 01:56 Blast Cells % 0 % 11/12/19 01:56 Nucleated RBC % Not Reportable 11/12/19 01:56 Seg Neutrophils # 8.5 K/mm3 (1.8-7.7) H 11/13/19 02:57 Seg Neutrophils # Man 6.5 K/mm3 (1.8-7.7) 11/12/19 01:56 Band Neutrophils # 0.0 K/mm3 11/12/19 01:56 Lymphocytes # (Manual) 1.1 K/mm3 (1.2-5.4) L 11/12/19 01:56 Abs React Lymphs (Man) 0.0 K/mm3 11/12/19 01:56 Monocytes # (Manual) 0.8 K/mm3 (0.0-0.8) 11/12/19 01:56 Eosinophils # (Manual) 0.2 K/mm3 (0.0-0.4) 11/12/19 01:56 Basophils # (Manual) 0.0 K/mm3 (0.0-0.1) 11/12/19 01:56 Metamyelocytes # 0.0 K/mm3 11/12/19 01:56 Myelocytes # 0.0 K/mm3 11/12/19 01:56 Promyelocytes # 0.0 K/mm3 11/12/19 01:56 Blast Cells # 0.0 K/mm3 11/12/19 01:56 WBC Morphology Not Reportable 11/12/19 01:56 Hypersegmented Neuts Not Reportable 11/12/19 01:56 Hyposegmented Neuts Not Reportable 11/12/19 01:56 Hypogranular Neuts Not Reportable 11/12/19 01:56 Smudge Cells Not Reportable 11/12/19 01:56 Toxic Granulation Not Reportable 11/12/19 01:56 Toxic Vacuolation Not Reportable 11/12/19 01:56 Dohle Bodies Not Reportable 11/12/19 01:56 Pelger-Huet Anomaly Not Reportable 11/12/19 01:56 Brian Rods Not Reportable 11/12/19 01:56 Platelet Estimate Consistent w auto 11/12/19 01:56 Clumped Platelets Not Reportable 11/12/19 01:56 Plt Clumps, EDTA Not Reportable 11/12/19 01:56 Large Platelets Not Reportable 11/12/19 01:56 Giant Platelets Not Reportable 11/12/19 01:56 Platelet Satelliting Not Reportable 11/12/19 01:56 Plt Morphology Comment Not Reportable 11/12/19 01:56 RBC Morphology Not Reportable 11/12/19 01:56 Dimorphic RBCs Not Reportable 11/12/19 01:56 Polychromasia Not Reportable 11/12/19 01:56 Hypochromasia Not Reportable 11/12/19 01:56 Poikilocytosis Not Reportable 11/12/19 01:56 Anisocytosis 1+ 11/12/19 01:56 Microcytosis Not Reportable 11/12/19 01:56 Macrocytosis Not Reportable 11/12/19 01:56 Spherocytes Not Reportable 11/12/19 01:56 Pappenheimer Bodies Not Reportable 11/12/19 01:56 Sickle Cells Not Reportable 11/12/19 01:56 Target Cells Not Reportable 11/12/19 01:56 Tear Drop Cells Not Reportable 11/12/19 01:56 Ovalocytes Not Reportable 11/12/19 01:56 Helmet Cells Not Reportable 11/12/19 01:56 [place] Bodies Not Reportable 11/12/19 01:56 [place] Rings Not Reportable 11/12/19 01:56 [place] Cells Not Reportable 11/12/19 01:56 Bite Cells Not Reportable 11/12/19 01:56 Crenated Cell Not Reportable 11/12/19 01:56 Elliptocytes Not Reportable 11/12/19 01:56 Acanthocytes (Spur) Not Reportable 11/12/19 01:56 Rouleaux Not Reportable 11/12/19 01:56 Hemoglobin C Crystals Not Reportable 11/12/19 01:56 Schistocytes Not Reportable 11/12/19 01:56 Malaria parasites Not Reportable 11/12/19 01:56 Tom Bodies Not Reportable 11/12/19 01:56 Hem Pathologist Commnt No 11/12/19 01:56 PT 19.1 Sec. (12.2-14.9) H 11/12/19 01:56 INR 1.65 (0.87-1.13) H 11/12/19 01:56 APTT 27.1 Sec. (24.2-36.6) 11/12/19 01:56 ABG pH 7.400 pH Units (7.350-7.450) 11/13/19 03:35 ABG pCO2 45.0 mm Hg 11/13/19 03:35 ABG pO2 93.0 mm Hg (80.0-90.0) H 11/13/19 03:35 ABG HCO3 27.3 mmol/L (20.0-26.0) H 11/13/19 03:35 ABG O2 Saturation 97.0 % (95.0-99.0) 11/13/19 03:35 ABG O2 Content 13.9 (0.0-44) 11/13/19 03:35 ABG Base Excess 2.1 mmol/L (-2.0-3.0) 11/13/19 03:35 ABG Hemoglobin 10.3 gm/dl (12.0-16.0) L 11/13/19 03:35 ABG Carboxyhemoglobin 1.4 % (0.0-5.0) 11/13/19 03:35 ABG Methemoglobin 0.5 % (0.0-1.5) 11/13/19 03:35 Oxyhemoglobin 95.2 % (95.0-99.0) 11/13/19 03:35 FiO2 35 % 11/13/19 03:35 Sodium 138 mmol/L (137-145) 11/15/19 05:38 Potassium 5.2 mmol/L (3.6-5.0) H 11/15/19 05:38 Chloride 96.8 mmol/L (98-107) L 11/15/19 05:38 Carbon Dioxide 23 mmol/L (22-30) 11/15/19 05:38 Anion Gap 23 mmol/L 11/15/19 05:38 BUN 96 mg/dL (7-17) H 11/15/19 05:38 Creatinine 2.6 mg/dL (0.7-1.2) H 11/15/19 05:38 Estimated GFR 21 ml/min 11/15/19 05:38 BUN/Creatinine Ratio 37 % 11/15/19 05:38 Glucose 213 mg/dL (65-100) H 11/15/19 05:38 POC Glucose 262 (70-105) H 11/14/19 21:42 Lactic Acid 1.50 mmol/L (0.7-2.0) 11/12/19 01:56 Calcium 9.2 mg/dL (8.4-10.2) 11/15/19 05:38 Total Bilirubin 0.50 mg/dL (0.1-1.2) 11/14/19 09:10 AST 21 units/L (5-40) 11/14/19 09:10 ALT 39 units/L (7-56) 11/14/19 09:10 Alkaline Phosphatase 104 units/L (35-129) 11/14/19 09:10 Total Creatine Kinase 53 units/L (30-135) 11/12/19 13:28 CK-MB (CK-2) 2.9 ng/mL (0.0-4.0) 11/12/19 13:28 CK-MB (CK-2) Rel Index 5.4 (0-4) H 11/12/19 13:28 Troponin T 0.050 ng/mL (0.00-0.029) H 11/12/19 13:28 NT-Pro-B Natriuret Pep 3636 pg/mL (0-900) H 11/12/19 02:57 Total Protein 5.9 g/dL (6.3-8.2) L 11/14/19 09:10 Albumin 3.3 g/dL (3.9-5) L 11/14/19 09:10 Albumin/Globulin Ratio 1.3 % 11/14/19 09:10 Triglycerides 85 mg/dL (2-149) 11/12/19 01:56 Cholesterol 131 mg/dL (50-199) 11/12/19 01:56 LDL Cholesterol Direct 66 mg/dL (50-130) 11/12/19 01:56 HDL Cholesterol 55 mg/dL (40-59) 11/12/19 01:56 Cholesterol/HDL Ratio 2.38 % 11/12/19 01:56 Urine Color Straw (Yellow) 11/12/19 01:35 Urine Turbidity Clear (Clear) 11/12/19 01:35 Urine pH 5.0 (5.0-7.0) 11/12/19 01:35 Ur Specific [place] 1.009 (1.003-1.030) 11/12/19 01:35 Urine Protein <15 mg/dl mg/dL (Negative) 11/12/19 01:35 Urine Glucose (UA) Neg mg/dL (Negative) 11/12/19 01:35 Urine Ketones Neg mg/dL (Negative) 11/12/19 01:35 Urine Blood Neg (Negative) 11/12/19 01:35 Urine Nitrite Neg (Negative) 11/12/19 01:35 Urine Bilirubin Neg (Negative) 11/12/19 01:35 Urine Urobilinogen < 2.0 mg/dL (<2.0) 11/12/19 01:35 Ur Leukocyte Esterase Neg (Negative) 11/12/19 01:35 Urine WBC (Auto) < 1.0 /HPF (0.0-6.0) 11/12/19 01:35 Urine RBC (Auto) < 1.0 /HPF (0.0-6.0) 11/12/19 01:35 U Epithel Cells (Auto) < 1.0 /HPF (0-13.0) 11/12/19 01:35 Urine Mucus Few /HPF 11/12/19 01:35 Urine Creatinine 71.6 mg/dL (0.1-20.0) H 11/14/19 18:45 Urine Sodium 22 mmol/L 11/14/19 18:45 Microbiology: Microbiology 11/12/19 Unknown Urine,Catheterized - Indwelling Catheter Urine Culture - Final NO GROWTH AFTER 48 HOURS 11/12/19 02:05 Peripheral/Venous Blood Culture - Preliminary NO GROWTH AFTER 72 HOURS 11/12/19 02:03 Peripheral/Venous Blood Culture - Preliminary Coag Negative Staphylococcus Armendariz/IV: Voiding Method Indwelling Catheter IV Catheter Type [Left Chest] INT / Saline Lock IV Catheter Type [Right INT / Saline Lock Antecubital] Active Medications - Current Medications Current Medications: Generic Name Dose Route Start Last Admin Trade Name Freq PRN Reason Stop Dose Admin Acetaminophen 650 mg 11/12/19 05:48 Tylenol PO Q4H PRN Pain MILD(1-3)/Fever >100.5/IRBY Lipase/Protease/Amylase 1 each 11/13/19 19:[address] 10,500 Unit FEEDTUBE PRN PRN For Clogged Feeding Tube Apixaban 2.5 mg 11/13/19 22:00 11/14/19 21:42 Eliquis PO 2.5 mg Q12HR ALLEGRA Administration Protocol Carvedilol 12.5 mg 11/14/19 10:00 11/15/19 00:05 Coreg PO 12.5 mg BID ALLEGRA Administration Dextrose 50 ml 11/13/19 13:10 D50w (25gm) Syringe IV Q30MIN PRN Hypoglycemia Protocol Diltiazem HCl 90 mg 11/14/19 14:00 11/15/19 06:07 Cardizem PO 90 mg Q8HR ALLEGRA Administration Fentanyl 50 mcg 11/12/19 01:41 11/12/19 11:26 Sublimaze IV 50 mcg Q10MIN PRN Administration ANALGESIA Furosemide 20 mg 11/13/19 18:00 11/15/19 06:07 Lasix PO 20 mg 0600,1800 ALLEGRA Administration Hydrophilic Ointment 1 applic 11/12/19 01:41 Vaseline Lip Therapy TP Q2HR PRN Dry Lips Insulin Glargine 15 units 11/14/19 22:00 11/14/19 21:42 Lantus SUB-Q 15 units QHS ALLEGRA Administration Insulin Human Lispro 0 unit 11/14/19 22:00 11/14/19 21:41 Humalog SUB-Q 3 unit ACHS ALLEGRA Administration Protocol Lansoprazole 30 mg 11/15/19 10:00 Prevacid Solutab FEEDTUBE QDAY ALLEGRA Metoprolol Tartrate 5 mg 11/14/19 12:59 Metoprolol IV 11/24/19 12:57 Q6HR PRN Tachyarrhythmias Multi-Ingred Cream/Lotion/Oil/Oint 1 applic 11/12/19 01:41 Artificial Tears Ophth Oint OU Q4HR PRN Dry Eye(s) Ondansetron HCl 4 mg 11/12/19 05:48 Zofran IV Q8H PRN Nausea And Vomiting Prednisone 40 mg 11/16/19 10:00 Deltasone PO QDAY ALLEGRA Prednisone 20 mg 11/15/19 10:00 Deltasone PO 11/15/19 12:00 ONCE NR Simple Syrup 15 ml 11/13/19 19:44 Simple Syrup FEEDTUBE PRN PRN Hypoglycemia Simple Syrup 30 ml 11/13/19 19:44 Simple Syrup FEEDTUBE PRN PRN Hypoglycemia Sodium Bicarbonate 325 mg 11/13/19 19:44 Sodium Bicarbonate FEEDTUBE PRN PRN For Clogged Feeding Tube Sodium Chloride 10 ml 11/12/19 10:00 11/14/19 21:43 Sodium Chloride Flush Syringe 10 Ml IV 10 ml BID ALLEGRA Administration Sodium Chloride 10 ml 11/12/19 05:48 Sodium Chloride Flush Syringe 10 Ml IV PRN PRN LINE FLUSH Nutrition/Malnutrition Assess - Dietary Evaluation Nutrition/Malnutrition Findings: Nutrition Notes Start: 11/13/19 08:04 Freq: Status: Active Protocol: Document 11/14/19 08:32 LP (Rec: 11/14/19 08:38 LP [id number]) Nutrition Notes Need for Assessment generated from: MD Order Initial or Follow up Brief Note Current Diagnosis CKD(stage I-IV),COPD,Decubitus (Pressure Ulcer),Diabetes, Hypertension,Heart Failure Other Pertinent Diagnosis Sacral wound Current Diet NPO Subjective/Other Information Consult for TF. MD already ordered recommended TF. Nutrition Intervention Change Diet Order: TF Nutrition Support: Glucerna 1.2 at 50ml/hr Flush with 85ml q4h Kcal 1,584 Protein (gm) 79 Fluid (mL) 1,066 Add Supplement/Snack (indicate name/kcal Reynold BID once TF is at goal /protein ) Provides kCal: 190 Provides Protein (gm) 5 Goal #1 Meet at least 80% of kcal and protein needs Goal #2 Wound healing Anticipated Discharge Needs: Unable to determine at this time Follow-Up By: 11/16/19 Additional Comments Follow for TF tolerance
[2019-11-15] MEDS: LANSOPRAZOLE 30 MG SOLUTAB FEEDTUBE SCH (09:33)
[2019-11-15] MEDS: APIXABAN 2.5 MG TAB PO SCH ×2 (09:33→21:54)
[2019-11-15] MEDS ORDERED: predniSONE 20 MG TAB PO NR (10:00)
--- NOTE | 2019-11-15 12:07 | Consultation ---
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 She is followed by [place] [facility]. She presented with c/o progressively worsening SOB for the past several days. Of note, pt was discharged from [facility] on 11/10/2019 following eval/management of HFpEF, AFib RVR, COPD and exacerbation, A/C respiratory failure, LUIS FERNANDO, anemia. Pt states that she was doing fairly well at home for the first few days after discharge. However, she was unable to obtain her CPAP at home and thus got progressively more SOB. Echo done 11/04/2019 showed EF 50-55%, impaired relaxation, mild to mod TR, RVSP 39mmHg. Past History Past Medical History: other (as per HPI) Medications and Allergies Allergies Allergy/AdvReac Type Severity Reaction Status Date / Time No Known Allergies Allergy Verified 11/12/19 01:45 Home Medications Medication Instructions Recorded Confirmed Last Taken Type Apixaban [Eliquis] 5 mg PO DAILY 11/12/19 11/12/19 Unknown History AtorvaSTATin [Lipitor] 40 mg PO QHS 11/12/19 11/12/19 Unknown History Ferrous Sulfate [Slow Release Iron 47.5 mg PO DAILY 11/12/19 11/12/19 Unknown History 47.5 Mg tab] Montelukast [Singulair] 10 mg PO QPM 11/12/19 11/12/19 Unknown History NIFEdipine [Nifedipine ER] 60 mg PO BID 11/12/19 11/12/19 Unknown History Pantoprazole [Protonix] 40 mg PO BID 11/12/19 11/12/19 Unknown History Potassium Chloride 10 meq PO BID 11/12/19 11/12/19 Unknown History Sitagliptin Phosphate [Januvia] 50 mg PO DAILY 11/12/19 11/12/19 Unknown History Torsemide [Demadex] 100 mg PO QDAY 11/12/19 11/12/19 Unknown History Valsartan [Diovan] 160 mg PO QDAY 11/12/19 11/12/19 Unknown History carvediloL [Coreg] 6.25 mg PO BID 11/12/19 11/12/19 Unknown History Active Meds: Active Medications Acetaminophen (Tylenol) 650 mg PO Q4H PRN PRN Reason: Pain MILD(1-3)/Fever >100.5/IRBY Lipase/Protease/Amylase (Therese Gardiner 10,500 Unit) 1 each FEEDTUBE PRN PRN PRN Reason: For Clogged Feeding Tube Apixaban (Eliquis) 2.5 mg PO Q12HR [facility]; Protocol Last Admin: 11/15/19 09:33 Dose: 2.5 mg Documented by: Carvedilol (Coreg) 12.5 mg PO BID [facility] Last Admin: 11/15/19 09:34 Dose: 12.5 mg Documented by: Dextrose (D50w (25gm) Syringe) 50 ml IV Q30MIN PRN; Protocol PRN Reason: Hypoglycemia Diltiazem HCl (Cardizem) 90 mg PO Q8HR [facility] Last Admin: 11/15/19 06:07 Dose: 90 mg Documented by: Fentanyl (Sublimaze) 50 mcg IV Q10MIN PRN PRN Reason: ANALGESIA Last Admin: 11/12/19 11:26 Dose: 50 mcg Documented by: Furosemide (Lasix) 20 mg PO 0600,1800 [facility] Last Admin: 11/15/19 06:07 Dose: 20 mg Documented by: Hydrophilic Ointment (Vaseline Lip Therapy) 1 applic TP Q2HR PRN PRN Reason: Dry Lips Insulin Glargine (Lantus) 15 units SUB-Q QHS [facility] Last Admin: 11/14/19 21:42 Dose: 15 units Documented by: Insulin Human Lispro (Humalog) 0 unit SUB-Q [facility]; Protocol Last Admin: 11/15/19 08:50 Dose: 2 unit Documented by: Lansoprazole (Prevacid Solutab) 30 mg FEEDTUBE QDAY [facility] Last Admin: 11/15/19 09:33 Dose: 30 mg Documented by: Metoprolol Tartrate (Metoprolol) 5 mg IV Q6HR PRN PRN Reason: Tachyarrhythmias Stop: 11/24/19 12:57 Multi-Ingred Cream/Lotion/Oil/Oint (Artificial Tears Ophth Oint) 1 applic OU Q4HR PRN PRN Reason: Dry Eye(s) Ondansetron HCl (Zofran) 4 mg IV Q8H PRN PRN Reason: Nausea And Vomiting Prednisone (Deltasone) 40 mg PO QDAY [facility] Simple Syrup (Simple Syrup) 15 ml FEEDTUBE PRN PRN PRN Reason: Hypoglycemia Simple Syrup (Simple Syrup) 30 ml FEEDTUBE PRN PRN PRN Reason: Hypoglycemia Sodium Bicarbonate (Sodium Bicarbonate) 325 mg FEEDTUBE PRN PRN PRN Reason: For Clogged Feeding Tube Sodium Chloride (Sodium Chloride Flush Syringe 10 Ml) 10 ml IV BID [facility] Last Admin: 11/15/19 09:34 Dose: 10 ml Documented by: Sodium Chloride (Sodium Chloride Flush Syringe 10 Ml) 10 ml IV PRN PRN PRN Reason: LINE FLUSH Review of Systems Constitutional: no fever, no chills, no sweats Ears, nose, mouth and throat: no ear pain, no nose pain, no sinus pressure, no sinus pain Cardiovascular: shortness of breath, dyspnea on exertion, no chest pain, no palpitations, no rapid/irregular heart beat, no edema, no syncope, no lightheadedness Respiratory: shortness of breath, dyspnea on exertion Gastrointestinal: no abdominal pain, no nausea, no vomiting, no diarrhea, no constipation, no change in bowel habits Genitourinary Female: no pelvic pain, no flank pain, no dysuria, no urinary frequency, no urgency Musculoskeletal: no neck stiffness, no neck pain, no shooting arm pain, no arm numbness/tingling, no low back pain, no shooting leg pain Integumentary: no rash, no pruritis, no redness, no sores, no wounds Neurological: no head injury, no paralysis, no weakness, no parathesias, no numbness, no tingling, no seizures, no syncope Psychiatric: no anxiety Endocrine: no cold intolerance, no heat intolerance Hematologic/Lymphatic: no easy bruising, no easy bleeding Allergic/Immunologic: no urticaria Physical Examination Vital Signs Pulse Resp Pulse Ox 105 H 31 H 99 11/12/19 01:28 11/12/19 01:28 11/12/19 01:28 General appearance: other (SOB) HEENT: Positive: PERRL Neck: Positive: neck supple, trachea midline Cardiac: Positive: irregularly irregular, S1/S2 Lungs: Positive: Decreased Breath Sounds, Oxygen Neuro: Positive: Grossly Intact Abdomen: Negative: Tender Skin: Negative: Rash Musculoskeletal: No Pain Extremities: Absent: edema Results 11/13/19 02:57 11/15/19 05:38 Comprehensive Metabolic Panel 11/15/19 Range/Units 05:38 Sodium 138 (137-145) mmol/L Potassium 5.2 H (3.6-5.0) mmol/L Chloride 96.8 L (98-107) mmol/L Carbon Dioxide 23 (22-30) mmol/L BUN 96 H (7-17) mg/dL Creatinine 2.6 H (0.7-1.2) mg/dL Glucose 213 H (65-100) mg/dL Calcium 9.2 (8.4-10.2) mg/dL - Imaging and Cardiology Echo: report reviewed (11/04/2019 showed EF 50-55%, impaired relaxation, mild to mod TR, RVSP 39mmHg. ) EKG: report reviewed, image reviewed EKG interpretations - Telemetry EKG Rhythm: Atrial Fibrillation - EKG Supraventricular dysrhythmia: atrial fibrillation Assessment and Plan No current clinical evidence of acutely decompensated HF. Hold diuretics and recommend IVF in setting of renal insufficiency. Nephrology is following. Pt in AFib with CVR. Cont cardizem and Eliquis 2.5mg BID. The patient has been seen in conjunction with Dr. Crowley who agrees with the assessment and plan of care. - Patient Problems (1) Acute on chronic kidney failure Current Visit: Yes Status: Acute (2) Acute on chronic respiratory failure Current Visit: Yes Status: Acute (3) Persistent atrial fibrillation Current Visit: Yes Status: Chronic (4) COPD (chronic obstructive pulmonary disease) Current Visit: Yes Status: Chronic (5) Diabetes mellitus with hyperglycemia Current Visit: Yes Status: Acute (6) HTN (hypertension) Current Visit: Yes Status: Chronic (7) Hyperlipidemia Current Visit: Yes Status: Chronic (8) History of CVA (cerebrovascular accident) Current Visit: Yes Status: Chronic (9) History of pulmonary embolism Current Visit: Yes Status: Chronic (10) Anemia Current Visit: Yes Status: Acute
--- NOTE | 2019-11-15 13:31 | XRay Report ---
ABDOMEN 1 VIEW(S) INDICATION / CLINICAL INFORMATION: NGT placement. COMPARISON: 11/13/2019 FINDINGS: TUBES / LINES: NG tube has been retracted into the proximal stomach and is kinked. Recommend repositi oning the tube 5 cm distally. BOWEL GAS PATTERN: Persistent mild diffuse gaseous distention of the bowel. FREE AIR / EXTRALUMINAL GAS: None seen. ADDITIONAL FINDINGS: No significant additional findings. IMPRESSION: 1. NG tube as above. Signer Name: Francois Mckeon MD Signed: 11/15/2019 1:27 PM Workstation Name: [id number]
--- NOTE | 2019-11-15 15:30 | XRay Report ---
Abdomen single view INDICATION: Abdominal pain IMPRESSION: The esophagogastric tube terminates within the upper stomach. Signer Name: Daniel Genao MD Signed: 11/15/2019 3:26 PM Workstation Name: [id number]
[2019-11-15] MEDS: DEXTROSE 50% IN WATER (25GM) 50 ML SYRINGE IV PRN (16:53)
[2019-11-15] MEDS ORDERED: INSULIN GLARGINE 100 UNITS/ML SUB-Q SCH (22:00)
[2019-11-16 05:29] LABS: Calcium 8.7 mg/dL (8.4-10.2)
--- NOTE | 2019-11-16 08:12 | Progress Note ---
Assessment and Plan 1. Acute kidney injury: Likely vasomotor LUIS FERNANDO superimposed on CKD, stage unknown, in setting of CHF. Renal US is ordered, still awaiting US. Creatinine has worsened since admission, currently 2.9 from 2.6 from 2.0. Baseline creatinine is unknown. Has received Lasix and gentle hydration. Monitor renal function. Avoid nephrotoxic agents. Meds dosage based on GFR. 2. FEN: Hyperkalemia, s/p Lasix, improving, monitor. Monitor lytes and volume status. 3. Acute on chronic CHF: Volume status improving since admission. Has been receiving diuresis. Cards following. 4. Acute on chronic COPD: Was intubated on admission. Extubated 11/13 to NC O2. On PO steroids. SOB improving. Has home O2 but not CPAP. Pulmonology following. 5. Elevated troponins: Likely 2/2 renal insufficiency. Cards following. 6. A. Fib with RVR: On cardizem. Cards following. 7. H/o CVA: 8. H/o PE: 9. Morbid obesity: Subjective Date of service: 11/16/19 Principal diagnosis: Acute respiratory failure Interval history: Patient was seen and examined at time of exam. She was transferred out of ICU yesterday and doing well so far. She had no complaints at time of exam. Objective - Exam Narrative Exam: General appearance: well-developed, well-nourished, appears stated age, obese, NC O2, NGT EENT: ATNC, PERRL, mucous membranes moist, hearing intact, vision intact Neck: Present: neck supple, trachea midline Respiratory: Decreased Breath Sounds (bibasilar) Heart: irregularly irregular, S1S2, no murmurs Gastrointestinal: Present: normal, normoactive bowel sounds, obese. Absent: tenderness, masses, organomegaly Integumentary: no rash, warm and dry Neurologic: no focal deficit, drowsy, will participate in some verbal conversation but falling asleep easily Musculoskeletal: no cyanosis or clubbing, 1+ BLE edema noted Psychiatric: mood/affect appropriate, cooperative - Vital Signs Vital signs: Vital Signs - 12hr 11/15/19 11/15/19 11/15/19 20:21 20:31 20:41 Temperature Pulse Rate 73 76 70 Respiratory 11 L 11 L 14 Rate Blood Pressure 97/57 97/57 97/57 O2 Sat by Pulse 100 100 100 Oximetry 11/15/19 11/15/19 11/15/19 20:51 21:00 21:11 Temperature Pulse Rate 67 66 67 Respiratory 12 16 17 Rate Blood Pressure 97/57 109/59 111/54 O2 Sat by Pulse 100 100 100 Oximetry 11/15/19 11/15/19 11/15/19 21:21 21:31 21:41 Temperature Pulse Rate 74 66 67 Respiratory 15 10 L 11 L Rate Blood Pressure 109/59 109/59 109/59 O2 Sat by Pulse 99 99 99 Oximetry 11/15/19 11/15/19 11/15/19 21:51 21:53 22:00 Temperature Pulse Rate 81 Respiratory Rate Blood Pressure 109/59 111/54 O2 Sat by Pulse 99 98 Oximetry 11/15/19 11/15/19 11/16/19 22:01 23:21 00:00 Temperature 97.4 F L Pulse Rate 66 91 H Respiratory 16 18 Rate Blood Pressure 102/64 99/63 O2 Sat by Pulse 98 95 95 Oximetry 11/16/19 11/16/19 11/16/19 00:39 03:02 04:00 Temperature 97.7 F Pulse Rate 86 36 L 103 H Respiratory 18 Rate Blood Pressure 126/74 O2 Sat by Pulse 99 Oximetry 11/16/19 05:28 Temperature Pulse Rate 103 H Respiratory Rate Blood Pressure 126/74 O2 Sat by Pulse Oximetry - Lab 11/13/19 02:57 11/16/19 04:45 Most recent lab results ABG pH 7.400 pH Units (7.350-7.450) 11/13/19 03:35 ABG pCO2 45.0 mm Hg 11/13/19 03:35 ABG pO2 93.0 mm Hg (80.0-90.0) H 11/13/19 03:35 ABG HCO3 27.3 mmol/L (20.0-26.0) H 11/13/19 03:35 ABG O2 Saturation 97.0 % (95.0-99.0) 11/13/19 03:35 Calcium 8.7 mg/dL (8.4-10.2) 11/16/19 04:45 Urine Creatinine 71.6 mg/dL (0.1-20.0) H 11/14/19 18:45 Urine Sodium 22 mmol/L 11/14/19 18:45 Medications & Allergies - Medications Allergies/Adverse Reactions: Allergies No Known Allergies Allergy (Verified 11/12/19 01:45) Home Medications: Home Medications Medication Instructions Recorded Confirmed Last Taken Type Apixaban [Eliquis] 5 mg PO DAILY 11/12/19 11/12/19 Unknown History AtorvaSTATin [Lipitor] 40 mg PO QHS 11/12/19 11/12/19 Unknown History Ferrous Sulfate [Slow Release Iron 47.5 mg PO DAILY 11/12/19 11/12/19 Unknown History 47.5 Mg tab] Montelukast [Singulair] 10 mg PO QPM 11/12/19 11/12/19 Unknown History NIFEdipine [Nifedipine ER] 60 mg PO BID 11/12/19 11/12/19 Unknown History Pantoprazole [Protonix] 40 mg PO BID 11/12/19 11/12/19 Unknown History Potassium Chloride 10 meq PO BID 11/12/19 11/12/19 Unknown History Sitagliptin Phosphate [Januvia] 50 mg PO DAILY 11/12/19 11/12/19 Unknown History Torsemide [Demadex] 100 mg PO QDAY 11/12/19 11/12/19 Unknown History Valsartan [Diovan] 160 mg PO QDAY 11/12/19 11/12/19 Unknown History carvediloL [Coreg] 6.25 mg PO BID 11/12/19 11/12/19 Unknown History Active Medications: Generic Name Dose Route Start Last Admin Trade Name Freq PRN Reason Stop Dose Admin Acetaminophen 650 mg 11/12/19 05:48 Tylenol PO Q4H PRN Pain MILD(1-3)/Fever >100.5/IRBY Apixaban 2.5 mg 11/13/19 22:00 11/15/19 21:54 Eliquis PO 2.5 mg Q12HR [facility] Administration Protocol Dextrose 50 ml 11/13/19 13:10 11/15/19 16:53 D50w (25gm) Syringe IV 50 ml Q30MIN PRN Administration Hypoglycemia Protocol Diltiazem HCl 90 mg 11/14/19 14:00 11/16/19 05:28 Cardizem PO 90 mg Q8HR [facility] Administration Insulin Glargine 25 units 11/15/19 22:00 11/15/19 21:54 Lantus SUB-Q Not Given QHS [facility] Insulin Human Lispro 0 unit 11/16/19 21:00 Humalog SUB-Q Q6HR [facility] Protocol Lansoprazole 30 mg 11/15/19 10:00 11/15/19 09:33 Prevacid Solutab FEEDTUBE 30 mg QDAY [facility] Administration Metoprolol Tartrate 5 mg 11/14/19 12:59 Metoprolol IV 11/24/19 12:57 Q6HR PRN Tachyarrhythmias Ondansetron HCl 4 mg 11/12/19 05:48 Zofran IV Q8H PRN Nausea And Vomiting Prednisone 40 mg 11/16/19 10:00 Deltasone PO QDAY [facility] Simple Syrup 15 ml 11/13/19 19:44 Simple Syrup FEEDTUBE PRN PRN Hypoglycemia Simple Syrup 30 ml 11/13/19 19:44 11/15/19 21:55 Simple Syrup FEEDTUBE 30 ml PRN PRN Administration Hypoglycemia Sodium Bicarbonate 325 mg 11/13/19 19:44 Sodium Bicarbonate FEEDTUBE PRN PRN For Clogged Feeding Tube Sodium Chloride 10 ml 11/12/19 10:00 11/15/19 21:55 Sodium Chloride Flush Syringe 10 Ml IV 10 ml BID [facility] Administration Sodium Chloride 10 ml 11/12/19 05:48 Sodium Chloride Flush Syringe 10 Ml IV PRN PRN LINE FLUSH
[2019-11-16] MEDS: APIXABAN 2.5 MG TAB PO SCH ×2 (09:47→22:16)
[2019-11-16] MEDS: LANSOPRAZOLE 30 MG SOLUTAB FEEDTUBE SCH (09:47)
[2019-11-16] MEDS: predniSONE 20 MG TAB PO SCH (09:47)
--- NOTE | 2019-11-16 11:28 | Progress Note ---
Assessment and Plan No current clinical evidence of acutely decompensated HF. Hold diuretics and recommend IVF in setting of renal insufficiency. Renal indices worsened today. Nephrology is following. Optimize HR - increase cardizem dosage. Of note, per speech therapy, patient is at significant risk secondary to aspiration and poor pulmonary support. NPO status recommended. NGT in place with tube feeding infusing. If PEG tube placement is required, ok to hold Eliquis for 48Hr prior to procedure. D/w primary, Dr. Casey. The patient has been seen in conjunction with Dr. Crowley who agrees with the assessment and plan of care. - Patient Problems (1) Acute on chronic kidney failure Current Visit: Yes Status: Acute (2) Acute on chronic respiratory failure Current Visit: Yes Status: Acute (3) Persistent atrial fibrillation Current Visit: Yes Status: Chronic (4) COPD (chronic obstructive pulmonary disease) Current Visit: Yes Status: Chronic (5) Diabetes mellitus with hyperglycemia Current Visit: Yes Status: Acute (6) HTN (hypertension) Current Visit: Yes Status: Chronic (7) Hyperlipidemia Current Visit: Yes Status: Chronic (8) History of CVA (cerebrovascular accident) Current Visit: Yes Status: Chronic (9) History of pulmonary embolism Current Visit: Yes Status: Chronic (10) Anemia Current Visit: Yes Status: Acute Subjective Date of service: 11/16/19 Principal diagnosis: Acute respiratory failure Interval history: pt resting in bed, lethargic, NGT in place as she is not eating well - tube feeding infusing. in AFib on tele HR 80s - 120s. Objective Last Vital Signs Temp 97.7 F 11/16/19 07:41 Pulse 94 H 11/16/19 07:41 Resp 20 11/16/19 07:41 BP 133/71 11/16/19 07:41 Pulse Ox 100 11/16/19 08:39 - Physical Examination General: Other (lethargic ) HEENT: Positive: PERRL Neck: Positive: neck supple, trachea midline Cardiac: Positive: irregularly irregular, S1/S2 Lungs: Positive: Decreased Breath Sounds Neuro: Positive: Grossly Intact Abdomen: Negative: Tender Skin: Negative: Rash Musculoskeletal: No Pain Extremities: Absent: edema - Labs and Meds Comprehensive Metabolic Panel 11/15/19 11/16/19 Range/Units 17:58 04:45 Sodium 136 L (137-145) mmol/L Potassium 4.9 (3.6-5.0) mmol/L Chloride 94.4 L (98-107) mmol/L Carbon Dioxide 23 (22-30) mmol/L BUN 108 H (7-17) mg/dL Creatinine 2.9 H (0.7-1.2) mg/dL Glucose 89 155 H (65-100) mg/dL Calcium 8.7 (8.4-10.2) mg/dL - Imaging and Cardiology EKG: report reviewed, image reviewed Echo: report reviewed (11/04/2019 showed EF 50-55%, impaired relaxation, mild to mod TR, RVSP 39mmHg. )
--- NOTE | 2019-11-16 11:34 | Ultrasound Report ---
ULTRASOUND RENAL INDICATION: Acute renal failure.. COMPARISON: Previous study on 11/07/2019.. FINDINGS: RIGHT KIDNEY: Size: 9.3 cm. Echogenicity: Mildly increased. Cortical thickness: Normal. Stones: None. Hydronephrosis: None. Cyst or mass: None. LEFT KIDNEY: Not able to be visualized on the current exam. Urinary Bladder: No significant abnormality. Free Fluid: None. Additional Findings: None. IMPRESSION 1. Stable increased cortical echogenicity in the right kidney suggestive of medical renal disease. 2. Left kidney was not visualized on this exam. Signer Name: Garland Putnam MD Signed: 11/16/2019 11:29 AM Workstation Name: [id number]
--- NOTE | 2019-11-16 13:10 | Progress Note ---
Assessment and Plan 79 y/o female with acute respiratory failure, secondary to volume overload and possible COPD exacerbation. 1. Continue IV lasix therapy 2. Continue Pred 40 and will drop to 20 either tomorrow or Thursday. 3. Rate control per cards 4. BP control 5. PPV nightly Subjective Date of service: 11/16/19 Principal diagnosis: Acute respiratory failure Interval history: No acute events. Stable on nasal cannula but did not wear PPV last night as It was not ordered. Objective Vital Signs - 12hr 11/16/19 11/16/19 11/16/19 03:02 04:00 05:28 Temperature 97.7 F Pulse Rate 36 L 103 H 103 H Respiratory 18 Rate Blood Pressure 126/74 126/74 O2 Sat by Pulse 99 Oximetry 11/16/19 11/16/19 11/16/19 07:41 08:39 11:29 Temperature 97.7 F 98.2 F Pulse Rate 94 H 60 Respiratory 20 20 Rate Blood Pressure 133/71 114/67 O2 Sat by Pulse 59 L 100 100 Oximetry 11/16/19 11/16/19 11:31 13:01 Temperature Pulse Rate 92 H 92 H Respiratory Rate Blood Pressure 114/67 O2 Sat by Pulse 100 Oximetry Constitutional: no acute distress, alert Eyes: non-icteric Effort: mildly labored Ascultation: Bilateral: diminished breath sounds Percussion: Bilateral: not dull Cardiovascular: irregular rhythm (no mrg) Gastrointestinal: normoactive bowel sounds, soft, non-tender, non-distended Integumentary: normal Extremities: no cyanosis, pink and warm, edema (1+ bilateral edema) Neurologic: normal mental status, non-focal exam, pupils equal and round, CN II- XII normal Psychiatric: mood appropriate, affect normal CBC and BMP: 11/13/19 02:57 11/16/19 04:45 ABG, PT/INR, D-dimer: ABG ABG pH 7.400 pH Units (7.350-7.450) 11/13/19 03:35 ABG pCO2 45.0 mm Hg 11/13/19 03:35 ABG pO2 93.0 mm Hg (80.0-90.0) H 11/13/19 03:35 ABG O2 Saturation 97.0 % (95.0-99.0) 11/13/19 03:35 PT/INR, D-dimer PT 19.1 Sec. (12.2-14.9) H 11/12/19 01:56 INR 1.65 (0.87-1.13) H 11/12/19 01:56 Abnormal lab findings: Abnormal Labs 11/12/19 11/12/19 11/12/19 01:56 01:56 01:56 RBC 3.23 L Hgb 9.9 L Hct RDW 18.7 H Lymph % (Auto) [place] % (Auto) Lymph # Seg Neutrophils % Seg Neuts % (Manual) 76.0 H Lymphocytes % (Manual) 13.0 L Monocytes % (Manual) 9.0 H Seg Neutrophils # Lymphocytes # (Manual) 1.1 L PT 19.1 H INR 1.65 H ABG pO2 ABG HCO3 ABG O2 Saturation ABG Hemoglobin Sodium 132 L Potassium Chloride 90.7 L BUN 92 H Creatinine 2.0 H Glucose 320 H POC Glucose Calcium 8.3 L Alkaline Phosphatase 177 H CK-MB (CK-2) Rel Index Troponin T NT-Pro-B Natriuret Pep Total Protein 6.2 L Albumin 3.3 L Urine Creatinine 11/12/19 11/12/19 11/12/19 01:56 02:40 02:57 RBC Hgb Hct RDW Lymph % (Auto) [place] % (Auto) Lymph # Seg Neutrophils % Seg Neuts % (Manual) Lymphocytes % (Manual) Monocytes % (Manual) Seg Neutrophils # Lymphocytes # (Manual) PT INR ABG pO2 194.4 H ABG HCO3 ABG O2 Saturation 99.2 H ABG Hemoglobin 10.5 L Sodium Potassium Chloride BUN Creatinine Glucose POC Glucose Calcium Alkaline Phosphatase CK-MB (CK-2) Rel Index 8.0 H Troponin T 0.056 H NT-Pro-B Natriuret Pep 3636 H Total Protein Albumin Urine Creatinine 11/12/19 11/12/19 11/12/19 07:57 13:28 23:59 RBC Hgb Hct RDW Lymph % (Auto) [place] % (Auto) Lymph # Seg Neutrophils % Seg Neuts % (Manual) Lymphocytes % (Manual) Monocytes % (Manual) Seg Neutrophils # Lymphocytes # (Manual) PT INR ABG pO2 ABG HCO3 ABG O2 Saturation ABG Hemoglobin Sodium Potassium Chloride BUN Creatinine Glucose POC Glucose 304 H Calcium Alkaline Phosphatase CK-MB (CK-2) Rel Index 6.6 H 5.4 H Troponin T 0.058 H 0.050 H NT-Pro-B Natriuret Pep Total Protein Albumin Urine Creatinine 11/13/19 11/13/19 11/13/19 02:57 02:57 03:35 RBC 3.09 L Hgb 9.8 L Hct 29.8 L RDW 18.7 H Lymph % (Auto) 5.8 L [place] % (Auto) 7.6 H Lymph # 0.6 L Seg Neutrophils % 86.5 H Seg Neuts % (Manual) Lymphocytes % (Manual) Monocytes % (Manual) Seg Neutrophils # 8.5 H Lymphocytes # (Manual) PT INR ABG pO2 93.0 H ABG HCO3 27.3 H ABG O2 Saturation ABG Hemoglobin 10.3 L Sodium 136 L Potassium Chloride 96.1 L BUN 85 H Creatinine 1.8 H Glucose 288 H POC Glucose Calcium Alkaline Phosphatase CK-MB (CK-2) Rel Index Troponin T NT-Pro-B Natriuret Pep Total Protein Albumin Urine Creatinine 11/13/19 11/13/19 11/14/19 05:51 23:27 05:28 RBC Hgb Hct RDW Lymph % (Auto) [place] % (Auto) Lymph # Seg Neutrophils % Seg Neuts % (Manual) Lymphocytes % (Manual) Monocytes % (Manual) Seg Neutrophils # Lymphocytes # (Manual) PT INR ABG pO2 ABG HCO3 ABG O2 Saturation ABG Hemoglobin Sodium Potassium Chloride BUN Creatinine Glucose POC Glucose 273 H 179 H 205 H Calcium Alkaline Phosphatase CK-MB (CK-2) Rel Index Troponin T NT-Pro-B Natriuret Pep Total Protein Albumin Urine Creatinine 11/14/19 11/14/19 11/14/19 09:10 12:44 18:45 RBC Hgb Hct RDW Lymph % (Auto) [place] % (Auto) Lymph # Seg Neutrophils % Seg Neuts % (Manual) Lymphocytes % (Manual) Monocytes % (Manual) Seg Neutrophils # Lymphocytes # (Manual) PT INR ABG pO2 ABG HCO3 ABG O2 Saturation ABG Hemoglobin Sodium Potassium Chloride BUN 81 H Creatinine 2.0 H Glucose 205 H POC Glucose 193 H Calcium Alkaline Phosphatase CK-MB (CK-2) Rel Index Troponin T NT-Pro-B Natriuret Pep Total Protein 5.9 L Albumin 3.3 L Urine Creatinine 71.6 H 11/14/19 11/15/19 11/15/19 21:42 05:38 07:59 RBC Hgb Hct RDW Lymph % (Auto) [place] % (Auto) Lymph # Seg Neutrophils % Seg Neuts % (Manual) Lymphocytes % (Manual) Monocytes % (Manual) Seg Neutrophils # Lymphocytes # (Manual) PT INR ABG pO2 ABG HCO3 ABG O2 Saturation ABG Hemoglobin Sodium Potassium 5.2 H Chloride 96.8 L BUN 96 H Creatinine 2.6 H Glucose 213 H POC Glucose 262 H 208 H Calcium Alkaline Phosphatase CK-MB (CK-2) Rel Index Troponin T NT-Pro-B Natriuret Pep Total Protein Albumin Urine Creatinine 11/15/19 11/15/19 11/15/19 11:41 16:52 16:56 RBC Hgb Hct RDW Lymph % (Auto) [place] % (Auto) Lymph # Seg Neutrophils % Seg Neuts % (Manual) Lymphocytes % (Manual) Monocytes % (Manual) Seg Neutrophils # Lymphocytes # (Manual) PT INR ABG pO2 ABG HCO3 ABG O2 Saturation ABG Hemoglobin Sodium Potassium Chloride BUN Creatinine Glucose POC Glucose 301 H < 40 L < 40 L Calcium Alkaline Phosphatase CK-MB (CK-2) Rel Index Troponin T NT-Pro-B Natriuret Pep Total Protein Albumin Urine Creatinine 11/15/19 11/16/19 11/16/19 21:46 04:45 05:55 RBC Hgb Hct RDW Lymph % (Auto) [place] % (Auto) Lymph # Seg Neutrophils % Seg Neuts % (Manual) Lymphocytes % (Manual) Monocytes % (Manual) Seg Neutrophils # Lymphocytes # (Manual) PT INR ABG pO2 ABG HCO3 ABG O2 Saturation ABG Hemoglobin Sodium 136 L Potassium Chloride 94.4 L BUN 108 H Creatinine 2.9 H Glucose 155 H POC Glucose 52 L 150 H Calcium Alkaline Phosphatase CK-MB (CK-2) Rel Index Troponin T NT-Pro-B Natriuret Pep Total Protein Albumin Urine Creatinine 11/16/19 11:45 RBC Hgb Hct RDW Lymph % (Auto) [place] % (Auto) Lymph # Seg Neutrophils % Seg Neuts % (Manual) Lymphocytes % (Manual) Monocytes % (Manual) Seg Neutrophils # Lymphocytes # (Manual) PT INR ABG pO2 ABG HCO3 ABG O2 Saturation ABG Hemoglobin Sodium Potassium Chloride BUN Creatinine Glucose POC Glucose 270 H Calcium Alkaline Phosphatase CK-MB (CK-2) Rel Index Troponin T NT-Pro-B Natriuret Pep Total Protein Albumin Urine Creatinine
--- NOTE | 2019-11-16 13:57 | Progress Note ---
Assessment and Plan Assessment and plan: 79-year-old female with a history of COPD on home O2, diabetes, congestive heart failure, hypertension and atrial fibrillation presented to the ED in acute respiratory distress secondary to volume overload. Patient was able to be extubated today. Hospital course complicated by continued atrial fibrillation with rapid ventricular rate. Bedside swallow eval now to see if patient can swallow pills * Patient with two . Discussed with Medical rec ords to merge 11/15: Patient seen by speech therapy today still with NG tube for dietary needs. Concerning for high risk of aspiration especially with intermittent increasing work of breathing. Lasix was held due to worsening renal function. Discussed with family about concern about swallow evaluation and if alternative means of therapy for nutrition should be considered for 2 weeks. Per case management family in the past has refused SNF will rediscuss also. Patient is nonambulatory. Plan discussed with switchboard operator assistant - Patient Problems (1) acute diastolic CHF exacerbation with preserved EF Current Visit: Yes Status: Acute Qualifiers: Heart failure type: unspecified Qualified Code(s): I50.9 - Heart failure, unspecified Plan to address problem: Seems to be improving. Follow-up chest x-ray shows improving edema. Also i mproving clinically. Continue medical management. May require changing from Coreg to Lopressor for rate control. Now extubated back to nasal cannular and stable (2) Elevated troponin, Type 2 NSTEMI Current Visit: Yes Status: Acute Plan to address problem: Secondary to renal insufficiency (3) PNA (pneumonia) Current Visit: Yes Status: Acute Qualifiers: Pneumonia type: due to unspecified organism Laterality: unspecified laterality Lung location: unspecified part of lung Qualified Code(s): J18.9 - Pneumonia, unspecified organism Plan to address problem: No airspace disease or pleural effusion on follow-up chest x-ray this morning. Titrate antibiotics to off versus p.o. (4) Acute kidney injury likely secondary to vasomotor nephropathy Current Visit: Yes Status: Acute Qualifiers: Renal failure chronicity: acute Acute renal failure type: unspecified Qualified Code(s): N17.9 - Acute kidney failure, unspecified Plan to address problem: Patient renal failure BUN/creatinine consistent with prerenal azotemia. Versus ATN. Since congestive heart failure is improving. Will titrate down on diuretics to once a day. Patient did have some improvement over p.m. continue gentle rehydration. Yesterday Lasix was decreased to 20 mg IV every 12. Today is held. We will see how this affects the renal function today. (5) Respiratory distress with hypoxia Current Visit: Yes Status: Acute Plan to address problem: Patient blood gases have improved. Potential extubation a day. Discussed plan with pulmonology. (6) COPD with acute exacerbation Current Visit: Yes Status: Acute Plan to address problem: Non-extubated. Will need to obtain ABG. Pulmonology consult. (7) Atrial fibrillation with rapid ventricular response Current Visit: Yes Status: Acute Plan to address problem: Patient continues to have atrial fibrillation with rapid ventricular rate. If patient able to tolerate p.o. we will start patient on Cardizem versus Lopressor. If not able to manage by mouth we will treat with Cardizem drip. Will consult cardiology (8) Morbid obesity Current Visit: Yes Status: Acute Plan to address problem: We will decrease caloric intake. (9) Diabetes mellitus with hyperglycemia Current Visit: Yes Status: Acute (10) HTN (hypertension) Current Visit: Yes Status: Chronic (11) Hyperlipidemia Current Visit: Yes Status: Chronic (12) History of CVA (cerebrovascular accident) Current Visit: Yes Status: Chronic (13) History of pulmonary embolism Current Visit: Yes Status: Chronic (14) Anemia Current Visit: Yes Status: Acute Will transfer to telemetry. History Interval history: Patient seen and examined, improving although still with shortness of breath. Not yet at baseline. Hospitalist Physical - Physical exam Narrative exam: General appearance: Present: mild distress, well-nourished, morbidly Obese - EENT Eyes: Present: PERRL, EOM intact ENT: hearing intact, clear oral mucosa - Respiratory Respiratory: bilateral: rhonchi - Cardiovascular Rhythm: regular Heart Sounds: Present: S1 & S2, irregularly irregular - Extremities Extremities: no ischemia, pulses intact, pulses symmetrical Peripheral Pulses: within normal limits - Abdominal General gastrointestinal: soft, non-tender, distended, hypoactive bowel sounds - Integumentary Integumentary: Present: clear, warm, dry - Psychiatric Psychiatric: appropriate mood/affect, intact judgment & insight, memory intact - Neurologic Neurologic: CNII-XII intact - Constitutional Vitals: Temp Pulse Resp BP Pulse Ox 98.2 F 92 H 20 114/67 100 11/16/19 11:29 05/27/20 13:01 11/16/19 11:29 11/16/19 13:01 11/16/19 11:31 General appearance: Present: mild distress, well-nourished HEART Score - HEART Score Troponin: Troponin T 0.050 ng/mL (0.00-0.029) H 11/12/19 13:28 Results - Labs CBC & Chem 7: 11/13/19 02:57 11/16/19 04:45 Labs: Laboratory Last Values WBC 9.8 K/mm3 (4.5-11.0) 11/13/19 02:57 RBC 3.09 M/mm3 (3.65-5.03) L 11/13/19 02:57 Hgb 9.8 gm/dl (10.1-14.3) L 11/13/19 02:57 Hct 29.8 % (30.3-42.9) L 11/13/19 02:57 MCV 96 fl (79-97) 11/13/19 02:57 MCH 32 pg (28-32) 11/13/19 02:57 MCHC 33 % (30-34) 11/13/19 02:57 RDW 18.7 % (13.2-15.2) H 11/13/19 02:57 Plt Count 165 K/mm3 (140-440) 11/13/19 02:57 Lymph % (Auto) 5.8 % (13.4-35.0) L 11/13/19 02:57 [place] % (Auto) 7.6 % (0.0-7.3) H 11/13/19 02:57 Eos % (Auto) 0.1 % (0.0-4.3) 11/13/19 02:57 Baso % (Auto) 0.0 % (0.0-1.8) 11/13/19 02:57 Lymph # 0.6 K/mm3 (1.2-5.4) L 11/13/19 02:57 [place] # 0.7 K/mm3 (0.0-0.8) 11/13/19 02:57 Eos # 0.0 K/mm3 (0.0-0.4) 11/13/19 02:57 Baso # 0.0 K/mm3 (0.0-0.1) 11/13/19 02:57 Add Manual Diff Complete 11/12/19 01:56 Total Counted 100 11/12/19 01:56 Seg Neutrophils % 86.5 % (40.0-70.0) H 11/13/19 02:57 Seg Neuts % (Manual) 76.0 % (40.0-70.0) H 11/12/19 01:56 Band Neutrophils % 0 % 11/12/19 01:56 Lymphocytes % (Manual) 13.0 % (13.4-35.0) L 11/12/19 01:56 Reactive Lymphs % (Man) 0 % 11/12/19 01:56 Monocytes % (Manual) 9.0 % (0.0-7.3) H 11/12/19 01:56 Eosinophils % (Manual) 2.0 % (0.0-4.3) 11/12/19 01:56 Basophils % (Manual) 0 % (0.0-1.8) 11/12/19 01:56 Metamyelocytes % 0 % 11/12/19 01:56 Myelocytes % 0 % 11/12/19 01:56 Promyelocytes % 0 % 11/12/19 01:56 Blast Cells % 0 % 11/12/19 01:56 Nucleated RBC % Not Reportable 11/12/19 01:56 Seg Neutrophils # 8.5 K/mm3 (1.8-7.7) H 11/13/19 02:57 Seg Neutrophils # Man 6.5 K/mm3 (1.8-7.7) 11/12/19 01:56 Band Neutrophils # 0.0 K/mm3 11/12/19 01:56 Lymphocytes # (Manual) 1.1 K/mm3 (1.2-5.4) L 11/12/19 01:56 Abs React Lymphs (Man) 0.0 K/mm3 11/12/19 01:56 Monocytes # (Manual) 0.8 K/mm3 (0.0-0.8) 11/12/19 01:56 Eosinophils # (Manual) 0.2 K/mm3 (0.0-0.4) 11/12/19 01:56 Basophils # (Manual) 0.0 K/mm3 (0.0-0.1) 11/12/19 01:56 Metamyelocytes # 0.0 K/mm3 11/12/19 01:56 Myelocytes # 0.0 K/mm3 11/12/19 01:56 Promyelocytes # 0.0 K/mm3 11/12/19 01:56 Blast Cells # 0.0 K/mm3 11/12/19 01:56 WBC Morphology Not Reportable 11/12/19 01:56 Hypersegmented Neuts Not Reportable 11/12/19 01:56 Hyposegmented Neuts Not Reportable 11/12/19 01:56 Hypogranular Neuts Not Reportable 11/12/19 01:56 Smudge Cells Not Reportable 11/12/19 01:56 Toxic Granulation Not Reportable 11/12/19 01:56 Toxic Vacuolation Not Reportable 11/12/19 01:56 Dohle Bodies Not Reportable 11/12/19 01:56 Pelger-Huet Anomaly Not Reportable 11/12/19 01:56 Brian Rods Not Reportable 11/12/19 01:56 Platelet Estimate Consistent w auto 11/12/19 01:56 Clumped Platelets Not Reportable 11/12/19 01:56 Plt Clumps, EDTA Not Reportable 11/12/19 01:56 Large Platelets Not Reportable 11/12/19 01:56 Giant Platelets Not Reportable 11/12/19 01:56 Platelet Satelliting Not Reportable 11/12/19 01:56 Plt Morphology Comment Not Reportable 11/12/19 01:56 RBC Morphology Not Reportable 11/12/19 01:56 Dimorphic RBCs Not Reportable 11/12/19 01:56 Polychromasia Not Reportable 11/12/19 01:56 Hypochromasia Not Reportable 11/12/19 01:56 Poikilocytosis Not Reportable 11/12/19 01:56 Anisocytosis 1+ 11/12/19 01:56 Microcytosis Not Reportable 11/12/19 01:56 Macrocytosis Not Reportable 11/12/19 01:56 Spherocytes Not Reportable 11/12/19 01:56 Pappenheimer Bodies Not Reportable 11/12/19 01:56 Sickle Cells Not Reportable 11/12/19 01:56 Target Cells Not Reportable 11/12/19 01:56 Tear Drop Cells Not Reportable 11/12/19 01:56 Ovalocytes Not Reportable 11/12/19 01:56 Helmet Cells Not Reportable 11/12/19 01:56 [place] Bodies Not Reportable 11/12/19 01:[address] [place] [address] Rings Not Reportable 11/12/19 01:56 [place] Cells Not Reportable 11/12/19 01:56 Bite Cells Not Reportable 11/12/19 01:56 Crenated Cell Not Reportable 11/12/19 01:56 Elliptocytes Not Reportable 11/12/19 01:56 Acanthocytes (Spur) Not Reportable 11/12/19 01:56 Rouleaux Not Reportable 11/12/19 01:56 Hemoglobin C Crystals Not Reportable 11/12/19 01:56 Schistocytes Not Reportable 11/12/19 01:56 Malaria parasites Not Reportable 11/12/19 01:56 Tom Bodies Not Reportable 11/12/19 01:56 Hem Pathologist Commnt No 11/12/19 01:56 PT 19.1 Sec. (12.2-14.9) H 11/12/19 01:56 INR 1.65 (0.87-1.13) H 11/12/19 01:56 APTT 27.1 Sec. (24.2-36.6) 11/12/19 01:56 ABG pH 7.400 pH Units (7.350-7.450) 11/13/19 03:35 ABG pCO2 45.0 mm Hg 11/13/19 03:35 ABG pO2 93.0 mm Hg (80.0-90.0) H 11/13/19 03:35 ABG HCO3 27.3 mmol/L (20.0-26.0) H 11/13/19 03:35 ABG O2 Saturation 97.0 % (95.0-99.0) 11/13/19 03:35 ABG O2 Content 13.9 (0.0-44) 11/13/19 03:35 ABG Base Excess 2.1 mmol/L (-2.0-3.0) 11/13/19 03:35 ABG Hemoglobin 10.3 gm/dl (12.0-16.0) L 11/13/19 03:35 ABG Carboxyhemoglobin 1.4 % (0.0-5.0) 11/13/19 03:35 ABG Methemoglobin 0.5 % (0.0-1.5) 11/13/19 03:35 Oxyhemoglobin 95.2 % (95.0-99.0) 11/13/19 03:35 FiO2 35 % 11/13/19 03:35 Sodium 136 mmol/L (137-145) L 11/16/19 04:45 Potassium 4.9 mmol/L (3.6-5.0) 11/16/19 04:45 Chloride 94.4 mmol/L (98-107) L 11/16/19 04:45 Carbon Dioxide 23 mmol/L (22-30) 11/16/19 04:45 Anion Gap 24 mmol/L 11/16/19 04:45 BUN 108 mg/dL (7-17) H 11/16/19 04:45 Creatinine 2.9 mg/dL (0.7-1.2) H 11/16/19 04:45 Estimated GFR 19 ml/min 11/16/19 04:45 BUN/Creatinine Ratio 37 % 11/16/19 04:45 Glucose 155 mg/dL (65-100) H 11/16/19 04:45 POC Glucose 270 (70-105) H 11/16/19 11:45 Lactic Acid 1.50 mmol/L (0.7-2.0) 11/12/19 01:56 Calcium 8.7 mg/dL (8.4-10.2) 11/16/19 04:45 Total Bilirubin 0.50 mg/dL (0.1-1.2) 11/14/19 09:10 AST 21 units/L (5-40) 11/14/19 09:10 ALT 39 units/L (7-56) 11/14/19 09:10 Alkaline Phosphatase 104 units/L (35-129) 11/14/19 09:10 Total Creatine Kinase 53 units/L (30-135) 11/12/19 13:28 CK-MB (CK-2) 2.9 ng/mL (0.0-4.0) 11/12/19 13:28 CK-MB (CK-2) Rel Index 5.4 (0-4) H 11/12/19 13:28 Troponin T 0.050 ng/mL (0.00-0.029) H 11/12/19 13:28 NT-Pro-B Natriuret Pep 3636 pg/mL (0-900) H 11/12/19 02:57 Total Protein 5.9 g/dL (6.3-8.2) L 11/14/19 09:10 Albumin 3.3 g/dL (3.9-5) L 11/14/19 09:10 Albumin/Globulin Ratio 1.3 % 11/14/19 09:10 Triglycerides 85 mg/dL (2-149) 11/12/19 01:56 Cholesterol 131 mg/dL (50-199) 11/12/19 01:56 LDL Cholesterol Direct 66 mg/dL (50-130) 11/12/19 01:56 HDL Cholesterol 55 mg/dL (40-59) 11/12/19 01:56 Cholesterol/HDL Ratio 2.38 % 11/12/19 01:56 Urine Color Straw (Yellow) 11/12/19 01:35 Urine Turbidity Clear (Clear) 11/12/19 01:35 Urine pH 5.0 (5.0-7.0) 11/12/19 01:35 Ur Specific [place] 1.009 (1.003-1.030) 11/12/19 01:35 Urine Protein <15 mg/dl mg/dL (Negative) 11/12/19 01:35 Urine Glucose (UA) Neg mg/dL (Negative) 11/12/19 01:35 Urine Ketones Neg mg/dL (Negative) 11/12/19 01:35 Urine Blood Neg (Negative) 11/12/19 01:35 Urine Nitrite Neg (Negative) 11/12/19 01:35 Urine Bilirubin Neg (Negative) 11/12/19 01:35 Urine Urobilinogen < 2.0 mg/dL (<2.0) 11/12/19 01:35 Ur Leukocyte Esterase Neg (Negative) 11/12/19 01:35 Urine WBC (Auto) < 1.0 /HPF (0.0-6.0) 11/12/19 01:35 Urine RBC (Auto) < 1.0 /HPF (0.0-6.0) 11/12/19 01:35 U Epithel Cells (Auto) < 1.0 /HPF (0-13.0) 11/12/19 01:35 Urine Mucus Few /HPF 11/12/19 01:35 Urine Creatinine 71.6 mg/dL (0.1-20.0) H 11/14/19 18:45 Urine Sodium 22 mmol/L 11/14/19 18:45 Microbiology: Microbiology 11/12/19 02:45 Tracheal Aspirate Sputum Culture - Preliminary Gram Negative Miki 11/12/19 02:05 Peripheral/Venous Blood Culture - Preliminary NO GROWTH AFTER 4 DAYS Armendariz/IV: Voiding Method External Female Catheter IV Catheter Type [Right Peripheral IV Forearm] IV Catheter Type [Left Chest] INT / Saline Lock IV Catheter Type [Right INT / Saline Lock Antecubital] Active Medications - Current Medications Current Medications: Generic Name Dose Route Start Last Admin Trade Name Freq PRN Reason Stop Dose Admin Acetaminophen 650 mg 11/12/19 05:48 Tylenol PO Q4H PRN Pain MILD(1-3)/Fever >100.5/IRBY Apixaban 2.5 mg 11/13/19 22:00 11/16/19 09:47 Eliquis PO 2.5 mg Q12HR ALLEGRA Administration Protocol Dextrose 50 ml 11/13/19 13:10 11/15/19 16:53 D50w (25gm) Syringe IV 50 ml Q30MIN PRN Administration Hypoglycemia Protocol Diltiazem HCl 90 mg 11/16/19 12:00 11/16/19 13:01 Cardizem PO 90 mg Q6H ALLEGRA Administration Insulin Glargine 25 units 11/16/19 13:00 Lantus SUB-Q DAILY ALLEGRA Insulin Human Lispro 0 unit 11/16/19 14:00 Humalog SUB-Q Q6HR ALLEGRA Protocol Lansoprazole 30 mg 11/15/19 10:00 11/16/19 09:47 Prevacid Solutab FEEDTUBE 30 mg QDAY ALLEGRA Administration Ondansetron HCl 4 mg 11/12/19 05:48 Zofran IV Q8H PRN Nausea And Vomiting Prednisone 40 mg 11/16/19 10:00 11/16/19 09:47 Deltasone PO 40 mg QDAY ALLEGRA Administration Simple Syrup 15 ml 11/13/19 19:44 Simple Syrup FEEDTUBE PRN PRN Hypoglycemia Simple Syrup 30 ml 11/13/19 19:44 11/15/19 21:55 Simple Syrup FEEDTUBE 30 ml PRN PRN Administration Hypoglycemia Sodium Bicarbonate 325 mg 11/13/19 19:44 Sodium Bicarbonate FEEDTUBE PRN PRN For Clogged Feeding Tube Sodium Chloride 10 ml 11/12/19 10:00 11/16/19 13:02 Sodium Chloride Flush Syringe 10 Ml IV 10 ml BID ALLEGRA Administration Sodium Chloride 10 ml 11/12/19 05:48 Sodium Chloride Flush Syringe 10 Ml IV PRN PRN LINE FLUSH Nutrition/Malnutrition Assess - Dietary Evaluation Nutrition/Malnutrition Findings: Nutrition Notes Start: 11/13/19 08:04 Freq: Status: Active Protocol: Document 11/15/19 15:36 LM (Rec: 11/15/19 15:45 LM [id number]) Nutrition Notes Initial or Follow up Brief Note Current Diagnosis CKD(stage I-IV),COPD,Decubitus (Pressure Ulcer),Diabetes, Hypertension,Heart Failure Other Pertinent Diagnosis Sacral wound Current Diet [facility] soft Labs/Tests K 5.2 BUN 96 Cr 2.6 BG 213 Pertinent Medications Reviewed Height 5 ft 4 in Weight 117.934 kg [place] Body Weight (kg) 54.54 BMI 44.6 Subjective/Other Information MD consult for TF. Pt was extubated yesterday and advanced to [facility] soft. ORGANIC CHEMIST recommends pt to be NPO. #2 Nutrition Diagnosis Increased nutrient needs ( specify in comment below) Diagnosis Progress(for reassessment Continues documentation) #1 Nutrition Diagnosis Inadequate oral intake Diagnosis Progress(for reassessment Continues documentation) Is patient on ventilator? No Is Patient Ambulatory and/or Out of Bed No REE-([facility]-confined to bed) 1967.472 Kcal/Kg value to use for calculation 13 Approximate Energy Requirements Using 1533 kcal/Kg Calculation Used for Recommendations [facility] Additional Notes Protein: 69-129g (0.8-1.5g/kg using AdjBW 86kg) CKD and wounds Fluid needs are 1ml/kcal Nutrition Intervention Change Diet Order: TF Nutrition Support: Nepro 1.8 at 35ml/hr Flush 150ml q4h Kcal 1,512 Protein (gm) 68 Fluid (mL) 611 Add Supplement/Snack (indicate name/kcal Reynold BID once TF is at goal /protein ) Provides kCal: 190 Provides Protein (gm) 5 Goal #1 Meet at least 80% of kcal and protein needs Goal #2 Wound healing Anticipated Discharge Needs: Unable to determine at this time Follow-Up By: 11/17/19 Additional Comments F/U for TF start/tolerance, K
[2019-11-16] MEDS: INSULIN LISPRO 100 UNIT/ML SUB-Q SCH ×2 (14:15→18:21)
[2019-11-16] MEDS: INSULIN GLARGINE 100 UNITS/ML SUB-Q SCH (17:55)
[2019-11-17] MEDS: INSULIN LISPRO 100 UNIT/ML SUB-Q SCH ×4 (01:24→17:26)
[2019-11-17 07:01] LABS: Calcium 8.9 mg/dL (8.4-10.2)
[2019-11-17] MEDS ORDERED: LIPASE 10,500/PROTEASE 25,000/AMYLASE 43,750 (UNITS) DR CAP FEEDTUBE PRN (09:00)
--- NOTE | 2019-11-17 10:24 | Progress Note ---
Assessment and Plan 1. Acute kidney injury: Likely vasomotor LUIS FERNANDO superimposed on CKD in setting of CHF +/- IV contrast. Renal US; L kidney not visualized, R kidney increased echogenicity. Creatinine level currently 2.8 from 2.9 from 2.6 from 2.0. Baseline creatinine likely around 2. High BUN likley from steroids. Monitor renal function. Renal prognosis is guarded. Avoid nephrotoxic agents. Meds dosage based on GFR. 2. FEN: Hyperkalemia, improved, monitor. Monitor lytes and volume status. 3. Acute on chronic CHF: Volume status has improved with diuresis. CXR clear. Cards following. 4. Acute on chronic COPD: Was intubated on admission. Extubated 11/13 to NC O2. On PO steroids. SOB improving. Has home O2 but not CPAP. Pulmonology following. 5. Elevated troponins: Cards following. 6. A. Fib with RVR: On Cardizem. Cards following. 7. H/o CVA. 8. H/o PE. 9. Morbid obesity. Subjective Patient was seen and examined at time of exam. She had no complaints at time of exam. Objective - Exam: General appearance: well-developed, well-nourished, appears stated age, obese, NC O2, NGT HEENT: ATNC, OSVALDO, hearing intact, vision intact Neck: neck supple, trachea midline Respiratory: decreased Breath Sounds (bibasilar) Heart: irregularly irregular, S1S2, no murmur Gastrointestinal: obese, soft, normoactive bowel sounds, not tender Integumentary: no rash, warm and dry Neurologic: no focal deficit Ext: trace BLE edema noted Psychiatric: mood/affect appropriate, cooperative Subjective Date of service: 11/17/19 Principal diagnosis: Acute respiratory failure Objective - Vital Signs Vital signs: Vital Signs - 12hr 11/17/19 11/17/19 11/17/19 00:00 02:13 04:00 Temperature 97.8 F Pulse Rate 80 80 80 Respiratory Rate Blood Pressure Blood Pressure 140/68 [Left] O2 Sat by Pulse 92 Oximetry 11/17/19 11/17/19 04:18 06:12 Temperature 97.9 F Pulse Rate 81 81 Respiratory 18 Rate Blood Pressure 163/81 163/81 Blood Pressure [Left] O2 Sat by Pulse 91 Oximetry - Lab 11/13/19 02:57 11/17/19 05:35 Most recent lab results ABG pH 7.400 pH Units (7.350-7.450) 11/13/19 03:35 ABG pCO2 45.0 mm Hg 11/13/19 03:35 ABG pO2 93.0 mm Hg (80.0-90.0) H 11/13/19 03:35 ABG HCO3 27.3 mmol/L (20.0-26.0) H 11/13/19 03:35 ABG O2 Saturation 97.0 % (95.0-99.0) 11/13/19 03:35 Calcium 8.9 mg/dL (8.4-10.2) 11/17/19 05:35 Urine Creatinine 71.6 mg/dL (0.1-20.0) H 11/14/19 18:45 Urine Sodium 22 mmol/L 11/14/19 18:45 Medications & Allergies - Medications Allergies/Adverse Reactions: Allergies No Known Allergies Allergy (Verified 11/16/19 09:55) Home Medications: Home Medications Medication Instructions Recorded Confirmed Last Taken Type Apixaban [Eliquis] 5 mg PO BID 11/04/19 11/04/19 Unknown History AtorvaSTATin [Lipitor] 40 mg PO QHS 11/04/19 11/04/19 Unknown History Ferrous Sulfate [Ferrous Sulfate 324 mg PO QAM 11/04/19 11/04/19 Unknown History 324 MG] Fluticasone/Salmeterol [Advair 1 puff IH BID 11/04/19 11/04/19 Unknown History Diskus 250-50 mcg] HYDROcodone/APAP 5-325 [[place] 1 each PO Q6HR PRN 11/04/19 11/04/19 Unknown History 5-325 mg TAB] Linaclotide [Linzess] 290 mcg PO QDAY 11/04/19 11/04/19 Unknown History Montelukast [Singulair] 10 mg PO QPM 11/04/19 11/04/19 Unknown History Sitagliptin Phosphate [Januvia] 50 mg PO QDAY 11/04/19 11/04/19 Unknown History Torsemide [Demadex] 100 mg PO QDAY 11/04/19 11/04/19 Unknown History Umeclidinium [place] [Incruse 62.5 mcg IH QDAY 11/04/19 11/04/19 Unknown History Ellipta 62.5MCG] Valsartan [Diovan] 160 mg PO QDAY 11/04/19 11/04/19 Unknown History Zolpidem [Ambien] 5 mg PO QHS PRN 11/04/19 11/04/19 Unknown History glipiZIDE [Glucotrol] 5 mg PO QDAY 11/04/19 11/04/19 Unknown History predniSONE [Deltasone] 10 mg PO QDAY 11/04/19 11/04/19 Unknown History traZODone [Desyrel] 50 mg PO QHS 11/04/19 11/04/19 Unknown History Metoprolol [Lopressor TAB] 50 mg PO BID #60 tablet 11/10/19 Unknown Rx Prednisone [predniSONE 10 mg 10 mg PO .TAPER #1 tab.ds.pk 11/10/19 Unknown Rx (6-Day Pack, 21 Tabs)] cefUROXime [Ceftin] 250 mg PO DAILY #3 tablet 11/10/19 Unknown Rx predniSONE [Deltasone] 20 mg PO QDAY #20 tab 11/10/19 Unknown Rx Apixaban [Eliquis] 5 mg PO DAILY 11/12/19 11/12/19 Unknown History AtorvaSTATin [Lipitor] 40 mg PO QHS 11/12/19 11/12/19 Unknown History Ferrous Sulfate [Slow Release Iron 47.5 mg PO DAILY 11/12/19 11/12/19 Unknown History 47.5 Mg tab] Montelukast [Singulair] 10 mg PO QPM 11/12/19 11/12/19 Unknown History NIFEdipine [Nifedipine ER] 60 mg PO BID 11/12/19 11/12/19 Unknown History Pantoprazole [Protonix] 40 mg PO BID 11/12/19 11/12/19 Unknown History Potassium Chloride 10 meq PO BID 11/12/19 11/12/19 Unknown History Sitagliptin Phosphate [Januvia] 50 mg PO DAILY 11/12/19 11/12/19 Unknown History Torsemide [Demadex] 100 mg PO QDAY 11/12/19 11/12/19 Unknown History Valsartan [Diovan] 160 mg PO QDAY 11/12/19 11/12/19 Unknown History carvediloL [Coreg] 6.25 mg PO BID 11/12/19 11/12/19 Unknown History Active Medications: Generic Name Dose Route Start Last Admin Trade Name Freq PRN Reason Stop Dose Admin Acetaminophen 650 mg 11/12/19 05:48 Tylenol PO Q4H PRN Pain MILD(1-3)/Fever >100.5/IRBY Lipase/Protease/Amylase 1 each 11/17/19 09:00 Pancrepretty [place] 10,500 Unit FEEDTUBE PRN PRN For Clogged Feeding Tube Apixaban 2.5 mg 11/13/19 22:00 11/16/19 22:16 Eliquis PO 2.5 mg Q12HR ALLEGRA Administration Protocol Dextrose 50 ml 11/13/19 13:10 11/15/19 16:53 D50w (25gm) Syringe IV 50 ml Q30MIN PRN Administration Hypoglycemia Protocol Diltiazem HCl 90 mg 11/16/19 12:00 11/17/19 06:12 Cardizem PO 90 mg Q6H ALLEGRA Administration Insulin Glargine 25 units 11/16/19 13:00 11/16/19 17:55 Lantus SUB-Q 25 units DAILY ALLEGRA Administration Insulin Human Lispro 0 unit 11/16/19 14:00 11/17/19 06:43 Humalog SUB-Q 3 unit Q6HR ALLEGRA Administration Protocol Lansoprazole 30 mg 11/15/19 10:00 11/16/19 09:47 Prevacid Solutab FEEDTUBE 30 mg QDAY ALLEGRA Administration Ondansetron HCl 4 mg 11/12/19 05:48 Zofran IV Q8H PRN Nausea And Vomiting Prednisone 40 mg 11/16/19 10:00 11/16/19 09:47 Deltasone PO 40 mg QDAY ALLEGRA Administration Simple Syrup 15 ml 11/13/19 19:44 Simple Syrup FEEDTUBE PRN PRN Hypoglycemia Simple Syrup 30 ml 11/13/19 19:44 11/15/19 21:55 Simple Syrup FEEDTUBE 30 ml PRN PRN Administration Hypoglycemia Sodium Bicarbonate 325 mg 11/13/19 19:44 Sodium Bicarbonate FEEDTUBE PRN PRN For Clogged Feeding Tube Sodium Chloride 10 ml 11/12/19 10:00 11/16/19 22:17 Sodium Chloride Flush Syringe 10 Ml IV 10 ml BID ALLEGRA Administration Sodium Chloride 10 ml 11/12/19 05:48 Sodium Chloride Flush Syringe 10 Ml IV PRN PRN LINE FLUSH
--- NOTE | 2019-11-17 12:03 | Progress Note ---
Assessment and Plan 79 y/o female with acute respiratory failure, secondary to volume overload and possible COPD exacerbation. 1. Lasix therapy now held secondary to increase in BUN and Cr. 2. Will drop steroids down today. 3. Rate control per cards 4. BP control 5. PPV nightly Subjective Date of service: 11/17/19 Principal diagnosis: Acute respiratory failure Interval history: Patient was placed on bipap yesterday afternoon secondary to distress. Left on overnight. No other acute events. Objective Vital Signs - 12hr 11/17/19 11/17/19 11/17/19 00:00 02:13 04:00 Temperature 97.8 F Pulse Rate 80 80 80 Respiratory Rate Blood Pressure Blood Pressure 140/68 [Left] O2 Sat by Pulse 92 Oximetry 11/17/19 11/17/19 04:18 06:12 Temperature 97.9 F Pulse Rate 81 81 Respiratory 18 Rate Blood Pressure 163/81 163/81 Blood Pressure [Left] O2 Sat by Pulse 91 Oximetry Constitutional: no acute distress, alert Eyes: non-icteric Effort: mildly labored Ascultation: Bilateral: diminished breath sounds Percussion: Bilateral: not dull Cardiovascular: irregular rhythm (no mrg) Gastrointestinal: normoactive bowel sounds, soft, non-tender, non-distended Integumentary: normal Extremities: no cyanosis, pink and warm, edema (1+ bilateral edema) Neurologic: normal mental status, non-focal exam, pupils equal and round, CN II- XII normal Psychiatric: mood appropriate, affect normal CBC and BMP: 11/13/19 02:57 11/17/19 05:35 ABG, PT/INR, D-dimer: ABG ABG pH 7.400 pH Units (7.350-7.450) 11/13/19 03:35 ABG pCO2 45.0 mm Hg 11/13/19 03:35 ABG pO2 93.0 mm Hg (80.0-90.0) H 11/13/19 03:35 ABG O2 Saturation 97.0 % (95.0-99.0) 11/13/19 03:35 PT/INR, D-dimer PT 19.1 Sec. (12.2-14.9) H 11/12/19 01:56 INR 1.65 (0.87-1.13) H 11/12/19 01:56 Abnormal lab findings: Abnormal Labs 11/12/19 11/12/19 11/12/19 01:56 01:56 01:56 RBC 3.23 L Hgb 9.9 L Hct RDW 18.7 H Lymph % (Auto) [place] % (Auto) Lymph # Seg Neutrophils % Seg Neuts % (Manual) 76.0 H Lymphocytes % (Manual) 13.0 L Monocytes % (Manual) 9.0 H Seg Neutrophils # Lymphocytes # (Manual) 1.1 L PT 19.1 H INR 1.65 H ABG pO2 ABG HCO3 ABG O2 Saturation ABG Hemoglobin Sodium 132 L Potassium Chloride 90.7 L Carbon Dioxide BUN 92 H Creatinine 2.0 H Glucose 320 H POC Glucose Calcium 8.3 L Alkaline Phosphatase 177 H CK-MB (CK-2) Rel Index Troponin T NT-Pro-B Natriuret Pep Total Protein 6.2 L Albumin 3.3 L Urine Creatinine 11/12/19 11/12/19 11/12/19 01:56 02:40 02:57 RBC Hgb Hct RDW Lymph % (Auto) [place] % (Auto) Lymph # Seg Neutrophils % Seg Neuts % (Manual) Lymphocytes % (Manual) Monocytes % (Manual) Seg Neutrophils # Lymphocytes # (Manual) PT INR ABG pO2 194.4 H ABG HCO3 ABG O2 Saturation 99.2 H ABG Hemoglobin 10.5 L Sodium Potassium Chloride Carbon Dioxide BUN Creatinine Glucose POC Glucose Calcium Alkaline Phosphatase CK-MB (CK-2) Rel Index 8.0 H Troponin T 0.056 H NT-Pro-B Natriuret Pep 3636 H Total Protein Albumin Urine Creatinine 11/12/19 11/12/19 11/12/19 07:57 13:28 23:59 RBC Hgb Hct RDW Lymph % (Auto) [place] % (Auto) Lymph # Seg Neutrophils % Seg Neuts % (Manual) Lymphocytes % (Manual) Monocytes % (Manual) Seg Neutrophils # Lymphocytes # (Manual) PT INR ABG pO2 ABG HCO3 ABG O2 Saturation ABG Hemoglobin Sodium Potassium Chloride Carbon Dioxide BUN Creatinine Glucose POC Glucose 304 H Calcium Alkaline Phosphatase CK-MB (CK-2) Rel Index 6.6 H 5.4 H Troponin T 0.058 H 0.050 H NT-Pro-B Natriuret Pep Total Protein Albumin Urine Creatinine 11/13/19 11/13/19 11/13/19 02:57 02:57 03:35 RBC 3.09 L Hgb 9.8 L Hct 29.8 L RDW 18.7 H Lymph % (Auto) 5.8 L [place] % (Auto) 7.6 H Lymph # 0.6 L Seg Neutrophils % 86.5 H Seg Neuts % (Manual) Lymphocytes % (Manual) Monocytes % (Manual) Seg Neutrophils # 8.5 H Lymphocytes # (Manual) PT INR ABG pO2 93.0 H ABG HCO3 27.3 H ABG O2 Saturation ABG Hemoglobin 10.3 L Sodium 136 L Potassium Chloride 96.1 L Carbon Dioxide BUN 85 H Creatinine 1.8 H Glucose 288 H POC Glucose Calcium Alkaline Phosphatase CK-MB (CK-2) Rel Index Troponin T NT-Pro-B Natriuret Pep Total Protein Albumin Urine Creatinine 11/13/19 11/13/19 11/14/19 05:51 23:27 05:28 RBC Hgb Hct RDW Lymph % (Auto) [place] % (Auto) Lymph # Seg Neutrophils % Seg Neuts % (Manual) Lymphocytes % (Manual) Monocytes % (Manual) Seg Neutrophils # Lymphocytes # (Manual) PT INR ABG pO2 ABG HCO3 ABG O2 Saturation ABG Hemoglobin Sodium Potassium Chloride Carbon Dioxide BUN Creatinine Glucose POC Glucose 273 H 179 H 205 H Calcium Alkaline Phosphatase CK-MB (CK-2) Rel Index Troponin T NT-Pro-B Natriuret Pep Total Protein Albumin Urine Creatinine 11/14/19 11/14/19 11/14/19 09:10 12:44 18:45 RBC Hgb Hct RDW Lymph % (Auto) [place] % (Auto) Lymph # Seg Neutrophils % Seg Neuts % (Manual) Lymphocytes % (Manual) Monocytes % (Manual) Seg Neutrophils # Lymphocytes # (Manual) PT INR ABG pO2 ABG HCO3 ABG O2 Saturation ABG Hemoglobin Sodium Potassium Chloride Carbon Dioxide BUN 81 H Creatinine 2.0 H Glucose 205 H POC Glucose 193 H Calcium Alkaline Phosphatase CK-MB (CK-2) Rel Index Troponin T NT-Pro-B Natriuret Pep Total Protein 5.9 L Albumin 3.3 L Urine Creatinine 71.6 H 11/14/19 11/15/19 11/15/19 21:42 05:38 07:59 RBC Hgb Hct RDW Lymph % (Auto) [place] % (Auto) Lymph # Seg Neutrophils % Seg Neuts % (Manual) Lymphocytes % (Manual) Monocytes % (Manual) Seg Neutrophils # Lymphocytes # (Manual) PT INR ABG pO2 ABG HCO3 ABG O2 Saturation ABG Hemoglobin Sodium Potassium 5.2 H Chloride 96.8 L Carbon Dioxide BUN 96 H Creatinine 2.6 H Glucose 213 H POC Glucose 262 H 208 H Calcium Alkaline Phosphatase CK-MB (CK-2) Rel Index Troponin T NT-Pro-B Natriuret Pep Total Protein Albumin Urine Creatinine 11/15/19 11/15/19 11/15/19 11:41 16:52 16:56 RBC Hgb Hct RDW Lymph % (Auto) [place] % (Auto) Lymph # Seg Neutrophils % Seg Neuts % (Manual) Lymphocytes % (Manual) Monocytes % (Manual) Seg Neutrophils # Lymphocytes # (Manual) PT INR ABG pO2 ABG HCO3 ABG O2 Saturation ABG Hemoglobin Sodium Potassium Chloride Carbon Dioxide BUN Creatinine Glucose POC Glucose 301 H < 40 L < 40 L Calcium Alkaline Phosphatase CK-MB (CK-2) Rel Index Troponin T NT-Pro-B Natriuret Pep Total Protein Albumin Urine Creatinine 11/15/19 11/16/19 11/16/19 21:46 04:45 05:55 RBC Hgb Hct RDW Lymph % (Auto) [place] % (Auto) Lymph # Seg Neutrophils % Seg Neuts % (Manual) Lymphocytes % (Manual) Monocytes % (Manual) Seg Neutrophils # Lymphocytes # (Manual) PT INR ABG pO2 ABG HCO3 ABG O2 Saturation ABG Hemoglobin Sodium 136 L Potassium Chloride 94.4 L Carbon Dioxide BUN 108 H Creatinine 2.9 H Glucose 155 H POC Glucose 52 L 150 H Calcium Alkaline Phosphatase CK-MB (CK-2) Rel Index Troponin T NT-Pro-B Natriuret Pep Total Protein Albumin Urine Creatinine 11/16/19 11/16/19 11/17/19 11:45 18:16 01:06 RBC Hgb Hct RDW Lymph % (Auto) [place] % (Auto) Lymph # Seg Neutrophils % Seg Neuts % (Manual) Lymphocytes % (Manual) Monocytes % (Manual) Seg Neutrophils # Lymphocytes # (Manual) PT INR ABG pO2 ABG HCO3 ABG O2 Saturation ABG Hemoglobin Sodium Potassium Chloride Carbon Dioxide BUN Creatinine Glucose POC Glucose 270 H 238 H 206 H Calcium Alkaline Phosphatase CK-MB (CK-2) Rel Index Troponin T NT-Pro-B Natriuret Pep Total Protein Albumin Urine Creatinine 11/17/19 11/17/19 05:35 06:41 RBC Hgb Hct RDW Lymph % (Auto) [place] % (Auto) Lymph # Seg Neutrophils % Seg Neuts % (Manual) Lymphocytes % (Manual) Monocytes % (Manual) Seg Neutrophils # Lymphocytes # (Manual) PT INR ABG pO2 ABG HCO3 ABG O2 Saturation ABG Hemoglobin Sodium Potassium Chloride 96.2 L Carbon Dioxide 21 L BUN 120 H Creatinine 2.8 H Glucose 124 H POC Glucose 160 H Calcium Alkaline Phosphatase CK-MB (CK-2) Rel Index Troponin T NT-Pro-B Natriuret Pep Total Protein Albumin Urine Creatinine
[2019-11-17] MEDS: LANSOPRAZOLE 30 MG SOLUTAB FEEDTUBE SCH (13:05)
[2019-11-17] MEDS: APIXABAN 2.5 MG TAB PO SCH ×2 (13:05→23:21)
[2019-11-17] MEDS: predniSONE 20 MG TAB PO SCH (13:07)
--- NOTE | 2019-11-17 13:13 | Progress Note ---
Assessment and Plan Lasix held due to renal fxn. S/p gentle IVF hydration. Nephro recs noted. Cont Eliquis. Cont PO Cardizem 90mg q6h. Of note, per Speech Therapy, pt is at significant risk secondary to aspiration and poor pulmonary support. NPO status recommended. NGT in place with tube feeding infusing. If PEG tube placement is required, ok to hold Eliquis for 48 hrs prior to procedure. Pt seen in conjunction with Dr. Crowley, who agrees with the assessment and plan of care. - Patient Problems (1) Atrial fibrillation Current Visit: Yes Status: Chronic Qualifiers: Atrial fibrillation type: unspecified persistent Qualified Code(s): I48.19 - Other persistent atrial fibrillation; I48.1 - Persistent atrial fibrillation Plan to address problem: Currently rate controlled (2) LUIS FERNANDO (acute kidney injury) Current Visit: Yes Status: Acute (3) NSTEMI (non-ST elevated myocardial infarction) Current Visit: Yes Status: Acute Plan to address problem: Type 2 - in the setting of LUIS FERNANDO (4) Anemia Current Visit: Yes Status: Acute (5) Acute on chronic respiratory failure Current Visit: Yes Status: Acute (6) COPD (chronic obstructive pulmonary disease) Current Visit: Yes Status: Acute (7) History of CVA (cerebrovascular accident) Current Visit: Yes Status: Chronic (8) History of pulmonary embolism Current Visit: Yes Status: Chronic (9) HTN (hypertension) Current Visit: Yes Status: Chronic Qualifiers: Hypertension type: essential hypertension Qualified Code(s): I10 - Essential (primary) hypertension (10) Hyperlipidemia Current Visit: Yes Status: Chronic Qualifiers: Hyperlipidemia type: mixed hyperlipidemia Qualified Code(s): E78.2 - Mixed hyperlipidemia (11) Diabetes mellitus Current Visit: Yes Status: Chronic Qualifiers: Diabetes mellitus type: type 2 Diabetes mellitus complication status: with hyperglycemia (12) Morbid obesity Current Visit: Yes Status: Chronic Subjective Date of service: 11/17/19 Principal diagnosis: Acute Respiratory Failure Interval history: Pt noted to be on BiPAP last night - tolerated well. No current cardiac complaints. Tele reviewed - AF 80s with no acute events noted. Objective Vital Signs Temp Pulse Resp BP BP Pulse Ox 11/17/19 11:47 86 99 11/17/19 11:46 98.3 F 83 20 120/66 87 11/17/19 08:04 98.5 F 73 20 123/64 100 11/17/19 06:12 81 163/81 11/17/19 04:18 97.9 F 81 18 163/81 91 11/17/19 04:00 80 11/17/19 02:13 97.8 F 80 140/68 92 11/17/19 00:00 80 11/16/19 20:58 98.3 F 70 18 115/71 94 11/16/19 20:11 74 21 100 11/16/19 20:10 100 11/16/19 20:00 92 H 95 11/16/19 16:45 95 H 17 99 11/16/19 15:30 104 H 100 11/16/19 15:27 98.8 F 116 H 20 114/80 100 - Physical Examination General: Other (lethargic ) HEENT: Positive: EOMI, Normocephaly Neck: Positive: neck supple, trachea midline. Negative: JVD/HJR Cardiac: Positive: irregularly irregular, S1/S2 Lungs: Positive: Decreased Breath Sounds (bilaterally) Neuro: Positive: Grossly Intact, Motor Function Intact, Coordination Normal, Sensory Function Intact Abdomen: Positive: Soft, Active Bowel Sounds. Negative: Tender Skin: Negative: Rash, Wound Musculoskeletal: No Pain, Normal Range of Motion Extremities: Present: upper extr. pulses, lower extr. pulses, edema (trace BLE edema) - Labs and Meds Comprehensive Metabolic Panel 11/17/19 Range/Units 05:35 Sodium 137 (137-145) mmol/L Potassium 4.8 (3.6-5.0) mmol/L Chloride 96.2 L (98-107) mmol/L Carbon Dioxide 21 L (22-30) mmol/L BUN 120 H (7-17) mg/dL Creatinine 2.8 H (0.7-1.2) mg/dL Glucose 124 H (65-100) mg/dL Calcium 8.9 (8.4-10.2) mg/dL - Imaging and Cardiology EKG: report reviewed, image reviewed Echo: report reviewed (11/04/2019: EF 50-55%, impaired relaxation, mild to mod TR, RVSP 39mmHg) - Telemetry EKG Rhythm: Atrial Fibrillation - EKG Supraventricular dysrhythmia: atrial fibrillation
[2019-11-17] MEDS: INSULIN GLARGINE 100 UNITS/ML SUB-Q SCH (13:20)
--- NOTE | 2019-11-17 13:21 | Progress Note ---
Assessment and Plan Assessment and plan: 79-year-old female with a history of COPD on home O2, diabetes, congestive heart failure, hypertension and atrial fibrillation presented to the ED in acute respiratory distress secondary to volume overload. Patient was able to be extubated today. Hospital course complicated by continued atrial fibrillation with rapid ventricular rate. Bedside swallow eval now to see if patient can swallow pills * Patient with two . Discussed with Medical rec ords to merge 11/15: Patient seen by speech therapy today still with NG tube for dietary needs. Concerning for high risk of aspiration especially with intermittent increasing work of breathing. Lasix was held due to worsening renal function. Discussed with family about concern about swallow evaluation and if alternative means of therapy for nutrition should be considered for 2 weeks. Per case management family in the past has refused SNF will rediscuss also. Patient is nonambulatory. Plan discussed with interior decorator painting 11/17/19: Continues on BIPAP, still not able to tolerate PO and still on Tube feed. will decrease dose of Lantus due to Hypoglycemia. Hold Lasix - Patient Problems (1) acute diastolic CHF exacerbation with preserved EF Current Visit: Yes Status: Acute Qualifiers: Heart failure type: unspecified Qualified Code(s): I50.9 - Heart failure, unspecified Plan to address problem: Seems to be improving. Follow-up chest x-ray shows improving edema. Also improving clinically. Continue medical management. May require changing from Coreg to Lopressor for rate control. Now extubated back to nasal cannular and stable (2) Elevated troponin, Type 2 NSTEMI Current Visit: Yes Status: Acute Plan to address problem: Secondary to renal insufficiency (3) PNA (pneumonia) Current Visit: Yes Status: Acute Qualifiers: Pneumonia type: due to unspecified organism Laterality: unspecified laterality Lung location: unspecified part of lung Qualified Code(s): J18.9 - Pneumonia, unspecified organism Plan to address problem: No airspace disease or pleural effusion on follow-up chest x-ray this morning. Titrate antibiotics to off versus p.o. (4) Acute kidney injury likely secondary to vasomotor nephropathy Current Visit: Yes Status: Acute Qualifiers: Renal failure chronicity: acute Acute renal failure type: unspecified Qualified Code(s): N17.9 - Acute kidney failure, unspecified Plan to address problem: Patient renal failure BUN/creatinine consistent with prerenal azotemia. Versus ATN. Since congestive heart failure is improving. Will titrate down on diuretics to once a day. Patient did have some improvement over p.m. continue gentle rehydration. Yesterday Lasix was decreased to 20 mg IV every 12. Today is held. We will see how this affects the renal function today. (5) Respiratory distress with hypoxia Current Visit: Yes Status: Acute Plan to address problem: Patient blood gases have improved. Potential extubation a day. Discussed plan with pulmonology. (6) COPD with acute exacerbation Current Visit: Yes Status: Acute Plan to address problem: Non-extubated. Will need to obtain ABG. Pulmonology consult. (7) Atrial fibrillation with rapid ventricular response Current Visit: Yes Status: Acute Plan to address problem: Patient continues to have atrial fibrillation with rapid ventricular rate. If patient able to tolerate p.o. we will start patient on Cardizem versus Lopressor. If not able to manage by mouth we will treat with Cardizem drip. Will consult cardiology (8) Morbid obesity Current Visit: Yes Status: Acute Plan to address problem: We will decrease caloric intake. (9) Diabetes mellitus with hyperglycemia Current Visit: Yes Status: Acute (10) HTN (hypertension) Current Visit: Yes Status: Chronic (11) Hyperlipidemia Current Visit: Yes Status: Chronic (12) History of CVA (cerebrovascular accident) Current Visit: Yes Status: Chronic (13) History of pulmonary embolism Current Visit: Yes Status: Chronic (14) Anemia Current Visit: Yes Status: Acute Will transfer to telemetry. History Interval history: Patient seen and examined, improving although still with shortness of breath. Intermittent Bipap. Not yet at baseline. Hospitalist Physical - Physical exam Narrative exam: General appearance: Present: mild distress, well-nourished, morbidly Obese - EENT Eyes: Present: PERRL, EOM intact ENT: hearing intact, clear oral mucosa - Respiratory Respiratory: bilateral: rhonchi - Cardiovascular Rhythm: regular Heart Sounds: Present: S1 & S2, irregularly irregular - Extremities Extremities: no ischemia, pulses intact, pulses symmetrical Peripheral Pulses: within normal limits - Abdominal General gastrointestinal: soft, non-tender, distended, hypoactive bowel sounds - Integumentary Integumentary: Present: clear, warm, dry - Psychiatric Psychiatric: appropriate mood/affect, intact judgment & insight, memory intact - Neurologic Neurologic: CNII-XII intact - Constitutional Vitals: Temp Pulse Resp BP Pulse Ox 98.3 F 89 20 120/66 99 11/17/19 11:46 11/17/19 13:17 11/17/19 11:46 11/17/19 11:46 11/17/19 11:47 General appearance: Present: mild distress, well-nourished HEART Score - HEART Score Troponin: Troponin T 0.050 ng/mL (0.00-0.029) H 11/12/19 13:28 Results - Labs CBC & Chem 7: 11/13/19 02:57 11/17/19 05:35 Labs: Laboratory Last Values WBC 9.8 K/mm3 (4.5-11.0) 11/13/19 02:57 RBC 3.09 M/mm3 (3.65-5.03) L 11/13/19 02:57 Hgb 9.8 gm/dl (10.1-14.3) L 11/13/19 02:57 Hct 29.8 % (30.3-42.9) L 11/13/19 02:57 MCV 96 fl (79-97) 11/13/19 02:57 MCH 32 pg (28-32) 11/13/19 02:57 MCHC 33 % (30-34) 11/13/19 02:57 RDW 18.7 % (13.2-15.2) H 11/13/19 02:57 Plt Count 165 K/mm3 (140-440) 11/13/19 02:57 Lymph % (Auto) 5.8 % (13.4-35.0) L 11/13/19 02:57 Bacon % (Auto) 7.6 % (0.0-7.3) H 11/13/19 02:57 Eos % (Auto) 0.1 % (0.0-4.3) 11/13/19 02:57 Baso % (Auto) 0.0 % (0.0-1.8) 11/13/19 02:57 Lymph # 0.6 K/mm3 (1.2-5.4) L 11/13/19 02:57 Bacon # 0.7 K/mm3 (0.0-0.8) 11/13/19 02:57 Eos # 0.0 K/mm3 (0.0-0.4) 11/13/19 02:57 Baso # 0.0 K/mm3 (0.0-0.1) 11/13/19 02:57 Add Manual Diff Complete 11/12/19 01:56 Total Counted 100 11/12/19 01:56 Seg Neutrophils % 86.5 % (40.0-70.0) H 11/13/19 02:57 Seg Neuts % (Manual) 76.0 % (40.0-70.0) H 11/12/19 01:56 Band Neutrophils % 0 % 11/12/19 01:56 Lymphocytes % (Manual) 13.0 % (13.4-35.0) L 11/12/19 01:56 Reactive Lymphs % (Man) 0 % 11/12/19 01:56 Monocytes % (Manual) 9.0 % (0.0-7.3) H 11/12/19 01:56 Eosinophils % (Manual) 2.0 % (0.0-4.3) 11/12/19 01:56 Basophils % (Manual) 0 % (0.0-1.8) 11/12/19 01:56 Metamyelocytes % 0 % 11/12/19 01:56 Myelocytes % 0 % 11/12/19 01:56 Promyelocytes % 0 % 11/12/19 01:56 Blast Cells % 0 % 11/12/19 01:56 Nucleated RBC % Not Reportable 11/12/19 01:56 Seg Neutrophils # 8.5 K/mm3 (1.8-7.7) H 11/13/19 02:57 Seg Neutrophils # Man 6.5 K/mm3 (1.8-7.7) 11/12/19 01:56 Band Neutrophils # 0.0 K/mm3 11/12/19 01:56 Lymphocytes # (Manual) 1.1 K/mm3 (1.2-5.4) L 11/12/19 01:56 Abs React Lymphs (Man) 0.0 K/mm3 11/12/19 01:56 Monocytes # (Manual) 0.8 K/mm3 (0.0-0.8) 11/12/19 01:56 Eosinophils # (Manual) 0.2 K/mm3 (0.0-0.4) 11/12/19 01:56 Basophils # (Manual) 0.0 K/mm3 (0.0-0.1) 11/12/19 01:56 Metamyelocytes # 0.0 K/mm3 11/12/19 01:56 Myelocytes # 0.0 K/mm3 11/12/19 01:56 Promyelocytes # 0.0 K/mm3 11/12/19 01:56 Blast Cells # 0.0 K/mm3 11/12/19 01:56 WBC Morphology Not Reportable 11/12/19 01:56 Hypersegmented Neuts Not Reportable 11/12/19 01:56 Hyposegmented Neuts Not Reportable 11/12/19 01:56 Hypogranular Neuts Not Reportable 11/12/19 01:56 Smudge Cells Not Reportable 11/12/19 01:56 Toxic Granulation Not Reportable 11/12/19 01:56 Toxic Vacuolation Not Reportable 11/12/19 01:56 Dohle Bodies Not Reportable 11/12/19 01:56 Pelger-Huet Anomaly Not Reportable 11/12/19 01:56 Brian Rods Not Reportable 11/12/19 01:56 Platelet Estimate Consistent w auto 11/12/19 01:56 Clumped Platelets Not Reportable 11/12/19 01:56 Plt Clumps, EDTA Not Reportable 11/12/19 01:56 Large Platelets Not Reportable 11/12/19 01:56 Giant Platelets Not Reportable 11/12/19 01:56 Platelet Satelliting Not Reportable 11/12/19 01:56 Plt Morphology Comment Not Reportable 11/12/19 01:56 RBC Morphology Not Reportable 11/12/19 01:56 Dimorphic RBCs Not Reportable 11/12/19 01:56 Polychromasia Not Reportable 11/12/19 01:56 Hypochromasia Not Reportable 11/12/19 01:56 Poikilocytosis Not Reportable 11/12/19 01:56 Anisocytosis 1+ 11/12/19 01:56 Microcytosis Not Reportable 11/12/19 01:56 Macrocytosis Not Reportable 11/12/19 01:56 Spherocytes Not Reportable 11/12/19 01:56 Pappenheimer Bodies Not Reportable 11/12/19 01:56 Sickle Cells Not Reportable 11/12/19 01:56 Target Cells Not Reportable 11/12/19 01:56 Tear Drop Cells Not Reportable 11/12/19 01:56 Ovalocytes Not Reportable 11/12/19 01:56 Helmet Cells Not Reportable 11/12/19 01:56 [place] Bodies Not Reportable 11/12/19 01:56 [place] Rings Not Reportable 11/12/19 01:56 [place] Cells Not Reportable 11/12/19 01:56 Bite Cells Not Reportable 11/12/19 01:56 Crenated Cell Not Reportable 11/12/19 01:56 Elliptocytes Not Reportable 11/12/19 01:56 Acanthocytes (Spur) Not Reportable 11/12/19 01:56 Rouleaux Not Reportable 11/12/19 01:56 Hemoglobin C Crystals Not Reportable 11/12/19 01:56 Schistocytes Not Reportable 11/12/19 01:56 Malaria parasites Not Reportable 11/12/19 01:56 Tom Bodies Not Reportable 11/12/19 01:56 Hem Pathologist Commnt No 11/12/19 01:56 PT 19.1 Sec. (12.2-14.9) H 11/12/19 01:56 INR 1.65 (0.87-1.13) H 11/12/19 01:56 APTT 27.1 Sec. (24.2-36.6) 11/12/19 01:56 ABG pH 7.400 pH Units (7.350-7.450) 11/13/19 03:35 ABG pCO2 45.0 mm Hg 11/13/19 03:35 ABG pO2 93.0 mm Hg (80.0-90.0) H 11/13/19 03:35 ABG HCO3 27.3 mmol/L (20.0-26.0) H 11/13/19 03:35 ABG O2 Saturation 97.0 % (95.0-99.0) 11/13/19 03:35 ABG O2 Content 13.9 (0.0-44) 11/13/19 03:35 ABG Base Excess 2.1 mmol/L (-2.0-3.0) 11/13/19 03:35 ABG Hemoglobin 10.3 gm/dl (12.0-16.0) L 11/13/19 03:35 ABG Carboxyhemoglobin 1.4 % (0.0-5.0) 11/13/19 03:35 ABG Methemoglobin 0.5 % (0.0-1.5) 11/13/19 03:35 Oxyhemoglobin 95.2 % (95.0-99.0) 11/13/19 03:35 FiO2 35 % 11/13/19 03:35 Sodium 137 mmol/L (137-145) 11/17/19 05:35 Potassium 4.8 mmol/L (3.6-5.0) 11/17/19 05:35 Chloride 96.2 mmol/L (98-107) L 11/17/19 05:35 Carbon Dioxide 21 mmol/L (22-30) L 11/17/19 05:35 Anion Gap 25 mmol/L 11/17/19 05:35 BUN 120 mg/dL (7-17) H 11/17/19 05:35 Creatinine 2.8 mg/dL (0.7-1.2) H 11/17/19 05:35 Estimated GFR 20 ml/min 11/17/19 05:35 BUN/Creatinine Ratio 43 % 11/17/19 05:35 Glucose 124 mg/dL (65-100) H 11/17/19 05:35 POC Glucose 68 (70-105) L 11/17/19 12:07 Lactic Acid 1.50 mmol/L (0.7-2.0) 11/12/19 01:56 Calcium 8.9 mg/dL (8.4-10.2) 11/17/19 05:35 Total Bilirubin 0.50 mg/dL (0.1-1.2) 11/14/19 09:10 AST 21 units/L (5-40) 11/14/19 09:10 ALT 39 units/L (7-56) 11/14/19 09:10 Alkaline Phosphatase 104 units/L (35-129) 11/14/19 09:10 Total Creatine Kinase 53 units/L (30-135) 11/12/19 13:28 CK-MB (CK-2) 2.9 ng/mL (0.0-4.0) 11/12/19 13:28 CK-MB (CK-2) Rel Index 5.4 (0-4) H 11/12/19 13:28 Troponin T 0.050 ng/mL (0.00-0.029) H 11/12/19 13:28 NT-Pro-B Natriuret Pep 3636 pg/mL (0-900) H 11/12/19 02:57 Total Protein 5.9 g/dL (6.3-8.2) L 11/14/19 09:10 Albumin 3.3 g/dL (3.9-5) L 11/14/19 09:10 Albumin/Globulin Ratio 1.3 % 11/14/19 09:10 Triglycerides 85 mg/dL (2-149) 11/12/19 01:56 Cholesterol 131 mg/dL (50-199) 11/12/19 01:56 LDL Cholesterol Direct 66 mg/dL (50-130) 11/12/19 01:56 HDL Cholesterol 55 mg/dL (40-59) 11/12/19 01:56 Cholesterol/HDL Ratio 2.38 % 11/12/19 01:56 Urine Color Straw (Yellow) 11/12/19 01:35 Urine Turbidity Clear (Clear) 11/12/19 01:35 Urine pH 5.0 (5.0-7.0) 11/12/19 01:35 Ur Specific [place] 1.009 (1.003-1.030) 11/12/19 01:35 Urine Protein <15 mg/dl mg/dL (Negative) 11/12/19 01:35 Urine Glucose (UA) Neg mg/dL (Negative) 11/12/19 01:35 Urine Ketones Neg mg/dL (Negative) 11/12/19 01:35 Urine Blood Neg (Negative) 11/12/19 01:35 Urine Nitrite Neg (Negative) 11/12/19 01:35 Urine Bilirubin Neg (Negative) 11/12/19 01:35 Urine Urobilinogen < 2.0 mg/dL (<2.0) 11/12/19 01:35 Ur Leukocyte Esterase Neg (Negative) 11/12/19 01:35 Urine WBC (Auto) < 1.0 /HPF (0.0-6.0) 11/12/19 01:35 Urine RBC (Auto) < 1.0 /HPF (0.0-6.0) 11/12/19 01:35 U Epithel Cells (Auto) < 1.0 /HPF (0-13.0) 11/12/19 01:35 Urine Mucus Few /HPF 11/12/19 01:35 Urine Creatinine 71.6 mg/dL (0.1-20.0) H 11/14/19 18:45 Urine Sodium 22 mmol/L 11/14/19 18:45 Microbiology: Microbiology 11/12/19 02:05 Peripheral/Venous Blood Culture - Final NO GROWTH AFTER 5 DAYS 11/12/19 02:45 Tracheal Aspirate Sputum Culture - Preliminary Gram Negative Miki Armendariz/IV: Voiding Method External Female Catheter IV Catheter Type [Right Peripheral IV Forearm] IV Catheter Type [Left Chest] INT / Saline Lock IV Catheter Type [Right INT / Saline Lock Antecubital] Active Medications - Current Medications Current Medications: Generic Name Dose Route Start Last Admin Trade Name Freq PRN Reason Stop Dose Admin Acetaminophen 650 mg 11/12/19 05:48 Tylenol PO Q4H PRN Pain MILD(1-3)/Fever >100.5/IRBY Lipase/Protease/Amylase 1 each 11/17/19 09:00 Pancrepretty Gardiner 10,500 Unit FEEDTUBE PRN PRN For Clogged Feeding Tube Apixaban 2.5 mg 11/13/19 22:00 11/17/19 13:05 Eliquis PO 2.5 mg Q12HR ALLEGRA Administration Protocol Dextrose 50 ml 11/13/19 13:10 11/15/19 16:53 D50w (25gm) Syringe IV 50 ml Q30MIN PRN Administration Hypoglycemia Protocol Diltiazem HCl 90 mg 11/16/19 12:00 11/17/19 13:17 Cardizem PO 90 mg Q6H ALLEGRA Administration Insulin Glargine 25 units 11/16/19 13:00 11/16/19 17:55 Lantus SUB-Q 25 units DAILY ALLEGRA Administration Insulin Human Lispro 0 unit 11/16/19 14:00 11/17/19 06:43 Humalog SUB-Q 3 unit Q6HR ALLEGRA Administration Protocol Lansoprazole 30 mg 11/15/19 10:00 11/17/19 13:05 Prevacid Solutab FEEDTUBE 30 mg QDAY ALLEGRA Administration Ondansetron HCl 4 mg 11/12/19 05:48 Zofran IV Q8H PRN Nausea And Vomiting Prednisone 20 mg 11/17/19 12:04 Deltasone PO QDAY ALLEGRA Simple Syrup 15 ml 11/13/19 19:44 Simple Syrup FEEDTUBE PRN PRN Hypoglycemia Simple Syrup 30 ml 11/13/19 19:44 11/15/19 21:55 Simple Syrup FEEDTUBE 30 ml PRN PRN Administration Hypoglycemia Sodium Bicarbonate 325 mg 11/13/19 19:44 Sodium Bicarbonate FEEDTUBE PRN PRN For Clogged Feeding Tube Sodium Chloride 10 ml 11/12/19 10:00 11/17/19 13:09 Sodium Chloride Flush Syringe 10 Ml IV 10 ml BID ALLEGRA Administration Sodium Chloride 10 ml 11/12/19 05:48 Sodium Chloride Flush Syringe 10 Ml IV PRN PRN LINE FLUSH Nutrition/Malnutrition Assess - Dietary Evaluation Nutrition/Malnutrition Findings: Nutrition Notes Start: 11/13/19 08:04 Freq: Status: Active Protocol: Document 11/17/19 12:16 LM (Rec: 11/17/19 12:25 LM [id number]) Nutrition Notes Initial or Follow up Reassessment Current Diagnosis CKD(stage I-IV),COPD,Decubitus (Pressure Ulcer),Diabetes, Hypertension,Heart Failure Other Pertinent Diagnosis Sacral wound Current Diet Nepro at 35ml/hr Labs/Tests Na 137 BUN 120 Cr 2.8 BG 124 Pertinent Medications Humalog Height 5 ft 4 in Weight 117.934 kg [place] Body Weight (kg) 54.54 BMI 44.6 Subjective/Other Information TF running at goal. Pt is on Bipap. Pt may require PEG Percent of energy/protein needs met: 99%/99% Burn Absent Trauma Absent Current % PO Negligible Minimum of two criteria No Reduced Cloth Shearer Strength Measurably Reduced (severe) #2 Nutrition Diagnosis Increased nutrient needs ( specify in comment below) Diagnosis Progress(for reassessment Continues documentation) #1 Nutrition Diagnosis Inadequate oral intake Diagnosis Progress(for reassessment Continues documentation) Is patient on ventilator? No Is Patient Ambulatory and/or Out of Bed No [facility] 1967.472 Kcal/Kg value to use for calculation 13 Approximate Energy Requirements Using 1533 kcal/Kg Calculation Used for Recommendations [facility] Additional Notes Protein: 69-129g (0.8-1.5g/kg using AdjBW 86kg) CKD and wounds Fluid needs are 1ml/kcal Nutrition Intervention Change Diet Order: TF Nutrition Support: Nepro 1.8 at 35ml/hr Flush 150ml q4h Kcal 1,512 Protein (gm) 68 Fluid (mL) 611 Add Supplement/Snack (indicate name/kcal Reynold BID once TF is at goal /protein ) Provides kCal: 190 Provides Protein (gm) 5 Goal #1 Meet at least 80% of kcal and protein needs Goal #2 Wound healing Anticipated Discharge Needs: Unable to determine at this time Follow-Up By: 11/21/19 Additional Comments F/U for TF tolerance
[2019-11-17] MEDS ORDERED: INSULIN GLARGINE 100 UNITS/ML SUB-Q SCH (17:17)
[2019-11-17] MEDS: DEXTROSE 50% IN WATER (25GM) 50 ML SYRINGE IV PRN (18:00)
[2019-11-18] MEDS: INSULIN LISPRO 100 UNIT/ML SUB-Q SCH ×4 (00:26→17:28)
--- NOTE | 2019-11-18 09:53 | Progress Note ---
Assessment and Plan 1. Acute kidney injury: Likely vasomotor LUIS FERNANDO superimposed on CKD in setting of CHF +/- IV contrast. Renal US; L kidney not visualized, R kidney increased echogenicity. Creatinine level currently 2.1 from 2.8 from 2.9 from 2.6 from 2.0. Baseline creatinine likely around 2. High BUN likley from steroids. Monitor renal function. Renal prognosis is guarded. Avoid nephrotoxic agents. Meds dosage based on GFR. 2. FEN: Hyperkalemia, improved, monitor. Monitor lytes and volume status. 3. Acute on chronic CHF: Volume status has improved with diuresis. CXR clear. Cards following. 4. Acute on chronic COPD: Was intubated on admission. Extubated 11/13 to [place] O2, now on BIPAP. On PO steroids. SOB improving. Has home O2 but not CPAP. Pulmonology following. 5. Elevated troponins: Cards following. 6. A. Fib with RVR: On Cardizema nd Eliquis. Cards following. 7. H/o CVA. 8. H/o PE. 9. Morbid obesity. Subjective Patient was seen and examined at time of exam. She is on BIPAP. Objective - Exam: General appearance: well-developed, well-nourished, appears stated age, obese, On BIPAP, NGT HEENT: ATNC, OSVALDO, hearing intact, vision intact Neck: neck supple, trachea midline Respiratory: decreased Breath Sounds (bibasilar) Heart: S1S2, no murmur Gastrointestinal: obese, soft, normoactive bowel sounds, not tender Integumentary: no rash, warm and dry Neurologic: no focal deficit Ext: trace BLE edema noted Psychiatric: mood/affect appropriate, cooperative Subjective Date of service: 11/18/19 Principal diagnosis: Acute respiratory failure Objective - Vital Signs Vital signs: Vital Signs - 12hr 11/17/19 11/17/19 11/17/19 21:54 21:57 23:12 Temperature Pulse Rate 93 H Pulse Rate [ From Monitor] Respiratory 17 Rate Blood Pressure 94/69 Blood Pressure [Right] O2 Sat by Pulse 97 97 53 L Oximetry 11/17/19 11/17/19 11/18/19 23:19 23:30 00:25 Temperature 98.1 F Pulse Rate 92 H 92 H Pulse Rate [ 92 H From Monitor] Respiratory 24 24 Rate Blood Pressure 94/69 Blood Pressure 94/69 [Right] O2 Sat by Pulse 100 100 Oximetry 11/18/19 11/18/19 11/18/19 04:32 06:52 06:59 Temperature 98.2 F Pulse Rate 98 H 90 Pulse Rate [ From Monitor] Respiratory 24 17 Rate Blood Pressure 126/74 132/73 132/90 Blood Pressure 132/73 [Right] O2 Sat by Pulse 100 Oximetry 11/18/19 11/18/19 07:34 09:03 Temperature 98.0 F Pulse Rate 95 H Pulse Rate [ From Monitor] Respiratory 20 17 Rate Blood Pressure 139/48 Blood Pressure [Right] O2 Sat by Pulse 100 Oximetry - Lab 11/13/19 02:57 11/18/19 03:41 Most recent lab results ABG pH 7.400 pH Units (7.350-7.450) 11/13/19 03:35 ABG pCO2 45.0 mm Hg 11/13/19 03:35 ABG pO2 93.0 mm Hg (80.0-90.0) H 11/13/19 03:35 ABG HCO3 27.3 mmol/L (20.0-26.0) H 11/13/19 03:35 ABG O2 Saturation 97.0 % (95.0-99.0) 11/13/19 03:35 Calcium 9.0 mg/dL (8.4-10.2) 11/18/19 03:41 Urine Creatinine 71.6 mg/dL (0.1-20.0) H 11/14/19 18:45 Urine Sodium 22 mmol/L 11/14/19 18:45 Medications & Allergies - Medications Allergies/Adverse Reactions: Allergies No Known Allergies Allergy (Verified 11/16/19 09:55) Home Medications: Home Medications Medication Instructions Recorded Confirmed Last Taken Type Apixaban [Eliquis] 5 mg PO BID 11/04/19 11/04/19 Unknown History AtorvaSTATin [Lipitor] 40 mg PO QHS 11/04/19 11/04/19 Unknown History Ferrous Sulfate [Ferrous Sulfate 324 mg PO QAM 11/04/19 11/04/19 Unknown History 324 MG] Fluticasone/Salmeterol [Advair 1 puff IH BID 11/04/19 11/04/19 Unknown History Diskus 250-50 mcg] HYDROcodone/APAP 5-325 [[place] 1 each PO Q6HR PRN 11/04/19 11/04/19 Unknown History 5-325 mg TAB] Linaclotide [Linzess] 290 mcg PO QDAY 11/04/19 11/04/19 Unknown History Montelukast [Singulair] 10 mg PO QPM 11/04/19 11/04/19 Unknown History Sitagliptin Phosphate [Januvia] 50 mg PO QDAY 11/04/19 11/04/19 Unknown History Torsemide [Demadex] 100 mg PO QDAY 11/04/19 11/04/19 Unknown History Umeclidinium [place] [Incruse 62.5 mcg IH QDAY 11/04/19 11/04/19 Unknown History Ellipta 62.5MCG] Valsartan [Diovan] 160 mg PO QDAY 11/04/19 11/04/19 Unknown History Zolpidem [Ambien] 5 mg PO QHS PRN 11/04/19 11/04/19 Unknown History glipiZIDE [Glucotrol] 5 mg PO QDAY 11/04/19 11/04/19 Unknown History predniSONE [Deltasone] 10 mg PO QDAY 11/04/19 11/04/19 Unknown History traZODone [Desyrel] 50 mg PO QHS 11/04/19 11/04/19 Unknown History Metoprolol [Lopressor TAB] 50 mg PO BID #60 tablet 11/10/19 Unknown Rx Prednisone [predniSONE 10 mg 10 mg PO .TAPER #1 tab.ds.pk 11/10/19 Unknown Rx (6-Day Pack, 21 Tabs)] cefUROXime [Ceftin] 250 mg PO DAILY #3 tablet 11/10/19 Unknown Rx predniSONE [Deltasone] 20 mg PO QDAY #20 tab 11/10/19 Unknown Rx Apixaban [Eliquis] 5 mg PO DAILY 11/12/19 11/12/19 Unknown History AtorvaSTATin [Lipitor] 40 mg PO QHS 11/12/19 11/12/19 Unknown History Ferrous Sulfate [Slow Release Iron 47.5 mg PO DAILY 11/12/19 11/12/19 Unknown History 47.5 Mg tab] Montelukast [Singulair] 10 mg PO QPM 11/12/19 11/12/19 Unknown History NIFEdipine [Nifedipine ER] 60 mg PO BID 11/12/19 11/12/19 Unknown History Pantoprazole [Protonix] 40 mg PO BID 11/12/19 11/12/19 Unknown History Potassium Chloride 10 meq PO BID 11/12/19 11/12/19 Unknown History Sitagliptin Phosphate [Januvia] 50 mg PO DAILY 11/12/19 11/12/19 Unknown History Torsemide [Demadex] 100 mg PO QDAY 11/12/19 11/12/19 Unknown History Valsartan [Diovan] 160 mg PO QDAY 11/12/19 11/12/19 Unknown History carvediloL [Coreg] 6.25 mg PO BID 11/12/19 11/12/19 Unknown History Active Medications: Generic Name Dose Route Start Last Admin Trade Name Freq PRN Reason Stop Dose Admin Acetaminophen 650 mg 11/12/19 05:48 Tylenol PO Q4H PRN Pain MILD(1-3)/Fever >100.5/IRBY Lipase/Protease/Amylase 1 each 11/17/19 09:00 Therese Gardiner 10,500 Unit FEEDTUBE PRN PRN For Clogged Feeding Tube Apixaban 2.5 mg 11/13/19 22:00 11/17/19 23:21 Eliquis PO 2.5 mg Q12HR ALLEGRA Administration Protocol Dextrose 50 ml 11/13/19 13:10 11/17/19 18:00 D50w (25gm) Syringe IV 50 ml Q30MIN PRN Administration Hypoglycemia Protocol Diltiazem HCl 90 mg 11/16/19 12:00 11/18/19 06:59 Cardizem PO 90 mg Q6H ALLEGRA Administration Insulin Glargine 12 units 11/17/19 17:17 Lantus SUB-Q DAILY ALLEGRA Insulin Human Lispro 0 unit 11/16/19 14:00 11/18/19 06:08 Humalog SUB-Q 1 unit Q6HR ALLEGRA Administration Protocol Lansoprazole 30 mg 11/15/19 10:00 11/17/19 13:05 Prevacid Solutab FEEDTUBE 30 mg QDAY ALLEGRA Administration Ondansetron HCl 4 mg 11/12/19 05:48 Zofran IV Q8H PRN Nausea And Vomiting Prednisone 20 mg 11/17/19 12:04 Deltasone PO QDAY ALLEGRA Simple Syrup 15 ml 11/13/19 19:44 Simple Syrup FEEDTUBE PRN PRN Hypoglycemia Simple Syrup 30 ml 11/13/19 19:44 11/15/19 21:55 Simple Syrup FEEDTUBE 30 ml PRN PRN Administration Hypoglycemia Sodium Bicarbonate 325 mg 11/13/19 19:44 Sodium Bicarbonate FEEDTUBE PRN PRN For Clogged Feeding Tube Sodium Chloride 10 ml 11/12/19 10:00 11/17/19 23:21 Sodium Chloride Flush Syringe 10 Ml IV 10 ml BID ALLEGRA Administration Sodium Chloride 10 ml 11/12/19 05:48 Sodium Chloride Flush Syringe 10 Ml IV PRN PRN LINE FLUSH
[2019-11-18] MEDS: LANSOPRAZOLE 30 MG SOLUTAB FEEDTUBE SCH (10:23)
[2019-11-18] MEDS: predniSONE 20 MG TAB PO SCH (10:23)
[2019-11-18] MEDS: APIXABAN 2.5 MG TAB PO SCH ×2 (10:23→21:41)
--- NOTE | 2019-11-18 14:30 | Progress Note ---
Assessment and Plan 79 y/o female with acute respiratory failure, secondary to volume overload and possible COPD exacerbation. 1. Lasix therapy now held secondary to increase in BUN and Cr. 2. Continue steroids at 20 daily. Will likely drop to 10 on Thursday. 3. Rate control per cards 4. BP control 5. PPV nightly 6. Ordered repeat CXR for today 7. Hopeful patient can work through this and is not going back into volume overload. 8. Restarted pulmicort and brovana therapy. Subjective Date of service: 11/18/19 Principal diagnosis: Acute respiratory failure Interval history: Patient with some respiratory distress last night and this am. Currently on bi pap and comfortable. No lasix for the last several days. Dropped steroids down as well. BUN and Cr better. Pulm status maybe slightly worse. Objective Vital Signs - 12hr 11/18/19 11/18/19 11/18/19 04:32 06:52 06:59 Temperature 98.2 F Pulse Rate 98 H 90 Respiratory 24 17 Rate Blood Pressure 126/74 132/73 132/90 Blood Pressure 132/73 [Right] O2 Sat by Pulse 100 Oximetry 11/18/19 11/18/19 11/18/19 07:34 09:03 10:00 Temperature 98.0 F Pulse Rate 95 H 77 Respiratory 20 17 24 Rate Blood Pressure 139/48 Blood Pressure [Right] O2 Sat by Pulse 100 100 Oximetry 11/18/19 11/18/19 11/18/19 11:31 11:33 13:27 Temperature 98.8 F Pulse Rate 74 53 L 102 H Respiratory 20 Rate Blood Pressure 136/77 135/60 Blood Pressure [Right] O2 Sat by Pulse 60 L 66 L Oximetry 11/18/19 11/18/19 11/18/19 13:28 13:29 13:42 Temperature Pulse Rate 102 H 102 H 99 H Respiratory 17 Rate Blood Pressure 135/60 135/60 Blood Pressure [Right] O2 Sat by Pulse 100 Oximetry Constitutional: no acute distress, alert Eyes: non-icteric Effort: mildly labored Ascultation: Bilateral: diminished breath sounds Percussion: Bilateral: not dull Cardiovascular: irregular rhythm (no mrg) Gastrointestinal: normoactive bowel sounds, soft, non-tender, non-distended Integumentary: normal Extremities: no cyanosis, pink and warm, edema (1+ bilateral edema) Neurologic: normal mental status, non-focal exam, pupils equal and round, CN II- XII normal Psychiatric: mood appropriate, affect normal CBC and BMP: 11/13/19 02:57 11/18/19 03:41 ABG, PT/INR, D-dimer: ABG ABG pH 7.400 pH Units (7.350-7.450) 11/13/19 03:35 ABG pCO2 45.0 mm Hg 11/13/19 03:35 ABG pO2 93.0 mm Hg (80.0-90.0) H 11/13/19 03:35 ABG O2 Saturation 97.0 % (95.0-99.0) 11/13/19 03:35 PT/INR, D-dimer PT 19.1 Sec. (12.2-14.9) H 11/12/19 01:56 INR 1.65 (0.87-1.13) H 11/12/19 01:56 Abnormal lab findings: Abnormal Labs 11/12/19 11/12/19 11/12/19 01:56 01:56 01:56 RBC 3.23 L Hgb 9.9 L Hct RDW 18.7 H Lymph % (Auto) Noble % (Auto) Lymph # Seg Neutrophils % Seg Neuts % (Manual) 76.0 H Lymphocytes % (Manual) 13.0 L Monocytes % (Manual) 9.0 H Seg Neutrophils # Lymphocytes # (Manual) 1.1 L PT 19.1 H INR 1.65 H ABG pO2 ABG HCO3 ABG O2 Saturation ABG Hemoglobin Sodium 132 L Potassium Chloride 90.7 L Carbon Dioxide BUN 92 H Creatinine 2.0 H Glucose 320 H POC Glucose Calcium 8.3 L Alkaline Phosphatase 177 H CK-MB (CK-2) Rel Index Troponin T NT-Pro-B Natriuret Pep Total Protein 6.2 L Albumin 3.3 L Urine Creatinine 11/12/19 11/12/19 11/12/19 01:56 02:40 02:57 RBC Hgb Hct RDW Lymph % (Auto) Noble % (Auto) Lymph # Seg Neutrophils % Seg Neuts % (Manual) Lymphocytes % (Manual) Monocytes % (Manual) Seg Neutrophils # Lymphocytes # (Manual) PT INR ABG pO2 194.4 H ABG HCO3 ABG O2 Saturation 99.2 H ABG Hemoglobin 10.5 L Sodium Potassium Chloride Carbon Dioxide BUN Creatinine Glucose POC Glucose Calcium Alkaline Phosphatase CK-MB (CK-2) Rel Index 8.0 H Troponin T 0.056 H NT-Pro-B Natriuret Pep 3636 H Total Protein Albumin Urine Creatinine 11/12/19 11/12/19 11/12/19 07:57 13:28 23:59 RBC Hgb Hct RDW Lymph % (Auto) Noble % (Auto) Lymph # Seg Neutrophils % Seg Neuts % (Manual) Lymphocytes % (Manual) Monocytes % (Manual) Seg Neutrophils # Lymphocytes # (Manual) PT INR ABG pO2 ABG HCO3 ABG O2 Saturation ABG Hemoglobin Sodium Potassium Chloride Carbon Dioxide BUN Creatinine Glucose POC Glucose 304 H Calcium Alkaline Phosphatase CK-MB (CK-2) Rel Index 6.6 H 5.4 H Troponin T 0.058 H 0.050 H NT-Pro-B Natriuret Pep Total Protein Albumin Urine Creatinine 11/13/19 11/13/19 11/13/19 02:57 02:57 03:35 RBC 3.09 L Hgb 9.8 L Hct 29.8 L RDW 18.7 H Lymph % (Auto) 5.8 L Noble % (Auto) 7.6 H Lymph # 0.6 L Seg Neutrophils % 86.5 H Seg Neuts % (Manual) Lymphocytes % (Manual) Monocytes % (Manual) Seg Neutrophils # 8.5 H Lymphocytes # (Manual) PT INR ABG pO2 93.0 H ABG HCO3 27.3 H ABG O2 Saturation ABG Hemoglobin 10.3 L Sodium 136 L Potassium Chloride 96.1 L Carbon Dioxide BUN 85 H Creatinine 1.8 H Glucose 288 H POC Glucose Calcium Alkaline Phosphatase CK-MB (CK-2) Rel Index Troponin T NT-Pro-B Natriuret Pep Total Protein Albumin Urine Creatinine 11/13/19 11/13/19 11/14/19 05:51 23:27 05:28 RBC Hgb Hct RDW Lymph % (Auto) Noble % (Auto) Lymph # Seg Neutrophils % Seg Neuts % (Manual) Lymphocytes % (Manual) Monocytes % (Manual) Seg Neutrophils # Lymphocytes # (Manual) PT INR ABG pO2 ABG HCO3 ABG O2 Saturation ABG Hemoglobin Sodium Potassium Chloride Carbon Dioxide BUN Creatinine Glucose POC Glucose 273 H 179 H 205 H Calcium Alkaline Phosphatase CK-MB (CK-2) Rel Index Troponin T NT-Pro-B Natriuret Pep Total Protein Albumin Urine Creatinine 11/14/19 11/14/19 11/14/19 09:10 12:44 18:45 RBC Hgb Hct RDW Lymph % (Auto) Noble % (Auto) Lymph # Seg Neutrophils % Seg Neuts % (Manual) Lymphocytes % (Manual) Monocytes % (Manual) Seg Neutrophils # Lymphocytes # (Manual) PT INR ABG pO2 ABG HCO3 ABG O2 Saturation ABG Hemoglobin Sodium Potassium Chloride Carbon Dioxide BUN 81 H Creatinine 2.0 H Glucose 205 H POC Glucose 193 H Calcium Alkaline Phosphatase CK-MB (CK-2) Rel Index Troponin T NT-Pro-B Natriuret Pep Total Protein 5.9 L Albumin 3.3 L Urine Creatinine 71.6 H 11/14/19 11/15/19 11/15/19 21:42 05:38 07:59 RBC Hgb Hct RDW Lymph % (Auto) Noble % (Auto) Lymph # Seg Neutrophils % Seg Neuts % (Manual) Lymphocytes % (Manual) Monocytes % (Manual) Seg Neutrophils # Lymphocytes # (Manual) PT INR ABG pO2 ABG HCO3 ABG O2 Saturation ABG Hemoglobin Sodium Potassium 5.2 H Chloride 96.8 L Carbon Dioxide BUN 96 H Creatinine 2.6 H Glucose 213 H POC Glucose 262 H 208 H Calcium Alkaline Phosphatase CK-MB (CK-2) Rel Index Troponin T NT-Pro-B Natriuret Pep Total Protein Albumin Urine Creatinine 11/15/19 11/15/19 11/15/19 11:41 16:52 16:56 RBC Hgb Hct RDW Lymph % (Auto) Noble % (Auto) Lymph # Seg Neutrophils % Seg Neuts % (Manual) Lymphocytes % (Manual) Monocytes % (Manual) Seg Neutrophils # Lymphocytes # (Manual) PT INR ABG pO2 ABG HCO3 ABG O2 Saturation ABG Hemoglobin Sodium Potassium Chloride Carbon Dioxide BUN Creatinine Glucose POC Glucose 301 H < 40 L < 40 L Calcium Alkaline Phosphatase CK-MB (CK-2) Rel Index Troponin T NT-Pro-B Natriuret Pep Total Protein Albumin Urine Creatinine 11/15/19 11/16/19 11/16/19 21:46 04:45 05:55 RBC Hgb Hct RDW Lymph % (Auto) Noble % (Auto) Lymph # Seg Neutrophils % Seg Neuts % (Manual) Lymphocytes % (Manual) Monocytes % (Manual) Seg Neutrophils # Lymphocytes # (Manual) PT INR ABG pO2 ABG HCO3 ABG O2 Saturation ABG Hemoglobin Sodium 136 L Potassium Chloride 94.4 L Carbon Dioxide BUN 108 H Creatinine 2.9 H Glucose 155 H POC Glucose 52 L 150 H Calcium Alkaline Phosphatase CK-MB (CK-2) Rel Index Troponin T NT-Pro-B Natriuret Pep Total Protein Albumin Urine Creatinine 11/16/19 11/16/19 11/17/19 11:45 18:16 01:06 RBC Hgb Hct RDW Lymph % (Auto) Noble % (Auto) Lymph # Seg Neutrophils % Seg Neuts % (Manual) Lymphocytes % (Manual) Monocytes % (Manual) Seg Neutrophils # Lymphocytes # (Manual) PT INR ABG pO2 ABG HCO3 ABG O2 Saturation ABG Hemoglobin Sodium Potassium Chloride Carbon Dioxide BUN Creatinine Glucose POC Glucose 270 H 238 H 206 H Calcium Alkaline Phosphatase CK-MB (CK-2) Rel Index Troponin T NT-Pro-B Natriuret Pep Total Protein Albumin Urine Creatinine 11/17/19 11/17/19 11/17/19 05:35 06:41 12:07 RBC Hgb Hct RDW Lymph % (Auto) Noble % (Auto) Lymph # Seg Neutrophils % Seg Neuts % (Manual) Lymphocytes % (Manual) Monocytes % (Manual) Seg Neutrophils # Lymphocytes # (Manual) PT INR ABG pO2 ABG HCO3 ABG O2 Saturation ABG Hemoglobin Sodium Potassium Chloride 96.2 L Carbon Dioxide 21 L BUN 120 H Creatinine 2.8 H Glucose 124 H POC Glucose 160 H 68 L Calcium Alkaline Phosphatase CK-MB (CK-2) Rel Index Troponin T NT-Pro-B Natriuret Pep Total Protein Albumin Urine Creatinine 11/17/19 11/17/19 11/17/19 17:33 17:35 17:37 RBC Hgb Hct RDW Lymph % (Auto) Noble % (Auto) Lymph # Seg Neutrophils % Seg Neuts % (Manual) Lymphocytes % (Manual) Monocytes % (Manual) Seg Neutrophils # Lymphocytes # (Manual) PT INR ABG pO2 ABG HCO3 ABG O2 Saturation ABG Hemoglobin Sodium Potassium Chloride Carbon Dioxide BUN Creatinine Glucose 46 L POC Glucose < 40 L 43 L Calcium Alkaline Phosphatase CK-MB (CK-2) Rel Index Troponin T NT-Pro-B Natriuret Pep Total Protein Albumin Urine Creatinine 11/18/19 11/18/19 11/18/19 03:41 04:36 06:16 RBC Hgb Hct RDW Lymph % (Auto) Noble % (Auto) Lymph # Seg Neutrophils % Seg Neuts % (Manual) Lymphocytes % (Manual) Monocytes % (Manual) Seg Neutrophils # Lymphocytes # (Manual) PT INR ABG pO2 ABG HCO3 ABG O2 Saturation ABG Hemoglobin Sodium Potassium Chloride Carbon Dioxide BUN 110 H Creatinine 2.1 H Glucose 215 H POC Glucose 234 H 281 H Calcium Alkaline Phosphatase CK-MB (CK-2) Rel Index Troponin T NT-Pro-B Natriuret Pep Total Protein Albumin Urine Creatinine 11/18/19 11:47 RBC Hgb Hct RDW Lymph % (Auto) Noble % (Auto) Lymph # Seg Neutrophils % Seg Neuts % (Manual) Lymphocytes % (Manual) Monocytes % (Manual) Seg Neutrophils # Lymphocytes # (Manual) PT INR ABG pO2 ABG HCO3 ABG O2 Saturation ABG Hemoglobin Sodium Potassium Chloride Carbon Dioxide BUN Creatinine Glucose POC Glucose 234 H Calcium Alkaline Phosphatase CK-MB (CK-2) Rel Index Troponin T NT-Pro-B Natriuret Pep Total Protein Albumin Urine Creatinine
--- NOTE | 2019-11-18 14:44 | Progress Note ---
Assessment and Plan Lasix held due to renal fxn. Nephro recs noted. Repeat CXR pending. Cont Eliquis. Cont PO Cardizem 90mg q6h. Of note, per Speech Therapy, pt is at significant risk secondary to aspiration and poor pulmonary support. NPO status recommended. NGT in place with tube feeding infusing. If PEG tube placement is required, ok to hold Eliquis for 48 hrs prior to procedure. Pt seen in conjunction with Dr. Crowley, who agrees with the assessment and plan of care. - Patient Problems (1) Atrial fibrillation Current Visit: Yes Status: Chronic Qualifiers: Atrial fibrillation type: unspecified persistent Qualified Code(s): I48.19 - Other persistent atrial fibrillation; I48.1 - Persistent atrial fibrillation Plan to address problem: Currently rate controlled (2) NSTEMI (non-ST elevated myocardial infarction) Current Visit: Yes Status: Acute Plan to address problem: Type 2 - in the setting of LUIS FERNANDO (3) LUIS FERNANDO (acute kidney injury) Current Visit: Yes Status: Acute (4) Acute on chronic respiratory failure Current Visit: Yes Status: Acute (5) COPD (chronic obstructive pulmonary disease) Current Visit: Yes Status: Acute Qualifiers: COPD type: COPD with acute exacerbation Qualified Code(s): J44.1 - Chronic obstructive pulmonary disease with (acute) exacerbation (6) History of CVA (cerebrovascular accident) Current Visit: Yes Status: Chronic (7) History of pulmonary embolism Current Visit: Yes Status: Chronic (8) HTN (hypertension) Current Visit: Yes Status: Chronic Qualifiers: Hypertension type: essential hypertension Qualified Code(s): I10 - Essential (primary) hypertension (9) Hyperlipidemia Current Visit: Yes Status: Chronic Qualifiers: Hyperlipidemia type: mixed hyperlipidemia Qualified Code(s): E78.2 - Mixed hyperlipidemia (10) Diabetes mellitus Current Visit: Yes Status: Chronic Qualifiers: Diabetes mellitus type: type 2 Diabetes mellitus complication status: with hyperglycemia (11) Morbid obesity Current Visit: Yes Status: Chronic Subjective Date of service: 11/18/19 Principal diagnosis: Acute Respiratory Failure Interval history: Per RN, pt removed BiPAP mask multiple times last night, resulting in desats throughout the night. She has been on continuous BiPAP this AM - tolerating well. No current cardiac complaints. Tele reviewed - AF 80s with no acute events noted. Objective Last Vital Signs Temp 98.8 F 11/18/19 11:31 Pulse 99 H 11/18/19 13:42 Resp 17 11/18/19 13:42 BP 135/60 11/18/19 13:29 Pulse Ox 100 11/18/19 13:42 - Physical Examination General: Other (lethargic ) HEENT: Positive: EOMI, Normocephaly Neck: Positive: neck supple, trachea midline. Negative: JVD/HJR Cardiac: Positive: irregularly irregular, S1/S2 Lungs: Positive: Decreased Breath Sounds (bilaterally) Neuro: Positive: Grossly Intact, Motor Function Intact, Coordination Normal, Sensory Function Intact Abdomen: Positive: Soft, Active Bowel Sounds. Negative: Tender Skin: Negative: Rash, Wound Musculoskeletal: No Pain, Normal Range of Motion Extremities: Present: upper extr. pulses, lower extr. pulses, edema (trace BLE edema) - Labs and Meds Comprehensive Metabolic Panel 11/17/19 11/18/19 Range/Units 17:37 03:41 Sodium 140 (137-145) mmol/L Potassium 4.3 (3.6-5.0) mmol/L Chloride 99.3 (98-107) mmol/L Carbon Dioxide 24 (22-30) mmol/L BUN 110 H (7-17) mg/dL Creatinine 2.1 H (0.7-1.2) mg/dL Glucose 46 L 215 H (65-100) mg/dL Calcium 9.0 (8.4-10.2) mg/dL - Imaging and Cardiology EKG: report reviewed, image reviewed Echo: report reviewed (11/04/2019: EF 50-55%, impaired relaxation, mild to mod TR, RVSP 39mmHg) - Telemetry EKG Rhythm: Atrial Fibrillation - EKG Supraventricular dysrhythmia: atrial fibrillation Myocardial infarction: inferior [place] (old age inde
--- NOTE | 2019-11-18 15:29 | Progress Note ---
Assessment and Plan Assessment and plan: 79-year-old female with a history of COPD on home O2, diabetes, congestive heart failure, hypertension and atrial fibrillation presented to the ED in acute respiratory distress secondary to volume overload. Patient was able to be extubated today. Hospital course complicated by continued atrial fibrillation with rapid ventricular rate. Bedside swallow eval now to see if patient can swallow pills * Patient with two . Discussed with Medical rec ords to merge 11/15: Patient seen by speech therapy today still with NG tube for dietary needs. Concerning for high risk of aspiration especially with intermittent increasing work of breathing. Lasix was held due to worsening renal function. Discussed with family about concern about swallow evaluation and if alternative means of therapy for nutrition should be considered for 2 weeks. Per case management family in the past has refused SNF will rediscuss also. Patient is nonambulatory. Plan discussed with stitching machine setter 11/17/19: Continues on BIPAP, still not able to tolerate PO and still on Tube feed. will decrease dose of Lantus due to Hypoglycemia. Hold Lasix 11/18/19: Continues on BIPAP, lasix held due to renal function. BG increased some, lantus adjusted for better control. CXR ordered, awaiting Placement for LTAC - Patient Problems (1) acute diastolic CHF exacerbation with preserved EF Current Visit: Yes Status: Acute Qualifiers: Heart failure type: unspecified Qualified Code(s): I50.9 - Heart failure, unspecified Plan to address problem: Seems to be improving. Follow-up chest x-ray shows improving edema. Also improving clinically. Continue medical management. May require changing from Coreg to Lopressor for rate control. Now extubated back to nasal cannular and stable (2) Elevated troponin, Type 2 NSTEMI Current Visit: Yes Status: Acute Plan to address problem: Secondary to renal insufficiency (3) PNA (pneumonia) Current Visit: Yes Status: Acute Qualifiers: Pneumonia type: due to unspecified organism Laterality: unspecified laterality Lung location: unspecified part of lung Qualified Code(s): J18.9 - Pneumonia, unspecified organism Plan to address problem: No airspace disease or pleural effusion on follow-up chest x-ray this morning. Titrate antibiotics to off versus p.o. (4) Acute kidney injury likely secondary to vasomotor nephropathy Current Visit: Yes Status: Acute Qualifiers: Renal failure chronicity: acute Acute renal failure type: unspecified Qualified Code(s): N17.9 - Acute kidney failure, unspecified Plan to address problem: Patient renal failure BUN/creatinine consistent with prerenal azotemia. Versus ATN. Since congestive heart failure is improving. Will titrate down on diuretics to once a day. Patient did have some improvement over p.m. continue gentle rehydration. Yesterday Lasix was decreased to 20 mg IV every 12. Today is held. We will see how this affects the renal function today. (5) Respiratory distress with hypoxia Current Visit: Yes Status: Acute Plan to address problem: Patient blood gases have improved. Potential extubation a day. Discussed plan with pulmonology. (6) COPD with acute exacerbation Current Visit: Yes Status: Acute Plan to address problem: Non-extubated. Will need to obtain ABG. Pulmonology consult. (7) Atrial fibrillation with rapid ventricular response Current Visit: Yes Status: Acute Plan to address problem: Patient continues to have atrial fibrillation with rapid ventricular rate. If patient able to tolerate p.o. we will start patient on Cardizem versus Lopressor. If not able to manage by mouth we will treat with Cardizem drip. Will consult cardiology (8) Morbid obesity Current Visit: Yes Status: Acute Plan to address problem: We will decrease caloric intake. (9) Diabetes mellitus with hyperglycemia Current Visit: Yes Status: Acute (10) HTN (hypertension) Current Visit: Yes Status: Chronic (11) Hyperlipidemia Current Visit: Yes Status: Chronic (12) History of CVA (cerebrovascular accident) Current Visit: Yes Status: Chronic (13) History of pulmonary embolism Current Visit: Yes Status: Chronic (14) Anemia Current Visit: Yes Status: Acute Will transfer to telemetry. History Interval history: Patient seen and examined, improving although still with shortness of breath. Still on BIPAP. Hospitalist Physical - Physical exam Narrative exam: General appearance: Present: mild distress, well-nourished, morbidly Obese - EENT Eyes: Present: PERRL, EOM intact ENT: hearing intact, clear oral mucosa - Respiratory Respiratory: bilateral: rhonchi - Cardiovascular Rhythm: regular Heart Sounds: Present: S1 & S2, irregularly irregular - Extremities Extremities: no ischemia, pulses intact, pulses symmetrical Peripheral Pulses: within normal limits - Abdominal General gastrointestinal: soft, non-tender, distended, hypoactive bowel sounds - Integumentary Integumentary: Present: clear, warm, dry - Psychiatric Psychiatric: appropriate mood/affect, intact judgment & insight, memory intact - Neurologic Neurologic: CNII-XII intact - Constitutional Vitals: Temp Pulse Resp BP Pulse Ox 98.8 F 99 H 17 135/60 100 11/18/19 11:31 11/18/19 13:42 11/18/19 13:42 11/18/19 13:29 11/18/19 13:42 General appearance: Present: mild distress, well-nourished HEART Score - HEART Score Troponin: Troponin T 0.050 ng/mL (0.00-0.029) H 11/12/19 13:28 Results - Labs CBC & Chem 7: 11/13/19 02:57 11/18/19 03:41 Labs: Laboratory Last Values WBC 9.8 K/mm3 (4.5-11.0) 11/13/19 02:57 RBC 3.09 M/mm3 (3.65-5.03) L 11/13/19 02:57 Hgb 9.8 gm/dl (10.1-14.3) L 11/13/19 02:57 Hct 29.8 % (30.3-42.9) L 11/13/19 02:57 MCV 96 fl (79-97) 11/13/19 02:57 MCH 32 pg (28-32) 11/13/19 02:57 MCHC 33 % (30-34) 11/13/19 02:57 RDW 18.7 % (13.2-15.2) H 11/13/19 02:57 Plt Count 165 K/mm3 (140-440) 11/13/19 02:57 Lymph % (Auto) 5.8 % (13.4-35.0) L 11/13/19 02:57 [place] % (Auto) 7.6 % (0.0-7.3) H 11/13/19 02:57 Eos % (Auto) 0.1 % (0.0-4.3) 11/13/19 02:57 Baso % (Auto) 0.0 % (0.0-1.8) 11/13/19 02:57 Lymph # 0.6 K/mm3 (1.2-5.4) L 11/13/19 02:57 [place] # 0.7 K/mm3 (0.0-0.8) 11/13/19 02:57 Eos # 0.0 K/mm3 (0.0-0.4) 11/13/19 02:57 Baso # 0.0 K/mm3 (0.0-0.1) 11/13/19 02:57 Add Manual Diff Complete 11/12/19 01:56 Total Counted 100 11/12/19 01:56 Seg Neutrophils % 86.5 % (40.0-70.0) H 11/13/19 02:57 Seg Neuts % (Manual) 76.0 % (40.0-70.0) H 11/12/19 01:56 Band Neutrophils % 0 % 11/12/19 01:56 Lymphocytes % (Manual) 13.0 % (13.4-35.0) L 11/12/19 01:56 Reactive Lymphs % (Man) 0 % 11/12/19 01:56 Monocytes % (Manual) 9.0 % (0.0-7.3) H 11/12/19 01:56 Eosinophils % (Manual) 2.0 % (0.0-4.3) 11/12/19 01:56 Basophils % (Manual) 0 % (0.0-1.8) 11/12/19 01:56 Metamyelocytes % 0 % 11/12/19 01:56 Myelocytes % 0 % 11/12/19 01:56 Promyelocytes % 0 % 11/12/19 01:56 Blast Cells % 0 % 11/12/19 01:56 Nucleated RBC % Not Reportable 11/12/19 01:56 Seg Neutrophils # 8.5 K/mm3 (1.8-7.7) H 11/13/19 02:57 Seg Neutrophils # Man 6.5 K/mm3 (1.8-7.7) 11/12/19 01:56 Band Neutrophils # 0.0 K/mm3 11/12/19 01:56 Lymphocytes # (Manual) 1.1 K/mm3 (1.2-5.4) L 11/12/19 01:56 Abs React Lymphs (Man) 0.0 K/mm3 11/12/19 01:56 Monocytes # (Manual) 0.8 K/mm3 (0.0-0.8) 11/12/19 01:56 Eosinophils # (Manual) 0.2 K/mm3 (0.0-0.4) 11/12/19 01:56 Basophils # (Manual) 0.0 K/mm3 (0.0-0.1) 11/12/19 01:56 Metamyelocytes # 0.0 K/mm3 11/12/19 01:56 Myelocytes # 0.0 K/mm3 11/12/19 01:56 Promyelocytes # 0.0 K/mm3 11/12/19 01:56 Blast Cells # 0.0 K/mm3 11/12/19 01:56 WBC Morphology Not Reportable 11/12/19 01:56 Hypersegmented Neuts Not Reportable 11/12/19 01:56 Hyposegmented Neuts Not Reportable 11/12/19 01:56 Hypogranular Neuts Not Reportable 11/12/19 01:56 Smudge Cells Not Reportable 11/12/19 01:56 Toxic Granulation Not Reportable 11/12/19 01:56 Toxic Vacuolation Not Reportable 11/12/19 01:56 Dohle Bodies Not Reportable 11/12/19 01:56 Pelger-Huet Anomaly Not Reportable 11/12/19 01:56 Brian Rods Not Reportable 11/12/19 01:56 Platelet Estimate Consistent w auto 11/12/19 01:56 Clumped Platelets Not Reportable 11/12/19 01:56 Plt Clumps, EDTA Not Reportable 11/12/19 01:56 Large Platelets Not Reportable 11/12/19 01:56 Giant Platelets Not Reportable 11/12/19 01:56 Platelet Satelliting Not Reportable 11/12/19 01:56 Plt Morphology Comment Not Reportable 11/12/19 01:56 RBC Morphology Not Reportable 11/12/19 01:56 Dimorphic RBCs Not Reportable 11/12/19 01:56 Polychromasia Not Reportable 11/12/19 01:56 Hypochromasia Not Reportable 11/12/19 01:56 Poikilocytosis Not Reportable 11/12/19 01:56 Anisocytosis 1+ 11/12/19 01:56 Microcytosis Not Reportable 11/12/19 01:56 Macrocytosis Not Reportable 11/12/19 01:56 Spherocytes Not Reportable 11/12/19 01:56 Pappenheimer Bodies Not Reportable 11/12/19 01:56 Sickle Cells Not Reportable 11/12/19 01:56 Target Cells Not Reportable 11/12/19 01:56 Tear Drop Cells Not Reportable 11/12/19 01:56 Ovalocytes Not Reportable 11/12/19 01:56 Helmet Cells Not Reportable 11/12/19 01:56 Bazan-Bluebell Bodies Not Reportable 11/12/19 01:56 [place] Rings Not Reportable 11/12/19 01:56 [place] Cells Not Reportable 11/12/19 01:56 Bite Cells Not Reportable 11/12/19 01:56 Crenated Cell Not Reportable 11/12/19 01:56 Elliptocytes Not Reportable 11/12/19 01:56 Acanthocytes (Spur) Not Reportable 11/12/19 01:56 Rouleaux Not Reportable 11/12/19 01:56 Hemoglobin C Crystals Not Reportable 11/12/19 01:56 Schistocytes Not Reportable 11/12/19 01:56 Malaria parasites Not Reportable 11/12/19 01:56 Tom Bodies Not Reportable 11/12/19 01:56 Hem Pathologist Commnt No 11/12/19 01:56 PT 19.1 Sec. (12.2-14.9) H 11/12/19 01:56 INR 1.65 (0.87-1.13) H 11/12/19 01:56 APTT 27.1 Sec. (24.2-36.6) 11/12/19 01:56 ABG pH 7.400 pH Units (7.350-7.450) 11/13/19 03:35 ABG pCO2 45.0 mm Hg 11/13/19 03:35 ABG pO2 93.0 mm Hg (80.0-90.0) H 11/13/19 03:35 ABG HCO3 27.3 mmol/L (20.0-26.0) H 11/13/19 03:35 ABG O2 Saturation 97.0 % (95.0-99.0) 11/13/19 03:35 ABG O2 Content 13.9 (0.0-44) 11/13/19 03:35 ABG Base Excess 2.1 mmol/L (-2.0-3.0) 11/13/19 03:35 ABG Hemoglobin 10.3 gm/dl (12.0-16.0) L 11/13/19 03:35 ABG Carboxyhemoglobin 1.4 % (0.0-5.0) 11/13/19 03:35 ABG Methemoglobin 0.5 % (0.0-1.5) 11/13/19 03:35 Oxyhemoglobin 95.2 % (95.0-99.0) 11/13/19 03:35 FiO2 35 % 11/13/19 03:35 Sodium 140 mmol/L (137-145) 11/18/19 03:41 Potassium 4.3 mmol/L (3.6-5.0) 11/18/19 03:41 Chloride 99.3 mmol/L (98-107) 11/18/19 03:41 Carbon Dioxide 24 mmol/L (22-30) 11/18/19 03:41 Anion Gap 21 mmol/L 11/18/19 03:41 BUN 110 mg/dL (7-17) H 11/18/19 03:41 Creatinine 2.1 mg/dL (0.7-1.2) H 11/18/19 03:41 Estimated GFR 27 ml/min 11/18/19 03:41 BUN/Creatinine Ratio 52 % 11/18/19 03:41 Glucose 215 mg/dL (65-100) H 11/18/19 03:41 POC Glucose 234 (70-105) H 11/18/19 11:47 Lactic Acid 1.50 mmol/L (0.7-2.0) 11/12/19 01:56 Calcium 9.0 mg/dL (8.4-10.2) 11/18/19 03:41 Total Bilirubin 0.50 mg/dL (0.1-1.2) 11/14/19 09:10 AST 21 units/L (5-40) 11/14/19 09:10 ALT 39 units/L (7-56) 11/14/19 09:10 Alkaline Phosphatase 104 units/L (35-129) 11/14/19 09:10 Total Creatine Kinase 53 units/L (30-135) 11/12/19 13:28 CK-MB (CK-2) 2.9 ng/mL (0.0-4.0) 11/12/19 13:28 CK-MB (CK-2) Rel Index 5.4 (0-4) H 11/12/19 13:28 Troponin T 0.050 ng/mL (0.00-0.029) H 11/12/19 13:28 NT-Pro-B Natriuret Pep 3636 pg/mL (0-900) H 11/12/19 02:57 Total Protein 5.9 g/dL (6.3-8.2) L 11/14/19 09:10 Albumin 3.3 g/dL (3.9-5) L 11/14/19 09:10 Albumin/Globulin Ratio 1.3 % 11/14/19 09:10 Triglycerides 85 mg/dL (2-149) 11/12/19 01:56 Cholesterol 131 mg/dL (50-199) 11/12/19 01:56 LDL Cholesterol Direct 66 mg/dL (50-130) 11/12/19 01:56 HDL Cholesterol 55 mg/dL (40-59) 11/12/19 01:56 Cholesterol/HDL Ratio 2.38 % 11/12/19 01:56 Urine Color Straw (Yellow) 11/12/19 01:35 Urine Turbidity Clear (Clear) 11/12/19 01:35 Urine pH 5.0 (5.0-7.0) 11/12/19 01:35 Ur Specific [place] 1.009 (1.003-1.030) 11/12/19 01:35 Urine Protein <15 mg/dl mg/dL (Negative) 11/12/19 01:35 Urine Glucose (UA) Neg mg/dL (Negative) 11/12/19 01:35 Urine Ketones Neg mg/dL (Negative) 11/12/19 01:35 Urine Blood Neg (Negative) 11/12/19 01:35 Urine Nitrite Neg (Negative) 11/12/19 01:35 Urine Bilirubin Neg (Negative) 11/12/19 01:35 Urine Urobilinogen < 2.0 mg/dL (<2.0) 11/12/19 01:35 Ur Leukocyte Esterase Neg (Negative) 11/12/19 01:35 Urine WBC (Auto) < 1.0 /HPF (0.0-6.0) 11/12/19 01:35 Urine RBC (Auto) < 1.0 /HPF (0.0-6.0) 11/12/19 01:35 U Epithel Cells (Auto) < 1.0 /HPF (0-13.0) 11/12/19 01:35 Urine Mucus Few /HPF 11/12/19 01:35 Urine Creatinine 71.6 mg/dL (0.1-20.0) H 11/14/19 18:45 Urine Sodium 22 mmol/L 11/14/19 18:45 Armendariz/IV: Voiding Method External Female Catheter IV Catheter Type [Right Peripheral IV Forearm] IV Catheter Type [Left Chest] INT / Saline Lock IV Catheter Type [Right INT / Saline Lock Antecubital] Active Medications - Current Medications Current Medications: Generic Name Dose Route Start Last Admin Trade Name Freq PRN Reason Stop Dose Admin Acetaminophen 650 mg 11/12/19 05:48 Tylenol PO Q4H PRN Pain MILD(1-3)/Fever >100.5/IRBY Lipase/Protease/Amylase 1 each 11/17/19 09:00 Therese Gardiner 10,500 Unit FEEDTUBE PRN PRN For Clogged Feeding Tube Apixaban 2.5 mg 11/13/19 22:00 11/18/19 10:23 Eliquis PO 2.5 mg Q12HR ALLEGRA Administration Protocol Arformoterol Tartrate 15 mcg 11/18/19 20:00 Brovana Nebu IH Q12HRT ALLEGRA Budesonide 0.5 mg 11/18/19 20:00 Pulmicort IH Q12HRT ALLEGRA Dextrose 50 ml 11/13/19 13:10 11/17/19 18:00 D50w (25gm) Syringe IV 50 ml Q30MIN PRN Administration Hypoglycemia Protocol Diltiazem HCl 90 mg 11/16/19 12:00 11/18/19 13:29 Cardizem PO 90 mg Q6H ALLEGRA Administration Insulin Glargine 12 units 11/17/19 17:17 11/18/19 10:23 Lantus SUB-Q 12 units DAILY ALLEGRA Administration Insulin Human Lispro 0 unit 11/16/19 14:00 11/18/19 13:20 Humalog SUB-Q 4 unit Q6HR ALLEGRA Administration Protocol Lansoprazole 30 mg 11/15/19 10:00 11/18/19 10:23 Prevacid Solutab FEEDTUBE 30 mg QDAY ALLEGRA Administration Ondansetron HCl 4 mg 11/12/19 05:48 Zofran IV Q8H PRN Nausea And Vomiting Prednisone 20 mg 11/17/19 12:04 11/18/19 10:23 Deltasone PO 20 mg QDAY ALLEGRA Administration Simple Syrup 15 ml 11/13/19 19:44 Simple Syrup FEEDTUBE PRN PRN Hypoglycemia Simple Syrup 30 ml 11/13/19 19:44 11/15/19 21:55 Simple Syrup FEEDTUBE 30 ml PRN PRN Administration Hypoglycemia Sodium Bicarbonate 325 mg 11/13/19 19:44 Sodium Bicarbonate FEEDTUBE PRN PRN For Clogged Feeding Tube Sodium Chloride 10 ml 11/12/19 10:00 11/18/19 10:24 Sodium Chloride Flush Syringe 10 Ml IV 10 ml BID ALLEGRA Administration Sodium Chloride 10 ml 11/12/19 05:48 Sodium Chloride Flush Syringe 10 Ml IV PRN PRN LINE FLUSH Nutrition/Malnutrition Assess - Dietary Evaluation Nutrition/Malnutrition Findings: Nutrition Notes Start: 11/13/19 08:04 Freq: Status: Active Protocol: Document 11/17/19 12:16 LM (Rec: 11/17/19 12:25 LM [id number]) Nutrition Notes Initial or Follow up Reassessment Current Diagnosis CKD(stage I-IV),COPD,Decubitus (Pressure Ulcer),Diabetes, Hypertension,Heart Failure Other Pertinent Diagnosis Sacral wound Current Diet Nepro at 35ml/hr Labs/Tests Na 137 BUN 120 Cr 2.8 BG 124 Pertinent Medications Humalog Height 5 ft 4 in Weight 117.934 kg [place] Body Weight (kg) 54.54 BMI 44.6 Subjective/Other Information TF running at goal. Pt is on Bipap. Pt may require PEG Percent of energy/protein needs met: 99%/99% Burn Absent Trauma Absent Current % PO Negligible Minimum of two criteria No Reduced Supervisor Electrolytic Tinning Strength Measurably Reduced (severe) #2 Nutrition Diagnosis Increased nutrient needs ( specify in comment below) Diagnosis Progress(for reassessment Continues documentation) #1 Nutrition Diagnosis Inadequate oral intake Diagnosis Progress(for reassessment Continues documentation) Is patient on ventilator? No Is Patient Ambulatory and/or Out of Bed No REE-([facility]-confined to bed) 1967.472 Kcal/Kg value to use for calculation 13 Approximate Energy Requirements Using 1533 kcal/Kg Calculation Used for Recommendations Theresa Patel Additional Notes Protein: 69-129g (0.8-1.5g/kg using AdjBW 86kg) CKD and wounds Fluid needs are 1ml/kcal Nutrition Intervention Change Diet Order: TF Nutrition Support: Nepro 1.8 at 35ml/hr Flush 150ml q4h Kcal 1,512 Protein (gm) 68 Fluid (mL) 611 Add Supplement/Snack (indicate name/kcal Reynold BID once TF is at goal /protein ) Provides kCal: 190 Provides Protein (gm) 5 Goal #1 Meet at least 80% of kcal and protein needs Goal #2 Wound healing Anticipated Discharge Needs: Unable to determine at this time Follow-Up By: 11/21/19 Additional Comments F/U for TF tolerance
--- NOTE | 2019-11-18 16:22 | XRay Report ---
CHEST 1 VIEW INDICATION / CLINICAL INFORMATION: Hypoxemia. COMPARISON: 11/15/2019 FINDINGS: SUPPORT DEVICES: Nasogastric tube HEART / MEDIASTINUM: No significant abnormality. LUNGS / PLEURA: No significant pulmonary or pleural abnormality. No pneumothorax. ADDITIONAL FINDINGS: No significant additional findings. IMPRESSION: No acute disease or interval change from 11/15/2019 Signer Name: Gaurav Olivares MD FACR Signed: 11/18/2019 4:18 PM Workstation Name: [id number]
[2019-11-18] MEDS: INSULIN GLARGINE 100 UNITS/ML SUB-Q SCH (17:29)
[2019-11-18] MEDS: BUDESONIDE 0.5 MG/2 ML NEBU IH SCH (20:26)
[2019-11-18] MEDS: ARFORMOTEROL 15 MCG/2 ML NEBU IH SCH (20:26)
[2019-11-19] MEDS: INSULIN LISPRO 100 UNIT/ML SUB-Q SCH ×4 (00:01→17:38)
[2019-11-19] MEDS: BUDESONIDE 0.5 MG/2 ML NEBU IH SCH ×2 (08:26→21:00)
[2019-11-19] MEDS: ARFORMOTEROL 15 MCG/2 ML NEBU IH SCH ×2 (08:26→21:00)
[2019-11-19 09:13] LABS: Hematocrit 29.7 % (30.3-42.9); Hemoglobin 9.5 gm/dl (10.1-14.3); Mean Corpuscular HGB Conc 32 % (30-34); Mean Corpuscular Volume 99 fl (79-97); Platelet Count 123 K/mm3 (140-440); Red Cell Distribution Width 19.2 % (13.2-15.2)
--- NOTE | 2019-11-19 09:36 | Progress Note ---
Assessment and Plan 1. Acute kidney injury: Likely vasomotor LUIS FERNANDO superimposed on CKD in setting of CHF +/- IV contrast. Renal US; L kidney not visualized, R kidney increased echogenicity. Creatinine level currently 1.7 from 2.1 from 2.8 from 2.9 from 2.6 from 2.0. High BUN likley from steroids. Monitor renal function. Renal prognosis is guarded. Avoid nephrotoxic agents. Meds dosage based on GFR. 2. FEN: Hyperkalemia, improved, monitor. Monitor lytes and volume status. 3. Acute on chronic CHF: Volume status has improved with diuresis. CXR clear. Cards following. 4. Acute on chronic COPD: Was intubated on admission. Extubated 11/13 to NC O2, now on BIPAP. On PO steroids. Pulmonology following. 5. Elevated troponins: Cards following. 6. A. Fib with RVR: On Cardizem and Eliquis. Cards following. 7. H/o CVA. 8. H/o PE. 9. Morbid obesity. Subjective Patient was seen and examined at time of exam. She is on BIPAP. Objective - Exam: General appearance: well-developed, well-nourished, appears stated age, obese, On BIPAP, NGT HEENT: ATNC, OSVALDO, hearing intact, vision intact Neck: neck supple, trachea midline Respiratory: decreased Breath Sounds (bibasilar) Heart: S1S2, no murmur Gastrointestinal: obese, soft, normoactive bowel sounds, not tender Integumentary: no rash, warm and dry Neurologic: no focal deficit Ext: trace BLE edema noted Psychiatric: mood/affect appropriate, cooperative Subjective Date of service: 11/19/19 Principal diagnosis: Acute Respiratory Failure Objective - Vital Signs Vital signs: Vital Signs - 12hr 11/18/19 11/19/19 11/19/19 22:00 00:08 00:30 Temperature 98.0 F Pulse Rate 75 78 73 Pulse Rate [ Bilateral Throughout] Pulse Rate [ 68 From Monitor] Respiratory 21 18 Rate Respiratory Rate [Bilateral Throughout] Blood Pressure 145/84 126/77 O2 Sat by Pulse 100 43 L Oximetry 11/19/19 11/19/19 11/19/19 04:03 05:16 08:22 Temperature 98.0 F Pulse Rate 66 78 77 Pulse Rate [ Bilateral Throughout] Pulse Rate [ From Monitor] Respiratory 18 19 Rate Respiratory Rate [Bilateral Throughout] Blood Pressure 122/66 123/66 O2 Sat by Pulse 41 L 100 Oximetry 11/19/19 11/19/19 08:26 09:06 Temperature 97.8 F Pulse Rate 62 Pulse Rate [ 82 Bilateral Throughout] Pulse Rate [ From Monitor] Respiratory 20 Rate Respiratory 18 Rate [Bilateral Throughout] Blood Pressure 138/68 O2 Sat by Pulse 83 L Oximetry - Lab 11/19/19 08:09 11/19/19 08:09 Most recent lab results ABG pH 7.400 pH Units (7.350-7.450) 11/13/19 03:35 ABG pCO2 45.0 mm Hg 11/13/19 03:35 ABG pO2 93.0 mm Hg (80.0-90.0) H 11/13/19 03:35 ABG HCO3 27.3 mmol/L (20.0-26.0) H 11/13/19 03:35 ABG O2 Saturation 97.0 % (95.0-99.0) 11/13/19 03:35 Calcium 9.0 mg/dL (8.4-10.2) 11/19/19 08:09 Urine Creatinine 71.6 mg/dL (0.1-20.0) H 11/14/19 18:45 Urine Sodium 22 mmol/L 11/14/19 18:45 Medications & Allergies - Medications Allergies/Adverse Reactions: Allergies No Known Allergies Allergy (Verified 11/16/19 09:55) Home Medications: Home Medications Medication Instructions Recorded Confirmed Last Taken Type Apixaban [Eliquis] 5 mg PO BID 11/04/19 11/04/19 Unknown History AtorvaSTATin [Lipitor] 40 mg PO QHS 11/04/19 11/04/19 Unknown History Ferrous Sulfate [Ferrous Sulfate 324 mg PO QAM 11/04/19 11/04/19 Unknown History 324 MG] Fluticasone/Salmeterol [Advair 1 puff IH BID 11/04/19 11/04/19 Unknown History Diskus 250-50 mcg] HYDROcodone/APAP 5-325 [[place] 1 each PO Q6HR PRN 11/04/19 11/04/19 Unknown History 5-325 mg TAB] Linaclotide [Linzess] 290 mcg PO QDAY 11/04/19 11/04/19 Unknown History Montelukast [Singulair] 10 mg PO QPM 11/04/19 11/04/19 Unknown History Sitagliptin Phosphate [Januvia] 50 mg PO QDAY 11/04/19 11/04/19 Unknown History Torsemide [Demadex] 100 mg PO QDAY 11/04/19 11/04/19 Unknown History Umeclidinium [place] [Incruse 62.5 mcg IH QDAY 11/04/19 11/04/19 Unknown History Ellipta 62.5MCG] Valsartan [Diovan] 160 mg PO QDAY 11/04/19 11/04/19 Unknown History Zolpidem [Ambien] 5 mg PO QHS PRN 11/04/19 11/04/19 Unknown History glipiZIDE [Glucotrol] 5 mg PO QDAY 11/04/19 11/04/19 Unknown History predniSONE [Deltasone] 10 mg PO QDAY 11/04/19 11/04/19 Unknown History traZODone [Desyrel] 50 mg PO QHS 11/04/19 11/04/19 Unknown History Metoprolol [Lopressor TAB] 50 mg PO BID #60 tablet 11/10/19 Unknown Rx Prednisone [predniSONE 10 mg 10 mg PO .TAPER #1 tab.ds.pk 11/10/19 Unknown Rx (6-Day Pack, 21 Tabs)] cefUROXime [Ceftin] 250 mg PO DAILY #3 tablet 11/10/19 Unknown Rx predniSONE [Deltasone] 20 mg PO QDAY #20 tab 11/10/19 Unknown Rx Apixaban [Eliquis] 5 mg PO DAILY 11/12/19 11/12/19 Unknown History AtorvaSTATin [Lipitor] 40 mg PO QHS 11/12/19 11/12/19 Unknown History Ferrous Sulfate [Slow Release Iron 47.5 mg PO DAILY 11/12/19 11/12/19 Unknown History 47.5 Mg tab] Montelukast [Singulair] 10 mg PO QPM 11/12/19 11/12/19 Unknown History NIFEdipine [Nifedipine ER] 60 mg PO BID 11/12/19 11/12/19 Unknown History Pantoprazole [Protonix] 40 mg PO BID 11/12/19 11/12/19 Unknown History Potassium Chloride 10 meq PO BID 11/12/19 11/12/19 Unknown History Sitagliptin Phosphate [Januvia] 50 mg PO DAILY 11/12/19 11/12/19 Unknown History Torsemide [Demadex] 100 mg PO QDAY 11/12/19 11/12/19 Unknown History Valsartan [Diovan] 160 mg PO QDAY 11/12/19 11/12/19 Unknown History carvediloL [Coreg] 6.25 mg PO BID 11/12/19 11/12/19 Unknown History Active Medications: Generic Name Dose Route Start Last Admin Trade Name Freq PRN Reason Stop Dose Admin Acetaminophen 650 mg 11/12/19 05:48 Tylenol PO Q4H PRN Pain MILD(1-3)/Fever >100.5/IRBY Lipase/Protease/Amylase 1 each 11/17/19 09:00 Pancrepretty [place] 10,500 Unit FEEDTUBE PRN PRN For Clogged Feeding Tube Apixaban 2.5 mg 11/13/19 22:00 11/18/19 21:41 Eliquis PO 2.5 mg Q12HR ALLEGRA Administration Protocol Arformoterol Tartrate 15 mcg 11/18/19 20:00 11/19/19 08:26 Brovana Nebu IH 15 mcg Q12HRT ALLEGRA Administration Budesonide 0.5 mg 11/18/19 20:00 11/19/19 08:26 Pulmicort IH 0.5 mg Q12HRT ALLEGRA Administration Dextrose 50 ml 11/13/19 13:10 11/17/19 18:00 D50w (25gm) Syringe IV 50 ml Q30MIN PRN Administration Hypoglycemia Protocol Diltiazem HCl 90 mg 11/16/19 12:00 11/19/19 05:16 Cardizem PO 90 mg Q6H ALLEGRA Administration Insulin Glargine 15 units 11/18/19 17:00 11/18/19 17:29 Lantus SUB-Q 15 units Q24H ALLEGRA Administration Insulin Human Lispro 0 unit 11/16/19 14:00 11/19/19 06:39 Humalog SUB-Q 3 unit Q6HR ALLEGRA Administration Protocol Lansoprazole 30 mg 11/15/19 10:00 11/18/19 10:23 Prevacid Solutab FEEDTUBE 30 mg QDAY ALLEGRA Administration Ondansetron HCl 4 mg 11/12/19 05:48 Zofran IV Q8H PRN Nausea And Vomiting Prednisone 20 mg 11/17/19 12:04 11/18/19 10:23 Deltasone PO 20 mg QDAY ALLEGRA Administration Simple Syrup 15 ml 11/13/19 19:44 Simple Syrup FEEDTUBE PRN PRN Hypoglycemia Simple Syrup 30 ml 11/13/19 19:44 11/15/19 21:55 Simple Syrup FEEDTUBE 30 ml PRN PRN Administration Hypoglycemia Sodium Bicarbonate 325 mg 11/13/19 19:44 Sodium Bicarbonate FEEDTUBE PRN PRN For Clogged Feeding Tube Sodium Chloride 10 ml 11/12/19 10:00 11/18/19 21:47 Sodium Chloride Flush Syringe 10 Ml IV 10 ml BID ALLEGRA Administration Sodium Chloride 10 ml 11/12/19 05:48 Sodium Chloride Flush Syringe 10 Ml IV PRN PRN LINE FLUSH
[2019-11-19] MEDS: APIXABAN 2.5 MG TAB PO SCH ×2 (09:56→21:13)
[2019-11-19] MEDS: predniSONE 20 MG TAB PO SCH (09:56)
[2019-11-19] MEDS: LANSOPRAZOLE 30 MG SOLUTAB FEEDTUBE SCH (10:09)
--- NOTE | 2019-11-19 10:10 | Progress Note ---
Assessment and Plan 11/19/2019>Patient is comfortable,telemetry showing atrial fibrillation with controlled VR. Cont Eliquis. Cont PO Cardizem 90mg q6h. Of note, per Speech Therapy, pt is at significant risk secondary to aspiration and poor pulmonary support. NPO status recommended. NGT in place with tube feeding infusing. If PEG tube placement is required, ok to hold Eliquis for 48 hrs prior to procedure. (1) Atrial fibrillation Current Visit: Yes Status: Chronic Qualifiers: Atrial fibrillation type: unspecified persistent Qualified Code(s): I48.19 - Other persistent atrial fibrillation; I48.1 - Persistent atrial fibrillation Plan to address problem: Currently rate controlled (2) NSTEMI (non-ST elevated myocardial infarction) Current Visit: Yes Status: Acute Plan to address problem: Type 2 - in the setting of LUIS FERNANDO (3) LUIS FERNANDO (acute kidney injury) Current Visit: Yes Status: Acute (4) Acute on chronic respiratory failure Current Visit: Yes Status: Acute (5) COPD (chronic obstructive pulmonary disease) Current Visit: Yes Status: Acute Qualifiers: COPD type: COPD with acute exacerbation Qualified Code(s): J44.1 - Chronic obstructive pulmonary disease with (acute) exacerbation (6) History of CVA (cerebrovascular accident) Current Visit: Yes Status: Chronic (7) History of pulmonary embolism Current Visit: Yes Status: Chronic (8) HTN (hypertension) Current Visit: Yes Status: Chronic Qualifiers: Hypertension type: essential hypertension Qualified Code(s): I10 - Essential (primary) hypertension (9) Hyperlipidemia Current Visit: Yes Status: Chronic Qualifiers: Hyperlipidemia type: mixed hyperlipidemia Qualified Code(s): E78.2 - Mixed hyperlipidemia (10) Diabetes mellitus Current Visit: Yes Status: Chronic Qualifiers: Diabetes mellitus type: type 2 Diabetes mellitus complication status: with hyperglycemia (11) Morbid obesity Current Visit: Yes Status: Chronic Subjective Date of service: 11/18/19 Principal diagnosis: Acute Respiratory Failure Interval history: Per RN, pt removed BiPAP mask multiple times last night, resulting in desats throughout the night. She has been on continuous BiPAP this AM - tolerating well. No current cardiac complaints. Tele reviewed - AF 80s with no acute events noted. Subjective Date of service: 11/19/19 Principal diagnosis: Acute Respiratory Failure Interval history: Patient is comfortable,on Bipap,no particular complaints. Objective Vital Signs Temp Pulse Pulse Pulse Resp Resp BP 11/19/19 09:06 97.8 F 62 20 138/68 11/19/19 08:26 82 18 11/19/19 08:22 77 19 11/19/19 05:16 78 123/66 11/19/19 04:03 98.0 F 66 18 122/66 11/19/19 00:30 98.0 F 73 18 126/77 11/19/19 00:08 78 145/84 11/18/19 22:00 75 68 21 11/18/19 20:55 98 F 68 11/18/19 20:36 79 21 11/18/19 20:33 81 19 11/18/19 18:05 74 18 11/18/19 17:28 84 131/73 11/18/19 15:41 99.0 F 20 131/73 11/18/19 13:42 99 H 17 11/18/19 13:29 102 H 135/60 11/18/19 13:28 102 H 135/60 11/18/19 13:27 102 H 135/60 11/18/19 11:33 53 L 11/18/19 11:31 98.8 F 74 20 136/77 BP BP Pulse Ox 11/19/19 09:06 83 L 11/19/19 08:26 11/19/19 08:22 100 11/19/19 05:16 11/19/19 04:03 41 L 11/19/19 00:30 43 L 11/19/19 00:08 11/18/19 22:00 100 11/18/19 20:55 141/89 141/68 11/18/19 20:36 100 11/18/19 20:33 11/18/19 18:05 96 11/18/19 17:28 11/18/19 15:41 11/18/19 13:42 100 11/18/19 13:29 11/18/19 13:28 11/18/19 13:27 11/18/19 11:33 66 L 11/18/19 11:31 60 L - Physical Examination General: Other (lethargic ) HEENT: Positive: EOMI, Normocephaly Neck: Positive: neck supple, trachea midline. Negative: JVD/HJR Cardiac: Positive: irregularly irregular Lungs: Positive: Decreased Breath Sounds (bilaterally.) Neuro: Positive: Grossly Intact, Motor Function Intact, Coordination Normal, Sensory Function Intact Abdomen: Positive: Soft, Active Bowel Sounds. Negative: Tender Skin: Negative: Rash, Wound Musculoskeletal: No Pain, Normal Range of Motion Extremities: Present: upper extr. pulses, lower extr. pulses, edema (trace BLE edema) - Labs and Meds CBC 11/19/19 Range/Units 08:09 WBC 12.9 H (4.5-11.0) K/mm3 RBC 3.00 L (3.65-5.03) M/mm3 Hgb 9.5 L (10.1-14.3) gm/dl Hct 29.7 L (30.3-42.9) % Plt Count 123 L (140-440) K/mm3 Comprehensive Metabolic Panel 11/19/19 Range/Units 08:09 Sodium 139 (137-145) mmol/L Potassium 3.6 (3.6-5.0) mmol/L Chloride 100.3 (98-107) mmol/L Carbon Dioxide 26 (22-30) mmol/L BUN 99 H (7-17) mg/dL Creatinine 1.7 H (0.7-1.2) mg/dL Glucose 194 H (65-100) mg/dL Calcium 9.0 (8.4-10.2) mg/dL - Imaging and Cardiology EKG: report reviewed, image reviewed Echo: report reviewed (11/04/2019: EF 50-55%, impaired relaxation, mild to mod TR, RVSP 39mmHg) Myocardial infarction: inferior TX (old age inde
--- NOTE | 2019-11-19 11:45 | Progress Note ---
Assessment and Plan Assessment and plan: 79-year-old female with a history of COPD on home O2, diabetes, congestive heart failure, hypertension and atrial fibrillation presented to the ED in acute respiratory distress secondary to volume overload. Patient was able to be extubated today. Hospital course complicated by continued atrial fibrillation with rapid ventricular rate. Bedside swallow eval now to see if patient can swallow pills * Patient with two . Discussed with Medical rec ords to merge 11/15: Patient seen by speech therapy today still with NG tube for dietary needs. Concerning for high risk of aspiration especially with intermittent increasing work of breathing. Lasix was held due to worsening renal function. Discussed with family about concern about swallow evaluation and if alternative means of therapy for nutrition should be considered for 2 weeks. Per case management family in the past has refused SNF will rediscuss also. Patient is nonambulatory. Plan discussed with manager automotive 11/17/19: Continues on BIPAP, still not able to tolerate PO and still on Tube feed. will decrease dose of Lantus due to Hypoglycemia. Hold Lasix 11/18/19: Continues on BIPAP, lasix held due to renal function. BG increased some, lantus adjusted for better control. CXR ordered, awaiting Placement for LTAC 11/19/19: Continue monitoring, lasix still on hold, awaiting LTAC approval, will need gradual weaning and diuresis intermittent. creatinine down to 1.7 - Patient Problems (1) acute diastolic CHF exacerbation with preserved EF Current Visit: Yes Status: Acute Qualifiers: Heart failure type: unspecified Qualified Code(s): I50.9 - Heart failure, unspecified Plan to address problem: Seems to be improving. Follow-up chest x-ray shows improving edema. Also improving clinically. Continue medical management. May require changing from Coreg to Lopressor for rate control. Now extubated back to nasal cannular and stable (2) Elevated troponin, Type 2 NSTEMI Current Visit: Yes Status: Acute Plan to address problem: Secondary to renal insufficiency (3) PNA (pneumonia) Current Visit: Yes Status: Acute Qualifiers: Pneumonia type: due to unspecified organism Laterality: unspecified laterality Lung location: unspecified part of lung Qualified Code(s): J18.9 - Pneumonia, unspecified organism Plan to address problem: No airspace disease or pleural effusion on follow-up chest x-ray this morning. Titrate antibiotics to off versus p.o. (4) Acute kidney injury likely secondary to vasomotor nephropathy Current Visit: Yes Status: Acute Qualifiers: Renal failure chronicity: acute Acute renal failure type: unspecified Qualified Code(s): N17.9 - Acute kidney failure, unspecified Plan to address problem: Patient renal failure BUN/creatinine consistent with prerenal azotemia. Versus ATN. Since congestive heart failure is improving. Will titrate down on diuretics to once a day. continue gentle rehydration. Lasix was decreased to 20 mg IV every 12. Today is held. We will see how this affects the renal function today. (5) Respiratory distress with hypoxia Current Visit: Yes Status: Acute Plan to address problem: Patient blood gases have improved. Potential extubation a day. Discussed plan with pulmonology. (6) COPD with acute exacerbation Current Visit: Yes Status: Acute Plan to address problem: Pulmonology consult. (7) Atrial fibrillation with rapid ventricular response Current Visit: Yes Status: Acute Plan to address problem: Patient continues to have atrial fibrillation with rapid ventricular rate. If patient able to tolerate p.o. we will start patient on Cardizem versus Lopressor . If not able to manage by mouth we will treat with Cardizem drip. Will consult cardiology (8) Morbid obesity Current Visit: Yes Status: Acute Plan to address problem: We will decrease caloric intake. (9) Diabetes mellitus with hyperglycemia Current Visit: Yes Status: Acute (10) HTN (hypertension) Current Visit: Yes Status: Chronic (11) Hyperlipidemia Current Visit: Yes Status: Chronic (12) History of CVA (cerebrovascular accident) Current Visit: Yes Status: Chronic (13) History of pulmonary embolism Current Visit: Yes Status: Chronic (14) Anemia Current Visit: Yes Status: Acute Will transfer to telemetry. History Interval history: Patient seen and examined, improving although still with shortness of breath. Still on BIPAP. was off for some time yesterday. Denies any chest pain Hospitalist Physical - Physical exam Narrative exam: General appearance: Present: mild distress, well-nourished, morbidly Obese. ON BIPAP - EENT Eyes: Present: PERRL, EOM intact ENT: hearing intact, clear oral mucosa - Respiratory Respiratory: bilateral: rhonchi - Cardiovascular Rhythm: regular Heart Sounds: Present: S1 & S2, irregularly irregular - Extremities Extremities: no ischemia, pulses intact, pulses symmetrical Peripheral Pulses: within normal limits - Abdominal General gastrointestinal: soft, non-tender, distended, hypoactive bowel sounds - Integumentary Integumentary: Present: clear, warm, dry - Psychiatric Psychiatric: appropriate mood/affect, intact judgment & insight, memory intact - Neurologic Neurologic: CNII-XII intact - Constitutional Vitals: Temp Pulse Resp BP Pulse Ox 97.8 F 62 20 138/68 83 L 11/19/19 09:06 11/19/19 09:06 11/19/19 09:06 11/19/19 09:06 11/19/19 09:06 General appearance: Present: mild distress, well-nourished HEART Score - HEART Score Troponin: Troponin T 0.050 ng/mL (0.00-0.029) H 11/12/19 13:28 Results - Labs CBC & Chem 7: 11/19/19 08:09 11/19/19 08:09 Labs: Laboratory Last Values WBC 12.9 K/mm3 (4.5-11.0) H 11/19/19 08:09 RBC 3.00 M/mm3 (3.65-5.03) L 11/19/19 08:09 Hgb 9.5 gm/dl (10.1-14.3) L 11/19/19 08:09 Hct 29.7 % (30.3-42.9) L 11/19/19 08:09 MCV 99 fl (79-97) H 11/19/19 08:09 MCH 32 pg (28-32) 11/19/19 08:09 MCHC 32 % (30-34) 11/19/19 08:09 RDW 19.2 % (13.2-15.2) H 11/19/19 08:09 Plt Count 123 K/mm3 (140-440) L 11/19/19 08:09 Lymph % (Auto) 5.8 % (13.4-35.0) L 11/13/19 02:57 [place] % (Auto) 7.6 % (0.0-7.3) H 11/13/19 02:57 Eos % (Auto) 0.1 % (0.0-4.3) 11/13/19 02:57 Baso % (Auto) 0.0 % (0.0-1.8) 11/13/19 02:57 Lymph # 0.6 K/mm3 (1.2-5.4) L 11/13/19 02:57 [place] # 0.7 K/mm3 (0.0-0.8) 11/13/19 02:57 Eos # 0.0 K/mm3 (0.0-0.4) 11/13/19 02:57 Baso # 0.0 K/mm3 (0.0-0.1) 11/13/19 02:57 Add Manual Diff Complete 11/12/19 01:56 Total Counted 100 11/12/19 01:56 Seg Neutrophils % 86.5 % (40.0-70.0) H 11/13/19 02:57 Seg Neuts % (Manual) 76.0 % (40.0-70.0) H 11/12/19 01:56 Band Neutrophils % 0 % 11/12/19 01:56 Lymphocytes % (Manual) 13.0 % (13.4-35.0) L 11/12/19 01:56 Reactive Lymphs % (Man) 0 % 11/12/19 01:56 Monocytes % (Manual) 9.0 % (0.0-7.3) H 11/12/19 01:56 Eosinophils % (Manual) 2.0 % (0.0-4.3) 11/12/19 01:56 Basophils % (Manual) 0 % (0.0-1.8) 11/12/19 01:56 Metamyelocytes % 0 % 11/12/19 01:56 Myelocytes % 0 % 11/12/19 01:56 Promyelocytes % 0 % 11/12/19 01:56 Blast Cells % 0 % 11/12/19 01:56 Nucleated RBC % Not Reportable 11/12/19 01:56 Seg Neutrophils # 8.5 K/mm3 (1.8-7.7) H 11/13/19 02:57 Seg Neutrophils # Man 6.5 K/mm3 (1.8-7.7) 11/12/19 01:56 Band Neutrophils # 0.0 K/mm3 11/12/19 01:56 Lymphocytes # (Manual) 1.1 K/mm3 (1.2-5.4) L 11/12/19 01:56 Abs React Lymphs (Man) 0.0 K/mm3 11/12/19 01:56 Monocytes # (Manual) 0.8 K/mm3 (0.0-0.8) 11/12/19 01:56 Eosinophils # (Manual) 0.2 K/mm3 (0.0-0.4) 11/12/19 01:56 Basophils # (Manual) 0.0 K/mm3 (0.0-0.1) 11/12/19 01:56 Metamyelocytes # 0.0 K/mm3 11/12/19 01:56 Myelocytes # 0.0 K/mm3 11/12/19 01:56 Promyelocytes # 0.0 K/mm3 11/12/19 01:56 Blast Cells # 0.0 K/mm3 11/12/19 01:56 WBC Morphology Not Reportable 11/12/19 01:56 Hypersegmented Neuts Not Reportable 11/12/19 01:56 Hyposegmented Neuts Not Reportable 11/12/19 01:56 Hypogranular Neuts Not Reportable 11/12/19 01:56 Smudge Cells Not Reportable 11/12/19 01:56 Toxic Granulation Not Reportable 11/12/19 01:56 Toxic Vacuolation Not Reportable 11/12/19 01:56 Dohle Bodies Not Reportable 11/12/19 01:56 Pelger-Huet Anomaly Not Reportable 11/12/19 01:56 Brian Rods Not Reportable 11/12/19 01:56 Platelet Estimate Consistent w auto 11/12/19 01:56 Clumped Platelets Not Reportable 11/12/19 01:56 Plt Clumps, EDTA Not Reportable 11/12/19 01:56 Large Platelets Not Reportable 11/12/19 01:56 Giant Platelets Not Reportable 11/12/19 01:56 Platelet Satelliting Not Reportable 11/12/19 01:56 Plt Morphology Comment Not Reportable 11/12/19 01:56 RBC Morphology Not Reportable 11/12/19 01:56 Dimorphic RBCs Not Reportable 11/12/19 01:56 Polychromasia Not Reportable 11/12/19 01:56 Hypochromasia Not Reportable 11/12/19 01:56 Poikilocytosis Not Reportable 11/12/19 01:56 Anisocytosis 1+ 11/12/19 01:56 Microcytosis Not Reportable 11/12/19 01:56 Macrocytosis Not Reportable 11/12/19 01:56 Spherocytes Not Reportable 11/12/19 01:56 Pappenheimer Bodies Not Reportable 11/12/19 01:56 Sickle Cells Not Reportable 11/12/19 01:56 Target Cells Not Reportable 11/12/19 01:56 Tear Drop Cells Not Reportable 11/12/19 01:56 Ovalocytes Not Reportable 11/12/19 01:56 Helmet Cells Not Reportable 11/12/19 01:56 Bazan-Franklin Bodies Not Reportable 11/12/19 01:56 [place] Rings Not Reportable 11/12/19 01:56 Lawrence Cells Not Reportable 11/12/19 01:56 Bite Cells Not Reportable 11/12/19 01:56 Crenated Cell Not Reportable 11/12/19 01:56 Elliptocytes Not Reportable 11/12/19 01:56 Acanthocytes (Spur) Not Reportable 11/12/19 01:56 Rouleaux Not Reportable 11/12/19 01:56 Hemoglobin C Crystals Not Reportable 11/12/19 01:56 Schistocytes Not Reportable 11/12/19 01:56 Malaria parasites Not Reportable 11/12/19 01:56 Tom Bodies Not Reportable 11/12/19 01:56 Hem Pathologist Commnt No 11/12/19 01:56 PT 19.1 Sec. (12.2-14.9) H 11/12/19 01:56 INR 1.65 (0.87-1.13) H 11/12/19 01:56 APTT 27.1 Sec. (24.2-36.6) 11/12/19 01:56 ABG pH 7.400 pH Units (7.350-7.450) 11/13/19 03:35 ABG pCO2 45.0 mm Hg 11/13/19 03:35 ABG pO2 93.0 mm Hg (80.0-90.0) H 11/13/19 03:35 ABG HCO3 27.3 mmol/L (20.0-26.0) H 11/13/19 03:35 ABG O2 Saturation 97.0 % (95.0-99.0) 11/13/19 03:35 ABG O2 Content 13.9 (0.0-44) 11/13/19 03:35 ABG Base Excess 2.1 mmol/L (-2.0-3.0) 11/13/19 03:35 ABG Hemoglobin 10.3 gm/dl (12.0-16.0) L 11/13/19 03:35 ABG Carboxyhemoglobin 1.4 % (0.0-5.0) 11/13/19 03:35 ABG Methemoglobin 0.5 % (0.0-1.5) 11/13/19 03:35 Oxyhemoglobin 95.2 % (95.0-99.0) 11/13/19 03:35 FiO2 35 % 11/13/19 03:35 Sodium 139 mmol/L (137-145) 11/19/19 08:09 Potassium 3.6 mmol/L (3.6-5.0) 11/19/19 08:09 Chloride 100.3 mmol/L (98-107) 11/19/19 08:09 Carbon Dioxide 26 mmol/L (22-30) 11/19/19 08:09 Anion Gap 16 mmol/L 11/19/19 08:09 BUN 99 mg/dL (7-17) H 11/19/19 08:09 Creatinine 1.7 mg/dL (0.7-1.2) H 11/19/19 08:09 Estimated GFR 35 ml/min 11/19/19 08:09 BUN/Creatinine Ratio 58 % 11/19/19 08:09 Glucose 194 mg/dL (65-100) H 11/19/19 08:09 POC Glucose 169 (70-105) H 11/19/19 06:41 Lactic Acid 1.50 mmol/L (0.7-2.0) 11/12/19 01:56 Calcium 9.0 mg/dL (8.4-10.2) 11/19/19 08:09 Total Bilirubin 0.50 mg/dL (0.1-1.2) 11/14/19 09:10 AST 21 units/L (5-40) 11/14/19 09:10 ALT 39 units/L (7-56) 11/14/19 09:10 Alkaline Phosphatase 104 units/L (35-129) 11/14/19 09:10 Total Creatine Kinase 53 units/L (30-135) 11/12/19 13:28 CK-MB (CK-2) 2.9 ng/mL (0.0-4.0) 11/12/19 13:28 CK-MB (CK-2) Rel Index 5.4 (0-4) H 11/12/19 13:28 Troponin T 0.050 ng/mL (0.00-0.029) H 11/12/19 13:28 NT-Pro-B Natriuret Pep 3636 pg/mL (0-900) H 11/12/19 02:57 Total Protein 5.9 g/dL (6.3-8.2) L 11/14/19 09:10 Albumin 3.3 g/dL (3.9-5) L 11/14/19 09:10 Albumin/Globulin Ratio 1.3 % 11/14/19 09:10 Triglycerides 85 mg/dL (2-149) 11/12/19 01:56 Cholesterol 131 mg/dL (50-199) 11/12/19 01:56 LDL Cholesterol Direct 66 mg/dL (50-130) 11/12/19 01:56 HDL Cholesterol 55 mg/dL (40-59) 11/12/19 01:56 Cholesterol/HDL Ratio 2.38 % 11/12/19 01:56 Urine Color Straw (Yellow) 11/12/19 01:35 Urine Turbidity Clear (Clear) 11/12/19 01:35 Urine pH 5.0 (5.0-7.0) 11/12/19 01:35 Ur Specific Barton 1.009 (1.003-1.030) 11/12/19 01:35 Urine Protein <15 mg/dl mg/dL (Negative) 11/12/19 01:35 Urine Glucose (UA) Neg mg/dL (Negative) 11/12/19 01:35 Urine Ketones Neg mg/dL (Negative) 11/12/19 01:35 Urine Blood Neg (Negative) 11/12/19 01:35 Urine Nitrite Neg (Negative) 11/12/19 01:35 Urine Bilirubin Neg (Negative) 11/12/19 01:35 Urine Urobilinogen < 2.0 mg/dL (<2.0) 11/12/19 01:35 Ur Leukocyte Esterase Neg (Negative) 11/12/19 01:35 Urine WBC (Auto) < 1.0 /HPF (0.0-6.0) 11/12/19 01:35 Urine RBC (Auto) < 1.0 /HPF (0.0-6.0) 11/12/19 01:35 U Epithel Cells (Auto) < 1.0 /HPF (0-13.0) 11/12/19 01:35 Urine Mucus Few /HPF 11/12/19 01:35 Urine Creatinine 71.6 mg/dL (0.1-20.0) H 11/14/19 18:45 Urine Sodium 22 mmol/L 11/14/19 18:45 Microbiology: Microbiology 11/12/19 02:45 Tracheal Aspirate Sputum Culture - Preliminary Gram Negative Miki Armendariz/IV: Voiding Method External Female Catheter IV Catheter Type [Right Peripheral IV Forearm] IV Catheter Type [Left Chest] INT / Saline Lock IV Catheter Type [Right INT / Saline Lock Antecubital] Active Medications - Current Medications Current Medications: Generic Name Dose Route Start Last Admin Trade Name Freq PRN Reason Stop Dose Admin Acetaminophen 650 mg 11/12/19 05:48 Tylenol PO Q4H PRN Pain MILD(1-3)/Fever >100.5/IRBY Lipase/Protease/Amylase 1 each 11/17/19 09:00 Pancrepretty Gardiner 10,500 Unit FEEDTUBE PRN PRN For Clogged Feeding Tube Apixaban 2.5 mg 11/13/19 22:00 11/19/19 09:56 Eliquis PO 2.5 mg Q12HR ALLEGRA Administration Protocol Arformoterol Tartrate 15 mcg 11/18/19 20:00 11/19/19 08:26 Brovana Nebu IH 15 mcg Q12HRT ALLEGRA Administration Budesonide 0.5 mg 11/18/19 20:00 11/19/19 08:26 Pulmicort IH 0.5 mg Q12HRT ALLEGRA Administration Dextrose 50 ml 11/13/19 13:10 11/17/19 18:00 D50w (25gm) Syringe IV 50 ml Q30MIN PRN Administration Hypoglycemia Protocol Diltiazem HCl 90 mg 11/16/19 12:00 11/19/19 05:16 Cardizem PO 90 mg Q6H ALLEGRA Administration Insulin Glargine 15 units 11/18/19 17:00 11/18/19 17:29 Lantus SUB-Q 15 units Q24H ALLEGRA Administration Insulin Human Lispro 0 unit 11/16/19 14:00 11/19/19 06:39 Humalog SUB-Q 3 unit Q6HR ALLEGRA Administration Protocol Lansoprazole 30 mg 11/15/19 10:00 11/19/19 10:09 Prevacid Solutab FEEDTUBE 30 mg QDAY ALLEGRA Administration Ondansetron HCl 4 mg 11/12/19 05:48 Zofran IV Q8H PRN Nausea And Vomiting Prednisone 20 mg 11/17/19 12:04 11/19/19 09:56 Deltasone PO 20 mg QDAY ALLEGRA Administration Simple Syrup 15 ml 11/13/19 19:44 Simple Syrup FEEDTUBE PRN PRN Hypoglycemia Simple Syrup 30 ml 11/13/19 19:44 11/15/19 21:55 Simple Syrup FEEDTUBE 30 ml PRN PRN Administration Hypoglycemia Sodium Bicarbonate 325 mg 11/13/19 19:44 Sodium Bicarbonate FEEDTUBE PRN PRN For Clogged Feeding Tube Sodium Chloride 10 ml 11/12/19 10:00 11/19/19 09:56 Sodium Chloride Flush Syringe 10 Ml IV 10 ml BID ALLEGRA Administration Sodium Chloride 10 ml 11/12/19 05:48 Sodium Chloride Flush Syringe 10 Ml IV PRN PRN LINE FLUSH Nutrition/Malnutrition Assess - Dietary Evaluation Nutrition/Malnutrition Findings: Nutrition Notes Start: 11/13/19 08:04 Freq: Status: Active Protocol: Document 11/17/19 12:16 LM (Rec: 11/17/19 12:25 LM [id number]) Nutrition Notes Initial or Follow up Reassessment Current Diagnosis CKD(stage I-IV),COPD,Decubitus (Pressure Ulcer),Diabetes, Hypertension,Heart Failure Other Pertinent Diagnosis Sacral wound Current Diet Nepro at 35ml/hr Labs/Tests Na 137 BUN 120 Cr 2.8 BG 124 Pertinent Medications Humalog Height 5 ft 4 in Weight 117.934 kg [place]ter Body Weight (kg) 54.54 BMI 44.6 Subjective/Other Information TF running at goal. Pt is on Bipap. Pt may require PEG Percent of energy/protein needs met: 99%/99% Burn Absent Trauma Absent Current % PO Negligible Minimum of two criteria No Reduced Diesel Lube Tech Strength Measurably Reduced (severe) #2 Nutrition Diagnosis Increased nutrient needs ( specify in comment below) Diagnosis Progress(for reassessment Continues documentation) #1 Nutrition Diagnosis Inadequate oral intake Diagnosis Progress(for reassessment Continues documentation) Is patient on ventilator? No Is Patient Ambulatory and/or Out of Bed No REE-([facility] Jede-confined to bed) 1967.472 Kcal/Kg value to use for calculation 13 Approximate Energy Requirements Using 1533 kcal/Kg Calculation Used for Recommendations [facility] Additional Notes Protein: 69-129g (0.8-1.5g/kg using AdjBW 86kg) CKD and wounds Fluid needs are 1ml/kcal Nutrition Intervention Change Diet Order: TF Nutrition Support: Nepro 1.8 at 35ml/hr Flush 150ml q4h Kcal 1,512 Protein (gm) 68 Fluid (mL) 611 Add Supplement/Snack (indicate name/kcal Reynold BID once TF is at goal /protein ) Provides kCal: 190 Provides Protein (gm) 5 Goal #1 Meet at least 80% of kcal and protein needs Goal #2 Wound healing Anticipated Discharge Needs: Unable to determine at this time Follow-Up By: 11/21/19 Additional Comments F/U for TF tolerance
[2019-11-19] MEDS: INSULIN GLARGINE 100 UNITS/ML SUB-Q SCH (17:37)
--- NOTE | 2019-11-19 20:33 | Progress Note ---
Assessment and Plan Imp: 1. COPD exac. 2. Acute/chronic respiratory failure, hypoxia 3. A/C diastolic CHF 4. LUIS FERNANDO +/- CKD 5. Morbid obesity 6. Probable LIBORIO 7. Afib with RVR 8. OP dysphagia Rec: 1. Cont. Prednisone same dose; Diuresis prn 2. Eliquis, rate control 3. Weight loss 4. Consider home NIV as this is the 3rd time admitted in October alone for acute respiratory failure (1 at [facility], 2 at [facility]) 5. F/u sputum culture -> may need to call micro lab 6. NPO per ST; may need PEG in future 7. Further plans pending clinical course 8. Complex decision making 9. LTAC placement in progress Plan of care reviewed with patient, she understands/agrees Subjective Date of service: 11/19/19 Principal diagnosis: Acute Respiratory Failure Interval history: Awake, alert. On BIPAP. Poor historian without obvious complaints. Active Medications Acetaminophen (Tylenol) 650 mg PO Q4H PRN PRN Reason: Pain MILD(1-3)/Fever >100.5/IRBY Lipase/Protease/Amylase (Pancrepretty Dr 10,500 Unit) 1 each FEEDTUBE PRN PRN PRN Reason: For Clogged Feeding Tube Apixaban (Eliquis) 2.5 mg PO Q12HR [facility]; Protocol Last Admin: 11/19/19 09:56 Dose: 2.5 mg Documented by: Arformoterol Tartrate (Brovana Nebu) 15 mcg IH Q12HRT [facility] Last Admin: 11/19/19 08:26 Dose: 15 mcg Documented by: Budesonide (Pulmicort) 0.5 mg IH Q12HRT [facility] Last Admin: 11/19/19 08:26 Dose: 0.5 mg Documented by: Dextrose (D50w (25gm) Syringe) 50 ml IV Q30MIN PRN; Protocol PRN Reason: Hypoglycemia Last Admin: 11/17/19 18:00 Dose: 50 ml Documented by: Diltiazem HCl (Cardizem) 90 mg PO Q6H [facility] Last Admin: 11/19/19 17:37 Dose: 90 mg Documented by: Insulin Glargine (Lantus) 15 units SUB-Q Q24H [facility] Last Admin: 11/19/19 17:37 Dose: 15 units Documented by: Insulin Human Lispro (Humalog) 0 unit SUB-Q Q6HR [facility]; Protocol Last Admin: 11/19/19 17:38 Dose: 6 unit Documented by: Lansoprazole (Prevacid Solutab) 30 mg FEEDTUBE QDAY [facility] Last Admin: 11/19/19 10:09 Dose: 30 mg Documented by: Ondansetron HCl (Zofran) 4 mg IV Q8H PRN PRN Reason: Nausea And Vomiting Prednisone (Deltasone) 20 mg PO QDAY [facility] Last Admin: 11/19/19 09:56 Dose: 20 mg Documented by: Simple Syrup (Simple Syrup) 15 ml FEEDTUBE PRN PRN PRN Reason: Hypoglycemia Simple Syrup (Simple Syrup) 30 ml FEEDTUBE PRN PRN PRN Reason: Hypoglycemia Last Admin: 11/15/19 21:55 Dose: 30 ml Documented by: Sodium Bicarbonate (Sodium Bicarbonate) 325 mg FEEDTUBE PRN PRN PRN Reason: For Clogged Feeding Tube Sodium Chloride (Sodium Chloride Flush Syringe 10 Ml) 10 ml IV BID [facility] Last Admin: 11/19/19 09:56 Dose: 10 ml Documented by: Sodium Chloride (Sodium Chloride Flush Syringe 10 Ml) 10 ml IV PRN PRN PRN Reason: LINE FLUSH Objective Vital Signs - 12hr 11/19/19 11/19/19 11/19/19 09:06 10:00 12:32 Temperature 97.8 F 98.7 F Pulse Rate 62 Respiratory 20 20 Rate Blood Pressure 138/68 125/79 Blood Pressure [Right] O2 Sat by Pulse 83 L 100 Oximetry 11/19/19 11/19/19 11/19/19 12:35 12:43 14:32 Temperature Pulse Rate 87 84 78 Respiratory 20 20 Rate Blood Pressure 125/79 Blood Pressure [Right] O2 Sat by Pulse 100 100 Oximetry 11/19/19 11/19/19 11/19/19 17:13 17:26 17:37 Temperature 98.5 F 98.5 F Pulse Rate 81 70 81 Respiratory 18 20 20 Rate Blood Pressure 119/68 118/68 Blood Pressure 118/68 [Right] O2 Sat by Pulse 95 100 100 Oximetry 11/19/19 19:27 Temperature 98.0 F Pulse Rate 81 Respiratory 19 Rate Blood Pressure 114/53 Blood Pressure [Right] O2 Sat by Pulse 100 Oximetry Constitutional: no acute distress, alert Eyes: non-icteric Effort: mildly labored Ascultation: Bilateral: diminished breath sounds Cardiovascular: irregular rhythm (no mrg) Gastrointestinal: normoactive bowel sounds, soft, non-tender, non-distended Integumentary: normal Extremities: no cyanosis, pink and warm, edema (1+ bilateral edema) Neurologic: normal mental status, non-focal exam, pupils equal and round, CN II- XII normal Psychiatric: mood appropriate, affect normal CBC and BMP: 11/19/19 08:09 11/19/19 08:09 ABG, PT/INR, D-dimer: ABG ABG pH 7.400 pH Units (7.350-7.450) 11/13/19 03:35 ABG pCO2 45.0 mm Hg 11/13/19 03:35 ABG pO2 93.0 mm Hg (80.0-90.0) H 11/13/19 03:35 ABG O2 Saturation 97.0 % (95.0-99.0) 11/13/19 03:35 PT/INR, D-dimer PT 19.1 Sec. (12.2-14.9) H 11/12/19 01:56 INR 1.65 (0.87-1.13) H 11/12/19 01:56 Abnormal lab findings: Abnormal Labs 11/12/19 11/12/19 11/12/19 01:56 01:56 01:56 WBC RBC 3.23 L Hgb 9.9 L Hct MCV RDW 18.7 H Plt Count Lymph % (Auto) [place] % (Auto) Lymph # Seg Neutrophils % Seg Neuts % (Manual) 76.0 H Lymphocytes % (Manual) 13.0 L Monocytes % (Manual) 9.0 H Seg Neutrophils # Lymphocytes # (Manual) 1.1 L PT 19.1 H INR 1.65 H ABG pO2 ABG HCO3 ABG O2 Saturation ABG Hemoglobin Sodium 132 L Potassium Chloride 90.7 L Carbon Dioxide BUN 92 H Creatinine 2.0 H Glucose 320 H POC Glucose Calcium 8.3 L Alkaline Phosphatase 177 H CK-MB (CK-2) Rel Index Troponin T NT-Pro-B Natriuret Pep Total Protein 6.2 L Albumin 3.3 L Urine Creatinine 11/12/19 11/12/19 11/12/19 01:56 02:40 02:57 WBC RBC Hgb Hct MCV RDW Plt Count Lymph % (Auto) [place] % (Auto) Lymph # Seg Neutrophils % Seg Neuts % (Manual) Lymphocytes % (Manual) Monocytes % (Manual) Seg Neutrophils # Lymphocytes # (Manual) PT INR ABG pO2 194.4 H ABG HCO3 ABG O2 Saturation 99.2 H ABG Hemoglobin 10.5 L Sodium Potassium Chloride Carbon Dioxide BUN Creatinine Glucose POC Glucose Calcium Alkaline Phosphatase CK-MB (CK-2) Rel Index 8.0 H Troponin T 0.056 H NT-Pro-B Natriuret Pep 3636 H Total Protein Albumin Urine Creatinine 11/12/19 11/12/19 11/12/19 07:57 13:28 23:59 WBC RBC Hgb Hct MCV RDW Plt Count Lymph % (Auto) [place] % (Auto) Lymph # Seg Neutrophils % Seg Neuts % (Manual) Lymphocytes % (Manual) Monocytes % (Manual) Seg Neutrophils # Lymphocytes # (Manual) PT INR ABG pO2 ABG HCO3 ABG O2 Saturation ABG Hemoglobin Sodium Potassium Chloride Carbon Dioxide BUN Creatinine Glucose POC Glucose 304 H Calcium Alkaline Phosphatase CK-MB (CK-2) Rel Index 6.6 H 5.4 H Troponin T 0.058 H 0.050 H NT-Pro-B Natriuret Pep Total Protein Albumin Urine Creatinine 11/13/19 11/13/19 11/13/19 02:57 02:57 03:35 WBC RBC 3.09 L Hgb 9.8 L Hct 29.8 L MCV RDW 18.7 H Plt Count Lymph % (Auto) 5.8 L [place] % (Auto) 7.6 H Lymph # 0.6 L Seg Neutrophils % 86.5 H Seg Neuts % (Manual) Lymphocytes % (Manual) Monocytes % (Manual) Seg Neutrophils # 8.5 H Lymphocytes # (Manual) PT INR ABG pO2 93.0 H ABG HCO3 27.3 H ABG O2 Saturation ABG Hemoglobin 10.3 L Sodium 136 L Potassium Chloride 96.1 L Carbon Dioxide BUN 85 H Creatinine 1.8 H Glucose 288 H POC Glucose Calcium Alkaline Phosphatase CK-MB (CK-2) Rel Index Troponin T NT-Pro-B Natriuret Pep Total Protein Albumin Urine Creatinine 11/13/19 11/13/19 11/14/19 05:51 23:27 05:28 WBC RBC Hgb Hct MCV RDW Plt Count Lymph % (Auto) [place] % (Auto) Lymph # Seg Neutrophils % Seg Neuts % (Manual) Lymphocytes % (Manual) Monocytes % (Manual) Seg Neutrophils # Lymphocytes # (Manual) PT INR ABG pO2 ABG HCO3 ABG O2 Saturation ABG Hemoglobin Sodium Potassium Chloride Carbon Dioxide BUN Creatinine Glucose POC Glucose 273 H 179 H 205 H Calcium Alkaline Phosphatase CK-MB (CK-2) Rel Index Troponin T NT-Pro-B Natriuret Pep Total Protein Albumin Urine Creatinine 11/14/19 11/14/19 11/14/19 09:10 12:44 18:45 WBC RBC Hgb Hct MCV RDW Plt Count Lymph % (Auto) [place] % (Auto) Lymph # Seg Neutrophils % Seg Neuts % (Manual) Lymphocytes % (Manual) Monocytes % (Manual) Seg Neutrophils # Lymphocytes # (Manual) PT INR ABG pO2 ABG HCO3 ABG O2 Saturation ABG Hemoglobin Sodium Potassium Chloride Carbon Dioxide BUN 81 H Creatinine 2.0 H Glucose 205 H POC Glucose 193 H Calcium Alkaline Phosphatase CK-MB (CK-2) Rel Index Troponin T NT-Pro-B Natriuret Pep Total Protein 5.9 L Albumin 3.3 L Urine Creatinine 71.6 H 11/14/19 11/15/19 11/15/19 21:42 05:38 07:59 WBC RBC Hgb Hct MCV RDW Plt Count Lymph % (Auto) [place] % (Auto) Lymph # Seg Neutrophils % Seg Neuts % (Manual) Lymphocytes % (Manual) Monocytes % (Manual) Seg Neutrophils # Lymphocytes # (Manual) PT INR ABG pO2 ABG HCO3 ABG O2 Saturation ABG Hemoglobin Sodium Potassium 5.2 H Chloride 96.8 L Carbon Dioxide BUN 96 H Creatinine 2.6 H Glucose 213 H POC Glucose 262 H 208 H Calcium Alkaline Phosphatase CK-MB (CK-2) Rel Index Troponin T NT-Pro-B Natriuret Pep Total Protein Albumin Urine Creatinine 11/15/19 11/15/19 11/15/19 11:41 16:52 16:56 WBC RBC Hgb Hct MCV RDW Plt Count Lymph % (Auto) [place] % (Auto) Lymph # Seg Neutrophils % Seg Neuts % (Manual) Lymphocytes % (Manual) Monocytes % (Manual) Seg Neutrophils # Lymphocytes # (Manual) PT INR ABG pO2 ABG HCO3 ABG O2 Saturation ABG Hemoglobin Sodium Potassium Chloride Carbon Dioxide BUN Creatinine Glucose POC Glucose 301 H < 40 L < 40 L Calcium Alkaline Phosphatase CK-MB (CK-2) Rel Index Troponin T NT-Pro-B Natriuret Pep Total Protein Albumin Urine Creatinine 11/15/19 11/16/19 11/16/19 21:46 04:45 05:55 WBC RBC Hgb Hct MCV RDW Plt Count Lymph % (Auto) [place] % (Auto) Lymph # Seg Neutrophils % Seg Neuts % (Manual) Lymphocytes % (Manual) Monocytes % (Manual) Seg Neutrophils # Lymphocytes # (Manual) PT INR ABG pO2 ABG HCO3 ABG O2 Saturation ABG Hemoglobin Sodium 136 L Potassium Chloride 94.4 L Carbon Dioxide BUN 108 H Creatinine 2.9 H Glucose 155 H POC Glucose 52 L 150 H Calcium Alkaline Phosphatase CK-MB (CK-2) Rel Index Troponin T NT-Pro-B Natriuret Pep Total Protein Albumin Urine Creatinine 11/16/19 11/16/19 11/17/19 11:45 18:16 01:06 WBC RBC Hgb Hct MCV RDW Plt Count Lymph % (Auto) [place] % (Auto) Lymph # Seg Neutrophils % Seg Neuts % (Manual) Lymphocytes % (Manual) Monocytes % (Manual) Seg Neutrophils # Lymphocytes # (Manual) PT INR ABG pO2 ABG HCO3 ABG O2 Saturation ABG Hemoglobin Sodium Potassium Chloride Carbon Dioxide BUN Creatinine Glucose POC Glucose 270 H 238 H 206 H Calcium Alkaline Phosphatase CK-MB (CK-2) Rel Index Troponin T NT-Pro-B Natriuret Pep Total Protein Albumin Urine Creatinine 11/17/19 11/17/19 11/17/19 05:35 06:41 12:07 WBC RBC Hgb Hct MCV RDW Plt Count Lymph % (Auto) [place] % (Auto) Lymph # Seg Neutrophils % Seg Neuts % (Manual) Lymphocytes % (Manual) Monocytes % (Manual) Seg Neutrophils # Lymphocytes # (Manual) PT INR ABG pO2 ABG HCO3 ABG O2 Saturation ABG Hemoglobin Sodium Potassium Chloride 96.2 L Carbon Dioxide 21 L BUN 120 H Creatinine 2.8 H Glucose 124 H POC Glucose 160 H 68 L Calcium Alkaline Phosphatase CK-MB (CK-2) Rel Index Troponin T NT-Pro-B Natriuret Pep Total Protein Albumin Urine Creatinine 11/17/19 11/17/19 11/17/19 17:33 17:35 17:37 WBC RBC Hgb Hct MCV RDW Plt Count Lymph % (Auto) [place] % (Auto) Lymph # Seg Neutrophils % Seg Neuts % (Manual) Lymphocytes % (Manual) Monocytes % (Manual) Seg Neutrophils # Lymphocytes # (Manual) PT INR ABG pO2 ABG HCO3 ABG O2 Saturation ABG Hemoglobin Sodium Potassium Chloride Carbon Dioxide BUN Creatinine Glucose 46 L POC Glucose < 40 L 43 L Calcium Alkaline Phosphatase CK-MB (CK-2) Rel Index Troponin T NT-Pro-B Natriuret Pep Total Protein Albumin Urine Creatinine 11/18/19 11/18/19 11/18/19 03:41 04:36 06:16 WBC RBC Hgb Hct MCV RDW Plt Count Lymph % (Auto) [place] % (Auto) Lymph # Seg Neutrophils % Seg Neuts % (Manual) Lymphocytes % (Manual) Monocytes % (Manual) Seg Neutrophils # Lymphocytes # (Manual) PT INR ABG pO2 ABG HCO3 ABG O2 Saturation ABG Hemoglobin Sodium Potassium Chloride Carbon Dioxide BUN 110 H Creatinine 2.1 H Glucose 215 H POC Glucose 234 H 281 H Calcium Alkaline Phosphatase CK-MB (CK-2) Rel Index Troponin T NT-Pro-B Natriuret Pep Total Protein Albumin Urine Creatinine 11/18/19 11/18/19 11/18/19 11:47 17:21 23:21 WBC RBC Hgb Hct MCV RDW Plt Count Lymph % (Auto) [place] % (Auto) Lymph # Seg Neutrophils % Seg Neuts % (Manual) Lymphocytes % (Manual) Monocytes % (Manual) Seg Neutrophils # Lymphocytes # (Manual) PT INR ABG pO2 ABG HCO3 ABG O2 Saturation ABG Hemoglobin Sodium Potassium Chloride Carbon Dioxide BUN Creatinine Glucose POC Glucose 234 H 213 H 147 H Calcium Alkaline Phosphatase CK-MB (CK-2) Rel Index Troponin T NT-Pro-B Natriuret Pep Total Protein Albumin Urine Creatinine 11/19/19 11/19/19 11/19/19 06:41 08:09 08:09 WBC 12.9 H RBC 3.00 L Hgb 9.5 L Hct 29.7 L MCV 99 H RDW 19.2 H Plt Count 123 L Lymph % (Auto) [place] % (Auto) Lymph # Seg Neutrophils % Seg Neuts % (Manual) Lymphocytes % (Manual) Monocytes % (Manual) Seg Neutrophils # Lymphocytes # (Manual) PT INR ABG pO2 ABG HCO3 ABG O2 Saturation ABG Hemoglobin Sodium Potassium Chloride Carbon Dioxide BUN 99 H Creatinine 1.7 H Glucose 194 H POC Glucose 169 H Calcium Alkaline Phosphatase CK-MB (CK-2) Rel Index Troponin T NT-Pro-B Natriuret Pep Total Protein Albumin Urine Creatinine 11/19/19 11/19/19 12:59 17:37 WBC RBC Hgb Hct MCV RDW Plt Count Lymph % (Auto) [place] % (Auto) Lymph # Seg Neutrophils % Seg Neuts % (Manual) Lymphocytes % (Manual) Monocytes % (Manual) Seg Neutrophils # Lymphocytes # (Manual) PT INR ABG pO2 ABG HCO3 ABG O2 Saturation ABG Hemoglobin Sodium Potassium Chloride Carbon Dioxide BUN Creatinine Glucose POC Glucose 150 H 260 H Calcium Alkaline Phosphatase CK-MB (CK-2) Rel Index Troponin T NT-Pro-B Natriuret Pep Total Protein Albumin Urine Creatinine Chest x-ray: report reviewed, image reviewed
[2019-11-20] MEDS: INSULIN LISPRO 100 UNIT/ML SUB-Q SCH ×4 (00:03→17:53)
[2019-11-20 07:09] LABS: Hematocrit 29.3 % (30.3-42.9); Hemoglobin 9.7 gm/dl (10.1-14.3); Mean Corpuscular HGB Conc 33 % (30-34); Mean Corpuscular Volume 97 fl (79-97); Platelet Count 137 K/mm3 (140-440); Red Blood Count 3.03 M/mm3 (3.65-5.03); Red Cell Distribution Width 19.1 % (13.2-15.2)
[2019-11-20 07:27] LABS: Calcium 9.3 mg/dL (8.4-10.2)
[2019-11-20] MEDS: ARFORMOTEROL 15 MCG/2 ML NEBU IH SCH ×2 (08:27→20:56)
[2019-11-20] MEDS: BUDESONIDE 0.5 MG/2 ML NEBU IH SCH ×2 (08:28→20:56)
[2019-11-20] MEDS: predniSONE 20 MG TAB PO SCH (10:44)
[2019-11-20] MEDS: APIXABAN 2.5 MG TAB PO SCH ×2 (10:44→21:56)
[2019-11-20] MEDS: LANSOPRAZOLE 30 MG SOLUTAB FEEDTUBE SCH (10:48)
--- NOTE | 2019-11-20 11:06 | Progress Note ---
Assessment and Plan 1. Acute kidney injury: Likely vasomotor LUIS FERNANDO superimposed on CKD in setting of CHF +/- IV contrast. Renal US; L kidney not visualized, R kidney increased echogenicity. Creatinine level currently 1.5 from 1.7 from 2.1 from 2.8 from 2.9 from 2.6 from 2.0. High BUN likley from steroids. Monitor renal function. Renal prognosis is guarded. Avoid nephrotoxic agents. Meds dosage based on GFR. 2. FEN: Suspected volume overload, one dose of IV Lasix today, monitor. Hyperkalemia, improved, monitor. Monitor lytes and volume status. 3. Acute on chronic CHF: Prn diuresis. CXR clear. Cards following. 4. Acute on chronic COPD: Was intubated on admission. Extubated 11/13, was on BIPAP, now NC O2. On PO steroids. Pulmonology following. 5. Elevated troponins: Cards following. 6. A. Fib with RVR: On Cardizem and Eliquis. Cards following. 7. H/o CVA. 8. H/o PE. 9. Morbid obesity. Subjective Patient was seen and examined at time of exam. Pt c/o fluid in the body. Objective - Exam: General appearance: well-developed, well-nourished, appears stated age, obese, on NC O2, NGT HEENT: ATNC, OSVALDO, hearing intact, vision intact Neck: neck supple, trachea midline Respiratory: decreased Breath Sounds (bibasilar), faint rales noted Heart: S1S2, no murmur Gastrointestinal: obese, soft, normoactive bowel sounds, not tender Integumentary: no rash, warm and dry Neurologic: no focal deficit Ext: trace BLE edema noted Psychiatric: mood/affect appropriate, cooperative Subjective Date of service: 11/20/19 Principal diagnosis: Acute Respiratory Failure Objective - Vital Signs Vital signs: Vital Signs - 12hr 11/20/19 11/20/19 11/20/19 00:35 04:15 05:37 Temperature 98.1 F Pulse Rate 87 Respiratory 22 Rate Blood Pressure 132/64 132/64 O2 Sat by Pulse Oximetry 11/20/19 08:07 Temperature 97.7 F Pulse Rate 44 L Respiratory 18 Rate Blood Pressure 140/76 O2 Sat by Pulse 26 L Oximetry - Lab 11/20/19 05:57 11/20/19 05:57 Most recent lab results ABG pH 7.400 pH Units (7.350-7.450) 11/13/19 03:35 ABG pCO2 45.0 mm Hg 11/13/19 03:35 ABG pO2 93.0 mm Hg (80.0-90.0) H 11/13/19 03:35 ABG HCO3 27.3 mmol/L (20.0-26.0) H 11/13/19 03:35 ABG O2 Saturation 97.0 % (95.0-99.0) 11/13/19 03:35 Calcium 9.3 mg/dL (8.4-10.2) 11/20/19 05:57 Urine Creatinine 71.6 mg/dL (0.1-20.0) H 11/14/19 18:45 Urine Sodium 22 mmol/L 11/14/19 18:45 Medications & Allergies - Medications Allergies/Adverse Reactions: Allergies No Known Allergies Allergy (Verified 11/16/19 09:55) Home Medications: Home Medications Medication Instructions Recorded Confirmed Last Taken Type Apixaban [Eliquis] 5 mg PO BID 11/04/19 11/04/19 Unknown History AtorvaSTATin [Lipitor] 40 mg PO QHS 11/04/19 11/04/19 Unknown History Ferrous Sulfate [Ferrous Sulfate 324 mg PO QAM 11/04/19 11/04/19 Unknown History 324 MG] Fluticasone/Salmeterol [Advair 1 puff IH BID 11/04/19 11/04/19 Unknown History Diskus 250-50 mcg] HYDROcodone/APAP 5-325 [[place] 1 each PO Q6HR PRN 11/04/19 11/04/19 Unknown History 5-325 mg TAB] Linaclotide [Linzess] 290 mcg PO QDAY 11/04/19 11/04/19 Unknown History Montelukast [Singulair] 10 mg PO QPM 11/04/19 11/04/19 Unknown History Sitagliptin Phosphate [Januvia] 50 mg PO QDAY 11/04/19 11/04/19 Unknown History Torsemide [Demadex] 100 mg PO QDAY 11/04/19 11/04/19 Unknown History Umeclidinium Pattison [Incruse 62.5 mcg IH QDAY 11/04/19 11/04/19 Unknown History Ellipta 62.5MCG] Valsartan [Diovan] 160 mg PO QDAY 11/04/19 11/04/19 Unknown History Zolpidem [Ambien] 5 mg PO QHS PRN 11/04/19 11/04/19 Unknown History glipiZIDE [Glucotrol] 5 mg PO QDAY 11/04/19 11/04/19 Unknown History predniSONE [Deltasone] 10 mg PO QDAY 11/04/19 11/04/19 Unknown History traZODone [Desyrel] 50 mg PO QHS 11/04/19 11/04/19 Unknown History Metoprolol [Lopressor TAB] 50 mg PO BID #60 tablet 11/10/19 Unknown Rx Prednisone [predniSONE 10 mg 10 mg PO .TAPER #1 tab.ds.pk 11/10/19 Unknown Rx (6-Day Pack, 21 Tabs)] cefUROXime [Ceftin] 250 mg PO DAILY #3 tablet 11/10/19 Unknown Rx predniSONE [Deltasone] 20 mg PO QDAY #20 tab 11/10/19 Unknown Rx Apixaban [Eliquis] 5 mg PO DAILY 11/12/19 11/12/19 Unknown History AtorvaSTATin [Lipitor] 40 mg PO QHS 11/12/19 11/12/19 Unknown History Ferrous Sulfate [Slow Release Iron 47.5 mg PO DAILY 11/12/19 11/12/19 Unknown History 47.5 Mg tab] Montelukast [Singulair] 10 mg PO QPM 11/12/19 11/12/19 Unknown History NIFEdipine [Nifedipine ER] 60 mg PO BID 11/12/19 11/12/19 Unknown History Pantoprazole [Protonix] 40 mg PO BID 11/12/19 11/12/19 Unknown History Potassium Chloride 10 meq PO BID 11/12/19 11/12/19 Unknown History Sitagliptin Phosphate [Januvia] 50 mg PO DAILY 11/12/19 11/12/19 Unknown History Torsemide [Demadex] 100 mg PO QDAY 11/12/19 11/12/19 Unknown History Valsartan [Diovan] 160 mg PO QDAY 11/12/19 11/12/19 Unknown History carvediloL [Coreg] 6.25 mg PO BID 11/12/19 11/12/19 Unknown History Active Medications: Generic Name Dose Route Start Last Admin Trade Name Freq PRN Reason Stop Dose Admin Acetaminophen 650 mg 11/12/19 05:48 Tylenol PO Q4H PRN Pain MILD(1-3)/Fever >100.5/IRBY Lipase/Protease/Amylase 1 each 11/17/19 09:00 Therese Gardiner 10,500 Unit FEEDTUBE PRN PRN For Clogged Feeding Tube Apixaban 2.5 mg 11/13/19 22:00 11/20/19 10:44 Eliquis PO 2.5 mg Q12HR [facility] Administration Protocol Arformoterol Tartrate 15 mcg 11/18/19 20:00 11/20/19 08:27 Brovana Nebu IH 15 mcg Q12HRT [facility] Administration Budesonide 0.5 mg 11/18/19 20:00 11/20/19 08:28 Pulmicort IH 0.5 mg Q12HRT [facility] Administration Dextrose 50 ml 11/13/19 13:10 11/17/19 18:00 D50w (25gm) Syringe IV 50 ml Q30MIN PRN Administration Hypoglycemia Protocol Diltiazem HCl 90 mg 11/16/19 12:00 11/20/19 05:37 Cardizem PO 90 mg Q6H [facility] Administration Insulin Glargine 15 units 11/18/19 17:00 11/19/19 17:37 Lantus SUB-Q 15 units Q24H [facility] Administration Insulin Human Lispro 0 unit 11/16/19 14:00 11/20/19 05:37 Humalog SUB-Q Not Given Q6HR [facility] Protocol Lansoprazole 30 mg 11/15/19 10:00 11/20/19 10:48 Prevacid Solutab FEEDTUBE 30 mg QDAY [facility] Administration Ondansetron HCl 4 mg 11/12/19 05:48 Zofran IV Q8H PRN Nausea And Vomiting Prednisone 20 mg 11/17/19 12:04 11/20/19 10:44 Deltasone PO 20 mg QDAY [facility] Administration Simple Syrup 15 ml 11/13/19 19:44 Simple Syrup FEEDTUBE PRN PRN Hypoglycemia Simple Syrup 30 ml 11/13/19 19:44 11/15/19 21:55 Simple Syrup FEEDTUBE 30 ml PRN PRN Administration Hypoglycemia Sodium Bicarbonate 325 mg 11/13/19 19:44 Sodium Bicarbonate FEEDTUBE PRN PRN For Clogged Feeding Tube Sodium Chloride 10 ml 11/12/19 10:00 11/20/19 10:48 Sodium Chloride Flush Syringe 10 Ml IV 10 ml BID [facility] Administration Sodium Chloride 10 ml 11/12/19 05:48 Sodium Chloride Flush Syringe 10 Ml IV PRN PRN LINE FLUSH
--- NOTE | 2019-11-20 11:16 | Progress Note ---
Assessment and Plan Assessment and plan: 79-year-old female with a history of COPD on home O2, diabetes, congestive heart failure, hypertension and atrial fibrillation presented to the ED in acute respiratory distress secondary to volume overload. Patient was able to be extubated today. Hospital course complicated by continued atrial fibrillation with rapid ventricular rate. Bedside swallow eval now to see if patient can swallow pills * Patient with two . Discussed with Medical rec ords to merge 11/15: Patient seen by speech therapy today still with NG tube for dietary needs. Concerning for high risk of aspiration especially with intermittent increasing work of breathing. Lasix was held due to worsening renal function. Discussed with family about concern about swallow evaluation and if alternative means of therapy for nutrition should be considered for 2 weeks. Per case management family in the past has refused SNF will rediscuss also. Patient is nonambulatory. Plan discussed with kitchen chef 11/17/19: Continues on BIPAP, still not able to tolerate PO and still on Tube feed. will decrease dose of Lantus due to Hypoglycemia. Hold Lasix 11/18/19: Continues on BIPAP, lasix held due to renal function. BG increased some, lantus adjusted for better control. CXR ordered, awaiting Placement for LTAC 11/19/19: Continue monitoring, lasix still on hold, awaiting LTAC approval, will need gradual weaning and diuresis intermittent. creatinine down to 1.7 11/20/19: Will discuss with Pulmonary, about continue care, still awaiting LTAC, wean oxygen, consider High flow when not on BIPAP, creatnine continues to improve. Discussed with Nurse and family. - Patient Problems (1) acute diastolic CHF exacerbation with preserved EF Current Visit: Yes Status: Acute Qualifiers: Heart failure type: unspecified Qualified Code(s): I50.9 - Heart failure, unspecified Plan to address problem: Seems to be improving. Follow-up chest x-ray shows improving edema. Also improving clinically. Continue medical management. May require changing from Coreg to Lopressor for rate control. Now extubated back to nasal cannula (2) Elevated troponin, Type 2 NSTEMI Current Visit: Yes Status: Acute Plan to address problem: Secondary to renal insufficiency (3) PNA (pneumonia) Current Visit: Yes Status: Acute Qualifiers: Pneumonia type: due to unspecified organism Laterality: unspecified laterality Lung location: unspecified part of lung Qualified Code(s): J18.9 - Pneumonia, unspecified organism Plan to address problem: No airspace disease or pleural effusion on follow-up chest x-ray this morning. Titrate antibiotics to off versus p.o. (4) Acute kidney injury likely secondary to vasomotor nephropathy Current Visit: Yes Status: Acute Qualifiers: Renal failure chronicity: acute Acute renal failure type: unspecified Qualified Code(s): N17.9 - Acute kidney failure, unspecified Plan to address problem: Patient renal failure BUN/creatinine consistent with prerenal azotemia. Versus ATN. Since congestive heart failure is improving. Will titrate down on diuretics to once a day. continue gentle rehydration. Lasix was decreased to 20 mg IV every 12. Today is held. We will see how this affects the renal function today. (5) Respiratory distress with hypoxia Current Visit: Yes Status: Acute Plan to address problem: Patient blood gases have improved. Potential extubation a day. Discussed plan with pulmonology. (6) COPD with acute exacerbation Current Visit: Yes Status: Acute Plan to address problem: Pulmonology consult. (7) Atrial fibrillation with rapid ventricular response Current Visit: Yes Status: Acute Plan to address problem: Patient continues to have atrial fibrillation with rapid ventricular rate. If patient able to tolerate p.o. we will start patient on Cardizem versus Lopressor. If not able to manage by mouth we will treat with Cardizem drip. Will consult cardiology (8) Morbid obesity Current Visit: Yes Status: Acute Plan to address problem: We will decrease caloric intake. (9) Diabetes mellitus with hyperglycemia Current Visit: Yes Status: Acute (10) HTN (hypertension) Current Visit: Yes Status: Chronic (11) Hyperlipidemia Current Visit: Yes Status: Chronic (12) History of CVA (cerebrovascular accident) Current Visit: Yes Status: Chronic (13) History of pulmonary embolism Current Visit: Yes Status: Chronic (14) Anemia Current Visit: Yes Status: Acute Will transfer to telemetry. History Interval history: Patient seen and examined, improving although still with shortness of breath. now on High flow, discussed with Nursing staff and patients son Hospitalist Physical - Physical exam Narrative exam: General appearance: Present: mild distress, well-nourished, morbidly Obese. - EENT Eyes: Present: PERRL, EOM intact ENT: hearing intact, clear oral mucosa - Respiratory Respiratory: bilateral: rhonchi, Increased WOB - Cardiovascular Rhythm: regular Heart Sounds: Present: S1 & S2, irregularly irregular - Extremities Extremities: no ischemia, pulses intact, pulses symmetrical Peripheral Pulses: within normal limits - Abdominal General gastrointestinal: soft, non-tender, distended, hypoactive bowel sounds - Integumentary Integumentary: Present: clear, warm, dry - Psychiatric Psychiatric: appropriate mood/affect, intact judgment & insight, memory intact - Neurologic Neurologic: CNII-XII intact - Constitutional Vitals: Temp Pulse Resp BP Pulse Ox 97.7 F 44 L 18 140/76 26 L 11/20/19 08:07 11/20/19 08:07 11/20/19 08:07 11/20/19 08:07 11/20/19 08:07 General appearance: Present: mild distress, well-nourished HEART Score - HEART Score Troponin: Troponin T 0.050 ng/mL (0.00-0.029) H 11/12/19 13:28 Results - Labs CBC & Chem 7: 11/20/19 05:57 11/20/19 05:57 Labs: Laboratory Last Values WBC 11.0 K/mm3 (4.5-11.0) 11/20/19 05:57 RBC 3.03 M/mm3 (3.65-5.03) L 11/20/19 05:57 Hgb 9.7 gm/dl (10.1-14.3) L 11/20/19 05:57 Hct 29.3 % (30.3-42.9) L 11/20/19 05:57 MCV 97 fl (79-97) 11/20/19 05:57 MCH 32 pg (28-32) 11/20/19 05:57 MCHC 33 % (30-34) 11/20/19 05:57 RDW 19.1 % (13.2-15.2) H 11/20/19 05:57 Plt Count 137 K/mm3 (140-440) L 11/20/19 05:57 Lymph % (Auto) 5.8 % (13.4-35.0) L 11/13/19 02:57 [place] % (Auto) 7.6 % (0.0-7.3) H 11/13/19 02:57 Eos % (Auto) 0.1 % (0.0-4.3) 11/13/19 02:57 Baso % (Auto) 0.0 % (0.0-1.8) 11/13/19 02:57 Lymph # 0.6 K/mm3 (1.2-5.4) L 11/13/19 02:57 [place] # 0.7 K/mm3 (0.0-0.8) 11/13/19 02:57 Eos # 0.0 K/mm3 (0.0-0.4) 11/13/19 02:57 Baso # 0.0 K/mm3 (0.0-0.1) 11/13/19 02:57 Add Manual Diff Complete 11/12/19 01:56 Total Counted 100 11/12/19 01:56 Seg Neutrophils % 86.5 % (40.0-70.0) H 11/13/19 02:57 Seg Neuts % (Manual) 76.0 % (40.0-70.0) H 11/12/19 01:56 Band Neutrophils % 0 % 11/12/19 01:56 Lymphocytes % (Manual) 13.0 % (13.4-35.0) L 11/12/19 01:56 Reactive Lymphs % (Man) 0 % 11/12/19 01:56 Monocytes % (Manual) 9.0 % (0.0-7.3) H 11/12/19 01:56 Eosinophils % (Manual) 2.0 % (0.0-4.3) 11/12/19 01:56 Basophils % (Manual) 0 % (0.0-1.8) 11/12/19 01:56 Metamyelocytes % 0 % 11/12/19 01:56 Myelocytes % 0 % 11/12/19 01:56 Promyelocytes % 0 % 11/12/19 01:56 Blast Cells % 0 % 11/12/19 01:56 Nucleated RBC % Not Reportable 11/12/19 01:56 Seg Neutrophils # 8.5 K/mm3 (1.8-7.7) H 11/13/19 02:57 Seg Neutrophils # Man 6.5 K/mm3 (1.8-7.7) 11/12/19 01:56 Band Neutrophils # 0.0 K/mm3 11/12/19 01:56 Lymphocytes # (Manual) 1.1 K/mm3 (1.2-5.4) L 11/12/19 01:56 Abs React Lymphs (Man) 0.0 K/mm3 11/12/19 01:56 Monocytes # (Manual) 0.8 K/mm3 (0.0-0.8) 11/12/19 01:56 Eosinophils # (Manual) 0.2 K/mm3 (0.0-0.4) 11/12/19 01:56 Basophils # (Manual) 0.0 K/mm3 (0.0-0.1) 11/12/19 01:56 Metamyelocytes # 0.0 K/mm3 11/12/19 01:56 Myelocytes # 0.0 K/mm3 11/12/19 01:56 Promyelocytes # 0.0 K/mm3 11/12/19 01:56 Blast Cells # 0.0 K/mm3 11/12/19 01:56 WBC Morphology Not Reportable 11/12/19 01:56 Hypersegmented Neuts Not Reportable 11/12/19 01:56 Hyposegmented Neuts Not Reportable 11/12/19 01:56 Hypogranular Neuts Not Reportable 11/12/19 01:56 Smudge Cells Not Reportable 11/12/19 01:56 Toxic Granulation Not Reportable 11/12/19 01:56 Toxic Vacuolation Not Reportable 11/12/19 01:56 Dohle Bodies Not Reportable 11/12/19 01:56 Pelger-Huet Anomaly Not Reportable 11/12/19 01:56 Brian Rods Not Reportable 11/12/19 01:56 Platelet Estimate Consistent w auto 11/12/19 01:56 Clumped Platelets Not Reportable 11/12/19 01:56 Plt Clumps, EDTA Not Reportable 11/12/19 01:56 Large Platelets Not Reportable 11/12/19 01:56 Giant Platelets Not Reportable 11/12/19 01:56 Platelet Satelliting Not Reportable 11/12/19 01:56 Plt Morphology Comment Not Reportable 11/12/19 01:56 RBC Morphology Not Reportable 11/12/19 01:56 Dimorphic RBCs Not Reportable 11/12/19 01:56 Polychromasia Not Reportable 11/12/19 01:56 Hypochromasia Not Reportable 11/12/19 01:56 Poikilocytosis Not Reportable 11/12/19 01:56 Anisocytosis 1+ 11/12/19 01:56 Microcytosis Not Reportable 11/12/19 01:56 Macrocytosis Not Reportable 11/12/19 01:56 Spherocytes Not Reportable 11/12/19 01:56 Pappenheimer Bodies Not Reportable 11/12/19 01:56 Sickle Cells Not Reportable 11/12/19 01:56 Target Cells Not Reportable 11/12/19 01:56 Tear Drop Cells Not Reportable 11/12/19 01:56 Ovalocytes Not Reportable 11/12/19 01:56 Helmet Cells Not Reportable 11/12/19 01:56 B[place] Bodies Not Reportable 11/12/19 01:56 [place] Rings Not Reportable 11/12/19 01:56 [place] Cells Not Reportable 11/12/19 01:56 Bite Cells Not Reportable 11/12/19 01:56 Crenated Cell Not Reportable 11/12/19 01:56 Elliptocytes Not Reportable 11/12/19 01:56 Acanthocytes (Spur) Not Reportable 11/12/19 01:56 Rouleaux Not Reportable 11/12/19 01:56 Hemoglobin C Crystals Not Reportable 11/12/19 01:56 Schistocytes Not Reportable 11/12/19 01:56 Malaria parasites Not Reportable 11/12/19 01:56 Tom Bodies Not Reportable 11/12/19 01:56 Hem Pathologist Commnt No 11/12/19 01:56 PT 19.1 Sec. (12.2-14.9) H 11/12/19 01:56 INR 1.65 (0.87-1.13) H 11/12/19 01:56 APTT 27.1 Sec. (24.2-36.6) 11/12/19 01:56 ABG pH 7.400 pH Units (7.350-7.450) 11/13/19 03:35 ABG pCO2 45.0 mm Hg 11/13/19 03:35 ABG pO2 93.0 mm Hg (80.0-90.0) H 11/13/19 03:35 ABG HCO3 27.3 mmol/L (20.0-26.0) H 11/13/19 03:35 ABG O2 Saturation 97.0 % (95.0-99.0) 11/13/19 03:35 ABG O2 Content 13.9 (0.0-44) 11/13/19 03:35 ABG Base Excess 2.1 mmol/L (-2.0-3.0) 11/13/19 03:35 ABG Hemoglobin 10.3 gm/dl (12.0-16.0) L 11/13/19 03:35 ABG Carboxyhemoglobin 1.4 % (0.0-5.0) 11/13/19 03:35 ABG Methemoglobin 0.5 % (0.0-1.5) 11/13/19 03:35 Oxyhemoglobin 95.2 % (95.0-99.0) 11/13/19 03:35 FiO2 35 % 11/13/19 03:35 Sodium 144 mmol/L (137-145) 11/20/19 05:57 Potassium 4.0 mmol/L (3.6-5.0) 11/20/19 05:57 Chloride 103.5 mmol/L (98-107) 11/20/19 05:57 Carbon Dioxide 30 mmol/L (22-30) 11/20/19 05:57 Anion Gap 15 mmol/L 11/20/19 05:57 BUN 83 mg/dL (7-17) H 11/20/19 05:57 Creatinine 1.5 mg/dL (0.7-1.2) H 11/20/19 05:57 Estimated GFR 40 ml/min 11/20/19 05:57 BUN/Creatinine Ratio 55 % 11/20/19 05:57 Glucose 137 mg/dL (65-100) H 11/20/19 05:57 POC Glucose 143 (70-105) H 11/20/19 05:46 Lactic Acid 1.50 mmol/L (0.7-2.0) 11/12/19 01:56 Calcium 9.3 mg/dL (8.4-10.2) 11/20/19 05:57 Total Bilirubin 0.50 mg/dL (0.1-1.2) 11/14/19 09:10 AST 21 units/L (5-40) 11/14/19 09:10 ALT 39 units/L (7-56) 11/14/19 09:10 Alkaline Phosphatase 104 units/L (35-129) 11/14/19 09:10 Total Creatine Kinase 53 units/L (30-135) 11/12/19 13:28 CK-MB (CK-2) 2.9 ng/mL (0.0-4.0) 11/12/19 13:28 CK-MB (CK-2) Rel Index 5.4 (0-4) H 11/12/19 13:28 Troponin T 0.050 ng/mL (0.00-0.029) H 11/12/19 13:28 NT-Pro-B Natriuret Pep 3636 pg/mL (0-900) H 11/12/19 02:57 Total Protein 5.9 g/dL (6.3-8.2) L 11/14/19 09:10 Albumin 3.3 g/dL (3.9-5) L 11/14/19 09:10 Albumin/Globulin Ratio 1.3 % 11/14/19 09:10 Triglycerides 85 mg/dL (2-149) 11/12/19 01:56 Cholesterol 131 mg/dL (50-199) 11/12/19 01:56 LDL Cholesterol Direct 66 mg/dL (50-130) 11/12/19 01:56 HDL Cholesterol 55 mg/dL (40-59) 11/12/19 01:56 Cholesterol/HDL Ratio 2.38 % 11/12/19 01:56 Urine Color Straw (Yellow) 11/12/19 01:35 Urine Turbidity Clear (Clear) 11/12/19 01:35 Urine pH 5.0 (5.0-7.0) 11/12/19 01:35 Ur Specific [place] 1.009 (1.003-1.030) 11/12/19 01:35 Urine Protein <15 mg/dl mg/dL (Negative) 11/12/19 01:35 Urine Glucose (UA) Neg mg/dL (Negative) 11/12/19 01:35 Urine Ketones Neg mg/dL (Negative) 11/12/19 01:35 Urine Blood Neg (Negative) 11/12/19 01:35 Urine Nitrite Neg (Negative) 11/12/19 01:35 Urine Bilirubin Neg (Negative) 11/12/19 01:35 Urine Urobilinogen < 2.0 mg/dL (<2.0) 11/12/19 01:35 Ur Leukocyte Esterase Neg (Negative) 11/12/19 01:35 Urine WBC (Auto) < 1.0 /HPF (0.0-6.0) 11/12/19 01:35 Urine RBC (Auto) < 1.0 /HPF (0.0-6.0) 11/12/19 01:35 U Epithel Cells (Auto) < 1.0 /HPF (0-13.0) 11/12/19 01:35 Urine Mucus Few /HPF 11/12/19 01:35 Urine Creatinine 71.6 mg/dL (0.1-20.0) H 11/14/19 18:45 Urine Sodium 22 mmol/L 11/14/19 18:45 Armendariz/IV: Voiding Method External Female Catheter IV Catheter Type [Right Peripheral IV Forearm] IV Catheter Type [Left Chest] INT / Saline Lock IV Catheter Type [Right INT / Saline Lock Antecubital] Active Medications - Current Medications Current Medications: Generic Name Dose Route Start Last Admin Trade Name Freq PRN Reason Stop Dose Admin Acetaminophen 650 mg 11/12/19 05:48 Tylenol PO Q4H PRN Pain MILD(1-3)/Fever >100.5/IRBY Lipase/Protease/Amylase 1 each 11/17/19 09:00 Pancrepretty [place] 10,500 Unit FEEDTUBE PRN PRN For Clogged Feeding Tube Apixaban 2.5 mg 11/13/19 22:00 11/20/19 10:44 Eliquis PO 2.5 mg Q12HR ALLEGRA Administration Protocol Arformoterol Tartrate 15 mcg 11/18/19 20:00 11/20/19 08:27 Brovana Nebu IH 15 mcg Q12HRT ALLEGRA Administration Budesonide 0.5 mg 11/18/19 20:00 11/20/19 08:28 Pulmicort IH 0.5 mg Q12HRT ALLEGRA Administration Dextrose 50 ml 11/13/19 13:10 11/17/19 18:00 D50w (25gm) Syringe IV 50 ml Q30MIN PRN Administration Hypoglycemia Protocol Diltiazem HCl 90 mg 11/16/19 12:00 11/20/19 05:37 Cardizem PO 90 mg Q6H ALLEGRA Administration Insulin Glargine 15 units 11/18/19 17:00 11/19/19 17:37 Lantus SUB-Q 15 units Q24H ALLEGRA Administration Insulin Human Lispro 0 unit 11/16/19 14:00 11/20/19 05:37 Humalog SUB-Q Not Given Q6HR [facility] Protocol Lansoprazole 30 mg 11/15/19 10:00 11/20/19 10:48 Prevacid Solutab FEEDTUBE 30 mg QDAY ALLEGRA Administration Ondansetron HCl 4 mg 11/12/19 05:48 Zofran IV Q8H PRN Nausea And Vomiting Prednisone 20 mg 11/17/19 12:04 11/20/19 10:44 Deltasone PO 20 mg QDAY ALLEGRA Administration Simple Syrup 15 ml 11/13/19 19:44 Simple Syrup FEEDTUBE PRN PRN Hypoglycemia Simple Syrup 30 ml 11/13/19 19:44 11/15/19 21:55 Simple Syrup FEEDTUBE 30 ml PRN PRN Administration Hypoglycemia Sodium Bicarbonate 325 mg 11/13/19 19:44 Sodium Bicarbonate FEEDTUBE PRN PRN For Clogged Feeding Tube Sodium Chloride 10 ml 11/12/19 10:00 11/20/19 10:48 Sodium Chloride Flush Syringe 10 Ml IV 10 ml BID ALLEGRA Administration Sodium Chloride 10 ml 11/12/19 05:48 Sodium Chloride Flush Syringe 10 Ml IV PRN PRN LINE FLUSH Nutrition/Malnutrition Assess - Dietary Evaluation Nutrition/Malnutrition Findings: Nutrition Notes Start: 11/13/19 08:04 Freq: Status: Active Protocol: Document 11/17/19 12:16 LM (Rec: 11/17/19 12:25 LM [id number]) Nutrition Notes Initial or Follow up Reassessment Current Diagnosis CKD(stage I-IV),COPD,Decubitus (Pressure Ulcer),Diabetes, Hypertension,Heart Failure Other Pertinent Diagnosis Sacral wound Current Diet Nepro at 35ml/hr Labs/Tests Na 137 BUN 120 Cr 2.8 BG 124 Pertinent Medications Humalog Height 5 ft 4 in Weight 117.934 kg [place] Body Weight (kg) 54.54 BMI 44.6 Subjective/Other Information TF running at goal. Pt is on Bipap. Pt may require PEG Percent of energy/protein needs met: 99%/99% Burn Absent Trauma Absent Current % PO Negligible Minimum of two criteria No Reduced Securities Trader Strength Measurably Reduced (severe) #2 Nutrition Diagnosis Increased nutrient needs ( specify in comment below) Diagnosis Progress(for reassessment Continues documentation) #1 Nutrition Diagnosis Inadequate oral intake Diagnosis Progress(for reassessment Continues documentation) Is patient on ventilator? No Is Patient Ambulatory and/or Out of Bed No REE-([facility]-confined to bed) 1967.472 Kcal/Kg value to use for calculation 13 Approximate Energy Requirements Using 1533 kcal/Kg Calculation Used for Recommendations [facility] Additional Notes Protein: 69-129g (0.8-1.5g/kg using AdjBW 86kg) CKD and wounds Fluid needs are 1ml/kcal Nutrition Intervention Change Diet Order: TF Nutrition Support: Nepro 1.8 at 35ml/hr Flush 150ml q4h Kcal 1,512 Protein (gm) 68 Fluid (mL) 611 Add Supplement/Snack (indicate name/kcal Reynold BID once TF is at goal /protein ) Provides kCal: 190 Provides Protein (gm) 5 Goal #1 Meet at least 80% of kcal and protein needs Goal #2 Wound healing Anticipated Discharge Needs: Unable to determine at this time Follow-Up By: 11/21/19 Additional Comments F/U for TF tolerance
--- NOTE | 2019-11-20 11:37 | Progress Note ---
Assessment and Plan 11/19/2019>Patient is comfortable,telemetry showing atrial fibrillation with controlled VR. 11/20/2019>Patient is comfortable,using O2 by nasal canula. Patient continues to be in atrial fibrillation with controlled VR.BUN/creatinine slowly improving. Continue lasix. Cont Eliquis. Cont PO Cardizem 90mg q6h. Of note, per Speech Therapy, pt is at significant risk secondary to aspiration and poor pulmonary support. NPO status recommended. NGT in place with tube feeding infusing. If PEG tube placement is required, ok to hold Eliquis for 48 hrs prior to procedure. (1) Atrial fibrillation Current Visit: Yes Status: Chronic Qualifiers: Atrial fibrillation type: unspecified persistent Qualified Code(s): I48.19 - Other persistent atrial fibrillation; I48.1 - Persistent atrial fibrillation Plan to address problem: Currently rate controlled (2) NSTEMI (non-ST elevated myocardial infarction) Current Visit: Yes Status: Acute Plan to address problem: Type 2 - in the setting of LUIS FERNANDO (3) LUIS FERNANDO (acute kidney injury) Current Visit: Yes Status: Acute (4) Acute on chronic respiratory failure Current Visit: Yes Status: Acute (5) COPD (chronic obstructive pulmonary disease) Current Visit: Yes Status: Acute Qualifiers: COPD type: COPD with acute exacerbation Qualified Code(s): J44.1 - Chronic obstructive pulmonary disease with (acute) exacerbation (6) History of CVA (cerebrovascular accident) Current Visit: Yes Status: Chronic (7) History of pulmonary embolism Current Visit: Yes Status: Chronic (8) HTN (hypertension) Current Visit: Yes Status: Chronic Qualifiers: Hypertension type: essential hypertension Qualified Code(s): I10 - Essential (primary) hypertension (9) Hyperlipidemia Current Visit: Yes Status: Chronic Qualifiers: Hyperlipidemia type: mixed hyperlipidemia Qualified Code(s): E78.2 - Mixed hyperlipidemia (10) Diabetes mellitus Current Visit: Yes Status: Chronic Qualifiers: Diabetes mellitus type: type 2 Diabetes mellitus complication status: with hyperglycemia (11) Morbid obesity Current Visit: Yes Status: Chronic Subjective Date of service: 11/18/19 Principal diagnosis: Acute Respiratory Failure Interval history: Per RN, pt removed BiPAP mask multiple times last night, resulting in desats throughout the night. She has been on continuous BiPAP this AM - tolerating well. No current cardiac complaints. Tele reviewed - AF 80s with no acute events noted. Subjective Date of service: 11/20/19 Principal diagnosis: Acute Respiratory Failure Interval history: 11/20/2019>Patient is comfortable,on nasal canula,,no particular complaints.Sleeps in day time. Telemetry showing atrial fibrillation with controlled VR. Objective Vital Signs Temp Pulse Pulse Pulse Resp Resp BP 11/20/19 08:07 97.7 F 44 L 18 140/76 11/20/19 05:37 132/64 11/20/19 04:15 98.1 F 22 132/64 11/20/19 00:35 87 11/19/19 22:53 98.1 F 85 20 144/77 11/19/19 22:00 78 85 20 11/19/19 21:04 80 19 11/19/19 21:02 76 19 11/19/19 19:27 98.0 F 81 19 114/53 11/19/19 17:37 81 20 118/68 11/19/19 17:26 98.5 F 70 20 11/19/19 17:13 98.5 F 81 18 119/68 11/19/19 14:32 78 20 11/19/19 12:43 84 125/79 11/19/19 12:35 87 20 11/19/19 12:32 98.7 F 20 125/79 BP Pulse Ox 11/20/19 08:07 26 L 11/20/19 05:37 11/20/19 04:15 11/20/19 00:35 11/19/19 22:53 100 11/19/19 22:00 100 11/19/19 21:04 11/19/19 21:02 100 11/19/19 19:27 100 11/19/19 17:37 100 11/19/19 17:26 118/68 100 11/19/19 17:13 95 11/19/19 14:32 100 11/19/19 12:43 11/19/19 12:35 100 11/19/19 12:32 - Physical Examination General: Other HEENT: Positive: EOMI, Normocephaly Neck: Positive: neck supple, trachea midline. Negative: JVD/HJR Cardiac: Positive: irregularly irregular Lungs: Positive: Decreased Breath Sounds Neuro: Positive: Grossly Intact, Motor Function Intact, Coordination Normal, Sensory Function Intact Abdomen: Positive: Soft, Active Bowel Sounds. Negative: Tender Skin: Negative: Rash, Wound Musculoskeletal: No Pain, Normal Range of Motion Extremities: Present: upper extr. pulses, lower extr. pulses, edema (trace BLE edema) - Labs and Meds CBC 11/20/19 Range/Units 05:57 WBC 11.0 (4.5-11.0) K/mm3 RBC 3.03 L (3.65-5.03) M/mm3 Hgb 9.7 L (10.1-14.3) gm/dl Hct 29.3 L (30.3-42.9) % Plt Count 137 L (140-440) K/mm3 Comprehensive Metabolic Panel 11/20/19 Range/Units 05:57 Sodium 144 (137-145) mmol/L Potassium 4.0 (3.6-5.0) mmol/L Chloride 103.5 (98-107) mmol/L Carbon Dioxide 30 (22-30) mmol/L BUN 83 H (7-17) mg/dL Creatinine 1.5 H (0.7-1.2) mg/dL Glucose 137 H (65-100) mg/dL Calcium 9.3 (8.4-10.2) mg/dL - Imaging and Cardiology EKG: report reviewed, image reviewed Echo: report reviewed (11/04/2019: EF 50-55%, impaired relaxation, mild to mod TR, RVSP 39mmHg) Myocardial infarction: inferior NH (old age inde
[2019-11-20] MEDS ORDERED: FUROSEMIDE 40 MG/4 ML INJ IV ONE (12:03)
[2019-11-20] MEDS: INSULIN GLARGINE 100 UNITS/ML SUB-Q SCH (17:54)
--- NOTE | 2019-11-20 20:02 | Progress Note ---
Assessment and Plan Imp: 1. COPD exac. 2. Acute/chronic respiratory failure, hypoxia 3. A/C diastolic CHF 4. LUIS FERNANDO +/- CKD 5. Morbid obesity 6. Probable LIBORIO 7. Afib with RVR 8. OP dysphagia Rec: 1. Cont. Prednisone same dose; Diuresis prn 2. Eliquis, rate control 3. Weight loss 4. Consider home NIV as this is the 3rd time admitted in October alone for acute respiratory failure (1 at [facility], 2 at [facility]) 5. F/u sputum culture -> may need to call micro lab 6. NPO per ST; may need PEG in future 7. Further plans pending clinical course 8. HFNC alternating with BIPAP prn 9. Complex decision making 10. LTAC placement in progress Plan of care reviewed with patient, she understands/agrees Subjective Date of service: 11/20/19 Principal diagnosis: Acute Respiratory Failure Interval history: Awake, alert. On HFNC currently with some SOB. Poor historian. Active Medications Acetaminophen (Tylenol) 650 mg PO Q4H PRN PRN Reason: Pain MILD(1-3)/Fever >100.5/IRBY Lipase/Protease/Amylase (Pancreruthanne Dr 10,500 Unit) 1 each FEEDTUBE PRN PRN PRN Reason: For Clogged Feeding Tube Apixaban (Eliquis) 2.5 mg PO Q12HR [facility]; Protocol Last Admin: 11/20/19 10:44 Dose: 2.5 mg Documented by: Arformoterol Tartrate (Brovana Nebu) 15 mcg IH Q12HRT [facility] Last Admin: 11/20/19 08:27 Dose: 15 mcg Documented by: Budesonide (Pulmicort) 0.5 mg IH Q12HRT [facility] Last Admin: 11/20/19 08:28 Dose: 0.5 mg Documented by: Dextrose (D50w (25gm) Syringe) 50 ml IV Q30MIN PRN; Protocol PRN Reason: Hypoglycemia Last Admin: 11/17/19 18:00 Dose: 50 ml Documented by: Diltiazem HCl (Cardizem) 90 mg PO Q6H [facility] Last Admin: 11/20/19 17:52 Dose: 90 mg Documented by: Insulin Glargine (Lantus) 15 units SUB-Q Q24H [facility] Last Admin: 11/20/19 17:54 Dose: 15 units Documented by: Insulin Human Lispro (Humalog) 0 unit SUB-Q Q6HR [facility]; Protocol Last Admin: 11/20/19 17:53 Dose: Not Given Documented by: Lansoprazole (Prevacid Solutab) 30 mg FEEDTUBE QDAY [facility] Last Admin: 11/20/19 10:48 Dose: 30 mg Documented by: Ondansetron HCl (Zofran) 4 mg IV Q8H PRN PRN Reason: Nausea And Vomiting Prednisone (Deltasone) 20 mg PO QDAY [facility] Last Admin: 11/20/19 10:44 Dose: 20 mg Documented by: Simple Syrup (Simple Syrup) 15 ml FEEDTUBE PRN PRN PRN Reason: Hypoglycemia Simple Syrup (Simple Syrup) 30 ml FEEDTUBE PRN PRN PRN Reason: Hypoglycemia Last Admin: 11/15/19 21:55 Dose: 30 ml Documented by: Sodium Bicarbonate (Sodium Bicarbonate) 325 mg FEEDTUBE PRN PRN PRN Reason: For Clogged Feeding Tube Sodium Chloride (Sodium Chloride Flush Syringe 10 Ml) 10 ml IV BID [facility] Last Admin: 11/20/19 10:48 Dose: 10 ml Documented by: Sodium Chloride (Sodium Chloride Flush Syringe 10 Ml) 10 ml IV PRN PRN PRN Reason: LINE FLUSH Objective Vital Signs - 12hr 11/20/19 11/20/19 11/20/19 08:07 17:00 18:33 Temperature 97.7 F 98.0 F Pulse Rate 44 L 74 82 Respiratory 18 18 Rate Blood Pressure 140/76 Blood Pressure 132/84 [Right] O2 Sat by Pulse 26 L 90 Oximetry Constitutional: no acute distress, alert Eyes: non-icteric Effort: mildly labored Ascultation: Bilateral: diminished breath sounds Percussion: Bilateral: not dull Cardiovascular: irregular rhythm (no mrg) Gastrointestinal: normoactive bowel sounds, soft, non-tender, non-distended Integumentary: normal Extremities: no cyanosis, pink and warm, edema (1+ bilateral edema) Neurologic: normal mental status, non-focal exam, pupils equal and round, CN II- XII normal Psychiatric: mood appropriate, affect normal CBC and BMP: 11/20/19 05:57 11/20/19 05:57 ABG, PT/INR, D-dimer: ABG ABG pH 7.400 pH Units (7.350-7.450) 11/13/19 03:35 ABG pCO2 45.0 mm Hg 11/13/19 03:35 ABG pO2 93.0 mm Hg (80.0-90.0) H 11/13/19 03:35 ABG O2 Saturation 97.0 % (95.0-99.0) 11/13/19 03:35 PT/INR, D-dimer PT 19.1 Sec. (12.2-14.9) H 11/12/19 01:56 INR 1.65 (0.87-1.13) H 11/12/19 01:56 Abnormal lab findings: Abnormal Labs 11/12/19 11/12/19 11/12/19 01:56 01:56 01:56 WBC RBC 3.23 L Hgb 9.9 L Hct MCV RDW 18.7 H Plt Count Lymph % (Auto) [place] % (Auto) Lymph # Seg Neutrophils % Seg Neuts % (Manual) 76.0 H Lymphocytes % (Manual) 13.0 L Monocytes % (Manual) 9.0 H Seg Neutrophils # Lymphocytes # (Manual) 1.1 L PT 19.1 H INR 1.65 H ABG pO2 ABG HCO3 ABG O2 Saturation ABG Hemoglobin Sodium 132 L Potassium Chloride 90.7 L Carbon Dioxide BUN 92 H Creatinine 2.0 H Glucose 320 H POC Glucose Calcium 8.3 L Alkaline Phosphatase 177 H CK-MB (CK-2) Rel Index Troponin T NT-Pro-B Natriuret Pep Total Protein 6.2 L Albumin 3.3 L Urine Creatinine 11/12/19 11/12/19 11/12/19 01:56 02:40 02:57 WBC RBC Hgb Hct MCV RDW Plt Count Lymph % (Auto) [place] % (Auto) Lymph # Seg Neutrophils % Seg Neuts % (Manual) Lymphocytes % (Manual) Monocytes % (Manual) Seg Neutrophils # Lymphocytes # (Manual) PT INR ABG pO2 194.4 H ABG HCO3 ABG O2 Saturation 99.2 H ABG Hemoglobin 10.5 L Sodium Potassium Chloride Carbon Dioxide BUN Creatinine Glucose POC Glucose Calcium Alkaline Phosphatase CK-MB (CK-2) Rel Index 8.0 H Troponin T 0.056 H NT-Pro-B Natriuret Pep 3636 H Total Protein Albumin Urine Creatinine 11/12/19 11/12/19 11/12/19 07:57 13:28 23:59 WBC RBC Hgb Hct MCV RDW Plt Count Lymph % (Auto) [place] % (Auto) Lymph # Seg Neutrophils % Seg Neuts % (Manual) Lymphocytes % (Manual) Monocytes % (Manual) Seg Neutrophils # Lymphocytes # (Manual) PT INR ABG pO2 ABG HCO3 ABG O2 Saturation ABG Hemoglobin Sodium Potassium Chloride Carbon Dioxide BUN Creatinine Glucose POC Glucose 304 H Calcium Alkaline Phosphatase CK-MB (CK-2) Rel Index 6.6 H 5.4 H Troponin T 0.058 H 0.050 H NT-Pro-B Natriuret Pep Total Protein Albumin Urine Creatinine 11/13/19 11/13/19 11/13/19 02:57 02:57 03:35 WBC RBC 3.09 L Hgb 9.8 L Hct 29.8 L MCV RDW 18.7 H Plt Count Lymph % (Auto) 5.8 L [place] % (Auto) 7.6 H Lymph # 0.6 L Seg Neutrophils % 86.5 H Seg Neuts % (Manual) Lymphocytes % (Manual) Monocytes % (Manual) Seg Neutrophils # 8.5 H Lymphocytes # (Manual) PT INR ABG pO2 93.0 H ABG HCO3 27.3 H ABG O2 Saturation ABG Hemoglobin 10.3 L Sodium 136 L Potassium Chloride 96.1 L Carbon Dioxide BUN 85 H Creatinine 1.8 H Glucose 288 H POC Glucose Calcium Alkaline Phosphatase CK-MB (CK-2) Rel Index Troponin T NT-Pro-B Natriuret Pep Total Protein Albumin Urine Creatinine 11/13/19 11/13/19 11/14/19 05:51 23:27 05:28 WBC RBC Hgb Hct MCV RDW Plt Count Lymph % (Auto) [place] % (Auto) Lymph # Seg Neutrophils % Seg Neuts % (Manual) Lymphocytes % (Manual) Monocytes % (Manual) Seg Neutrophils # Lymphocytes # (Manual) PT INR ABG pO2 ABG HCO3 ABG O2 Saturation ABG Hemoglobin Sodium Potassium Chloride Carbon Dioxide BUN Creatinine Glucose POC Glucose 273 H 179 H 205 H Calcium Alkaline Phosphatase CK-MB (CK-2) Rel Index Troponin T NT-Pro-B Natriuret Pep Total Protein Albumin Urine Creatinine 11/14/19 11/14/19 11/14/19 09:10 12:44 18:45 WBC RBC Hgb Hct MCV RDW Plt Count Lymph % (Auto) [place] % (Auto) Lymph # Seg Neutrophils % Seg Neuts % (Manual) Lymphocytes % (Manual) Monocytes % (Manual) Seg Neutrophils # Lymphocytes # (Manual) PT INR ABG pO2 ABG HCO3 ABG O2 Saturation ABG Hemoglobin Sodium Potassium Chloride Carbon Dioxide BUN 81 H Creatinine 2.0 H Glucose 205 H POC Glucose 193 H Calcium Alkaline Phosphatase CK-MB (CK-2) Rel Index Troponin T NT-Pro-B Natriuret Pep Total Protein 5.9 L Albumin 3.3 L Urine Creatinine 71.6 H 11/14/19 11/15/19 11/15/19 21:42 05:38 07:59 WBC RBC Hgb Hct MCV RDW Plt Count Lymph % (Auto) [place] % (Auto) Lymph # Seg Neutrophils % Seg Neuts % (Manual) Lymphocytes % (Manual) Monocytes % (Manual) Seg Neutrophils # Lymphocytes # (Manual) PT INR ABG pO2 ABG HCO3 ABG O2 Saturation ABG Hemoglobin Sodium Potassium 5.2 H Chloride 96.8 L Carbon Dioxide BUN 96 H Creatinine 2.6 H Glucose 213 H POC Glucose 262 H 208 H Calcium Alkaline Phosphatase CK-MB (CK-2) Rel Index Troponin T NT-Pro-B Natriuret Pep Total Protein Albumin Urine Creatinine 11/15/19 11/15/19 11/15/19 11:41 16:52 16:56 WBC RBC Hgb Hct MCV RDW Plt Count Lymph % (Auto) [place] % (Auto) Lymph # Seg Neutrophils % Seg Neuts % (Manual) Lymphocytes % (Manual) Monocytes % (Manual) Seg Neutrophils # Lymphocytes # (Manual) PT INR ABG pO2 ABG HCO3 ABG O2 Saturation ABG Hemoglobin Sodium Potassium Chloride Carbon Dioxide BUN Creatinine Glucose POC Glucose 301 H < 40 L < 40 L Calcium Alkaline Phosphatase CK-MB (CK-2) Rel Index Troponin T NT-Pro-B Natriuret Pep Total Protein Albumin Urine Creatinine 11/15/19 11/16/19 11/16/19 21:46 04:45 05:55 WBC RBC Hgb Hct MCV RDW Plt Count Lymph % (Auto) [place] % (Auto) Lymph # Seg Neutrophils % Seg Neuts % (Manual) Lymphocytes % (Manual) Monocytes % (Manual) Seg Neutrophils # Lymphocytes # (Manual) PT INR ABG pO2 ABG HCO3 ABG O2 Saturation ABG Hemoglobin Sodium 136 L Potassium Chloride 94.4 L Carbon Dioxide BUN 108 H Creatinine 2.9 H Glucose 155 H POC Glucose 52 L 150 H Calcium Alkaline Phosphatase CK-MB (CK-2) Rel Index Troponin T NT-Pro-B Natriuret Pep Total Protein Albumin Urine Creatinine 11/16/19 11/16/19 11/17/19 11:45 18:16 01:06 WBC RBC Hgb Hct MCV RDW Plt Count Lymph % (Auto) [place] % (Auto) Lymph # Seg Neutrophils % Seg Neuts % (Manual) Lymphocytes % (Manual) Monocytes % (Manual) Seg Neutrophils # Lymphocytes # (Manual) PT INR ABG pO2 ABG HCO3 ABG O2 Saturation ABG Hemoglobin Sodium Potassium Chloride Carbon Dioxide BUN Creatinine Glucose POC Glucose 270 H 238 H 206 H Calcium Alkaline Phosphatase CK-MB (CK-2) Rel Index Troponin T NT-Pro-B Natriuret Pep Total Protein Albumin Urine Creatinine 11/17/19 11/17/19 11/17/19 05:35 06:41 12:07 WBC RBC Hgb Hct MCV RDW Plt Count Lymph % (Auto) [place] % (Auto) Lymph # Seg Neutrophils % Seg Neuts % (Manual) Lymphocytes % (Manual) Monocytes % (Manual) Seg Neutrophils # Lymphocytes # (Manual) PT INR ABG pO2 ABG HCO3 ABG O2 Saturation ABG Hemoglobin Sodium Potassium Chloride 96.2 L Carbon Dioxide 21 L BUN 120 H Creatinine 2.8 H Glucose 124 H POC Glucose 160 H 68 L Calcium Alkaline Phosphatase CK-MB (CK-2) Rel Index Troponin T NT-Pro-B Natriuret Pep Total Protein Albumin Urine Creatinine 11/17/19 11/17/19 11/17/19 17:33 17:35 17:37 WBC RBC Hgb Hct MCV RDW Plt Count Lymph % (Auto) [place] % (Auto) Lymph # Seg Neutrophils % Seg Neuts % (Manual) Lymphocytes % (Manual) Monocytes % (Manual) Seg Neutrophils # Lymphocytes # (Manual) PT INR ABG pO2 ABG HCO3 ABG O2 Saturation ABG Hemoglobin Sodium Potassium Chloride Carbon Dioxide BUN Creatinine Glucose 46 L POC Glucose < 40 L 43 L Calcium Alkaline Phosphatase CK-MB (CK-2) Rel Index Troponin T NT-Pro-B Natriuret Pep Total Protein Albumin Urine Creatinine 11/18/19 11/18/19 11/18/19 03:41 04:36 06:16 WBC RBC Hgb Hct MCV RDW Plt Count Lymph % (Auto) [place] % (Auto) Lymph # Seg Neutrophils % Seg Neuts % (Manual) Lymphocytes % (Manual) Monocytes % (Manual) Seg Neutrophils # Lymphocytes # (Manual) PT INR ABG pO2 ABG HCO3 ABG O2 Saturation ABG Hemoglobin Sodium Potassium Chloride Carbon Dioxide BUN 110 H Creatinine 2.1 H Glucose 215 H POC Glucose 234 H 281 H Calcium Alkaline Phosphatase CK-MB (CK-2) Rel Index Troponin T NT-Pro-B Natriuret Pep Total Protein Albumin Urine Creatinine 11/18/19 11/18/19 11/18/19 11:47 17:21 23:21 WBC RBC Hgb Hct MCV RDW Plt Count Lymph % (Auto) [place] % (Auto) Lymph # Seg Neutrophils % Seg Neuts % (Manual) Lymphocytes % (Manual) Monocytes % (Manual) Seg Neutrophils # Lymphocytes # (Manual) PT INR ABG pO2 ABG HCO3 ABG O2 Saturation ABG Hemoglobin Sodium Potassium Chloride Carbon Dioxide BUN Creatinine Glucose POC Glucose 234 H 213 H 147 H Calcium Alkaline Phosphatase CK-MB (CK-2) Rel Index Troponin T NT-Pro-B Natriuret Pep Total Protein Albumin Urine Creatinine 11/19/19 11/19/19 11/19/19 06:41 08:09 08:09 WBC 12.9 H RBC 3.00 L Hgb 9.5 L Hct 29.7 L MCV 99 H RDW 19.2 H Plt Count 123 L Lymph % (Auto) [place] % (Auto) Lymph # Seg Neutrophils % Seg Neuts % (Manual) Lymphocytes % (Manual) Monocytes % (Manual) Seg Neutrophils # Lymphocytes # (Manual) PT INR ABG pO2 ABG HCO3 ABG O2 Saturation ABG Hemoglobin Sodium Potassium Chloride Carbon Dioxide BUN 99 H Creatinine 1.7 H Glucose 194 H POC Glucose 169 H Calcium Alkaline Phosphatase CK-MB (CK-2) Rel Index Troponin T NT-Pro-B Natriuret Pep Total Protein Albumin Urine Creatinine 11/19/19 11/19/19 11/19/19 12:59 17:37 23:42 WBC RBC Hgb Hct MCV RDW Plt Count Lymph % (Auto) [place] % (Auto) Lymph # Seg Neutrophils % Seg Neuts % (Manual) Lymphocytes % (Manual) Monocytes % (Manual) Seg Neutrophils # Lymphocytes # (Manual) PT INR ABG pO2 ABG HCO3 ABG O2 Saturation ABG Hemoglobin Sodium Potassium Chloride Carbon Dioxide BUN Creatinine Glucose POC Glucose 150 H 260 H 239 H Calcium Alkaline Phosphatase CK-MB (CK-2) Rel Index Troponin T NT-Pro-B Natriuret Pep Total Protein Albumin Urine Creatinine 11/20/19 11/20/19 11/20/19 05:46 05:57 05:57 WBC RBC 3.03 L Hgb 9.7 L Hct 29.3 L MCV RDW 19.1 H Plt Count 137 L Lymph % (Auto) [place] % (Auto) Lymph # Seg Neutrophils % Seg Neuts % (Manual) Lymphocytes % (Manual) Monocytes % (Manual) Seg Neutrophils # Lymphocytes # (Manual) PT INR ABG pO2 ABG HCO3 ABG O2 Saturation ABG Hemoglobin Sodium Potassium Chloride Carbon Dioxide BUN 83 H Creatinine 1.5 H Glucose 137 H POC Glucose 143 H Calcium Alkaline Phosphatase CK-MB (CK-2) Rel Index Troponin T NT-Pro-B Natriuret Pep Total Protein Albumin Urine Creatinine Chest x-ray: report reviewed, image reviewed
[2019-11-20] MEDS: ACETAMINOPHEN 325 MG TAB PO PRN (21:56)
[2019-11-21] MEDS: INSULIN LISPRO 100 UNIT/ML SUB-Q SCH ×4 (00:16→17:38)
[2019-11-21 05:18] LABS: BUN/Creatinine Ratio 52; Blood Urea Nitrogen 68 mg/dL (7-17); Calcium 9.1 mg/dL (8.4-10.2)
[2019-11-21] MEDS: BUDESONIDE 0.5 MG/2 ML NEBU IH SCH ×2 (07:42→21:38)
[2019-11-21] MEDS: ARFORMOTEROL 15 MCG/2 ML NEBU IH SCH ×2 (07:42→21:38)
--- NOTE | 2019-11-21 09:20 | Progress Note ---
Assessment and Plan 79 y/o female with acute respiratory failure, secondary to volume overload and possible COPD exacerbation. Continue BID pulmicort and brovana along with PO steroids at 20. Not dropped over the weekend so will not drop today. Rate control per cards Follow up renal recs. Na starting creep up Will discuss with RT but PPV should be used nightly, no matter what unless patient refuses and this should be documented BP control Agree with LTACH placement. Subjective Date of service: 11/21/19 Principal diagnosis: Acute Respiratory Failure Interval history: No acute events. Did not use bipap last night, only hFNC. Not sure why. Documented sats were good on 60% Objective Vital Signs - 12hr 11/21/19 11/21/19 11/21/19 00:05 03:17 04:28 Temperature 98.2 F 97.8 F Pulse Rate 74 83 Respiratory 18 20 Rate Blood Pressure 125/68 133/73 O2 Sat by Pulse 100 100 89 Oximetry 11/21/19 07:58 Temperature 97.7 F Pulse Rate 63 Respiratory 17 Rate Blood Pressure 123/70 O2 Sat by Pulse 100 Oximetry Constitutional: no acute distress, alert Eyes: non-icteric Effort: mildly labored Ascultation: Bilateral: diminished breath sounds Percussion: Bilateral: not dull Cardiovascular: irregular rhythm (no mrg) Gastrointestinal: normoactive bowel sounds, soft, non-tender, non-distended Integumentary: normal Extremities: no cyanosis, pink and warm, edema (1+ bilateral edema) Neurologic: normal mental status, non-focal exam, pupils equal and round, CN II- XII normal Psychiatric: mood appropriate, affect normal CBC and BMP: 11/20/19 05:57 11/21/19 03:34 ABG, PT/INR, D-dimer: ABG ABG pH 7.400 pH Units (7.350-7.450) 11/13/19 03:35 ABG pCO2 45.0 mm Hg 11/13/19 03:35 ABG pO2 93.0 mm Hg (80.0-90.0) H 11/13/19 03:35 ABG O2 Saturation 97.0 % (95.0-99.0) 11/13/19 03:35 PT/INR, D-dimer PT 19.1 Sec. (12.2-14.9) H 11/12/19 01:56 INR 1.65 (0.87-1.13) H 11/12/19 01:56 Abnormal lab findings: Abnormal Labs 11/12/19 11/12/19 11/12/19 01:56 01:56 01:56 WBC RBC 3.23 L Hgb 9.9 L Hct MCV RDW 18.7 H Plt Count Lymph % (Auto) Loving % (Auto) Lymph # Seg Neutrophils % Seg Neuts % (Manual) 76.0 H Lymphocytes % (Manual) 13.0 L Monocytes % (Manual) 9.0 H Seg Neutrophils # Lymphocytes # (Manual) 1.1 L PT 19.1 H INR 1.65 H ABG pO2 ABG HCO3 ABG O2 Saturation ABG Hemoglobin Sodium 132 L Potassium Chloride 90.7 L Carbon Dioxide BUN 92 H Creatinine 2.0 H Glucose 320 H POC Glucose Calcium 8.3 L Alkaline Phosphatase 177 H CK-MB (CK-2) Rel Index Troponin T NT-Pro-B Natriuret Pep Total Protein 6.2 L Albumin 3.3 L Urine Creatinine 11/12/19 11/12/19 11/12/19 01:56 02:40 02:57 WBC RBC Hgb Hct MCV RDW Plt Count Lymph % (Auto) Loving % (Auto) Lymph # Seg Neutrophils % Seg Neuts % (Manual) Lymphocytes % (Manual) Monocytes % (Manual) Seg Neutrophils # Lymphocytes # (Manual) PT INR ABG pO2 194.4 H ABG HCO3 ABG O2 Saturation 99.2 H ABG Hemoglobin 10.5 L Sodium Potassium Chloride Carbon Dioxide BUN Creatinine Glucose POC Glucose Calcium Alkaline Phosphatase CK-MB (CK-2) Rel Index 8.0 H Troponin T 0.056 H NT-Pro-B Natriuret Pep 3636 H Total Protein Albumin Urine Creatinine 11/12/19 11/12/19 11/12/19 07:57 13:28 23:59 WBC RBC Hgb Hct MCV RDW Plt Count Lymph % (Auto) Loving % (Auto) Lymph # Seg Neutrophils % Seg Neuts % (Manual) Lymphocytes % (Manual) Monocytes % (Manual) Seg Neutrophils # Lymphocytes # (Manual) PT INR ABG pO2 ABG HCO3 ABG O2 Saturation ABG Hemoglobin Sodium Potassium Chloride Carbon Dioxide BUN Creatinine Glucose POC Glucose 304 H Calcium Alkaline Phosphatase CK-MB (CK-2) Rel Index 6.6 H 5.4 H Troponin T 0.058 H 0.050 H NT-Pro-B Natriuret Pep Total Protein Albumin Urine Creatinine 11/13/19 11/13/19 11/13/19 02:57 02:57 03:35 WBC RBC 3.09 L Hgb 9.8 L Hct 29.8 L MCV RDW 18.7 H Plt Count Lymph % (Auto) 5.8 L Loving % (Auto) 7.6 H Lymph # 0.6 L Seg Neutrophils % 86.5 H Seg Neuts % (Manual) Lymphocytes % (Manual) Monocytes % (Manual) Seg Neutrophils # 8.5 H Lymphocytes # (Manual) PT INR ABG pO2 93.0 H ABG HCO3 27.3 H ABG O2 Saturation ABG Hemoglobin 10.3 L Sodium 136 L Potassium Chloride 96.1 L Carbon Dioxide BUN 85 H Creatinine 1.8 H Glucose 288 H POC Glucose Calcium Alkaline Phosphatase CK-MB (CK-2) Rel Index Troponin T NT-Pro-B Natriuret Pep Total Protein Albumin Urine Creatinine 11/13/19 11/13/19 11/14/19 05:51 23:27 05:28 WBC RBC Hgb Hct MCV RDW Plt Count Lymph % (Auto) Loving % (Auto) Lymph # Seg Neutrophils % Seg Neuts % (Manual) Lymphocytes % (Manual) Monocytes % (Manual) Seg Neutrophils # Lymphocytes # (Manual) PT INR ABG pO2 ABG HCO3 ABG O2 Saturation ABG Hemoglobin Sodium Potassium Chloride Carbon Dioxide BUN Creatinine Glucose POC Glucose 273 H 179 H 205 H Calcium Alkaline Phosphatase CK-MB (CK-2) Rel Index Troponin T NT-Pro-B Natriuret Pep Total Protein Albumin Urine Creatinine 11/14/19 11/14/19 11/14/19 09:10 12:44 18:45 WBC RBC Hgb Hct MCV RDW Plt Count Lymph % (Auto) Loving % (Auto) Lymph # Seg Neutrophils % Seg Neuts % (Manual) Lymphocytes % (Manual) Monocytes % (Manual) Seg Neutrophils # Lymphocytes # (Manual) PT INR ABG pO2 ABG HCO3 ABG O2 Saturation ABG Hemoglobin Sodium Potassium Chloride Carbon Dioxide BUN 81 H Creatinine 2.0 H Glucose 205 H POC Glucose 193 H Calcium Alkaline Phosphatase CK-MB (CK-2) Rel Index Troponin T NT-Pro-B Natriuret Pep Total Protein 5.9 L Albumin 3.3 L Urine Creatinine 71.6 H 11/14/19 11/15/19 11/15/19 21:42 05:38 07:59 WBC RBC Hgb Hct MCV RDW Plt Count Lymph % (Auto) Loving % (Auto) Lymph # Seg Neutrophils % Seg Neuts % (Manual) Lymphocytes % (Manual) Monocytes % (Manual) Seg Neutrophils # Lymphocytes # (Manual) PT INR ABG pO2 ABG HCO3 ABG O2 Saturation ABG Hemoglobin Sodium Potassium 5.2 H Chloride 96.8 L Carbon Dioxide BUN 96 H Creatinine 2.6 H Glucose 213 H POC Glucose 262 H 208 H Calcium Alkaline Phosphatase CK-MB (CK-2) Rel Index Troponin T NT-Pro-B Natriuret Pep Total Protein Albumin Urine Creatinine 11/15/19 11/15/19 11/15/19 11:41 16:52 16:56 WBC RBC Hgb Hct MCV RDW Plt Count Lymph % (Auto) Loving % (Auto) Lymph # Seg Neutrophils % Seg Neuts % (Manual) Lymphocytes % (Manual) Monocytes % (Manual) Seg Neutrophils # Lymphocytes # (Manual) PT INR ABG pO2 ABG HCO3 ABG O2 Saturation ABG Hemoglobin Sodium Potassium Chloride Carbon Dioxide BUN Creatinine Glucose POC Glucose 301 H < 40 L < 40 L Calcium Alkaline Phosphatase CK-MB (CK-2) Rel Index Troponin T NT-Pro-B Natriuret Pep Total Protein Albumin Urine Creatinine 11/15/19 11/16/19 11/16/19 21:46 04:45 05:55 WBC RBC Hgb Hct MCV RDW Plt Count Lymph % (Auto) Loving % (Auto) Lymph # Seg Neutrophils % Seg Neuts % (Manual) Lymphocytes % (Manual) Monocytes % (Manual) Seg Neutrophils # Lymphocytes # (Manual) PT INR ABG pO2 ABG HCO3 ABG O2 Saturation ABG Hemoglobin Sodium 136 L Potassium Chloride 94.4 L Carbon Dioxide BUN 108 H Creatinine 2.9 H Glucose 155 H POC Glucose 52 L 150 H Calcium Alkaline Phosphatase CK-MB (CK-2) Rel Index Troponin T NT-Pro-B Natriuret Pep Total Protein Albumin Urine Creatinine 11/16/19 11/16/19 11/17/19 11:45 18:16 01:06 WBC RBC Hgb Hct MCV RDW Plt Count Lymph % (Auto) Loving % (Auto) Lymph # Seg Neutrophils % Seg Neuts % (Manual) Lymphocytes % (Manual) Monocytes % (Manual) Seg Neutrophils # Lymphocytes # (Manual) PT INR ABG pO2 ABG HCO3 ABG O2 Saturation ABG Hemoglobin Sodium Potassium Chloride Carbon Dioxide BUN Creatinine Glucose POC Glucose 270 H 238 H 206 H Calcium Alkaline Phosphatase CK-MB (CK-2) Rel Index Troponin T NT-Pro-B Natriuret Pep Total Protein Albumin Urine Creatinine 11/17/19 11/17/19 11/17/19 05:35 06:41 12:07 WBC RBC Hgb Hct MCV RDW Plt Count Lymph % (Auto) Loving % (Auto) Lymph # Seg Neutrophils % Seg Neuts % (Manual) Lymphocytes % (Manual) Monocytes % (Manual) Seg Neutrophils # Lymphocytes # (Manual) PT INR ABG pO2 ABG HCO3 ABG O2 Saturation ABG Hemoglobin Sodium Potassium Chloride 96.2 L Carbon Dioxide 21 L BUN 120 H Creatinine 2.8 H Glucose 124 H POC Glucose 160 H 68 L Calcium Alkaline Phosphatase CK-MB (CK-2) Rel Index Troponin T NT-Pro-B Natriuret Pep Total Protein Albumin Urine Creatinine 11/17/19 11/17/19 11/17/19 17:33 17:35 17:37 WBC RBC Hgb Hct MCV RDW Plt Count Lymph % (Auto) Loving % (Auto) Lymph # Seg Neutrophils % Seg Neuts % (Manual) Lymphocytes % (Manual) Monocytes % (Manual) Seg Neutrophils # Lymphocytes # (Manual) PT INR ABG pO2 ABG HCO3 ABG O2 Saturation ABG Hemoglobin Sodium Potassium Chloride Carbon Dioxide BUN Creatinine Glucose 46 L POC Glucose < 40 L 43 L Calcium Alkaline Phosphatase CK-MB (CK-2) Rel Index Troponin T NT-Pro-B Natriuret Pep Total Protein Albumin Urine Creatinine 11/18/19 11/18/19 11/18/19 03:41 04:36 06:16 WBC RBC Hgb Hct MCV RDW Plt Count Lymph % (Auto) Loving % (Auto) Lymph # Seg Neutrophils % Seg Neuts % (Manual) Lymphocytes % (Manual) Monocytes % (Manual) Seg Neutrophils # Lymphocytes # (Manual) PT INR ABG pO2 ABG HCO3 ABG O2 Saturation ABG Hemoglobin Sodium Potassium Chloride Carbon Dioxide BUN 110 H Creatinine 2.1 H Glucose 215 H POC Glucose 234 H 281 H Calcium Alkaline Phosphatase CK-MB (CK-2) Rel Index Troponin T NT-Pro-B Natriuret Pep Total Protein Albumin Urine Creatinine 11/18/19 11/18/19 11/18/19 11:47 17:21 23:21 WBC RBC Hgb Hct MCV RDW Plt Count Lymph % (Auto) Loving % (Auto) Lymph # Seg Neutrophils % Seg Neuts % (Manual) Lymphocytes % (Manual) Monocytes % (Manual) Seg Neutrophils # Lymphocytes # (Manual) PT INR ABG pO2 ABG HCO3 ABG O2 Saturation ABG Hemoglobin Sodium Potassium Chloride Carbon Dioxide BUN Creatinine Glucose POC Glucose 234 H 213 H 147 H Calcium Alkaline Phosphatase CK-MB (CK-2) Rel Index Troponin T NT-Pro-B Natriuret Pep Total Protein Albumin Urine Creatinine 11/19/19 11/19/19 11/19/19 06:41 08:09 08:09 WBC 12.9 H RBC 3.00 L Hgb 9.5 L Hct 29.7 L MCV 99 H RDW 19.2 H Plt Count 123 L Lymph % (Auto) Loving % (Auto) Lymph # Seg Neutrophils % Seg Neuts % (Manual) Lymphocytes % (Manual) Monocytes % (Manual) Seg Neutrophils # Lymphocytes # (Manual) PT INR ABG pO2 ABG HCO3 ABG O2 Saturation ABG Hemoglobin Sodium Potassium Chloride Carbon Dioxide BUN 99 H Creatinine 1.7 H Glucose 194 H POC Glucose 169 H Calcium Alkaline Phosphatase CK-MB (CK-2) Rel Index Troponin T NT-Pro-B Natriuret Pep Total Protein Albumin Urine Creatinine 11/19/19 11/19/19 11/19/19 12:59 17:37 23:42 WBC RBC Hgb Hct MCV RDW Plt Count Lymph % (Auto) Loving % (Auto) Lymph # Seg Neutrophils % Seg Neuts % (Manual) Lymphocytes % (Manual) Monocytes % (Manual) Seg Neutrophils # Lymphocytes # (Manual) PT INR ABG pO2 ABG HCO3 ABG O2 Saturation ABG Hemoglobin Sodium Potassium Chloride Carbon Dioxide BUN Creatinine Glucose POC Glucose 150 H 260 H 239 H Calcium Alkaline Phosphatase CK-MB (CK-2) Rel Index Troponin T NT-Pro-B Natriuret Pep Total Protein Albumin Urine Creatinine 11/20/19 11/20/19 11/20/19 05:46 05:57 05:57 WBC RBC 3.03 L Hgb 9.7 L Hct 29.3 L MCV RDW 19.1 H Plt Count 137 L Lymph % (Auto) Loving % (Auto) Lymph # Seg Neutrophils % Seg Neuts % (Manual) Lymphocytes % (Manual) Monocytes % (Manual) Seg Neutrophils # Lymphocytes # (Manual) PT INR ABG pO2 ABG HCO3 ABG O2 Saturation ABG Hemoglobin Sodium Potassium Chloride Carbon Dioxide BUN 83 H Creatinine 1.5 H Glucose 137 H POC Glucose 143 H Calcium Alkaline Phosphatase CK-MB (CK-2) Rel Index Troponin T NT-Pro-B Natriuret Pep Total Protein Albumin Urine Creatinine 11/21/19 11/21/19 00:22 03:34 WBC RBC Hgb Hct MCV RDW Plt Count Lymph % (Auto) Loving % (Auto) Lymph # Seg Neutrophils % Seg Neuts % (Manual) Lymphocytes % (Manual) Monocytes % (Manual) Seg Neutrophils # Lymphocytes # (Manual) PT INR ABG pO2 ABG HCO3 ABG O2 Saturation ABG Hemoglobin Sodium 147 H Potassium Chloride Carbon Dioxide BUN 68 H Creatinine 1.3 H Glucose POC Glucose 147 H Calcium Alkaline Phosphatase CK-MB (CK-2) Rel Index Troponin T NT-Pro-B Natriuret Pep Total Protein Albumin Urine Creatinine
--- NOTE | 2019-11-21 09:56 | Progress Note ---
Assessment and Plan 1. Acute kidney injury: Likely vasomotor LUIS FERNANDO superimposed on CKD in setting of CHF +/- IV contrast. Renal US; L kidney not visualized, R kidney increased echogenicity. Creatinine level currently 1.3 from 1.5 from 1.7 from 2.1 from 2.8 from 2.9 from 2.6 from 2.0. High BUN likley from steroids. Monitor renal function. Renal prognosis is guarded. Avoid nephrotoxic agents. Meds dosage based on GFR. 2. FEN: Hypernatremia, mild, monitor. Suspected volume overload, s/p IV Lasix, monitor. Hyperkalemia, improved, monitor. Monitor lytes and volume status. 3. Acute on chronic CHF: Prn diuresis. CXR clear. Cards following. 4. Acute on chronic COPD: Was intubated on admission. Extubated 11/13, was on BIPAP, now NC O2. On PO steroids. BiPap QHS and PRN. Pulmonology following. 5. Elevated troponins: Cards following. 6. A. Fib with RVR: On Cardizem and Eliquis. Cards following. 7. H/o CVA. 8. H/o PE. 9. Morbid obesity. Subjective Date of service: 11/21/19 Principal diagnosis: Acute Respiratory Failure Interval history: Patient was seen and examined at time of exam. She has no complaints at time of exam. No acute events reported overnight, sats were ok on HiFlo NC. Objective - Exam Narrative Exam: General appearance: well-developed, well-nourished, appears stated age, obese, on NC O2, NGT HEENT: ATNC, OSVALDO, hearing intact, vision intact Neck: neck supple, trachea midline Respiratory: decreased Breath Sounds (bibasilar) Heart: S1S2, no murmur Gastrointestinal: obese, soft, normoactive bowel sounds, not tender Integumentary: no rash, warm and dry Neurologic: no focal deficit Ext: trace BLE edema noted Psychiatric: mood/affect appropriate, cooperative - Vital Signs Vital signs: Vital Signs - 12hr 11/21/19 11/21/19 11/21/19 00:05 03:17 04:28 Temperature 98.2 F 97.8 F Pulse Rate 74 83 Respiratory 18 20 Rate Blood Pressure 125/68 133/73 O2 Sat by Pulse 100 100 89 Oximetry 11/21/19 07:58 Temperature 97.7 F Pulse Rate 63 Respiratory 17 Rate Blood Pressure 123/70 O2 Sat by Pulse 100 Oximetry - Lab 11/20/19 05:57 11/21/19 03:34 Most recent lab results ABG pH 7.400 pH Units (7.350-7.450) 11/13/19 03:35 ABG pCO2 45.0 mm Hg 11/13/19 03:35 ABG pO2 93.0 mm Hg (80.0-90.0) H 11/13/19 03:35 ABG HCO3 27.3 mmol/L (20.0-26.0) H 11/13/19 03:35 ABG O2 Saturation 97.0 % (95.0-99.0) 11/13/19 03:35 Calcium 9.1 mg/dL (8.4-10.2) 11/21/19 03:34 Phosphorus 2.70 mg/dL (2.5-4.5) 11/21/19 03:34 Magnesium 2.30 mg/dL (1.7-2.3) 11/21/19 03:34 Urine Creatinine 71.6 mg/dL (0.1-20.0) H 11/14/19 18:45 Urine Sodium 22 mmol/L 11/14/19 18:45 Medications & Allergies - Medications Allergies/Adverse Reactions: Allergies No Known Allergies Allergy (Verified 11/16/19 09:55) Home Medications: Home Medications Medication Instructions Recorded Confirmed Last Taken Type Apixaban [Eliquis] 5 mg PO BID 11/04/19 11/04/19 Unknown History AtorvaSTATin [Lipitor] 40 mg PO QHS 11/04/19 11/04/19 Unknown History Ferrous Sulfate [Ferrous Sulfate 324 mg PO QAM 11/04/19 11/04/19 Unknown History 324 MG] Fluticasone/Salmeterol [Advair 1 puff IH BID 11/04/19 11/04/19 Unknown History Diskus 250-50 mcg] HYDROcodone/APAP 5-325 [[place] 1 each PO Q6HR PRN 11/04/19 11/04/19 Unknown History 5-325 mg TAB] Linaclotide [Linzess] 290 mcg PO QDAY 11/04/19 11/04/19 Unknown History Montelukast [Singulair] 10 mg PO QPM 11/04/19 11/04/19 Unknown History Sitagliptin Phosphate [Januvia] 50 mg PO QDAY 11/04/19 11/04/19 Unknown History Torsemide [Demadex] 100 mg PO QDAY 11/04/19 11/04/19 Unknown History Umeclidinium [place] [Incruse 62.5 mcg IH QDAY 11/04/19 11/04/19 Unknown History Ellipta 62.5MCG] Valsartan [Diovan] 160 mg PO QDAY 11/04/19 11/04/19 Unknown History Zolpidem [Ambien] 5 mg PO QHS PRN 11/04/19 11/04/19 Unknown History glipiZIDE [Glucotrol] 5 mg PO QDAY 11/04/19 11/04/19 Unknown History predniSONE [Deltasone] 10 mg PO QDAY 11/04/19 11/04/19 Unknown History traZODone [Desyrel] 50 mg PO QHS 11/04/19 11/04/19 Unknown History Metoprolol [Lopressor TAB] 50 mg PO BID #60 tablet 11/10/19 Unknown Rx Prednisone [predniSONE 10 mg 10 mg PO .TAPER #1 tab.ds.pk 11/10/19 Unknown Rx (6-Day Pack, 21 Tabs)] cefUROXime [Ceftin] 250 mg PO DAILY #3 tablet 11/10/19 Unknown Rx predniSONE [Deltasone] 20 mg PO QDAY #20 tab 11/10/19 Unknown Rx Apixaban [Eliquis] 5 mg PO DAILY 11/12/19 11/12/19 Unknown History AtorvaSTATin [Lipitor] 40 mg PO QHS 11/12/19 11/12/19 Unknown History Ferrous Sulfate [Slow Release Iron 47.5 mg PO DAILY 11/12/19 11/12/19 Unknown History 47.5 Mg tab] Montelukast [Singulair] 10 mg PO QPM 11/12/19 11/12/19 Unknown History NIFEdipine [Nifedipine ER] 60 mg PO BID 11/12/19 11/12/19 Unknown History Pantoprazole [Protonix] 40 mg PO BID 11/12/19 11/12/19 Unknown History Potassium Chloride 10 meq PO BID 11/12/19 11/12/19 Unknown History Sitagliptin Phosphate [Januvia] 50 mg PO DAILY 11/12/19 11/12/19 Unknown History Torsemide [Demadex] 100 mg PO QDAY 11/12/19 11/12/19 Unknown History Valsartan [Diovan] 160 mg PO QDAY 11/12/19 11/12/19 Unknown History carvediloL [Coreg] 6.25 mg PO BID 11/12/19 11/12/19 Unknown History Active Medications: Generic Name Dose Route Start Last Admin Trade Name Freq PRN Reason Stop Dose Admin Acetaminophen 650 mg 11/12/19 05:48 11/20/19 21:56 Tylenol PO 650 mg Q4H PRN Administration Pain MILD(1-3)/Fever >100.5/IRBY Lipase/Protease/Amylase 1 each 11/17/19 09:00 Pancrepretty [place] 10,500 Unit FEEDTUBE PRN PRN For Clogged Feeding Tube Apixaban 2.5 mg 11/13/19 22:00 11/20/19 21:56 Eliquis PO 2.5 mg Q12HR ALLEGRA Administration Protocol Arformoterol Tartrate 15 mcg 11/18/19 20:00 11/21/19 07:42 Brovana Nebu IH 15 mcg Q12HRT ALLEGRA Administration Budesonide 0.5 mg 11/18/19 20:00 11/21/19 07:42 Pulmicort IH 0.5 mg Q12HRT ALLEGRA Administration Dextrose 50 ml 11/13/19 13:10 11/17/19 18:00 D50w (25gm) Syringe IV 50 ml Q30MIN PRN Administration Hypoglycemia Protocol Diltiazem HCl 90 mg 11/16/19 12:00 11/21/19 05:34 Cardizem PO 90 mg Q6H ALLEGRA Administration Insulin Glargine 15 units 11/18/19 17:00 11/20/19 17:54 Lantus SUB-Q 15 units Q24H ALLEGRA Administration Insulin Human Lispro 0 unit 11/16/19 14:00 11/21/19 08:32 Humalog SUB-Q Not Given Q6HR ALLEGRA Protocol Lansoprazole 30 mg 11/15/19 10:00 11/20/19 10:48 Prevacid Solutab FEEDTUBE 30 mg QDAY ALLEGRA Administration Ondansetron HCl 4 mg 11/12/19 05:48 11/20/19 21:57 Zofran IV 4 mg Q8H PRN Administration Nausea And Vomiting Prednisone 20 mg 11/17/19 12:04 11/20/19 10:44 Deltasone PO 20 mg QDAY ALLEGRA Administration Simple Syrup 15 ml 11/13/19 19:44 Simple Syrup FEEDTUBE PRN PRN Hypoglycemia Simple Syrup 30 ml 11/13/19 19:44 11/15/19 21:55 Simple Syrup FEEDTUBE 30 ml PRN PRN Administration Hypoglycemia Sodium Bicarbonate 325 mg 11/13/19 19:44 Sodium Bicarbonate FEEDTUBE PRN PRN For Clogged Feeding Tube Sodium Chloride 10 ml 11/12/19 10:00 11/21/19 00:16 Sodium Chloride Flush Syringe 10 Ml IV 10 ml BID ALLEGRA Administration Sodium Chloride 10 ml 11/12/19 05:48 Sodium Chloride Flush Syringe 10 Ml IV PRN PRN LINE FLUSH
[2019-11-21] MEDS: APIXABAN 2.5 MG TAB PO SCH ×2 (09:58→21:55)
[2019-11-21] MEDS: LANSOPRAZOLE 30 MG SOLUTAB FEEDTUBE SCH (09:59)
[2019-11-21] MEDS: predniSONE 20 MG TAB PO SCH (09:59)
--- NOTE | 2019-11-21 10:02 | Progress Note ---
Assessment and Plan Currently stable cardiac status. Cont present cardiac management, including cardizem and Eliquis. Of note, per speech therapy, patient is at significant risk secondary to aspiration and poor pulmonary support. Per speech therapy reassessment - pt remains at increased risk for aspiration, an alternative method of nutrition is recommended for approximately two weeks or when her breathing improves. NGT in place with tube feeding infusing. If PEG tube placement is required, ok to hold Eliquis for 48Hr prior to procedure. Pt awaiting LTAC placement. The patient has been seen in conjunction with Dr. Hamilton who agrees with the assessment and plan of care. - Patient Problems (1) Acute on chronic kidney failure Current Visit: Yes Status: Acute (2) Acute on chronic respiratory failure Current Visit: Yes Status: Acute (3) Persistent atrial fibrillation Current Visit: Yes Status: Chronic (4) COPD (chronic obstructive pulmonary disease) Current Visit: Yes Status: Chronic (5) Diabetes mellitus with hyperglycemia Current Visit: Yes Status: Acute (6) HTN (hypertension) Current Visit: Yes Status: Chronic (7) Hyperlipidemia Current Visit: Yes Status: Chronic (8) History of CVA (cerebrovascular accident) Current Visit: Yes Status: Chronic (9) History of pulmonary embolism Current Visit: Yes Status: Chronic (10) Anemia Current Visit: Yes Status: Acute Subjective Date of service: 11/21/19 Principal diagnosis: Acute Respiratory Failure Interval history: pt resting in bed, alert, no current cardiac complaints. NGT in place, tube feeding infusing. in AFib on tele HR 70s with some SVR HR 40s noted overnight. Objective Last Vital Signs Temp 97.7 F 11/21/19 07:58 Pulse 63 11/21/19 07:58 Resp 17 11/21/19 07:58 BP 123/70 11/21/19 07:58 Pulse Ox 100 11/21/19 07:58 - Physical Examination General: No Apparent Distress HEENT: Positive: EOMI, Normocephaly Neck: Positive: neck supple, trachea midline. Negative: JVD/HJR Cardiac: Positive: irregularly irregular, S1/S2 Lungs: Positive: Decreased Breath Sounds Neuro: Positive: Grossly Intact, Motor Function Intact, Coordination Normal, Sensory Function Intact Abdomen: Positive: Soft, Active Bowel Sounds. Negative: Tender Skin: Negative: Rash, Wound Musculoskeletal: No Pain, Normal Range of Motion Extremities: Present: upper extr. pulses, lower extr. pulses, edema (trace BLE edema) - Labs and Meds Comprehensive Metabolic Panel 11/21/19 Range/Units 03:34 Sodium 147 H (137-145) mmol/L Potassium 3.8 (3.6-5.0) mmol/L Chloride 104.1 (98-107) mmol/L Carbon Dioxide 30 (22-30) mmol/L BUN 68 H (7-17) mg/dL Creatinine 1.3 H (0.7-1.2) mg/dL Glucose 84 (65-100) mg/dL Calcium 9.1 (8.4-10.2) mg/dL - Imaging and Cardiology EKG: report reviewed, image reviewed Echo: report reviewed (11/04/2019: EF 50-55%, impaired relaxation, mild to mod TR, RVSP 39mmHg) Myocardial infarction: inferior VT (old age inde
--- NOTE | 2019-11-21 13:42 | Progress Note ---
Assessment and Plan Assessment and plan: 79-year-old female with a history of COPD on home O2, diabetes, congestive heart failure, hypertension and atrial fibrillation presented to the ED in acute respiratory distress secondary to volume overload. Patient was able to be extubated today. Hospital course complicated by continued atrial fibrillation with rapid ventricular rate. Bedside swallow eval now to see if patient can swallow pills * Patient with two . Discussed with Medical rec ords to merge 11/15: Patient seen by speech therapy today still with NG tube for dietary needs. Concerning for high risk of aspiration especially with intermittent increasing work of breathing. Lasix was held due to worsening renal function. Discussed with family about concern about swallow evaluation and if alternative means of therapy for nutrition should be considered for 2 weeks. Per case management family in the past has refused SNF will rediscuss also. Patient is nonambulatory. Plan discussed with concrete swimming pool installer 11/17/19: Continues on BIPAP, still not able to tolerate PO and still on Tube feed. will decrease dose of Lantus due to Hypoglycemia. Hold Lasix 11/18/19: Continues on BIPAP, lasix held due to renal function. BG increased some, lantus adjusted for better control. CXR ordered, awaiting Placement for LTAC 11/19/19: Continue monitoring, lasix still on hold, awaiting LTAC approval, will need gradual weaning and diuresis intermittent. creatinine down to 1.7 11/20/19: Will discuss with Pulmonary, about continue care, still awaiting LTAC, wean oxygen, consider High flow when not on BIPAP, creatnine continues to improve. Discussed with Nurse and family. 11/20: Patient tolerating high flow still recommend use of BiPAP during all hours of sleep. Still awaiting placement to LTAC for gradual wean. Eventually patient may require PEG tube but at this time would like to give her the best chance of improving. Possibly also underlying COPD exacerbation being treated with steroids will continue steroids. Cardiology nephrology input appreciated. - Patient Problems (1) acute diastolic CHF exacerbation with preserved EF Current Visit: Yes Status: Acute Qualifiers: Heart failure type: unspecified Qualified Code(s): I50.9 - Heart failure, unspecified Plan to address problem: Seems to be improving. Follow-up chest x-ray shows improving edema. Also improving clinically. Continue medical management. May require changing from Coreg to Lopressor for rate control. Now extubated back to high flow and BiPAP (2) Elevated troponin, Type 2 NSTEMI Current Visit: Yes Status: Acute Plan to address problem: Secondary to renal insufficiency (3) PNA (pneumonia) Current Visit: Yes Status: Acute Qualifiers: Pneumonia type: due to unspecified organism Laterality: unspecified laterality Lung location: unspecified part of lung Qualified Code(s): J18.9 - Pneumonia, unspecified organism Plan to address problem: No airspace disease or pleural effusion on follow-up chest x-ray this morning. Titrate antibiotics to off versus p.o. (4) Acute kidney injury likely secondary to vasomotor nephropathy Current Visit: Yes Status: Acute Qualifiers: Renal failure chronicity: acute Acute renal failure type: unspecified Qualified Code(s): N17.9 - Acute kidney failure, unspecified Plan to address problem: Patient renal failure BUN/creatinine consistent with prerenal azotemia. Versus ATN. Since congestive heart failure is improving. Will titrate down on diuretics to once a day. continue gentle rehydration. Lasix was decreased to 20 mg IV every 12. Continue to hold Lasix (5) Respiratory distress with hypoxia Current Visit: Yes Status: Acute Plan to address problem: Patient blood gases have improved. Potential extubation a day. Discussed plan with pulmonology. (6) COPD with acute exacerbation Current Visit: Yes Status: Acute Plan to address problem: Pulmonology consult. (7) Atrial fibrillation with rapid ventricular response Current Visit: Yes Status: Acute Plan to address problem: Patient continues to have atrial fibrillation with rapid ventricular rate. If patient able to tolerate p.o. we will start patient on Cardizem versus Lopressor. If not able to manage by mouth we will treat with Cardizem drip. Will consult cardiology (8) Morbid obesity Current Visit: Yes Status: Acute Plan to address problem: We will decrease caloric intake. (9) Diabetes mellitus with hyperglycemia Current Visit: Yes Status: Acute (10) HTN (hypertension) Current Visit: Yes Status: Chronic (11) Hyperlipidemia Current Visit: Yes Status: Chronic (12) History of CVA (cerebrovascular accident) Current Visit: Yes Status: Chronic (13) History of pulmonary embolism Current Visit: Yes Status: Chronic (14) Anemia Current Visit: Yes Status: Acute Will transfer to telemetry. History Interval history: Patient seen and examined, improving although still with shortness of breath. Continues on high flow still with intermittent shortness of breath. Hospitalist Physical - Physical exam Narrative exam: General appearance: Present: mild distress, well-nourished, morbidly Obese. - EENT Eyes: Present: PERRL, EOM intact ENT: hearing intact, clear oral mucosa - Respiratory Respiratory: bilateral: rhonchi, Increased WOB - Cardiovascular Rhythm: regular Heart Sounds: Present: S1 & S2, irregularly irregular - Extremities Extremities: no ischemia, pulses intact, pulses symmetrical Peripheral Pulses: within normal limits - Abdominal General gastrointestinal: soft, non-tender, distended, hypoactive bowel sounds - Integumentary Integumentary: Present: clear, warm, dry - Psychiatric Psychiatric: appropriate mood/affect, intact judgment & insight, memory intact - Neurologic Neurologic: CNII-XII intact - Constitutional Vitals: Temp Pulse Resp BP Pulse Ox 97.1 F L 81 19 128/74 99 11/21/19 11:00 11/21/19 11:00 11/21/19 11:00 11/21/19 11:00 11/21/19 11:00 General appearance: Present: mild distress, well-nourished HEART Score - HEART Score Troponin: Troponin T 0.050 ng/mL (0.00-0.029) H 11/12/19 13:28 Results - Labs CBC & Chem 7: 11/20/19 05:57 11/21/19 03:34 Labs: Laboratory Last Values WBC 11.0 K/mm3 (4.5-11.0) 11/20/19 05:57 RBC 3.03 M/mm3 (3.65-5.03) L 11/20/19 05:57 Hgb 9.7 gm/dl (10.1-14.3) L 11/20/19 05:57 Hct 29.3 % (30.3-42.9) L 11/20/19 05:57 MCV 97 fl (79-97) 11/20/19 05:57 MCH 32 pg (28-32) 11/20/19 05:57 MCHC 33 % (30-34) 11/20/19 05:57 RDW 19.1 % (13.2-15.2) H 11/20/19 05:57 Plt Count 137 K/mm3 (140-440) L 11/20/19 05:57 Lymph % (Auto) 5.8 % (13.4-35.0) L 11/13/19 02:57 [place] % (Auto) 7.6 % (0.0-7.3) H 11/13/19 02:57 Eos % (Auto) 0.1 % (0.0-4.3) 11/13/19 02:57 Baso % (Auto) 0.0 % (0.0-1.8) 11/13/19 02:57 Lymph # 0.6 K/mm3 (1.2-5.4) L 11/13/19 02:57 [place]ila # 0.7 K/mm3 (0.0-0.8) 11/13/19 02:57 Eos # 0.0 K/mm3 (0.0-0.4) 11/13/19 02:57 Baso # 0.0 K/mm3 (0.0-0.1) 11/13/19 02:57 Add Manual Diff Complete 11/12/19 01:56 Total Counted 100 11/12/19 01:56 Seg Neutrophils % 86.5 % (40.0-70.0) H 11/13/19 02:57 Seg Neuts % (Manual) 76.0 % (40.0-70.0) H 11/12/19 01:56 Band Neutrophils % 0 % 11/12/19 01:56 Lymphocytes % (Manual) 13.0 % (13.4-35.0) L 11/12/19 01:56 Reactive Lymphs % (Man) 0 % 11/12/19 01:56 Monocytes % (Manual) 9.0 % (0.0-7.3) H 11/12/19 01:56 Eosinophils % (Manual) 2.0 % (0.0-4.3) 11/12/19 01:56 Basophils % (Manual) 0 % (0.0-1.8) 11/12/19 01:56 Metamyelocytes % 0 % 11/12/19 01:56 Myelocytes % 0 % 11/12/19 01:56 Promyelocytes % 0 % 11/12/19 01:56 Blast Cells % 0 % 11/12/19 01:56 Nucleated RBC % Not Reportable 11/12/19 01:56 Seg Neutrophils # 8.5 K/mm3 (1.8-7.7) H 11/13/19 02:57 Seg Neutrophils # Man 6.5 K/mm3 (1.8-7.7) 11/12/19 01:56 Band Neutrophils # 0.0 K/mm3 11/12/19 01:56 Lymphocytes # (Manual) 1.1 K/mm3 (1.2-5.4) L 11/12/19 01:56 Abs React Lymphs (Man) 0.0 K/mm3 11/12/19 01:56 Monocytes # (Manual) 0.8 K/mm3 (0.0-0.8) 11/12/19 01:56 Eosinophils # (Manual) 0.2 K/mm3 (0.0-0.4) 11/12/19 01:56 Basophils # (Manual) 0.0 K/mm3 (0.0-0.1) 11/12/19 01:56 Metamyelocytes # 0.0 K/mm3 11/12/19 01:56 Myelocytes # 0.0 K/mm3 11/12/19 01:56 Promyelocytes # 0.0 K/mm3 11/12/19 01:56 Blast Cells # 0.0 K/mm3 11/12/19 01:56 WBC Morphology Not Reportable 11/12/19 01:56 Hypersegmented Neuts Not Reportable 11/12/19 01:56 Hyposegmented Neuts Not Reportable 11/12/19 01:56 Hypogranular Neuts Not Reportable 11/12/19 01:56 Smudge Cells Not Reportable 11/12/19 01:56 Toxic Granulation Not Reportable 11/12/19 01:56 Toxic Vacuolation Not Reportable 11/12/19 01:56 Dohle Bodies Not Reportable 11/12/19 01:56 Pelger-Huet Anomaly Not Reportable 11/12/19 01:56 Brian Rods Not Reportable 11/12/19 01:56 Platelet Estimate Consistent w auto 11/12/19 01:56 Clumped Platelets Not Reportable 11/12/19 01:56 Plt Clumps, EDTA Not Reportable 11/12/19 01:56 Large Platelets Not Reportable 11/12/19 01:56 Giant Platelets Not Reportable 11/12/19 01:56 Platelet Satelliting Not Reportable 11/12/19 01:56 Plt Morphology Comment Not Reportable 11/12/19 01:56 RBC Morphology Not Reportable 11/12/19 01:56 Dimorphic RBCs Not Reportable 11/12/19 01:56 Polychromasia Not Reportable 11/12/19 01:56 Hypochromasia Not Reportable 11/12/19 01:56 Poikilocytosis Not Reportable 11/12/19 01:56 Anisocytosis 1+ 11/12/19 01:56 Microcytosis Not Reportable 11/12/19 01:56 Macrocytosis Not Reportable 11/12/19 01:56 Spherocytes Not Reportable 11/12/19 01:56 Pappenheimer Bodies Not Reportable 11/12/19 01:56 Sickle Cells Not Reportable 11/12/19 01:56 Target Cells Not Reportable 11/12/19 01:56 Tear Drop Cells Not Reportable 11/12/19 01:56 Ovalocytes Not Reportable 11/12/19 01:56 Helmet Cells Not Reportable 11/12/19 01:56 [place] Bodies Not Reportable 11/12/19 01:56 [place] Rings Not Reportable 11/12/19 01:56 [place] Cells Not Reportable 11/12/19 01:56 Bite Cells Not Reportable 11/12/19 01:56 Crenated Cell Not Reportable 11/12/19 01:56 Elliptocytes Not Reportable 11/12/19 01:56 Acanthocytes (Spur) Not Reportable 11/12/19 01:56 Rouleaux Not Reportable 11/12/19 01:56 Hemoglobin C Crystals Not Reportable 11/12/19 01:56 Schistocytes Not Reportable 11/12/19 01:56 Malaria parasites Not Reportable 11/12/19 01:56 Tom Bodies Not Reportable 11/12/19 01:56 Hem Pathologist Commnt No 11/12/19 01:56 PT 19.1 Sec. (12.2-14.9) H 11/12/19 01:56 INR 1.65 (0.87-1.13) H 11/12/19 01:56 APTT 27.1 Sec. (24.2-36.6) 11/12/19 01:56 ABG pH 7.400 pH Units (7.350-7.450) 11/13/19 03:35 ABG pCO2 45.0 mm Hg 11/13/19 03:35 ABG pO2 93.0 mm Hg (80.0-90.0) H 11/13/19 03:35 ABG HCO3 27.3 mmol/L (20.0-26.0) H 11/13/19 03:35 ABG O2 Saturation 97.0 % (95.0-99.0) 11/13/19 03:35 ABG O2 Content 13.9 (0.0-44) 11/13/19 03:35 ABG Base Excess 2.1 mmol/L (-2.0-3.0) 11/13/19 03:35 ABG Hemoglobin 10.3 gm/dl (12.0-16.0) L 11/13/19 03:35 ABG Carboxyhemoglobin 1.4 % (0.0-5.0) 11/13/19 03:35 ABG Methemoglobin 0.5 % (0.0-1.5) 11/13/19 03:35 Oxyhemoglobin 95.2 % (95.0-99.0) 11/13/19 03:35 FiO2 35 % 11/13/19 03:35 Sodium 147 mmol/L (137-145) H 11/21/19 03:34 Potassium 3.8 mmol/L (3.6-5.0) 11/21/19 03:34 Chloride 104.1 mmol/L (98-107) 11/21/19 03:34 Carbon Dioxide 30 mmol/L (22-30) 11/21/19 03:34 Anion Gap 17 mmol/L 11/21/19 03:34 BUN 68 mg/dL (7-17) H 11/21/19 03:34 Creatinine 1.3 mg/dL (0.7-1.2) H 11/21/19 03:34 Estimated GFR 48 ml/min 11/21/19 03:34 BUN/Creatinine Ratio 52 % 11/21/19 03:34 Glucose 84 mg/dL (65-100) 11/21/19 03:34 POC Glucose 93 (70-105) 11/21/19 11:35 Lactic Acid 1.50 mmol/L (0.7-2.0) 11/12/19 01:56 Calcium 9.1 mg/dL (8.4-10.2) 11/21/19 03:34 Phosphorus 2.70 mg/dL (2.5-4.5) 11/21/19 03:34 Magnesium 2.30 mg/dL (1.7-2.3) 11/21/19 03:34 Total Bilirubin 0.50 mg/dL (0.1-1.2) 11/14/19 09:10 AST 21 units/L (5-40) 11/14/19 09:10 ALT 39 units/L (7-56) 11/14/19 09:10 Alkaline Phosphatase 104 units/L (35-129) 11/14/19 09:10 Total Creatine Kinase 53 units/L (30-135) 11/12/19 13:28 CK-MB (CK-2) 2.9 ng/mL (0.0-4.0) 11/12/19 13:28 CK-MB (CK-2) Rel Index 5.4 (0-4) H 11/12/19 13:28 Troponin T 0.050 ng/mL (0.00-0.029) H 11/12/19 13:28 NT-Pro-B Natriuret Pep 3636 pg/mL (0-900) H 11/12/19 02:57 Total Protein 5.9 g/dL (6.3-8.2) L 11/14/19 09:10 Albumin 3.3 g/dL (3.9-5) L 11/14/19 09:10 Albumin/Globulin Ratio 1.3 % 11/14/19 09:10 Triglycerides 85 mg/dL (2-149) 11/12/19 01:56 Cholesterol 131 mg/dL (50-199) 11/12/19 01:56 LDL Cholesterol Direct 66 mg/dL (50-130) 11/12/19 01:56 HDL Cholesterol 55 mg/dL (40-59) 11/12/19 01:56 Cholesterol/HDL Ratio 2.38 % 11/12/19 01:56 Urine Color Straw (Yellow) 11/12/19 01:35 Urine Turbidity Clear (Clear) 11/12/19 01:35 Urine pH 5.0 (5.0-7.0) 11/12/19 01:35 Ur Specific [place] 1.009 (1.003-1.030) 11/12/19 01:35 Urine Protein <15 mg/dl mg/dL (Negative) 11/12/19 01:35 Urine Glucose (UA) Neg mg/dL (Negative) 11/12/19 01:35 Urine Ketones Neg mg/dL (Negative) 11/12/19 01:35 Urine Blood Neg (Negative) 11/12/19 01:35 Urine Nitrite Neg (Negative) 11/12/19 01:35 Urine Bilirubin Neg (Negative) 11/12/19 01:35 Urine Urobilinogen < 2.0 mg/dL (<2.0) 11/12/19 01:35 Ur Leukocyte Esterase Neg (Negative) 11/12/19 01:35 Urine WBC (Auto) < 1.0 /HPF (0.0-6.0) 11/12/19 01:35 Urine RBC (Auto) < 1.0 /HPF (0.0-6.0) 11/12/19 01:35 U Epithel Cells (Auto) < 1.0 /HPF (0-13.0) 11/12/19 01:35 Urine Mucus Few /HPF 11/12/19 01:35 Urine Creatinine 71.6 mg/dL (0.1-20.0) H 11/14/19 18:45 Urine Sodium 22 mmol/L 11/14/19 18:45 Microbiology: Microbiology 11/12/19 02:45 Tracheal Aspirate Sputum Culture - Preliminary Gram Negative Miki Armendariz/IV: Voiding Method External Female Catheter IV Catheter Type [Right Peripheral IV Forearm] IV Catheter Type [Left Chest] INT / Saline Lock IV Catheter Type [Right INT / Saline Lock Antecubital] Active Medications - Current Medications Current Medications: Generic Name Dose Route Start Last Admin Trade Name Freq PRN Reason Stop Dose Admin Acetaminophen 650 mg 11/12/19 05:48 11/20/19 21:56 Tylenol PO 650 mg Q4H PRN Administration Pain MILD(1-3)/Fever >100.5/IRBY Lipase/Protease/Amylase 1 each 11/17/19 09:00 Pancreazvanesa Gardiner 10,500 Unit FEEDTUBE PRN PRN For Clogged Feeding Tube Apixaban 2.5 mg 11/13/19 22:00 11/21/19 09:58 Eliquis PO 2.5 mg Q12HR ALLEGRA Administration Protocol Arformoterol Tartrate 15 mcg 11/18/19 20:00 11/21/19 07:42 Brovana Nebu IH 15 mcg Q12HRT ALLEGRA Administration Budesonide 0.5 mg 11/18/19 20:00 11/21/19 07:42 Pulmicort IH 0.5 mg Q12HRT ALLEGRA Administration Dextrose 50 ml 11/13/19 13:10 11/17/19 18:00 D50w (25gm) Syringe IV 50 ml Q30MIN PRN Administration Hypoglycemia Protocol Diltiazem HCl 90 mg 11/16/19 12:00 11/21/19 05:34 Cardizem PO 90 mg Q6H ALLEGRA Administration Insulin Glargine 15 units 11/18/19 17:00 11/20/19 17:54 Lantus SUB-Q 15 units Q24H ALLEGRA Administration Insulin Human Lispro 0 unit 11/16/19 14:00 11/21/19 13:34 Humalog SUB-Q Not Given Q6HR [facility] Protocol Lansoprazole 30 mg 11/15/19 10:00 11/21/19 09:59 Prevacid Solutab FEEDTUBE 30 mg QDAY ALLEGRA Administration Ondansetron HCl 4 mg 11/12/19 05:48 11/20/19 21:57 Zofran IV 4 mg Q8H PRN Administration Nausea And Vomiting Prednisone 20 mg 11/17/19 12:04 11/21/19 09:59 Deltasone PO 20 mg QDAY ALLEGRA Administration Simple Syrup 15 ml 11/13/19 19:44 Simple Syrup FEEDTUBE PRN PRN Hypoglycemia Simple Syrup 30 ml 11/13/19 19:44 11/15/19 21:55 Simple Syrup FEEDTUBE 30 ml PRN PRN Administration Hypoglycemia Sodium Bicarbonate 325 mg 11/13/19 19:44 Sodium Bicarbonate FEEDTUBE PRN PRN For Clogged Feeding Tube Sodium Chloride 10 ml 11/12/19 10:00 11/21/19 09:59 Sodium Chloride Flush Syringe 10 Ml IV 10 ml BID ALLEGRA Administration Sodium Chloride 10 ml 11/12/19 05:48 Sodium Chloride Flush Syringe 10 Ml IV PRN PRN LINE FLUSH Nutrition/Malnutrition Assess - Dietary Evaluation Nutrition/Malnutrition Findings: Nutrition Notes Start: 11/13/19 08: 04 Freq: Status: Active Protocol: Document 11/21/19 12:31 LP (Rec: 11/21/19 12:34 LP [id number]) Nutrition Notes Initial or Follow up Reassessment Current Diagnosis CKD(stage I-IV),COPD,Decubitus (Pressure Ulcer),Diabetes, Hypertension,Heart Failure Other Pertinent Diagnosis Sacral wound Current Diet Nepro at 35ml/hr Labs/Tests Na 147 Pertinent Medications Reviewed Height 5 ft 4 in Weight 100.6 kg [place] Body Weight (kg) 54.54 BMI 38.0 Weight Status Obese Subjective/Other Information Pt tolerating TF at goal. Will increase flush. 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 No Is Patient Ambulatory and/or Out of Bed No REE-([facility]-confined to bed) 1759.668 Kcal/Kg value to use for calculation 16 Approximate Energy Requirements Using 1610 kcal/Kg Calculation Used for Recommendations Kcal/kg Additional Notes Protein: 69-129g (0.8-1.5g/kg using AdjBW 86kg) CKD and wounds Fluid needs are 1ml/kcal Nutrition Intervention Change Diet Order: TF Nutrition Support: Nepro 1.8 at 35ml/hr Flush 250ml q4h for hypernatremia Flush 150ml q4h Kcal 1,512 Protein (gm) 68 Fluid (mL) 611 Add Supplement/Snack (indicate name/kcal Reynold BID /protein ) Provides kCal: 190 Provides Protein (gm) 5 Goal #1 Meet at least 80% of kcal and protein needs Goal #2 Wound healing Anticipated Discharge Needs: Unable to determine at this time Follow-Up By: 11/28/19 Additional Comments Follow for stable TF
--- NOTE | 2019-11-21 13:42 | Discharge Summary ---
Providers - Providers Date of Admission: 11/12/19 06:47 Attending physician: STACEY VENEGAS MD 11/12/19 05:48 Consult to Physician [CONS] Routine Comment: Dr. Zambrano notified @ 09:00- [facility] Consulting Provider: DOMI ZAMBRANO Physician Instructions: Reason For Exam: cc 11/12/19 06:44 Consult to Wound/ET Nurse [CONS] Routine Reason For Exam: wound eval 11/13/19 19:44 Consult to Dietitian/Nutrition [CONS] Routine Physician Instructions: Reason For Exam: Reason for Consult: Write/Manage Tube Feeding Reason for Consult: Write/Manage Tube Feeding 11/14/19 12:50 Consult to Physician [CONS] Routine Comment: Consulting Provider: JESSICA KU Physician Instructions: Reason For Exam: renal failure 11/14/19 21:54 Speech Therapy Evaluation and Treat [CONS] Routine Reason For Exam: eval. swallowing and treat 11/15/19 09:30 Consult to Physician [CONS] Routine Comment: Consulting Provider: LORRAINE ROCHA Physician Instructions: Reason For Exam: CHF 11/15/19 14:46 Consult to Dietitian/Nutrition [CONS] Stat Physician Instructions: Reason For Exam: Reason for Consult: Write/Manage Tube Feeding Primary care physician: KEYBOARD TEACHER Hospitalization Reason for admission: volume overload Condition: Stable Hospital course: 79-year-old female with a history of COPD on home O2, diabetes, congestive heart failure, hypertension and atrial fibrillation presented to the ED in acute respiratory distress secondary to volume overload. Patient was able to be extubated today. Hospital course complicated by continued atrial fibrillation with rapid ventricular rate. Bedside swallow eval now to see if patient can swallow pills * Patient with two . Discussed with Medical records to merge 11/15: Patient seen by speech therapy today still with NG tube for dietary needs. Concerning for high risk of aspiration especially with intermittent increasing work of breathing. Lasix was held due to worsening renal function. Discussed with family about concern about swallow evaluation and if alternative means of therapy for nutrition should be considered for 2 weeks. Per case management family in the past has refused SNF will rediscuss also. Patient is nonambulatory. Plan discussed with pre press proofer 11/17/19: Continues on BIPAP, still not able to tolerate PO and still on Tube feed. will decrease dose of Lantus due to Hypoglycemia. Hold Lasix 11/18/19: Continues on BIPAP, lasix held due to renal function. BG increased some, lantus adjusted for better control. CXR ordered, awaiting Placement for LTAC 11/19/19: Continue monitoring, lasix still on hold, awaiting LTAC approval, will need gradual weaning and diuresis intermittent. creatinine down to 1.7 11/20/19: Will discuss with Pulmonary, about continue care, still awaiting LTAC, wean oxygen, consider High flow when not on BIPAP, creatnine continues to improve. Discussed with Nurse and family. 11/20: Patient tolerating high flow still recommend use of BiPAP during all hours of sleep. Still awaiting placement to LTAC for gradual wean. Eventually justice benítez may require PEG tube but at this time would like to give her the best chance of improving. Possibly also underlying COPD exacerbation being treated with steroids will continue steroids. Cardiology nephrology input appreciated. - Patient Problems (1) acute diastolic CHF exacerbation with preserved EF Current Visit: Yes Status: Acute Qualifiers: Heart failure type: unspecified Qualified Code(s): I50.9 - Heart failure, unspecified Plan to address problem: (2) Elevated troponin, Type 2 NSTEMI Current Visit: Yes Status: Acute Plan to address problem: Secondary to renal insufficiency (3) PNA (pneumonia) Current Visit: Yes Status: Acute Qualifiers: Pneumonia type: due to unspecified organism Laterality: unspecified laterality Lung location: unspecified part of lung Qualified Code(s): J18.9 - Pneumonia, unspecified organism Plan to address problem: No airspace disease or pleural effusion on follow-up chest x-ray this morning. Titrate antibiotics to off versus p.o. (4) Acute kidney injury likely secondary to vasomotor nephropathy Current Visit: Yes Status: Acute Qualifiers: Renal failure chronicity: acute Acute renal failure type: unspecified Qualified Code(s): N17.9 - Acute kidney failure, unspecified Plan to address problem: Patient renal failure BUN/creatinine consistent with prerenal azotemia. Versus ATN. Since congestive heart failure is improving. Will titrate down on diuretics to once a day. continue gentle rehydration. Lasix was decreased to 20 mg IV every 12. Continue to hold Lasix (5) Respiratory distress with hypoxia Current Visit: Yes Status: Acute Plan to address problem: Patient blood gases have improved. Potential extubation a day. Discussed plan with pulmonology. (6) COPD with acute exacerbation Current Visit: Yes Status: Acute Plan to address problem: Pulmonology consult. (7) Atrial fibrillation with rapid ventricular response Current Visit: Yes Status: Acute Plan to address problem: Patient continues to have atrial fibrillation with rapid ventricular rate. If patient able to tolerate p.o. we will start patient on Cardizem versus Lopressor. If not able to manage by mouth we will treat with Cardizem drip. Will consult cardiology (8) Morbid obesity Current Visit: Yes Status: Acute Plan to address problem: We will decrease caloric intake. (9) Diabetes mellitus with hyperglycemia Current Visit: Yes Status: Acute (10) HTN (hypertension) Current Visit: Yes Status: Chronic (11) Hyperlipidemia Current Visit: Yes Status: Chronic (12) History of CVA (cerebrovascular accident) Current Visit: Yes Status: Chronic (13) History of pulmonary embolism Current Visit: Yes Status: Chronic (14) Anemia Current Visit: Yes Status: Acute Will transfer to telemetry. Disposition: [id number] MEDICARE CERT [facility] Time spent for discharge: 35 mins Core Measure Documentation - Palliative Care Palliative Care/ Comfort Measures: Not Applicable - Core Measures Any of the following diagnoses?: heart failure - Heart Failure Discharge Requirements JOYCELYN/ARB for LVSD if EF <40%: Yes Beta molly at discharge: Yes Exam - Physical Exam Narrative exam: General appearance: Present: mild distress, well-nourished, morbidly Obese. - EENT Eyes: Present: PERRL, EOM intact ENT: hearing intact, clear oral mucosa - Respiratory Respiratory: bilateral: rhonchi, Increased WOB - Cardiovascular Rhythm: regular Heart Sounds: Present: S1 & S2, irregularly irregular - Extremities Extremities: no ischemia, pulses intact, pulses symmetrical Peripheral Pulses: within normal limits - Abdominal General gastrointestinal: soft, non-tender, distended, hypoactive bowel sounds - Integumentary Integumentary: Present: clear, warm, dry - Psychiatric Psychiatric: appropriate mood/affect, intact judgment & insight, memory intact - Neurologic Neurologic: CNII-XII intact - Constitutional Vitals: Temp Pulse Resp BP Pulse Ox 97.1 F L 81 19 128/74 99 11/21/19 11:00 11/21/19 11:00 11/21/19 11:00 11/21/19 11:00 11/21/19 11:00 Plan Activity: advance as tolerated, fall precautions Diet: per dietitian instruction Special Instructions: record daily weights, record daily BP diary Follow up with: PRIMARY CARE, [Primary Care Provider] - 7 Days
[2019-11-21] MEDS: INSULIN GLARGINE 100 UNITS/ML SUB-Q SCH (17:38)
[2019-11-21] MEDS: ACETAMINOPHEN 325 MG TAB PO PRN (22:09)
[2019-11-22] MEDS: INSULIN LISPRO 100 UNIT/ML SUB-Q SCH ×2 (00:19→06:42)
[2019-11-22 04:08] VITALS: BP 147/60
== END 2019-11-22 07:00 | DRG 208 ==
LOC: EDBD 01:10 → ED 01:10 → CC1 06:47 → 4A 11-15 22:58
PROVIDERS: ADMIT Internal Medicine; ATTEND Internal Medicine
PROC: 5A1945Z Respiratory Ventilation, 24-96 Consecutive Hours (ICD-10-PCS; principal; 2019-11-12)
PROC: 0BH17EZ Insertion of Endotracheal Airway into Trachea, Via Natural or Artificial Opening (ICD-10-PCS; 2019-11-12)
PROC: 4A033R1 Measurement of Arterial Saturation, Peripheral, Percutaneous Approach (ICD-10-PCS; 2019-11-12)
PROC: 5A09357 Assistance with Respiratory Ventilation, Less than 24 Consecutive Hours, Continuous Positive Airway Pressure (ICD-10-PCS; 2019-11-16)
PROC: 5A09357 Assistance with Respiratory Ventilation, Less than 24 Consecutive Hours, Continuous Positive Airway Pressure (ICD-10-PCS; 2019-11-17)
PROC: 5A09357 Assistance with Respiratory Ventilation, Less than 24 Consecutive Hours, Continuous Positive Airway Pressure (ICD-10-PCS; 2019-11-18)
PROC: 5A09357 Assistance with Respiratory Ventilation, Less than 24 Consecutive Hours, Continuous Positive Airway Pressure (ICD-10-PCS; 2019-11-19)
PROC: 5A09357 Assistance with Respiratory Ventilation, Less than 24 Consecutive Hours, Continuous Positive Airway Pressure (ICD-10-PCS; 2019-11-20)
PROC: 5A09357 Assistance with Respiratory Ventilation, Less than 24 Consecutive Hours, Continuous Positive Airway Pressure (ICD-10-PCS; 2019-11-22)
DX: J96.21 Acute and chronic respiratory failure with hypoxia (principal); J18.9 Pneumonia, unspecified organism; N17.0 Acute kidney failure with tubular necrosis; I21.A1 Myocardial infarction type 2; I50.33 Acute on chronic diastolic (congestive) heart failure; J44.0 Chronic obstructive pulmonary disease with (acute) lower respiratory infection; I13.0 Hypertensive heart and chronic kidney disease with heart failure and stage 1 through stage 4 chronic kidney disease, or unspecified chronic kidney disease; E87.0 Hyperosmolality and hypernatremia; J44.1 Chronic obstructive pulmonary disease with (acute) exacerbation; I48.19 Other persistent atrial fibrillation; N18.9 Chronic kidney disease, unspecified; E66.01 Morbid (severe) obesity due to excess calories; E11.22 Type 2 diabetes mellitus with diabetic chronic kidney disease; E11.649 Type 2 diabetes mellitus with hypoglycemia without coma; E11.65 Type 2 diabetes mellitus with hyperglycemia; E66.9 Obesity, unspecified; E87.5 Hyperkalemia; R13.12 Dysphagia, oropharyngeal phase; E78.2 Mixed hyperlipidemia; M19.90 Unspecified osteoarthritis, unspecified site; Z68.38 Body mass index [BMI] 38.0-38.9, adult; Z86.73 Personal history of transient ischemic attack (TIA), and cerebral infarction without residual deficits; Z86.711 Personal history of pulmonary embolism; Z82.49 Family history of ischemic heart disease and other diseases of the circulatory system; Z79.899 Other long term (current) drug therapy
CPT/HCPCS: 36415; 36600; 71045; 71275; 74018; 76770; 80048; 80053; 80061; 81001; 82140; 82550; 82553; 82570; 82803; 82947; 82962; 83735; 83880; 84100; 84300; 84484; 85007; 85025; 85027; 85610; 85730; 87040; 87070; 87086; 87186; 87205; 93005; 94002; 94003; 94640; 94660; 94760; G0378; C9113; J0692; J1650; J1815; J1940; J2405; J2543; J2920; J2930; J3010; J3370; J7040; J7512; Q9967